=== PATIENT | female | born 1965 | race Caucasian/White ===

== ENCOUNTER → 2016-08-24 | Outpatient (CLI) | payer OTHER ==
[~2016-08-24] MED LIST: /ESCI10TA PO; /HCTZ25TA PO; /QUET10TA PO; ADDE20TA PO; BACL10TA2 PO; CLON0.5T PO; COLA100C PO; CYMB1CAP5 PO; FENO145T PO; GABA100C PO; GEMF600T PO; HYDR-3363 PO; INSUDET SC; INSUH10VL INJ; K-TA10TA2 PO; LIPI80TA PO; LOSA25TA8 PO; LYRI300C PO; LYRI75CA PO; MORP15TA2 PO; NUCY100T11 PO; OXYC15TA76 PO; OXYC1TAB23 PO; OXYC5TAB2 PO; PAXI20TA3 PO; PRAZ1CAP PO; REQU5TAB PO; SERO200T PO; SERT-141 PO; SOMA350T PO; TOPA50TA PO; ULTR50TA PO; VITA500047 PO; XANA0.5T PO; ZANA4TAB PO; ZOLO50TA PO; potassium PO
--- NOTE | 2016-09-01 00:31 | ECWPNPC ---
PATIENT NAME: KOFFI TURCIOS : 1965 GENDER: FEMALE VISIT DATE: 08/24/2016 DISCHARGE DATE: 08/24/16 1445 VISIT LOCKED DATE TIME: PHYSICIAN: VONNIE YEBOAH RESOURCE: VONNIE YEBOAH REASON FOR APPOINTMENT 1. BACK/LEG HISTORY OF PRESENT ILLNESS HISTORY OF PRESENT ILLNESS: PAIN THE PATIENT DESCRIBES THE PAIN... THE PATIENT DESCRIBES THE PAIN... THE PATIENT DESCRIBES THE PAIN... THE PATIENT DESCRIBES THE PAIN... THE PATIENT DESCRIBES THE PAIN... HERE FOR F/U AND MANAGEMENT OF GENERALIZED BACK PAIN AND BILAT. LEG PAIN.RATING PAIN VAS 5/10. CURRENTLY USING OXYCODONE 5/325,LYRICA 200MG BID AND ZANAFLEX 4MG PRN FOR SEVERE PAIN.CONTINUES SEVERE MUSCLE SPASMS IN LEGS DESPITE ZANAFLEX. TRIALED REQUIP AND NO IMPROVEMENT IN PAIN.TODAY REPORTS SEVERE INCREASE IN RIGHT LEG AND THIGH TODAY X ONE WEEK PAIN AGGREVATED BY PROLONGED SITTING OR STANDING. FALLING FREQUENTLY LATELY.FEELS LEGS BECOME WEAK. FALL RISK SCREENING: SCREENING :NO FALLS IN THE PAST YEAR CURRENT MEDICATIONS TAKING CYMBALTA 60 MG 1 TABLET PO ONCE DAILY TAKING FENOFIBRATE 145 MG TABLET 1 TABLET ORALLY ONCE A DAY TAKING HYDROCHLOROTHIAZIDE 25 25 MG TABLET ORAL ONCE DAILY TAKING NOVOLOG MIX 1 INJECTION 1 SUBCUTANEOUSLY ON SLIDING SCALE TAKING LOSARTAN/AMLODIPINE 25 MG 1 TAB ORAL ONCE DAILY TAKING POTASSIUM CHLORIDE 20 TABLET P.O. DAILY TAKING VITAMIN D (ERGOCALCIFEROL) 28522 UNIT CAPSULE 1 CAPSULE ORALLY WEEKLY TAKING METFORMIN 1 TAB 1000 MG ORAL BID TAKING TOUJEO INSULIN INJECTION 300 ML 90 UNITS TWICE DAILY TAKING LYRICA 200 MG CAPSULE 1 CAPSULE ORALLY TWICE A DAY MDD2 TAKING COLACE 100 MG CAPSULE 1 CAPSULE NEEDED ORALLY BID, NOTES: O TAKING PERCOCET 5-325 MG TABLET 1 TABLET NEEDED ORALLY Q4-6H MDD5 TAKING ZANAFLEX 4 MG TABLET 1 TABLET NEEDED ORALLY Q8H PRN MUSCLE SPASM PAIN TAKING JARDIANCE 25 MG TABLET 1 TABLET ORALLY ONCE A DAY TAKING ESCITALOPRAM OXALATE 10 MG TABLET 1 TABLET ORALLY ONCE A DAY TAKING TANZEUM 30 MG PEN-INJECTOR SUBCUTANEOUS NOT-TAKING VITAMIN D 83410 U TABLET ORALLY WEEKLY NOT-TAKING ATARAX TABLET ORAL NOT-TAKING LEVEMIR FLEX TOUCH 99 INJECTION SQ QHS NOT-TAKING LEVEMIR FLEX TOUCH 90 INJECTION UNITS SQ QD NOT-TAKING CUSTOM DO NOT USE OXYCODONE 5.325 MG TABLETS 1 CAP(S) P.O. EVERY 4-6 HOURS NEEDED FOR PAIN, MAXIMUM 5 TABLETS PER DAY NOT-TAKING ZOLOFT 100 MG TABLET 1 TABLET ORALLY ONCE A DAY NOT-TAKING ZOLOFT 100 MG TABLET 1 TABLET ORALLY ONCE A DAY MEDICATION LIST REVIEWED AND RECONCILED WITH THE PATIENT PAST MEDICAL HISTORY DIABETES MALLITUS DEPRESSION ANXIETY PTSD BACK PAIN LEG PAIN SOCIAL ANXIETY ADHD ALLERGIES SULFA (FOR ALLERGY USE ONLY): HIVES: ALLERGY MORPHINE SULFATE: INCREASED ANXIETY: ALLERGY SOCIAL HISTORY GENERAL: TOBACCO USE ARE YOU A:NONSMOKER LEARNING BARRIERS / SPECIAL NEEDS ORIENTED TO PLAN OF CARE: PATIENT, PAIN MANAGEMENT PATIENT, ORIENTED TO PLAN OF CARE: PATIENT, PAIN MANAGEMENT PATIENT. NEW PATIENT PAIN DIARY TODAY'S VISITNOTES FROM 0-10, WHAT LEVEL IS YOUR PAIN TODAY?0 PAIN CLINIC PFS, CLERGY, PUBLIC HEALTH REFERRALS PFS REFERRAL NEEDED?NO CLERGY REFERRAL NEEDED?NO PUBLIC HEALTH REFERRAL NEEDED?NO WAS THE PROVIDER NOTIFIED OF ANY PERTINENT INFO?NO PFS REFERRAL NEEDED?NO CLERGY REFERRAL NEEDED?NO PUBLIC HEALTH REFERRAL NEEDED?NO WAS THE PROVIDER NOTIFIED OF ANY PERTINENT INFO?NO REVIEW OF SYSTEMS CONSTITUTIONAL: ANY CHANGE IN YOUR MEDICAL CONDITION? NO . CHILLS NO . FEVER NO . INFECTION: DO YOU HAVE NEW INFECTIONS? NO . DO YOU HAVE HISTORY OF MRSA? NO . MUSCULOSKELETAL: ANY NEW PATTERNS OF PAIN OR NUMBNESS? YES NUMBNESS GOING DOWN TO MY TOES NOW . GASTROENTEROLOGY: ANY NEW CHANGE IN BOWEL CONTROL? NO . GENITOURINARY: ANY NEW CHANGE IN BLADDER CONTROL? NO . IS THERE A CHANCE YOU COULD BE ? NO . HEMATOLOGY/LYMPH: DO YOU TAKE ANY BLOOD THINNERS? (FOR EXAMPLE- COUMADIN, PLAVIX, AGGRENOX, PLATEL, PRADAXA, OR XARELTO) NO . WHEN WAS YOUR LAST DOSE? DATE: TIME: . NEUROLOGY: HAVE YOU FALLEN IN THE PAST 6 MONTHS? YES . ANY NEW EXTREMITY NUMBNESS OR WEAKNESS? NO . CARDIOLOGY: DO YOU HAVE A PACEMAKER OR DEFIBRILLATOR? NO . RESPIRATORY: HAVE YOU BEEN SICK IN THE PAST WEEK? NO . FEVER NO . FLU LIKE SYMPTOMS? NO . COUGH NO . INTEGUMENTARY: DO YOU HAVE ANY RASHES OR OPEN SORES? NO . ALLERGIC/IMMUNO: ARE YOU ALLERGIC TO SHELLFISH OR IV DYE? NO . ANY NEW ALLERGIES? NO . PSYCHIATRIC: DO YOU HAVE THOUGHTS OF HURTING YOURSELF OR SOMEONE ELSE? NO . ARE YOU ABUSED, NEGLECTED, OR IN AN UNSAFE ENVIRONMENT? NO . ENDOCRINOLOGY: ARE YOU DIABETIC? YES NEW MEDICATIONS ADDED THIS VISIT . OTHER: DO YOU NEED ANY PRESCRIPTIONS? NO . IF YES, PLEASE LIST: ____ . ANY NEW PROBLEMS WITH YOUR MEDICATIONS? NO . WHEN DID YOU LAST EAT? ____ . WHEN DID YOU LAST DRINK? ____ . WHAT DID YOU LAST DRINK? ____ . NAME OF PERSON DRIVING YOU HOME? ____ . DO YOU HAVE ANY OTHER QUESTIONS OR CONCERNS NO . REVIEWED BY: PROVIDER: VONNIE SINGH . VITAL SIGNS WT 225 LBS, HT 63.5", BMI 39.23 INDEX, BP 152/72 MM HG, HR 110 /MIN, RR 18 /MIN, TEMP 97 F,6 F, OXYGEN SAT % 96, REVIEWED BY: KG. EXAMINATION LUMBAR SPINE/LOWER BACK: LOWER BACK:THERE IS TENDERNESS AT LOWER BACK AND THE PARA SPINAL MUSCLE GROUP. INSPECTION:LIMITED RANGE OF MOTION IN ALL DIRECTIONS; STANDING FORWARD. PALPATION:VERTEBRAL SPINE TENDERNESS.SPECIFIC POINT TENDERNESS OVER RSIJ NOTED.. SENSORY EXAM:NORMAL SOFT TOUCH. REFLEXES:2/4 AND SYMMETRIC BLE. GAIT:NORMAL. ASSESSMENTS CHRONIC BILATERAL LOW BACK PAIN WITH RIGHT-SIDED SCIATICA - M54.41 (PRIMARY) DIABETIC PERIPHERAL ANGIOPATHY - E11.51 CHRONIC PRESCRIPTION OPIATE USE - Z79.891 TREATMENT CHRONIC BILATERAL LOW BACK PAIN WITH RIGHT-SIDED SCIATICA REFILL ZANAFLEX CAPSULE, 6 MG, 1 TABLET NEEDED, ORALLY, Q8H PRN MUSCLE SPASM PAIN, 30 DAY(S), 90, REFILLS 2 REFILL PERCOCET TABLET, 5-325 MG, 1 TABLET NEEDED, ORALLY, Q4-6H MDD5, 30 DAY(S), 150, REFILLS 0 CONTINUE COLACE CAPSULE, 100 MG, 1 CAPSULE NEEDED, ORALLY, BID, NOTES: O NOTES: ISTOP REGISTRY REVIEWED AND DEMNOSTRATES COMPLLIANCE. BRINGS IN MEDICATIONS WHICH IS APPROPRIATE FOR WHAT WAS DISPENSED. RECENT URINE TOXICOLOGY REVIEWED. NO UNAUTHORIZED MEDICATIONS. NO ILLICIT SUBSTANCES AND PRESCRIBED MEDICATIONS WERE PRESENT. , RISKS AND BENEFITS OF NARCOTIC/OPIOD MEDICATIONS WERE REVIEWED WITH PATIENT - THIS INCLUDES BUT IS NOT LIMITED TO RISK OF DEPENDANCE/DEVELOPMENT OF ADDICTION, MOOD DISTURBANCE AND DEPRESSION, OSTEOPOROSIS, HORMONAL AND LABIDAL CHANGES, RESPIRATORY DEPRESSION AND . PATIENT IS ADVISED NOT TO DRIVE WHILE ON THESE MEDICATIONS.URINE TOX TODAY. PROCEDURE CODES FA211 ESTABILISHED PATIENT [facility] CHARGE DISPOSITION & COMMUNICATION FOLLOW UP 3 MONTHS ELECTRONICALLY SIGNED BY SAMANTHA LARES ON 08/30/2016 AT 05:03 PM EST DISCLAIMER : THIS IS A VISIT SUMMARY EXTRACTED FROM THE [employer] CHART. IT IS NOT A COPY OF THE [employer] PROGRESS NOTE. ROSSY
== END ==
LOC: M PAIN 14:20
PROVIDERS: ATTEND Nurse Practitioner Family
DX: M54.41 Lumbago with sciatica, right side (principal); E11.51 Type 2 diabetes mellitus with diabetic peripheral angiopathy without gangrene; G89.29 Other chronic pain; Z79.891 Long term (current) use of opiate analgesic; Z79.4 Long term (current) use of insulin; Z79.84 Long term (current) use of oral hypoglycemic drugs; F32.9 Major depressive disorder, single episode, unspecified; F41.9 Anxiety disorder, unspecified; F43.10 Post-traumatic stress disorder, unspecified; F90.9 Attention-deficit hyperactivity disorder, unspecified type; Z88.2 Allergy status to sulfonamides; Z88.5 Allergy status to narcotic agent

== ENCOUNTER → 2016-12-29 | Outpatient (CLI) | payer OTHER ==
[~2016-12-29] MED LIST changes: -COLA100C PO; +COLA100C3 PO
--- NOTE | 2016-12-30 00:23 | ECWPNPC ---
PATIENT NAME: KOFFI TURCIOS : 1965 GENDER: FEMALE VISIT DATE: 12/29/2016 DISCHARGE DATE: 12/29/16 0939 VISIT LOCKED DATE TIME: PHYSICIAN: VONNIE YEBOAH RESOURCE: VONNIE YEBOAH REASON FOR APPOINTMENT 1. BACK HISTORY OF PRESENT ILLNESS HISTORY OF PRESENT ILLNESS: PAIN THE PATIENT DESCRIBES THE PAIN... THE PATIENT DESCRIBES THE PAIN... THE PATIENT DESCRIBES THE PAIN... THE PATIENT DESCRIBES THE PAIN... THE PATIENT DESCRIBES THE PAIN... THE PATIENT DESCRIBES THE PAIN... PAIN THE PATIENT DESCRIBES THE PAIN... THE PATIENT DESCRIBES THE PAIN... THE PATIENT DESCRIBES THE PAIN... THE PATIENT DESCRIBES THE PAIN... THE PATIENT DESCRIBES THE PAIN... THE PATIENT DESCRIBES THE PAIN... HERE FOR F/U AND MANAGEMENT OF GENERALIZED BACK PAIN AND BILAT. LEG PAIN.RATING PAIN VAS 5/10. CURRENTLY USING OXYCODONE 5/325,LYRICA 200MG BID AND ZANAFLEX 4MG PRN FOR SEVERE PAIN.CONTINUES SEVERE MUSCLE SPASMS IN LEGS DESPITE ZANAFLEX. TRIALED REQUIP AND NO IMPROVEMENT IN PAIN.TODAY REPORTS SEVERE INCREASE IN RIGHT LEG AND THIGH TODAY X ONE WEEK PAIN AGGREVATED BY PROLONGED SITTING OR STANDING. FALLING FREQUENTLY LATELY.FEELS LEGS BECOME WEAK. FALL RISK SCREENING: SCREENING :NO FALLS IN THE PAST YEAR CURRENT MEDICATIONS TAKING CYMBALTA 60 MG 1 TABLET PO ONCE DAILY TAKING FENOFIBRATE 145 MG TABLET 1 TABLET ORALLY ONCE A DAY TAKING HYDROCHLOROTHIAZIDE 25 25 MG TABLET ORAL ONCE DAILY TAKING NOVOLOG MIX 1 INJECTION 1 SUBCUTANEOUSLY ON SLIDING SCALE TAKING LOSARTAN/AMLODIPINE 25 MG 1 TAB ORAL ONCE DAILY TAKING POTASSIUM CHLORIDE 20 TABLET 1 TAB P.O. DAILY TAKING VITAMIN D (ERGOCALCIFEROL) 30561 UNIT CAPSULE 1 CAPSULE ORALLY WEEKLY TAKING METFORMIN 2 TAB 1000 MG ORAL BID TAKING TOUJEO INSULIN INJECTION 300 ML 90 UNITS TWICE DAILY TAKING JARDIANCE 25 MG TABLET 1 TABLET ORALLY ONCE A DAY TAKING ESCITALOPRAM OXALATE 10 MG TABLET 1 TABLET ORALLY ONCE A DAY TAKING TANZEUM 50 MG PEN-INJECTOR SUBCUTANEOUS EVERY MONDAY TAKING COLACE 100 MG CAPSULE 1 CAPSULE NEEDED ORALLY BID TAKING LYRICA 200 MG CAPSULE 1 CAPSULE ORALLY TWICE A DAY MDD2 TAKING PERCOCET 5-325 MG TABLET 1 TABLET NEEDED ORALLY Q4-6H MDD5 TAKING TIZANIDINE HCL 4 MG TABLET 2 ORALLY THREE TIMES A DAY NOT-TAKING VITAMIN D 95904 U TABLET ORALLY WEEKLY NOT-TAKING ATARAX TABLET ORAL NOT-TAKING LEVEMIR FLEX TOUCH 99 INJECTION SQ QHS NOT-TAKING LEVEMIR FLEX TOUCH 90 INJECTION UNITS SQ QD NOT-TAKING CUSTOM DO NOT USE OXYCODONE 5.325 MG TABLETS 1 CAP(S) P.O. EVERY 4-6 HOURS NEEDED FOR PAIN, MAXIMUM 5 TABLETS PER DAY NOT-TAKING ZOLOFT 100 MG TABLET 1 TABLET ORALLY ONCE A DAY NOT-TAKING ZOLOFT 100 MG TABLET 1 TABLET ORALLY ONCE A DAY MEDICATION LIST REVIEWED AND RECONCILED WITH THE PATIENT PAST MEDICAL HISTORY DIABETES MALLITUS DEPRESSION ANXIETY PTSD BACK PAIN LEG PAIN SOCIAL ANXIETY ADHD ALLERGIES SULFA (FOR ALLERGY USE ONLY): HIVES: ALLERGY MORPHINE SULFATE: INCREASED ANXIETY: ALLERGY SOCIAL HISTORY GENERAL: TOBACCO USE ARE YOU A:NONSMOKER LEARNING BARRIERS / SPECIAL NEEDS ORIENTED TO PLAN OF CARE: PATIENT, PAIN MANAGEMENT PATIENT, ORIENTED TO PLAN OF CARE: PATIENT, PAIN MANAGEMENT PATIENT. NEW PATIENT PAIN DIARY TODAY'S VISITNOTES FROM 0-10, WHAT LEVEL IS YOUR PAIN TODAY?0 PAIN CLINIC PFS, CLERGY, PUBLIC HEALTH REFERRALS PFS REFERRAL NEEDED?NO CLERGY REFERRAL NEEDED?NO PUBLIC HEALTH REFERRAL NEEDED?NO WAS THE PROVIDER NOTIFIED OF ANY PERTINENT INFO?NO HAS THE PATIENT BEEN EDUCATED REGARDING HIS/HER PLAN OF CARE?YES HAS THE PATIENT BEEN EDUCATED REGARDING PAIN, THE RISK FOR PAIN, THE IMPORTANCE OF EFFECTIVE PAIN MANAGEMENT, AND THE PAIN ASSESSMENT PROCESS?YES REVIEW OF SYSTEMS CONSTITUTIONAL: ANY CHANGE IN YOUR MEDICAL CONDITION? NO . CHILLS NO . FEVER NO . INFECTION: DO YOU HAVE NEW INFECTIONS? NO . DO YOU HAVE HISTORY OF MRSA? NO . MUSCULOSKELETAL: ANY NEW PATTERNS OF PAIN OR NUMBNESS? YES, BURNING IN ANKLES . GASTROENTEROLOGY: ANY NEW CHANGE IN BOWEL CONTROL? NO . GENITOURINARY: ANY NEW CHANGE IN BLADDER CONTROL? NO . IS THERE A CHANCE YOU COULD BE ? NO . HEMATOLOGY/LYMPH: DO YOU TAKE ANY BLOOD THINNERS? (FOR EXAMPLE- COUMADIN, PLAVIX, AGGRENOX, PLATEL, PRADAXA, OR XARELTO) NO . WHEN WAS YOUR LAST DOSE? DATE: TIME: . NEUROLOGY: HAVE YOU FALLEN IN THE PAST 6 MONTHS? YES . ANY NEW EXTREMITY NUMBNESS OR WEAKNESS? NO . CARDIOLOGY: DO YOU HAVE A PACEMAKER OR DEFIBRILLATOR? NO . RESPIRATORY: HAVE YOU BEEN SICK IN THE PAST WEEK? NO . FEVER NO . FLU LIKE SYMPTOMS? NO . COUGH NO . INTEGUMENTARY: DO YOU HAVE ANY RASHES OR OPEN SORES? YES, 2 AREAS ON RIGHT THIGH AND SPOT ON LEFT ANKLE . ALLERGIC/IMMUNO: ARE YOU ALLERGIC TO SHELLFISH OR IV DYE? NO . ANY NEW ALLERGIES? NO . PSYCHIATRIC: DO YOU HAVE THOUGHTS OF HURTING YOURSELF OR SOMEONE ELSE? NO . ARE YOU ABUSED, NEGLECTED, OR IN AN UNSAFE ENVIRONMENT? NO . ENDOCRINOLOGY: ARE YOU DIABETIC? YES . OTHER: DO YOU NEED ANY PRESCRIPTIONS? YES . IF YES, PLEASE LIST: OXYCODONE NEED FILLED ON THE . ANY NEW PROBLEMS WITH YOUR MEDICATIONS? NO . WHEN DID YOU LAST EAT? ____ . WHEN DID YOU LAST DRINK? ____ . WHAT DID YOU LAST DRINK? ____ . NAME OF PERSON DRIVING YOU HOME? ____ . DO YOU HAVE ANY OTHER QUESTIONS OR CONCERNS YES, &QUOT;I HAVE BURNING IN MY ANKLES FEEL LIKE FIRE&QUOT; . REVIEWED BY: PROVIDER: VONNIE SINGH . VITAL SIGNS WT 221.6 LBS, HT 63.5", BMI 38.63 INDEX, BP 160/89 MM HG, HR 105 /MIN, RR 18 /MIN, TEMP 97.5 F, OXYGEN SAT % 95%, REVIEWED BY: HOME (DONE AT 0854). EXAMINATION LUMBAR SPINE/LOWER BACK: LOWER BACK:THERE IS TENDERNESS AT LOWER BACK AND THE PARA SPINAL MUSCLE GROUP. INSPECTION:LIMITED RANGE OF MOTION IN ALL DIRECTIONS; STANDING FORWARD. PALPATION:VERTEBRAL SPINE TENDERNESS.SPECIFIC POINT TENDERNESS OVER RSIJ NOTED.. SENSORY EXAM:NORMAL SOFT TOUCH. REFLEXES:2/4 AND SYMMETRIC BLE. GAIT:NORMAL. SKIN EXAM: EXTREMITIES:RIGHT LEG/THIGH-2-3 , ERYTHEMATOUS PATCH WITH SCALY SURFACE 3CM CIRCULAR. GENERAL EXAMINATION: BACK:MULTIPLE AREAS OF TENDER SPOTS OVER ENTIRE BODY,UPPER AND LOWER TORSO INDICATIVE OF FIBROMYALGIA.. 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 BRINGS IN MEDICATIONS WHICH IS APPROPRIATE FOR WHAT WAS DISPENSED. RECENT URINE TOXICOLOGY REVIEWED. NO UNAUTHORIZED MEDICATIONS. NO ILLICIT SUBSTANCES AND PRESCRIBED MEDICATIONS WERE PRESENT. , RISKS AND BENEFITS OF NARCOTIC/OPIOD MEDICATIONS WERE REVIEWED WITH PATIENT - THIS INCLUDES BUT IS NOT LIMITED TO RISK OF DEPENDANCE/DEVELOPMENT OF ADDICTION, MOOD DISTURBANCE AND DEPRESSION, OSTEOPOROSIS, HORMONAL AND LABIDAL CHANGES, RESPIRATORY DEPRESSION AND . PATIENT IS ADVISED NOT TO DRIVE WHILE ON THESE MEDICATIONS. LABWORK-MONICA,RHEUMATOID FACTOR,LUPUS ANTICOAGULANT,ESR,FREE T4,LYME TITER. PREVENTIVE MEDICINE PAIN CLINIC TEACHING: MEDICATIONS INFORMATION GIVEN ABOUT AMITRIPTYLINE. PROCEDURE CODES FA211 ESTABILISHED PATIENT [facility] CHARGE DISPOSITION & COMMUNICATION FOLLOW UP 2 MONTHS ELECTRONICALLY SIGNED BY SAMANTHA LARES ON 12/29/2016 AT 10:34 AM EDT DISCLAIMER : THIS IS A VISIT SUMMARY EXTRACTED FROM THE [employer] CHART. IT IS NOT A COPY OF THE [employer] PROGRESS NOTE. ROSSY
== END ==
LOC: M PAIN 09:00
PROVIDERS: ATTEND Nurse Practitioner Family
DX: G89.29 Other chronic pain (principal); M54.41 Lumbago with sciatica, right side; E11.42 Type 2 diabetes mellitus with diabetic polyneuropathy; M79.7 Fibromyalgia; M79.604 Pain in right leg; M79.605 Pain in left leg; F32.9 Major depressive disorder, single episode, unspecified; F41.9 Anxiety disorder, unspecified; F43.10 Post-traumatic stress disorder, unspecified; F40.10 Social phobia, unspecified; F90.9 Attention-deficit hyperactivity disorder, unspecified type; Z88.2 Allergy status to sulfonamides; Z88.5 Allergy status to narcotic agent; Z79.4 Long term (current) use of insulin; Z79.84 Long term (current) use of oral hypoglycemic drugs; Z79.891 Long term (current) use of opiate analgesic; Z79.899 Other long term (current) drug therapy

== ENCOUNTER → 2016-12-29 | Outpatient (CLI) | payer OTHER ==
[~2016-12-29] MED LIST changes: -COLA100C3 PO; +COLA100C5 PO
[2016-12-29 11:01] LABS: FREE T4 0.97 NG/DL (0.76-1.46)
[2016-12-31 14:11] LABS: Lyme Disease IgG/IgM Antibodie <0.91 ISR (0.00-0.90); Lyme Disease IgM Ab Quantitati <0.80 index (0.00-0.79)
== END ==
LOC: M LAB 10:05
PROVIDERS: ATTEND Nurse Practitioner Family
DX: M79.7 Fibromyalgia (principal); M54.41 Lumbago with sciatica, right side

== ENCOUNTER → 2017-10-09 | Outpatient (CLI) | payer OTHER | LOC: M PAIN 09:00 | DX: M54.41 Lumbago with sciatica, right side (principal); M79.7 Fibromyalgia; E11.9 Type 2 diabetes mellitus without complications; F32.9 Major depressive disorder, single episode, unspecified; F40.10 Social phobia, unspecified; F43.10 Post-traumatic stress disorder, unspecified; Z79.4 Long term (current) use of insulin; Z79.891 Long term (current) use of opiate analgesic; Z79.899 Other long term (current) drug therapy; Z88.2 Allergy status to sulfonamides; Z88.5 Allergy status to narcotic agent | CPT/HCPCS: G0463 ==

== ENCOUNTER → 2017-11-10 | Outpatient (CLI) | payer OTHER | END | disposition home or self-care (01) | LOC: M PAIN 10:30 | DX: G89.29 Other chronic pain (principal); M54.41 Lumbago with sciatica, right side; M79.7 Fibromyalgia; E11.9 Type 2 diabetes mellitus without complications; F33.9 Major depressive disorder, recurrent, unspecified; F41.9 Anxiety disorder, unspecified; F43.10 Post-traumatic stress disorder, unspecified; F90.9 Attention-deficit hyperactivity disorder, unspecified type; Z79.899 Other long term (current) drug therapy; Z79.4 Long term (current) use of insulin; Z88.2 Allergy status to sulfonamides; Z88.5 Allergy status to narcotic agent | CPT/HCPCS: G0463 ==

== ENCOUNTER → 2018-01-16 | Outpatient (CLI) | payer OTHER | LOC: M PAIN 10:45 | DX: M54.41 Lumbago with sciatica, right side (principal); E11.9 Type 2 diabetes mellitus without complications; F32.9 Major depressive disorder, single episode, unspecified; F40.10 Social phobia, unspecified; F43.10 Post-traumatic stress disorder, unspecified; Z79.01 Long term (current) use of anticoagulants; Z79.4 Long term (current) use of insulin; Z79.899 Other long term (current) drug therapy; Z88.2 Allergy status to sulfonamides; Z88.5 Allergy status to narcotic agent | CPT/HCPCS: G0463 ==

== ENCOUNTER → 2018-03-20 | Outpatient (CLI) | payer OTHER | LOC: M PAIN 08:45 | DX: M54.41 Lumbago with sciatica, right side (principal); M54.2 Cervicalgia; E11.9 Type 2 diabetes mellitus without complications; F32.9 Major depressive disorder, single episode, unspecified; F40.10 Social phobia, unspecified; F43.10 Post-traumatic stress disorder, unspecified; Z79.4 Long term (current) use of insulin; Z79.899 Other long term (current) drug therapy; Z88.2 Allergy status to sulfonamides; Z88.5 Allergy status to narcotic agent | CPT/HCPCS: G0463 ==

== ENCOUNTER → 2018-05-21 | Outpatient (CLI) | payer OTHER | LOC: M PAIN 08:45 | DX: M54.41 Lumbago with sciatica, right side (principal); E11.9 Type 2 diabetes mellitus without complications; F32.9 Major depressive disorder, single episode, unspecified; F40.10 Social phobia, unspecified; F43.10 Post-traumatic stress disorder, unspecified; Z79.4 Long term (current) use of insulin; Z79.82 Long term (current) use of aspirin; Z79.899 Other long term (current) drug therapy; Z88.2 Allergy status to sulfonamides; Z88.5 Allergy status to narcotic agent | CPT/HCPCS: G0463 ==

== ENCOUNTER 2018-06-03 13:58 | Emergency (ER) | payer OTHER ==
[2018-06-03] MEDS: NS 500 ML IV ×2 (15:12)
[2018-06-03] MEDS: NALOXONE INJ 0.4 MG/1 ML VIAL (J2310) IV ×2 (15:17)
[2018-06-03] MEDS: fentaNYL 100 MCG/2 ML INJECTION (J3010) IV ×2 (17:15)
[2018-06-03] MEDS: ONDANSETRON 4MG/2ML VIAL (J2405) IV ×2 (17:15)
== END 2018-06-03 17:34 | disposition short-term general hospital (02) ==
LOC: M ED 13:58
DX: S93.324A Dislocation of tarsometatarsal joint of right foot, initial encounter (principal); W01.0XXA Fall on same level from slipping, tripping and stumbling without subsequent striking against object, initial encounter; Y92.018 Other place in single-family (private) house as the place of occurrence of the external cause; T40.2X1A Poisoning by other opioids, accidental (unintentional), initial encounter; E11.9 Type 2 diabetes mellitus without complications; I10 Essential (primary) hypertension; K21.9 Gastro-esophageal reflux disease without esophagitis; F33.9 Major depressive disorder, recurrent, unspecified; F41.9 Anxiety disorder, unspecified; F90.9 Attention-deficit hyperactivity disorder, unspecified type; Z79.899 Other long term (current) drug therapy; Z79.4 Long term (current) use of insulin; Z88.2 Allergy status to sulfonamides
CPT/HCPCS: J2405

== ENCOUNTER → 2018-09-19 | Outpatient (REF) | payer OTHER ==
[~2018-09-19] MED LIST changes: -CLON0.5T PO; +CLON0.5T8 PO; -GEMF600T PO; +GEMF600T5 PO
[2018-09-19 19:23] LABS: PERCENT SATURATION 20.8 % (13.2-45.0)
== END ==
LOC: M LAB REF 17:26
PROVIDERS: ATTEND Internal Medicine Nephrology
DX: D64.9 Anemia, unspecified (principal)

== ENCOUNTER → 2018-11-01 | Outpatient (CLI) | payer OTHER ==
[~2018-11-01] MED LIST changes: -/ESCI10TA PO; -/HCTZ25TA PO; -/QUET10TA PO; +HYDR-3644 PO; +LEXA1TAB PO; -NUCY100T11 PO; +SERO1TAB PO; +TAPE100T2 PO
--- NOTE | 2018-11-19 00:17 | ECWPNPC ---
PATIENT NAME: KOFFI TURCIOS : 1965 GENDER: FEMALE VISIT DATE: 11/01/2018 DISCHARGE DATE: 11/01/18 1337 VISIT LOCKED DATE TIME: PHYSICIAN: VONNIE YEBOAH RESOURCE: VONNIE YEBOAH REASON FOR APPOINTMENT 1. BACK HISTORY OF PRESENT ILLNESS HISTORY OF PRESENT ILLNESS: PAIN THE PATIENT DESCRIBES THE PAIN... THE PATIENT DESCRIBES THE PAIN... THE PATIENT DESCRIBES THE PAIN... THE PATIENT DESCRIBES THE PAIN... THE PATIENT DESCRIBES THE PAIN... THE PATIENT DESCRIBES THE PAIN... PAIN THE PATIENT DESCRIBES THE PAIN... THE PATIENT DESCRIBES THE PAIN... THE PATIENT DESCRIBES THE PAIN... THE PATIENT DESCRIBES THE PAIN... THE PATIENT DESCRIBES THE PAIN... THE PATIENT DESCRIBES THE PAIN... HERE FOR F/U AND MANAGEMENT OF GENERALIZED BACK PAIN AND BILAT. LEG PAIN.RATING PAIN VAS 6/10. CURRENTLY USING OXYCODONE 5/325,LYRICA 300MG BID AND ZANAFLEX 4MG PRN FOR SEVERE PAIN.FINDS MEDICATION EFFECTIVE AT REDUCING PAIN AND KEEPING HER COMFORTABLE. FALL RISK SCREENING: SCREENING :NO FALLS REPORTED IN THE LAST YEAR CURRENT MEDICATIONS TAKING FENOFIBRATE 145 MG TABLET 1 TABLET ORALLY ONCE A DAY TAKING LEVEMIR FLEX TOUCH 90 INJECTION UNITS SQ QD TAKING NOVOLOG MIX 1 INJECTION 1 SUBCUTANEOUSLY ON SLIDING SCALE TAKING LOSARTAN/AMLODIPINE 25 MG 1 TAB ORAL ONCE DAILY TAKING METFORMIN 2 TAB 1000 MG ORAL BID TAKING TANZEUM 50 MG PEN-INJECTOR SUBCUTANEOUS EVERY MONDAY TAKING LEVEMIR FLEX TOUCH 99 INJECTION SQ QHS TAKING CYMBALTA 60 MG 1 TABLET PO ONCE DAILY TAKING PAXIL 10 MG TABLET 1 TABLET IN THE MORNING ORALLY ONCE A DAY TAKING VITAMIN D (ERGOCALCIFEROL) 73157 UNIT CAPSULE 1 CAPSULE ORALLY WEEKLY TAKING ATARAX TABLET NEEDED ORAL DAILY TAKING ASPIRIN 81 81 MG TABLET CHEWABLE 1 TABLET ORALLY ONCE A DAY TAKING AMITRIPTYLINE HCL 25 MG TABLET 1-2 ORALLY ONCE A DAY AT NIGHT TAKING COLACE 100 MG CAPSULE 1 CAPSULE NEEDED ORALLY BID TAKING TIZANIDINE HCL 4 MG TABLET 2 TAB ORALLY THREE TIMES A DAY TAKING LYRICA 300 MG CAPSULE 1 CAPSULE ORALLY BID MDD2 TAKING PERCOCET 5-325 MG TABLET 1 TABLET NEEDED ORALLY Q4-6H MDD5 TAKING CYMBALTA 30 MG CAPSULE DELAYED RELEASE PARTICLES 1 CAPSULE ORALLY BEFORE BEDTIME NOT-TAKING POTASSIUM CHLORIDE 20 TABLET 1 TAB P.O. DAILY NOT-TAKING MICHAEL INSULIN INJECTION 300 ML 90 UNITS TWICE DAILY NOT-TAKING BUSPAR 10 MG TABLET 1 TABLET ORALLY TWICE A DAY NOT-TAKING VITAMIN D 37417 U TABLET ORALLY WEEKLY NOT-TAKING JARDIANCE 25 MG TABLET 1 TABLET ORALLY ONCE A DAY NOT-TAKING ESCITALOPRAM OXALATE 10 MG TABLET 1 TABLET ORALLY ONCE A DAY NOT-TAKING ZOLOFT 100 MG TABLET 1 TABLET ORALLY ONCE A DAY NOT-TAKING ZOLOFT 100 MG TABLET 1 TABLET ORALLY ONCE A DAY MEDICATION LIST REVIEWED AND RECONCILED WITH THE PATIENT PAST MEDICAL HISTORY DIABETES MALLITUS DEPRESSION ANXIETY PTSD BACK PAIN LEG PAIN SOCIAL ANXIETY ADHD ALLERGIES SULFA (FOR ALLERGY USE ONLY): HIVES - ALLERGY MORPHINE SULFATE: INCREASED ANXIETY - ALLERGY SURGICAL HISTORY CHOLECYSTECTOMY APPENDECTOMY C SECTION 1988 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 SISTER - CANCER SINUS CAVITY. SOCIAL HISTORY GENERAL: TOBACCO USE ARE YOU A: NONSMOKER . LATEX QUESTIONNAIRE LATEX ALLERGY : HAVE YOU EVER DEVELOPED ANY TYPE OF REACTION AFTER HANDLING LATEX PRODUCTS SUCH RUBBER GLOVES, CONDOMS, DIAPHRAGMS, BALLOONS, SOCKS, OR UNDERWEAR?NO LATEX ALLERGY : HAVE YOU EVER DEVELOPED ANY TYPE OF REACTION DURING OR AFTER DENTAL APPOINTMENT, VAGINAL/RECTAL EXAMINATION, SURGICAL PROCEDURE, OR ANY OTHER EXPOSURE?NO LATEX RISK : HAVE YOU EVER HAD ANY DIFFICULTY BREATHING OR HIVES AFTER EATING OR HANDLING ANY FRUITS, OR VEGETABLES; SUCH KIWI, BANANAS, STONE FRUITS, OR CHESTNUTSNO LATEX RISK : DO YOU HAVE A PREVIOUS PERSONAL HISTORY OF MORE THAN NINE SURGERIES, SPINA BIFIDA, OR REPEATED CATHERTIZATIONS? NO LATEX RISK : ARE YOU FREQUENTLY EXPOSED TO LATEX PRODUCTS IN YOUR OCCUPATION?NO DATE ASKED : 11/01/2018 RECREATIONAL DRUG USE DRUG USE?NO CAFFEINE CAFFEINE USE?YES HOW OFTEN AND HOW MUCH? 1 CUP DAY - SODA CONSTANTLY TAOIST [id number] JAIN LANGUAGE LANGUAGES SPOKEN:BRIT[place] V[place] ISLANDER LEARNING BARRIERS / SPECIAL NEEDS ORIENTED TO PLAN OF CARE: PATIENT, PAIN MANAGEMENT PATIENT, ORIENTED TO PLAN OF CARE: PATIENT, PAIN MANAGEMENT PATIENT. DIET: REGULAR. MARITAL STATUS: . NEW PATIENT PAIN DIARY TODAY'S VISIT NOTES, FROM 0-10, WHAT LEVEL IS YOUR PAIN TODAY? 0. PAIN CLINIC PFS, CLERGY, PUBLIC HEALTH REFERRALS PFS REFERRAL NEEDED?NO CLERGY REFERRAL NEEDED?NO PUBLIC HEALTH REFERRAL NEEDED?NO WAS THE PROVIDER NOTIFIED OF ANY PERTINENT INFO?YES HAS THE PATIENT BEEN EDUCATED REGARDING HIS/HER PLAN OF CARE?YES HAS THE PATIENT BEEN EDUCATED REGARDING PAIN, THE RISK FOR PAIN, THE IMPORTANCE OF EFFECTIVE PAIN MANAGEMENT, AND THE PAIN ASSESSMENT PROCESS?YES ADVANCE DIRECTIVE ADVANCE DIRECTIVE DISCUSSED WITH PATIENT:YES PATIENT DECLINED HCP INFORMATION. REVIEWED WITH PATIENT 11/01/18 1307 JS. HOSPITALIZATION/MAJOR DIAGNOSTIC PROCEDURE SURGERIES REVIEW OF SYSTEMS REVIEWED BY: PROVIDER: VONNIE SINGH . CONSTITUTIONAL: ANY CHANGE IN YOUR MEDICAL CONDITION? NO . CHILLS NO . FEVER NO . INFECTION: DO YOU HAVE NEW INFECTIONS? NO . DO YOU HAVE HISTORY OF MRSA? NO . MUSCULOSKELETAL: ANY NEW PATTERNS OF PAIN OR NUMBNESS? NO . GASTROENTEROLOGY: ANY NEW CHANGE IN BOWEL CONTROL? NO . GENITOURINARY: ANY NEW CHANGE IN BLADDER CONTROL? NO . IS THERE A CHANCE YOU COULD BE ? NO . HEMATOLOGY/LYMPH: DO YOU TAKE ANY BLOOD THINNERS? (FOR EXAMPLE- COUMADIN, PLAVIX, AGGRENOX, PLATEL, PRADAXA, OR XARELTO) NO . WHEN WAS YOUR LAST DOSE? DATE: TIME: . NEUROLOGY: HAVE YOU FALLEN IN THE PAST 12 MONTHS? YES, PATIENT STATES FALL IN MAY WALKING INTO HER BEDROOM. BROKE HER RIGHT FOOT, HAS HAD 2 SURGERIES SINCE. HAS A WALKING BOOT NOW AND IS USING A WALKER . ANY NEW EXTREMITY NUMBNESS OR WEAKNESS? NO . CARDIOLOGY: DO YOU HAVE A PACEMAKER OR DEFIBRILLATOR? NO . RESPIRATORY: HAVE YOU BEEN SICK IN THE PAST WEEK? NO . FEVER NO . FLU LIKE SYMPTOMS? NO . COUGH NO . INTEGUMENTARY: DO YOU HAVE ANY RASHES OR OPEN SORES? NO . ALLERGIC/IMMUNO: ARE YOU ALLERGIC TO IV DYE? NO . ANY NEW ALLERGIES? YES, MORPHINE . PSYCHIATRIC: DO YOU HAVE THOUGHTS OF HURTING YOURSELF OR SOMEONE ELSE? NO . ARE YOU ABUSED, NEGLECTED, OR IN AN UNSAFE ENVIRONMENT? NO . ENDOCRINOLOGY: ARE YOU DIABETIC? YES . OTHER: DO YOU NEED ANY PRESCRIPTIONS? NO . IF YES, PLEASE LIST: ____ . ANY NEW PROBLEMS WITH YOUR MEDICATIONS? NO . WHEN DID YOU LAST EAT? ____ . WHEN DID YOU LAST DRINK? ____ . WHAT DID YOU LAST DRINK? ____ . NAME OF PERSON DRIVING YOU HOME? ____ . DO YOU HAVE ANY OTHER QUESTIONS OR CONCERNS NO . VITAL SIGNS WT 243.2 LBS, HT 63.5", BMI 42.40 INDEX, BP 128/63 MM HG, HR 104 /MIN, RR 18 /MIN, TEMP 97.4 F, OXYGEN SAT % 97%, SAFE IN ENV? (Y/N) YES, NA INITIALS AW 1305, REVIEWED BY: BORA. EXAMINATION GENERAL EXAMINATION: GENERAL APPEARANCE:AWAKE,ALERT ,PLEAASANT . PSYCHAFFECT NORMAL . LUNGS:LUNG BELTRÁN ARE CLEAR TO AUSCULTATION BILATERALLY. GOOD MOVEMENT OF AIR . HEART:S1, S2 IN A REGULAR RATE AND RHYTHM. NO SIGNIFICANT MURMURS, RUBS OR GALLOPS NOTED . ASSESSMENTS CHRONIC BILATERAL LOW BACK PAIN WITH RIGHT-SIDED SCIATICA - M54.41 (PRIMARY) TREATMENT CHRONIC BILATERAL LOW BACK PAIN WITH RIGHT-SIDED SCIATICA CONTINUE COLACE CAPSULE, 100 MG, 1 CAPSULE NEEDED, ORALLY, BID CONTINUE TIZANIDINE HCL TABLET, 4 MG, 2 TAB, ORALLY, THREE TIMES A DAY CONTINUE LYRICA CAPSULE, 300 MG, 1 CAPSULE, ORALLY, BID MDD2 CONTINUE PERCOCET TABLET, 5-325 MG, 1 TABLET NEEDED, ORALLY, Q4-6H MDD5 NOTES: ISTOP REGISTRY REVIEWED AND DEMONSTRATES COMPLLIANCE.BRINGS IN MEDICATIONS WHICH IS APPROPRIATE FOR WHAT WAS DISPENSED. RECENT URINE TOXICOLOGY REVIEWED. NO UNAUTHORIZED MEDICATIONS. NO ILLICIT SUBSTANCES AND PRESCRIBED MEDICATIONS WERE PRESENT. , [facility] NARCOTIC AGREEMENT WAS REVIEWED UPDATED/AND SIGNED TODAY BY THE PATIENT. SEE ATTACHED DOCUMENT FOR FULL DETAILS; SPECIFIC ISSUES WERE REVIEWED: 1) KEEP PAIN MEDS IN THEIR ORIGINAL BOTTLES AND ANY WEEKLY PLANNERS ARE TO BE BROUGHT TO THE PAIN CENTER AT EVERY VISIT. 2) THE PATIENT IS NOT TO INCREASE DOSING OR TIMING OF THEIR PAIN MEDICATION WITHOUT SPECIFIC DIRECTION OF THEIR PAIN CENTERPROVIDER (NOT ER OR OTHER PROVIDERS). 3) ALL PAIN MEDS ARE TO BE KEPT SECURED, IN A LOCKED BOX. 4) NO PAIN MEDS ARE TO BE SHARED WITH ANY OTHER PERSON FOR ANY REASON. 5) NO PAIN MEDS MAY BE TAKEN FROM ANY FRIENDS OR RELATIVES FOR ANY REASON 6) NO MEDS OR SUBSTANCES WHICH ARE NOT LEGAL ARE TO BE USED- NO MARIJUANA, NO COCAINE, AMPHETAMINES, HEROIN, OR OTHERS ARE EVER TO BE USED. 7)URINE TESTING IS DONE TO ACCOUNT FOR MEDS AND SUBSTANCES BEING TAKEN AND WILL BE DONE RANDOMLY. PROCEDURE CODES FA211 ESTABILISHED PATIENT [facility] CHAR[facility] DISPOS[facility] & COMMUNICATION FOLLOW UP 2 MONTHS ELECTRONICALLY SIGNED BY SAMANTHA TOLENTINO ON 11/18/2018 AT 03:05 PM EDT DISCLAIMER : THIS IS A VISIT SUMMARY EXTRACTED FROM THE [employer] CHART. IT IS NOT A COPY OF THE [employer] PROGRESS NOTE. ROSSY
== END ==
LOC: M PAIN 13:00
PROVIDERS: ATTEND Nurse Practitioner Family
DX: M54.41 Lumbago with sciatica, right side (principal); E11.9 Type 2 diabetes mellitus without complications; Z86.59 Personal history of other mental and behavioral disorders; Z88.2 Allergy status to sulfonamides; Z88.5 Allergy status to narcotic agent; E66.01 Morbid (severe) obesity due to excess calories; Z68.41 Body mass index [BMI] 40.0-44.9, adult; Z79.4 Long term (current) use of insulin; Z79.82 Long term (current) use of aspirin; Z79.899 Other long term (current) drug therapy

== ENCOUNTER → 2018-11-12 | Outpatient (CLI) | payer OTHER ==
[2018-11-12 13:34] LABS: BASO % 0.5 % (0.0-1.0); EOS # 0.1 10^3/uL (0.0-0.50); EOS % 1.9 % (0.0-3.0); HEMATOCRIT 35.5 % (36.0-47.0); HEMOGLOBIN 11.8 g/dl (12.0-15.5); LYMPH # 1.8 10^3/uL (1.5-4.5); LYMPH % 28.1 % (24.0-44.0); MEAN CORPUSCULAR HEMOGLOBIN 28.2 pg (27.0-33.0); MEAN CORPUSCULAR HGB CONC 33.2 g/dl (32.0-36.5); MEAN CORPUSCULAR VOLUME 84.9 fl (80.0-96.0); MONO # 0.3 10^3/uL (0.0-0.8); MONO % 5.4 % (0.0-5.0); NEUTROPHILS % 63.8 % (36.0-66.0); PLATELET COUNT, AUTOMATED 165 10^3/uL (150-450); RED BLOOD COUNT 4.18 10^6/uL (4.00-5.40); WHITE BLOOD COUNT 6.3 10^3/uL (4.0-10.0)
[2018-11-12 13:45] LABS: INR 1.09; PROTHROMBIN TIME 14.2 SECONDS (12.1-14.4)
[2018-11-12 14:09] LABS: ALBUMIN 4.3 GM/DL (3.2-5.2); ALT/SGPT 22 U/L (12-78); BILIRUBIN,DIRECT 0.2 MG/DL (0.0-0.2); BILIRUBIN,TOTAL 0.4 MG/DL (0.2-1.0); IRON (FE) 77 UG/DL (50-170); PERCENT SATURATION 26.1 % (13.2-45.0); TOTAL IRON BINDING CAPACITY 295 UG/DL (250-450); TOTAL PROTEIN 7.4 GM/DL (6.4-8.2)
[2018-11-12 14:42] LABS: HEPATITIS B SURFACE ANTIGEN NEGATIVE (NEGATIVE)
[2018-11-12 14:56] LABS: HEPATITIS C VIRUS ABY INDEX 0.2 INDEX (<0.8)
[2018-11-12 14:57] LABS: HEPATITIS B CORE ANTIBODY IGM NEGATIVE (NEGATIVE)
[2018-11-12 15:00] LABS: HEPATITIS A ANTIBODY IGM NEGATIVE (NEGATIVE)
[2018-11-14 00:06] LABS: ANTI-MITOCHONDRIAL ANTIBODY <20.0 Units (0.0-20.0); ANTINUCLEAR ANTIBODIES DIRECT Negative (Negative); LIVER-KIDNEY MICROSOMAL ABY <20.1 Units (0.0-20.0)
[2018-11-15 08:07] LABS: CERULOPLASMIN 35.2 mg/dL (19.0-39.0)
== END ==
LOC: M LAB 11:56
PROVIDERS: ATTEND Internal Medicine Gastroenterology
DX: R94.5 Abnormal results of liver function studies (principal)

== ENCOUNTER → 2019-01-07 | Outpatient (CLI) | payer OTHER ==
--- NOTE | 2019-01-22 01:41 | ECWPNPC ---
PATIENT NAME: KOFFI TURCIOS : 1965 GENDER: FEMALE VISIT DATE: 01/07/2019 DISCHARGE DATE: 01/07/19948 VISIT LOCKED DATE TIME: PHYSICIAN: VONNIE YEBOAH RESOURCE: VONNIE YEBOAH REASON FOR APPOINTMENT 1. BACK HISTORY OF PRESENT ILLNESS HISTORY OF PRESENT ILLNESS: PAIN THE PATIENT DESCRIBES THE PAIN... THE PATIENT DESCRIBES THE PAIN... THE PATIENT DESCRIBES THE PAIN... THE PATIENT DESCRIBES THE PAIN... THE PATIENT DESCRIBES THE PAIN... THE PATIENT DESCRIBES THE PAIN... THE PATIENT DESCRIBES THE PAIN... HERE FOR F/U AND MANAGEMENT OF GENERALIZED BACK PAIN AND BILAT. LEG PAIN.RATING PAIN VAS 5.5/10. CURRENTLY USING OXYCODONE 5/325,LYRICA 300MG BID AND ZANAFLEX 4MG PRN FOR SEVERE PAIN.FINDS MEDICATION EFFECTIVE AT REDUCING PAIN AND KEEPING HER COMFORTABLE. FALL RISK SCREENING: SCREENING :NO FALLS REPORTED IN THE LAST YEAR CURRENT MEDICATIONS TAKING FENOFIBRATE 145 MG TABLET 1 TABLET ORALLY ONCE A DAY TAKING LEVEMIR FLEX TOUCH 90 INJECTION UNITS SQ QD TAKING NOVOLOG MIX 1 INJECTION 1 SUBCUTANEOUSLY ON SLIDING SCALE TAKING LOSARTAN/AMLODIPINE 25 MG 1 TAB ORAL ONCE DAILY TAKING METFORMIN 2 TAB 1000 MG ORAL BID TAKING TANZEUM 50 MG PEN-INJECTOR SUBCUTANEOUS EVERY MONDAY TAKING LEVEMIR FLEX TOUCH 99 INJECTION SQ QHS TAKING CYMBALTA 60 MG 1 TABLET PO ONCE DAILY TAKING PAXIL 10 MG TABLET 1 TABLET IN THE MORNING ORALLY ONCE A DAY TAKING VITAMIN D (ERGOCALCIFEROL) 54773 UNIT CAPSULE 1 CAPSULE ORALLY WEEKLY TAKING ATARAX TABLET NEEDED ORAL DAILY TAKING ASPIRIN 81 81 MG TABLET CHEWABLE 1 TABLET ORALLY ONCE A DAY TAKING AMITRIPTYLINE HCL 25 MG TABLET 1-2 ORALLY ONCE A DAY AT NIGHT TAKING CYMBALTA 30 MG CAPSULE DELAYED RELEASE PARTICLES 1 CAPSULE ORALLY BEFORE BEDTIME TAKING COLACE 100 MG CAPSULE 1 CAPSULE NEEDED ORALLY BID TAKING PERCOCET 5-325 MG TABLET 1 TABLET NEEDED ORALLY Q4-6H MDD5 TAKING LYRICA 300 MG CAPSULE 1 CAPSULE ORALLY FOR PAIN BID MDD2 TAKING TIZANIDINE HCL 4 MG TABLET 1 TAB ORALLY NEEDED FOR SPASMS AND PAIN THREE TIMES A DAY MDD3 NOT-TAKING POTASSIUM CHLORIDE 20 TABLET 1 TAB P.O. DAILY NOT-TAKING TOUJEO INSULIN INJECTION 300 ML 90 UNITS TWICE DAILY NOT-TAKING BUSPAR 10 MG TABLET 1 TABLET ORALLY TWICE A DAY NOT-TAKING VITAMIN D 11119 U TABLET ORALLY WEEKLY NOT-TAKING JARDIANCE 25 MG TABLET 1 TABLET ORALLY ONCE A DAY NOT-TAKING ESCITALOPRAM OXALATE 10 MG TABLET 1 TABLET ORALLY ONCE A DAY NOT-TAKING ZOLOFT 100 MG TABLET 1 TABLET ORALLY ONCE A DAY NOT-TAKING ZOLOFT 100 MG TABLET 1 TABLET ORALLY ONCE A DAY MEDICATION LIST REVIEWED AND RECONCILED WITH THE PATIENT PAST MEDICAL HISTORY DIABETES MALLITUS DEPRESSION ANXIETY PTSD BACK PAIN LEG PAIN SOCIAL ANXIETY ADHD ALLERGIES SULFA (FOR ALLERGY USE ONLY): HIVES - ALLERGY MORPHINE SULFATE: INCREASED ANXIETY - ALLERGY SURGICAL HISTORY CHOLECYSTECTOMY APPENDECTOMY C SECTION 1988 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 SISTER - CANCER SINUS CAVITY. SOCIAL HISTORY GENERAL: TOBACCO USE ARE YOU A: NONSMOKER. PAIN CLINIC PFS, CLERGY, PUBLIC HEALTH REFERRALS PFS REFERRAL NEEDED?NO CLERGY REFERRAL NEEDED?NO PUBLIC HEALTH REFERRAL NEEDED?NO WAS THE PROVIDER NOTIFIED OF ANY PERTINENT INFO?YES HAS THE PATIENT BEEN EDUCATED REGARDING HIS/HER PLAN OF CARE?YES HAS THE PATIENT BEEN EDUCATED REGARDING PAIN, THE RISK FOR PAIN, THE IMPORTANCE OF EFFECTIVE PAIN MANAGEMENT, AND THE PAIN ASSESSMENT PROCESS?YES LATEX QUESTIONNAIRE LATEX ALLERGY : HAVE YOU EVER DEVELOPED ANY TYPE OF REACTION AFTER HANDLING LATEX PRODUCTS SUCH RUBBER GLOVES, CONDOMS, DIAPHRAGMS, BALLOONS, SOCKS, OR UNDERWEAR?NO LATEX ALLERGY : HAVE YOU EVER DEVELOPED ANY TYPE OF REACTION DURING OR AFTER DENTAL APPOINTMENT, VAGINAL/RECTAL EXAMINATION, SURGICAL PROCEDURE, OR ANY OTHER EXPOSURE?NO LATEX RISK : HAVE YOU EVER HAD ANY DIFFICULTY BREATHING OR HIVES AFTER EATING OR HANDLING ANY FRUITS, OR VEGETABLES; SUCH KIWI, BANANAS, STONE FRUITS, OR CHESTNUTSNO LATEX RISK : DO YOU HAVE A PREVIOUS PERSONAL HISTORY OF MORE THAN NINE SURGERIES, SPINA BIFIDA, OR REPEATED CATHERTIZATIONS? NO LATEX RISK : ARE YOU FREQUENTLY EXPOSED TO LATEX PRODUCTS IN YOUR OCCUPATION?NO DATE ASKED : 11/01/2018 CAFFEINE CAFFEINE USE?YES HOW OFTEN AND HOW MUCH? 1 CUP DAY - SOD[place] CONSTANTLY ADVANCE DIRECTIVE ADVANCE DIRECTIVE DISCUSSED WITH PATIENT:YES PATIENT DECLINED HCP INFORMATION. DIET: REGULAR. JEW [id number] TAOISM LANGUAGE LANGUAGES SPOKEN:POLISH MARITAL STATUS: . NEW PATIENT PAIN DIARY TODAY'S VISIT NOTES, FROM 0-10, WHAT LEVEL IS YOUR PAIN TODAY? 0. RECREATIONAL DRUG USE DRUG USE?NO LEARNING BARRIERS / SPECIAL NEEDS ORIENTED TO PLAN OF CARE: PATIENT, PAIN MANAGEMENT PATIENT, ORIENTED TO PLAN OF CARE: PATIENT, PAIN MANAGEMENT PATIENT. REVIEWED WITH PATIENT 11/01/18 1307 JSREVIEWED WITH PATIENT 01/07/19 09 JS. HOSPITALIZATION/MAJOR DIAGNOSTIC PROCEDURE SURGERIES REVIEW OF SYSTEMS REVIEWED BY: PROVIDER: VONNIE SINGH . CONSTITUTIONAL: ANY CHANGE IN YOUR MEDICAL CONDITION? NO . CHILLS NO . FEVER NO . INFECTION: DO YOU HAVE NEW INFECTIONS? NO . DO YOU HAVE HISTORY OF MRSA? NO . MUSCULOSKELETAL: ANY NEW PATTERNS OF PAIN OR NUMBNESS? NO . GASTROENTEROLOGY: ANY NEW CHANGE IN BOWEL CONTROL? NO . GENITOURINARY: ANY NEW CHANGE IN BLADDER CONTROL? NO . IS THERE A CHANCE YOU COULD BE ? NO . HEMATOLOGY/LYMPH: DO YOU TAKE ANY BLOOD THINNERS? (FOR EXAMPLE- COUMADIN, PLAVIX, AGGRENOX, PLATEL, PRADAXA, OR XARELTO) NO . WHEN WAS YOUR LAST DOSE? DATE: TIME: . NEUROLOGY: HAVE YOU FALLEN IN THE PAST 12 MONTHS? YES, STATES FALL A FEW DAYS AGO IN HER KITCHEN, LOST HER BALANCE. STATES NO INJURIES BUT A FEW SCRAPES AND BRUISES. NO ED VISIT . ANY NEW EXTREMITY NUMBNESS OR WEAKNESS? NO . CARDIOLOGY: DO YOU HAVE A PACEMAKER OR DEFIBRILLATOR? NO . RESPIRATORY: HAVE YOU BEEN SICK IN THE PAST WEEK? NO . FEVER NO . FLU LIKE SYMPTOMS? NO . COUGH NO . INTEGUMENTARY: DO YOU HAVE ANY RASHES OR OPEN SORES? NO . ALLERGIC/IMMUNO: ARE YOU ALLERGIC TO IV DYE? NO . ANY NEW ALLERGIES? NO . PSYCHIATRIC: DO YOU HAVE THOUGHTS OF HURTING YOURSELF OR SOMEONE ELSE? NO . ARE YOU ABUSED, NEGLECTED, OR IN AN UNSAFE ENVIRONMENT? NO . ENDOCRINOLOGY: ARE YOU DIABETIC? YES . OTHER: DO YOU NEED ANY PRESCRIPTIONS? YES . IF YES, PLEASE LIST: ____COLACE . ANY NEW PROBLEMS WITH YOUR MEDICATIONS? NO . WHEN DID YOU LAST EAT? ____ . WHEN DID YOU LAST DRINK? ____ . WHAT DID YOU LAST DRINK? ____ . NAME OF PERSON DRIVING YOU HOME? ____ . DO YOU HAVE ANY OTHER QUESTIONS OR CONCERNS NO . VITAL SIGNS WT 240.8 LBS, HT 63.5", BMI 41.98 INDEX, BP 147/78 MM HG, HR 95 /MIN, RR 18 /MIN, TEMP 97.6 F, OXYGEN SAT % 97%, SAFE IN ENV? (Y/N) YES, NA INITIALS IA 09:20, REVIEWED BY: BORA. EXAMINATION GENERAL EXAMINATION: DEPRESSED AFFECTAWAKE,ALERT ,PLEAASANT . PSYCHAFFECT NORMAL . LUNGS:LUNG BELTRÁN ARE CLEAR TO AUSCULTATION BILATERALLY. GOOD MOVEMENT OF AIR . HEART:S1, S2 IN A REGULAR RATE AND RHYTHM. NO SIGNIFICANT MURMURS, RUBS OR GALLOPS NOTED . ASSESSMENTS CHRONIC BILATERAL LOW BACK PAIN WITH RIGHT-SIDED SCIATICA - M54.41 TREATMENT CHRONIC BILATERAL LOW BACK PAIN WITH RIGHT-SIDED SCIATICA CONTINUE CYMBALTA, 60 MG, 1 TABLET, PO, ONCE DAILY CONTINUE CYMBALTA CAPSULE DELAYED RELEASE PARTICLES, 30 MG, 1 CAPSULE, ORALLY, BEFORE BEDTIME REFILL COLACE CAPSULE, 100 MG, 1 CAPSULE NEEDED, ORALLY, BID, 30 DAYS, 60 CAPSULE, REFILLS 5 REFILL PERCOCET TABLET, 5-325 MG, 1 TABLET NEEDED, ORALLY, Q4-6H MDD5, 30 DAY(S), 150, REFILLS 0 CONTINUE LYRICA CAPSULE, 300 MG, 1 CAPSULE, ORALLY FOR PAIN, BID MDD2 CONTINUE TIZANIDINE HCL TABLET, 4 MG, 1 TAB, ORALLY NEEDED FOR SPASMS AND PAIN, THREE TIMES A DAY MDD3 NOTES: ISTOP REGISTRY REVIEWED AND DEMONSTRATES COMPLLIANCE. BRINGS IN MEDICATIONS WHICH IS APPROPRIATE FOR WHAT WAS DISPENSED. RECENT URINE TOXICOLOGY REVIEWED. NO UNAUTHORIZED MEDICATIONS. NO ILLICIT SUBSTANCES AND PRESCRIBED MEDICATIONS WERE PRESENT. , RISKS AND BENEFITS OF NARCOTIC/OPIOD MEDICATIONS WERE REVIEWED WITH PATIENT - THIS INCLUDES BUT IS NOT LIMITED TO RISK OF DEPENDANCE/DEVELOPMENT OF ADDICTION, MOOD DISTURBANCE AND DEPRESSION, OSTEOPOROSIS, HORMONAL AND LABIDAL CHANGES, RESPIRATORY DEPRESSION AND . PATIENT IS ADVISED NOT TO DRIVE OR DRINK ALCOHOL WHILE ON THESE MEDICATIONS. PROCEDURE CODES FA211 ESTABILISHED PATIENT [facility] CHARGE DISPOSITION & COMMUNICATION FOLLOW UP 2 MONTHS ELECTRONICALLY SIGNED BY SAMANTHA TOLENTINO ON 01/21/2019 AT 04:03 PM EDT DISCLAIMER : THIS IS A VISIT SUMMARY EXTRACTED FROM THE [employer] CHART. IT IS NOT A COPY OF THE [facility]ESS NOTE. MTDD
== END ==
LOC: M PAIN 09:45
PROVIDERS: ATTEND Nurse Practitioner Family
DX: M54.41 Lumbago with sciatica, right side (principal); E11.9 Type 2 diabetes mellitus without complications; F32.9 Major depressive disorder, single episode, unspecified; F41.9 Anxiety disorder, unspecified; F43.10 Post-traumatic stress disorder, unspecified; F40.10 Social phobia, unspecified; F90.9 Attention-deficit hyperactivity disorder, unspecified type; Z79.4 Long term (current) use of insulin; Z79.82 Long term (current) use of aspirin; Z79.891 Long term (current) use of opiate analgesic; Z79.899 Other long term (current) drug therapy; Z90.49 Acquired absence of other specified parts of digestive tract; Z90.710 Acquired absence of both cervix and uterus; Z88.2 Allergy status to sulfonamides; Z88.5 Allergy status to narcotic agent

== ENCOUNTER → 2019-04-16 | Outpatient (CLI) | payer OTHER | LOC: M PAIN 10:15 | PROVIDERS: ATTEND Nurse Practitioner Family | DX: M54.41 Lumbago with sciatica, right side (principal); M79.605 Pain in left leg; M79.604 Pain in right leg; E11.9 Type 2 diabetes mellitus without complications; Z79.82 Long term (current) use of aspirin; Z79.4 Long term (current) use of insulin; Z79.891 Long term (current) use of opiate analgesic; Z79.899 Other long term (current) drug therapy; Z88.2 Allergy status to sulfonamides; Z88.5 Allergy status to narcotic agent ==

== ENCOUNTER → 2019-09-03 | Outpatient (CLI) | payer OTHER ==
[~2019-09-03] MED LIST changes: +CLON0.5T2 PO; -CLON0.5T8 PO
--- NOTE | 2019-09-17 03:47 | ECWPNPC ---
PATIENT NAME: KOFFI TURCIOS : 1965 GENDER: FEMALE VISIT DATE: 09/03/2019 DISCHARGE DATE: 09/03/19 1143 VISIT LOCKED DATE TIME: PHYSICIAN: VONNIE YEBOAH RESOURCE: VONNIE YEBOAH REASON FOR APPOINTMENT 1. MED MNG MVP HISTORY OF PRESENT ILLNESS HISTORY OF PRESENT ILLNESS: HERE FOR FOLLOW-UP OF CHRONIC LOW BACK PAIN AND BILATERAL LEG PAIN. RATING PAIN LEVEL A 7/10 VAS. DESCRIBES PAIN CONSTANT ACHING, SHARP AND BURNING. PAIN AWAKENS HER FROM SLEEP. SUFFERS FROM CHRONIC NEUROPATHY. REPORTS THAT BLOOD SUGARS HAVE BEEN STABLE LATELY. FOLLOWING WITH [facility]LL SERGEANT IN [employer], [place]. FINDINGS CURRENT MEDICATION FOR CHRONIC PAIN EFFECTIVE AT REDUCING HER PAIN AND KEEPING HER FUNCTIONAL. DENIES SIDE EFFECTS. PAIN THE PATIENT DESCRIBES THE PAIN... FALL RISK SCREENING: SCREENING :NO FALLS REPORTED IN THE LAST YEAR CURRENT MEDICATIONS TAKING FENOFIBRATE 145 MG TABLET 1 TABLET ORALLY ONCE A DAY TAKING LEVEMIR FLEX TOUCH 90 INJECTION UNITS SQ 60 UNITS BID TAKING NOVOLOG MIX 1 INJECTION 1 SUBCUTANEOUSLY ON SLIDING SCALE TAKING LOSARTAN/AMLODIPINE 25 MG 1 TAB ORAL ONCE DAILY TAKING METFORMIN 2 TAB 1000 MG ORAL BID TAKING TANZEUM 50 MG PEN-INJECTOR SUBCUTANEOUS EVERY MONDAY TAKING PAXIL 10 MG TABLET 1 TABLET IN THE MORNING ORALLY ONCE A DAY TAKING ASPIRIN 81 81 MG TABLET CHEWABLE 1 TABLET ORALLY ONCE A DAY TAKING AMITRIPTYLINE HCL 25 MG TABLET 1-2 ORALLY ONCE A DAY AT NIGHT TAKING CYMBALTA 60 MG 1 TABLET PO ONCE DAILY TAKING CYMBALTA 30 MG CAPSULE DELAYED RELEASE PARTICLES 1 CAPSULE ORALLY BEFORE BEDTIME TAKING COLACE 100 MG CAPSULE 1 CAPSULE NEEDED ORALLY BID TAKING PERCOCET 5-325 MG TABLET 1 TABLET NEEDED ORALLY Q4-6H MDD5 TAKING LYRICA 300 MG CAPSULE 1 CAPSULE ORALLY FOR PAIN BID MDD2 TAKING TIZANIDINE HCL 4 MG TABLET 1 TAB ORALLY NEEDED FOR SPASMS AND PAIN THREE TIMES A DAY MDD3 NOT-TAKING ATARAX TABLET NEEDED ORAL DAILY NOT-TAKING VITAMIN D (ERGOCALCIFEROL) 74446 UNIT CAPSULE 1 CAPSULE ORALLY WEEKLY NOT-TAKING POTASSIUM CHLORIDE 20 TABLET 1 TAB P.O. DAILY NOT-TAKING TOUJEO INSULIN INJECTION 300 ML 90 UNITS TWICE DAILY NOT-TAKING BUSPAR 10 MG TABLET 1 TABLET ORALLY TWICE A DAY NOT-TAKING VITAMIN D 26172 U TABLET ORALLY WEEKLY NOT-TAKING JARDIANCE 25 MG TABLET 1 TABLET ORALLY ONCE A DAY NOT-TAKING ESCITALOPRAM OXALATE 10 MG TABLET 1 TABLET ORALLY ONCE A DAY NOT-TAKING ZOLOFT 100 MG TABLET 1 TABLET ORALLY ONCE A DAY UNKNOWN ZOLOFT 100 MG TABLET 1 TABLET ORALLY ONCE A DAY MEDICATION LIST REVIEWED AND RECONCILED WITH THE PATIENT PAST MEDICAL HISTORY DIABETES MALLITUS DEPRESSION ANXIETY PTSD BACK PAIN LEG PAIN SOCIAL ANXIETY ADHD ALLERGIES SULFA (FOR ALLERGY USE ONLY): HIVES - ALLERGY MORPHINE SULFATE: INCREASED ANXIETY - ALLERGY SURGICAL HISTORY CHOLECYSTECTOMY APPENDECTOMY C SECTION 1988 HYSTERECTOMY TUMOR REMOVED FROM LEFT THIGH BILATERAL FALLOPIAN TUBES REMOVED 2013 RIGHT FOOT REPAIR 05/2018 RIGHT GREAT TOE FRACTURE 3 SCREWS AND A PALTE 08/2018 FAMILY HISTORY FATHER: , DIAGNOSED WITH OTHER MALIGNANT NEOPLASM OF UNSPECIFIED SITE MOTHER: , OTHER MALIGNANT NEOPLASM OF UNSPECIFIED SITE 3 BROTHER(S) , 1 SISTER(S) . SISTER - CANCER SINUS CAVITY. SOCIAL HISTORY GENERAL: TOBACCO USE ARE YOU A: NONSMOKER. PAIN CLINIC PFS, CLERGY, PUBLIC HEALTH REFERRALS PFS REFERRAL NEEDED?NO CLERGY REFERRAL NEEDED?NO PUBLIC HEALTH REFERRAL NEEDED?NO WAS THE PROVIDER NOTIFIED OF ANY PERTINENT INFO?YES HAS THE PATIENT BEEN EDUCATED REGARDING HIS/HER PLAN OF CARE?YES HAS THE PATIENT BEEN EDUCATED REGARDING PAIN, THE RISK FOR PAIN, THE IMPORTANCE OF EFFECTIVE PAIN MANAGEMENT, AND THE PAIN ASSESSMENT PROCESS?YES LATEX QUESTIONNAIRE LATEX ALLERGY : HAVE YOU EVER DEVELOPED ANY TYPE OF REACTION AFTER HANDLING LATEX PRODUCTS SUCH RUBBER GLOVES, CONDOMS, DIAPHRAGMS, BALLOONS, SOCKS, OR UNDERWEAR?NO LATEX ALLERGY : HAVE YOU EVER DEVELOPED ANY TYPE OF REACTION DURING OR AFTER DENTAL APPOINTMENT, VAGINAL/RECTAL EXAMINATION, SURGICAL PROCEDURE, OR ANY OTHER EXPOSURE?NO DATE ASKED : 11/01/2018 LATEX RISK : HAVE YOU EVER HAD ANY DIFFICULTY BREATHING OR HIVES AFTER EATING OR HANDLING ANY FRUITS, OR VEGETABLES; SUCH KIWI, BANANAS, STONE FRUITS, OR CHESTNUTSNO LATEX RISK : DO YOU HAVE A PREVIOUS PERSONAL HISTORY OF MORE THAN NINE SURGERIES, SPINA BIFIDA, OR REPEATED CATHERIZATIONS? NO LATEX RISK : ARE YOU FREQUENTLY EXPOSED TO LATEX PRODUCTS IN YOUR OCCUPATION?NO CAFFEINE CAFFEINE USE?YES HOW OFTEN AND HOW MUCH? 1 CUP DAY - SOD[place] CONSTANTLY ADVANCE DIRECTIVE ADVANCE DIRECTIVE DISCUSSED WITH PATIENT:YES PATIENT DECLINED HCP INFORMATION. DIET: REGULAR. YAZDANISM [id number] BAHAI LANGUAGE LANGUAGES SPOKEN:IRANIAN MARITAL STATUS: . NEW PATIENT PAIN DIARY TODAY'S VISIT NOTES, FROM 0-10, WHAT LEVEL IS YOUR PAIN TODAY? 0. RECREATIONAL DRUG USE DRUG USE?NO LEARNING BARRIERS / SPECIAL NEEDS ORIENTED TO PLAN OF CARE: PATIENT, PAIN MANAGEMENT PATIENT, ORIENTED TO PLAN OF CARE: PATIENT, PAIN MANAGEMENT PATIENT. REVIEWED WITH PATIENT 11/01/18 1307 JSREVIEWED WITH PATIENT 01/07/19 0926 JSREVIEWED WITH PT 04/16/19 1008 NLJ. HOSPITALIZATION/MAJOR DIAGNOSTIC PROCEDURE SURGERIES REVIEW OF SYSTEMS REVIEWED BY: PROVIDER: VONNIE SINGH . CONSTITUTIONAL: ANY CHANGE IN YOUR MEDICAL CONDITION? NO . CHILLS NO . FEVER NO . INFECTION: DO YOU HAVE NEW INFECTIONS? NO . DO YOU HAVE HISTORY OF MRSA? NO . MUSCULOSKELETAL: ANY NEW PATTERNS OF PAIN OR NUMBNESS? NO . GASTROENTEROLOGY: ANY NEW CHANGE IN BOWEL CONTROL? NO . GENITOURINARY: ANY NEW CHANGE IN BLADDER CONTROL? NO . IS THERE A CHANCE YOU COULD BE ? NO . HEMATOLOGY/LYMPH: DO YOU TAKE ANY BLOOD THINNERS? (FOR EXAMPLE- COUMADIN, PLAVIX, AGGRENOX, PLATEL, PRADAXA, OR XARELTO) NO . WHEN WAS YOUR LAST DOSE? DATE: TIME: . NEUROLOGY: HAVE YOU FALLEN IN THE PAST 12 MONTHS? NO . ANY NEW EXTREMITY NUMBNESS OR WEAKNESS? NO . CARDIOLOGY: DO YOU HAVE A PACEMAKER OR DEFIBRILLATOR? NO . RESPIRATORY: HAVE YOU BEEN SICK IN THE PAST WEEK? NO . FEVER NO . FLU LIKE SYMPTOMS? NO . COUGH NO . INTEGUMENTARY: DO YOU HAVE ANY RASHES OR OPEN SORES? NO . ALLERGIC/IMMUNO: ARE YOU ALLERGIC TO IV DYE? NO . ANY NEW ALLERGIES? NO . PSYCHIATRIC: DO YOU HAVE THOUGHTS OF HURTING YOURSELF OR SOMEONE ELSE? NO . ARE YOU ABUSED, NEGLECTED, OR IN AN UNSAFE ENVIRONMENT? NO . ENDOCRINOLOGY: ARE YOU DIABETIC? NO, YES . OTHER: DO YOU NEED ANY PRESCRIPTIONS? NO . IF YES, PLEASE LIST: ____ . ANY NEW PROBLEMS WITH YOUR MEDICATIONS? NO . WHEN DID YOU LAST EAT? ____ . WHEN DID YOU LAST DRINK? ____ . WHAT DID YOU LAST DRINK? ____ . NAME OF PERSON DRIVING YOU HOME? ____ . DO YOU HAVE ANY OTHER QUESTIONS OR CONCERNS NO . VITAL SIGNS WT 223 LBS, HT 63.5", BMI 38.88 INDEX, BP 152/65 MM HG, HR 131 /MIN, RR 20 /MIN, TEMP 96.2 F, OXYGEN SAT % 97%, SAFE IN ENV? (Y/N) YES, NA INITIALS MS 1100, REVIEWED BY: KG. EXAMINATION GENERAL EXAMINATION: GENERALAWAKE,ALERT ,PLEAASANT . PSYCHAFFECT NORMAL . LUNGS:LUNG BELTRÁN ARE CLEAR TO AUSCULTATION BILATERALLY. GOOD MOVEMENT OF AIR . HEART:S1, S2 IN A REGULAR RATE AND RHYTHM. NO SIGNIFICANT MURMURS, RUBS OR GALLOPS NOTED . ASSESSMENTS CHRONIC BILATERAL LOW BACK PAIN WITH RIGHT-SIDED SCIATICA - M54.41 (PRIMARY) DIABETIC PERIPHERAL NEUROPATHY - E11.42 FIBROMYALGIA - M79.7 TREATMENT CHRONIC BILATERAL LOW BACK PAIN WITH RIGHT-SIDED SCIATICA CONTINUE AMITRIPTYLINE HCL TABLET, 25 MG, 1-2, ORALLY, ONCE A DAY AT NIGHT CONTINUE CYMBALTA, 60 MG, 1 TABLET, PO, ONCE DAILY CONTINUE CYMBALTA CAPSULE DELAYED RELEASE PARTICLES, 30 MG, 1 CAPSULE, ORALLY, BEFORE BEDTIME CONTINUE COLACE CAPSULE, 100 MG, 1 CAPSULE NEEDED, ORALLY, BID CONTINUE PERCOCET TABLET, 5-325 MG, 1 TABLET NEEDED, ORALLY, Q4-6H MDD5 CONTINUE LYRICA CAPSULE, 300 MG, 1 CAPSULE, ORALLY FOR PAIN, BID MDD2 CONTINUE TIZANIDINE HCL TABLET, 4 MG, 1 TAB, ORALLY NEEDED FOR SPASMS AND PAIN, THREE TIMES A DAY MDD3 NOTES: URINE TOXICOLOGY DONE ON 04/16/2019 IS REVIEWED WITH PATIENT. THIS IS SHOWING POSITIVE FOR TRAMADOL WHICH PATIENT DOES NOT TAKE. PREPARES PILLBOXES FOR . HE HAS TRAMADOL FOR CHRONIC PAIN. THERE IS A CHANCE THAT HE COULD HAVE SUBSTITUTED TRAMADOL INSTEAD OF THE OXYCODONE BY MISTAKE. HE WILL BE MORE CAREFUL IN THE FUTURE WHEN FILLING HER MEDICATION., ISTOP REGISTRY REVIEWED AND DEMONSTRATES COMPLLIANCE. (REF # ) BRINGS IN MEDICATIONS WHICH IS APPROPRIATE FOR WHAT WAS DISPENSED. RECENT URINE TOXICOLOGY REVIEWED. NO UNAUTHORIZED MEDICATIONS. NO ILLICIT SUBSTANCES AND PRESCRIBED MEDICATIONS WERE PRESENT. PROCEDURE CODES FA211 ESTABILISHED PATIENT [facility] CHARGE DISPOSITION & COMMUNICATION FOLLOW UP 3 MONTHS (REASON: MED MGMNT) ELECTRONICALLY SIGNED BY SAMANTHA TOLENTINO ON 09/16/2019 AT 09:46 AM EST DISCLAIMER : THIS IS A VISIT SUMMARY EXTRACTED FROM THE [employer] CHART. IT IS NOT A COPY OF THE [employer] PROGRESS NOTE. ROSSY
== END ==
LOC: M PAIN 10:45
PROVIDERS: ATTEND Nurse Practitioner Family
DX: M54.41 Lumbago with sciatica, right side (principal); E11.42 Type 2 diabetes mellitus with diabetic polyneuropathy; M79.7 Fibromyalgia; F32.9 Major depressive disorder, single episode, unspecified; F41.9 Anxiety disorder, unspecified; F43.10 Post-traumatic stress disorder, unspecified; F90.9 Attention-deficit hyperactivity disorder, unspecified type; Z79.4 Long term (current) use of insulin; Z79.891 Long term (current) use of opiate analgesic; Z79.899 Other long term (current) drug therapy; Z88.2 Allergy status to sulfonamides; Z88.5 Allergy status to narcotic agent

== ENCOUNTER → 2019-11-15 | Outpatient (CLI) | payer OTHER ==
[~2019-11-15] MED LIST changes: +FENO145T7 PO; +HYDR25TAB PO; +LEVE1INJ5 SC; +LOSA25TA14 PO; +NOVOINJ SC; +OXYC-1 PO; -OXYC15TA76 PO; +TOPA50TA8 PO; +VICT18IN SC; +VITA50005 PO; +ZOLO100T PO
== END ==
LOC: M LABSMTC 11:23
PROVIDERS: ATTEND Anesthesiology
DX: Z01.818 Encounter for other preprocedural examination (principal); Z11.59 Encounter for screening for other viral diseases

== ENCOUNTER 2019-11-18 08:27 | Day surgery (SDC) | payer OTHER ==
[~2019-11-18] VITALS: Ht 162.6 cm; Wt 98.5 kg
[~2019-11-18 08:27] MED LIST changes: +ACETAMINOPHEN 325 MG TAB PO PRN; +BALANCED SALT IRRIGATION SOLUTION 500ML BAG (FOR OR EYE MACHINE) As Ordered ONE; +CEFUROXIME 1MG/0.1ML INTRACAMERAL INJ As Ordered ONE; +CYCLOPENTOLATE 2% OPHTH SOLN 2ML BTL OS ONE; +HEALON DUET PRO(HEALON 10MG/ML 0.55ML & HEALON ENDOCOAT 30MG/ML 0.85ML) As Ordered ONE; +LIDOCAINE 1% SDV 5ML VIAL As Ordered ONE; +LIDOCAINE 3.5 % 1ML OPHTH TOPICAL GEL OU ONE; +OFLOXACIN 0.3 % (OCUFLOX) OPTH SOL 5ML OS ONE; +PHENYLEPHRINE 2.5% OPHTH SOL 2ML OS ONE; +PHENYLEPHRINE HCL 10 % OPHTH. SOL 5ML OS PRN; +POVIDONE-IODINE 5% OPHTH PREP SOL 30ML As Ordered ONE; +PROPARACAINE 0.5% OPHTH SOL 15ML OS PRN; +TROPICAMIDE 1% OPHTH SOLN 2ML OS ONE
[2019-11-18] MEDS ORDERED: MIDAZOLAM INJ 2MG/2ML VIAL (J2250 PER 1MG) As Ordered ONE (08:33)
[2019-11-18] MEDS ORDERED: fentaNYL 100 MCG/2 ML INJECTION (J3010) As Ordered ONE (08:33)
[2019-11-18] MEDS ORDERED: ACETYLCHOLINE OPHTH SOLN 1% 2ML (MIOCHOL-E) As Ordered ONE (10:12)
[2019-11-18] MEDS ORDERED: KETOROLAC 0.5% OPHTH SOLN OS ONE (10:45)
[2019-11-18] MEDS ORDERED: TRIMETHOBENZAMIDE 300 MG CAP PO PRN (10:45)
[2019-11-18 11:05] VITALS: BP 133/63
--- NOTE | 2019-11-20 09:46 | RO ---
DATE OF PROCEDURE: 11/18/2019 PREPROCEDURE DIAGNOSIS: Age-related posterior subcapsular cataract left eye. POSTPROCEDURE DIAGNOSIS: Age-related posterior subcapsular cataract left eye. PROCEDURE: Phacoemulsification and posterior chamber intraocular lens implantation. The lens used was [id number] 19.0. SURGEON: Loretta Sousa MD CHIEF EMBALMER: ANESTHESIA: Topical with sedation. DESCRIPTION OF PROCEDURE: The patient was prepped and draped in the usual fashion. A lid speculum was placed between the lids. The eye was fixated. A stab incision was made to the anterior chamber, and 1% nonpreserved lidocaine was instilled. Then, viscoelastic was instilled. The eye was re-fixated. A 2.4 mm keratome was used to make a clear corneal temporal limbal incision. Capsulorrhexis was created in a circular fashion with capsulorrhexis forceps. The lens was hydrodissected. The nucleus was grooved in two meridians and was freely mobile. The nucleus was cracked into four quadrants. Each piece of the nucleus was removed with the phacoemulsification unit. It was noticed there was a small rent in the capsule and cortical cleanup was done but a small amount was left in. There was enough support to put a lens in the capsular bag. The posterior chamber intraocular lens was placed in the capsular bag an AU00T0 19.0 diopter. The wound was hydrated after irrigation and aspiration (I and A) removed the viscoelastic. There was no vitreous at the wound and Miochol was instilled. The patient tolerated the procedure well and went to the recovery room in stable condition.
== END 2019-11-18 11:15 | disposition home or self-care (01) ==
LOC: M SDC 08:27
PROVIDERS: ATTEND Ophthalmology
DX: H25.042 Posterior subcapsular polar age-related cataract, left eye (principal); E11.9 Type 2 diabetes mellitus without complications; Z79.4 Long term (current) use of insulin; I10 Essential (primary) hypertension; M79.7 Fibromyalgia; F41.9 Anxiety disorder, unspecified; F32.9 Major depressive disorder, single episode, unspecified; G43.909 Migraine, unspecified, not intractable, without status migrainosus; Z79.899 Other long term (current) drug therapy; Z88.2 Allergy status to sulfonamides; Z88.5 Allergy status to narcotic agent
CPT/HCPCS: 66984; 92015; J2250; J3010

== ENCOUNTER → 2019-12-02 | Outpatient (CLI) | payer OTHER ==
[~2019-12-02] MED LIST changes: -ACETAMINOPHEN 325 MG TAB PO PRN; -BALANCED SALT IRRIGATION SOLUTION 500ML BAG (FOR OR EYE MACHINE) As Ordered ONE; -CEFUROXIME 1MG/0.1ML INTRACAMERAL INJ As Ordered ONE; -CYCLOPENTOLATE 2% OPHTH SOLN 2ML BTL OS ONE; -HEALON DUET PRO(HEALON 10MG/ML 0.55ML & HEALON ENDOCOAT 30MG/ML 0.85ML) As Ordered ONE; -LIDOCAINE 1% SDV 5ML VIAL As Ordered ONE; -LIDOCAINE 3.5 % 1ML OPHTH TOPICAL GEL OU ONE; -OFLOXACIN 0.3 % (OCUFLOX) OPTH SOL 5ML OS ONE; -PHENYLEPHRINE 2.5% OPHTH SOL 2ML OS ONE; -PHENYLEPHRINE HCL 10 % OPHTH. SOL 5ML OS PRN; -POVIDONE-IODINE 5% OPHTH PREP SOL 30ML As Ordered ONE; -PROPARACAINE 0.5% OPHTH SOL 15ML OS PRN; -TROPICAMIDE 1% OPHTH SOLN 2ML OS ONE
--- NOTE | 2019-12-05 02:21 | ECWPNPC ---
PATIENT NAME: KOFFI TURCIOS : 1965 GENDER: FEMALE VISIT DATE: 12/02/2019 DISCHARGE DATE: 12/02/19 1202 VISIT LOCKED DATE TIME: PHYSICIAN: VONNIE YEBOAH RESOURCE: VONNIE YEBOAH REASON FOR APPOINTMENT 1. 3 MONTH HISTORY OF PRESENT ILLNESS HISTORY OF PRESENT ILLNESS: PATIENT IS AGREEABLE TO TELEMED VISIT VIA ZOOM. THIS IS A ROUTINE MEDICINE MANAGEMENT VISIT. CHIEF AREA OF PAIN IS BILATERAL LOWER EXTREMITIES NEUROPATHY AND CHRONIC GENERALIZED BACK PAIN. RATING PAIN LEVEL A 7/10 VAS. PAIN IS AGGRAVATED BY STANDING. PAIN IS RELIEVED AT REST. FINDS MEDICATIONS HELPFUL AT REDUCING PAIN AND KEEPING HER FUNCTIONAL. DENIES ADVERSE SIDE EFFECTS WITH HER MEDICATIONS. PAIN THE PATIENT DESCRIBES THE PAIN... FALL RISK SCREENING: SCREENING :NO FALLS REPORTED IN THE LAST YEAR CURRENT MEDICATIONS TAKING FENOFIBRATE 145 MG TABLET 1 TABLET ORALLY ONCE A DAY TAKING LEVEMIR FLEX TOUCH 90 INJECTION UNITS SQ 60 UNITS BID TAKING NOVOLOG MIX 1 INJECTION 1 SUBCUTANEOUSLY ON SLIDING SCALE TAKING LOSARTAN/AMLODIPINE 25 MG 1 TAB ORAL ONCE DAILY TAKING METFORMIN 2 TAB 1000 MG ORAL BID TAKING TANZEUM 50 MG PEN-INJECTOR SUBCUTANEOUS EVERY MONDAY TAKING PAXIL 10 MG TABLET 1 TABLET IN THE MORNING ORALLY ONCE A DAY TAKING ASPIRIN 81 81 MG TABLET CHEWABLE 1 TABLET ORALLY ONCE A DAY TAKING AMITRIPTYLINE HCL 25 MG TABLET 1-2 ORALLY ONCE A DAY AT NIGHT TAKING CYMBALTA 60 MG 1 TABLET PO ONCE DAILY TAKING CYMBALTA 30 MG CAPSULE DELAYED RELEASE PARTICLES 1 CAPSULE ORALLY BEFORE BEDTIME TAKING COLACE 100 MG CAPSULE 1 CAPSULE NEEDED ORALLY BID TAKING LYRICA 300 MG CAPSULE 1 CAPSULE ORALLY FOR PAIN BID MDD2 TAKING PERCOCET 5-325 MG TABLET 1 TABLET NEEDED ORALLY Q4-6H MDD5 TAKING TIZANIDINE HCL 4 MG TABLET 1 TAB ORALLY NEEDED FOR SPASMS AND PAIN THREE TIMES A DAY MDD3 NOT-TAKING ATARAX TABLET NEEDED ORAL DAILY NOT-TAKING VITAMIN D (ERGOCALCIFEROL) 00376 UNIT CAPSULE 1 CAPSULE ORALLY WEEKLY NOT-TAKING POTASSIUM CHLORIDE 20 TABLET 1 TAB P.O. DAILY NOT-TAKING TOUJEO INSULIN INJECTION 300 ML 90 UNITS TWICE DAILY NOT-TAKING BUSPAR 10 MG TABLET 1 TABLET ORALLY TWICE A DAY NOT-TAKING VITAMIN D 62269 U TABLET ORALLY WEEKLY NOT-TAKING JARDIANCE 25 MG TABLET 1 TABLET ORALLY ONCE A DAY NOT-TAKING ESCITALOPRAM OXALATE 10 MG TABLET 1 TABLET ORALLY ONCE A DAY NOT-TAKING ZOLOFT 100 MG TABLET 1 TABLET ORALLY ONCE A DAY NOT-TAKING ZOLOFT 100 MG TABLET 1 TABLET ORALLY ONCE A DAY MEDICATION LIST REVIEWED AND RECONCILED WITH THE PATIENT PAST MEDICAL HISTORY DIABETES MALLITUS DEPRESSION ANXIETY PTSD BACK PAIN LEG PAIN SOCIAL ANXIETY ADHD ALLERGIES SULFA (FOR ALLERGY USE ONLY): HIVES - ALLERGY MORPHINE SULFATE: INCREASED ANXIETY - ALLERGY SURGICAL HISTORY CHOLECYSTECTOMY APPENDECTOMY C SECTION 1988 HYSTERECTOMY TUMOR REMOVED FROM LEFT THIGH BILATERAL FALLOPIAN TUBES REMOVED 2013 RIGHT FOOT REPAIR 05/2018 RIGHT GREAT TOE FRACTURE 3 SCREWS AND A PALTE 08/2018 LEFT CATARACT SURGERY 11/2019 FAMILY HISTORY FATHER: , DIAGNOSED WITH OTHER MALIGNANT NEOPLASM OF UNSPECIFIED SITE MOTHER: , OTHER MALIGNANT NEOPLASM OF UNSPECIFIED SITE 3 BROTHER(S) , 1 SISTER(S) . SISTER - CANCER SINUS CAVITY. SOCIAL HISTORY GENERAL: TOBACCO USE ARE YOU A: NONSMOKER. LATEX QUESTIONNAIRE LATEX ALLERGY : HAVE YOU EVER DEVELOPED ANY TYPE OF REACTION AFTER HANDLING LATEX PRODUCTS SUCH RUBBER GLOVES, CONDOMS, DIAPHRAGMS, BALLOONS, SOCKS, OR UNDERWEAR?NO LATEX ALLERGY : HAVE YOU EVER DEVELOPED ANY TYPE OF REACTION DURING OR AFTER DENTAL APPOINTMENT, VAGINAL/RECTAL EXAMINATION, SURGICAL PROCEDURE, OR ANY OTHER EXPOSURE?NO DATE ASKED : 11/01/2018 LATEX RISK : HAVE YOU EVER HAD ANY DIFFICULTY BREATHING OR HIVES AFTER EATING OR HANDLING ANY FRUITS, OR VEGETABLES; SUCH KIWI, BANANAS, STONE FRUITS, OR CHESTNUTSNO LATEX RISK : DO YOU HAVE A PREVIOUS PERSONAL HISTORY OF MORE THAN NINE SURGERIES, SPINA BIFIDA, OR REPEATED CATHERIZATIONS? NO LATEX RISK : ARE YOU FREQUENTLY EXPOSED TO LATEX PRODUCTS IN YOUR OCCUPATION?NO RECREATIONAL DRUG USE DRUG USE?NO CAFFEINE CAFFEINE USE?YES HOW OFTEN AND HOW MUCH? 1 CUP DAY - [place] CONSTANTLY RESTORATIONISM [id number] CONGREGATION LANGUAGE LANGUAGES SPOKEN:GRENADIAN LEARNING BARRIERS / SPECIAL NEEDS ORIENTED TO PLAN OF CARE: PATIENT, PAIN MANAGEMENT PATIENT, ORIENTED TO PLAN OF CARE: PATIENT, PAIN MANAGEMENT PATIENT. DIET: REGULAR. MARITAL STATUS: . NEW PATIENT PAIN DIARY TODAY'S VISIT 11/29/19 PATIENT DESCRIBES PAIN :HAVE IT ALL THE TIME, SHARP, STABBING FROM 0-10, WHAT LEVEL IS YOUR PAIN TODAY?7 PRECIPITATING FACTORS STANDING ALLEVIATING FACTORS LAYING DOWN IMPACT ON FUNCTION YES PAIN CLINIC PFS, CLERGY, PUBLIC HEALTH REFERRALS PFS REFERRAL NEEDED?NO CLERGY REFERRAL NEEDED?NO PUBLIC HEALTH REFERRAL NEEDED?NO WAS THE PROVIDER NOTIFIED OF ANY PERTINENT INFO?YES HAS THE PATIENT BEEN EDUCATED REGARDING HIS/HER PLAN OF CARE?YES HAS THE PATIENT BEEN EDUCATED REGARDING PAIN, THE RISK FOR PAIN, THE IMPORTANCE OF EFFECTIVE PAIN MANAGEMENT, AND THE PAIN ASSESSMENT PROCESS?YES ADVANCE DIRECTIVE ADVANCE DIRECTIVE DISCUSSED WITH PATIENT:YES PATIENT DECLINED HCP INFORMATION. REVIEWED WITH PATIENT 11/01/18 1307 JSREVIEWED WITH PATIENT 01/07/19 0926 JSREVIEWED WITH PT 04/16/19 1008 NLJ. HOSPITALIZATION/MAJOR DIAGNOSTIC PROCEDURE SURGERIES REVIEW OF SYSTEMS REVIEWED BY: PROVIDER: VONNIE SINGH . CONSTITUTIONAL: ANY CHANGE IN YOUR MEDICAL CONDITION? NO . CHILLS NO . FEVER NO . INFECTION: DO YOU HAVE NEW INFECTIONS? NO . DO YOU HAVE HISTORY OF MRSA? NO . MUSCULOSKELETAL: ANY NEW PATTERNS OF PAIN OR NUMBNESS? NO . GASTROENTEROLOGY: ANY NEW CHANGE IN BOWEL CONTROL? NO . GENITOURINARY: ANY NEW CHANGE IN BLADDER CONTROL? NO . IS THERE A CHANCE YOU COULD BE ? NO . HEMATOLOGY/LYMPH: DO YOU TAKE ANY BLOOD THINNERS? (FOR EXAMPLE- COUMADIN, PLAVIX, AGGRENOX, PLATEL, PRADAXA, OR XARELTO) NO . WHEN WAS YOUR LAST DOSE? DATE: TIME: . NEUROLOGY: HAVE YOU FALLEN IN THE PAST 12 MONTHS? NO . ANY NEW EXTREMITY NUMBNESS OR WEAKNESS? NO . CARDIOLOGY: DO YOU HAVE A PACEMAKER OR DEFIBRILLATOR? NO . RESPIRATORY: HAVE YOU BEEN SICK IN THE PAST WEEK? NO . FEVER NO . FLU LIKE SYMPTOMS? NO . COUGH NO . INTEGUMENTARY: DO YOU HAVE ANY RASHES OR OPEN SORES? NO . ALLERGIC/IMMUNO: ARE YOU ALLERGIC TO IV DYE? NO . ANY NEW ALLERGIES? NO . PSYCHIATRIC: DO YOU HAVE THOUGHTS OF HURTING YOURSELF OR SOMEONE ELSE? NO . ARE YOU ABUSED, NEGLECTED, OR IN AN UNSAFE ENVIRONMENT? NO . ENDOCRINOLOGY: ARE YOU DIABETIC? YES . OTHER: DO YOU NEED ANY PRESCRIPTIONS? NO . IF YES, PLEASE LIST: ____ . ANY NEW PROBLEMS WITH YOUR MEDICATIONS? NO . WHEN DID YOU LAST EAT? ____ . WHEN DID YOU LAST DRINK? ____ . WHAT DID YOU LAST DRINK? ____ . NAME OF PERSON DRIVING YOU HOME? ____ . DO YOU HAVE ANY OTHER QUESTIONS OR CONCERNS NO . EXAMINATION GENERAL EXAMINATION: GENERALNO ACUTE DISTRESS, WELL NOURISHED AND HYDRATED. PSYCHAPPROPRIATE MOOD AND AFFECT . FACE:UNREMARKABLE. ASSESSMENTS CHRONIC BILATERAL LOW BACK PAIN WITH RIGHT-SIDED SCIATICA - M54.41 (PRIMARY) CHRONIC PRESCRIPTION OPIATE USE - Z79.891 TREATMENT CHRONIC BILATERAL LOW BACK PAIN WITH RIGHT-SIDED SCIATICA CONTINUE CYMBALTA, 60 MG, 1 TABLET, PO, ONCE DAILY CONTINUE CYMBALTA CAPSULE DELAYED RELEASE PARTICLES, 30 MG, 1 CAPSULE, ORALLY, BEFORE BEDTIME CONTINUE COLACE CAPSULE, 100 MG, 1 CAPSULE NEEDED, ORALLY, BID CONTINUE LYRICA CAPSULE, 300 MG, 1 CAPSULE, ORALLY FOR PAIN, BID MDD2 CONTINUE PERCOCET TABLET, 5-325 MG, 1 TABLET NEEDED, ORALLY, Q4-6H MDD5 CONTINUE AMITRIPTYLINE HCL TABLET, 25 MG, 1-2, ORALLY, ONCE A DAY AT NIGHT CONTINUE TIZANIDINE HCL TABLET, 4 MG, 1 TAB, ORALLY NEEDED FOR SPASMS AND PAIN, THREE TIMES A DAY MDD3 NOTES: ISTOP REGISTRY REVIEWED AND DEMONSTRATES COMPLLIANCE. RECENT URINE TOXICOLOGY REVIEWED. NO UNAUTHORIZED MEDICATIONS. NO ILLICIT SUBSTANCES AND PRESCRIBED MEDICATIONS WERE PRESENT. URINE TOX AT FOLLOW TOTAL TIME SPENT DURING TELEMED VISIT WAS APPROXIMATELY 12 MINUTES. OTHERS CLINICAL NOTES: PRE SCREENING CALL DONE 12/02/19 EM. DISPOSITION & COMMUNICATION FOLLOW UP 2 MONTHS (REASON: CHRONIC LOW BACK PAIN, U TOX/MED MANAGEMENT) ELECTRONICALLY SIGNED BY SAMANTHA TOLENTINO ON 12/04/2019 AT 11:40 AM EDT DISCLAIMER : THIS IS A VISIT SUMMARY EXTRACTED FROM THE [employer] CHART. IT IS NOT A COPY OF THE [employer] PROGRESS NOTE. MTDD
== END ==
LOC: M TMPAIN 10:45 → M PAIN 10:45
PROVIDERS: ATTEND Nurse Practitioner Family
DX: M54.41 Lumbago with sciatica, right side (principal); E11.9 Type 2 diabetes mellitus without complications; Z79.891 Long term (current) use of opiate analgesic; Z79.82 Long term (current) use of aspirin; Z79.84 Long term (current) use of oral hypoglycemic drugs; Z79.899 Other long term (current) drug therapy; Z88.2 Allergy status to sulfonamides; Z88.5 Allergy status to narcotic agent

== ENCOUNTER → 2020-03-26 | Outpatient (CLI) | payer OTHER | LOC: M PAIN 09:05 | PROVIDERS: ATTEND Nurse Practitioner Family | DX: M47.816 Spondylosis without myelopathy or radiculopathy, lumbar region (principal); Z79.891 Long term (current) use of opiate analgesic ==

== ENCOUNTER 2020-06-03 15:58 | Inpatient (IN) | payer OTHER ==
[~2020-06-03] VITALS: Ht 162.6 cm; Wt 102.2 kg
[2020-06-03] VITALS (31 sets, daily range): BP systolic 80–114; BP diastolic 38–66
[2020-06-03] MEDS: NOREPINEPHRINE BITARTRATE 8 MG in D5W 492 ML IV SCH (18:19)
[2020-06-03 18:25] LABS: ABG O2 SATURATION 97.4 % (95.0-99.0); ABG PARTIAL PRESSURE O2 106.6 mmHg (75.0-100.0); ABG TOTAL CO2 8.7 MEQ/L (22.0-29.0)
[2020-06-03 18:26] LABS: ABG pH (ARTERIAL) 7.159 UNITS (7.350-7.450)
[2020-06-03 18:30] LABS: HEMATOCRIT 26.8 % (36.0-47.0); MEAN CORPUSCULAR HEMOGLOBIN 27.1 pg (27.0-33.0); MEAN CORPUSCULAR HGB CONC 29.9 g/dl (32.0-36.5); MEAN CORPUSCULAR VOLUME 90.8 fl (80.0-96.0); PLATELET COUNT, AUTOMATED 383 10^3/uL (150-450); RED BLOOD COUNT 2.95 10^6/uL (4.00-5.40); WHITE BLOOD COUNT 18.9 10^3/uL (4.0-10.0)
[2020-06-03] MEDS ORDERED: LIDOCAINE 1% MDV 20ML VIAL As Ordered ONE (18:38)
[2020-06-03 18:59] LABS: ALBUMIN 1.6 GM/DL (3.2-5.2); BILIRUBIN,TOTAL 0.4 MG/DL (0.2-1.0); CALCIUM LEVEL 8.1 MG/DL (8.5-10.1); CREATININE FOR GFR 10.5 MG/DL (0.55-1.30); GLOMERULAR FILTRATION RATE 4.1 (>51); TOTAL PROTEIN 6.4 GM/DL (6.4-8.2)
[2020-06-03 19:00] LABS: POTASSIUM SERUM 6.1 MEQ/L (3.5-5.1)
[2020-06-03] MEDS ORDERED: SODIUM BICARBONATE 150 MEQ in STERILE WATER LITER BAG 1,000 ML IV SCH (19:00)
[2020-06-03 19:01] LABS: ATYPICAL LYMPH 1 % (0-5); LYMPHOCYTES 10 % (16-44); METAMYELOCYTES 1 % (0-0); MONOCYTES 9 % (0-5); NEUTROPHILS 68 % (28-66)
[2020-06-03 19:02] LABS: PLATELET ESTIMATE NORMAL (NORMAL); TOXIC VACUOLATION 2+
[2020-06-03 19:05] LABS: CRENATED RBC 1+; HYPOCHROMASIA 2+
[2020-06-03 19:06] LABS: POIKILOCYTOSIS 2+
--- NOTE | 2020-06-03 19:12 | REP ---
INDICATION: post central line insertion. COMPARISON: 06/03/2018 FINDINGS: The technique utilized in obtaining the radiograph has magnified the cardiac silhouette and accentuated the interstitial markings. The superior mediastinal structures are midline. The cardiac silhouette is unremarkable in size, shape, and position. The diaphragmatic surfaces of the lungs are regular, and the costophrenic angles are clear. The pulmonary lazcano are clear. The imaged osseous structures are intact. Since the last examination a left-sided internal jugular central venous catheter has been placed the tip of which is in the superior vena cava. IMPRESSION: No acute cardiopulmonary disease. Central venous catheter as described above. <Electronically signed by Omar Baker > 06/03/20 [id number]
[2020-06-03] MEDS ORDERED: GLUCAGON INJ 1MG VIAL SC PRN (19:15)
[2020-06-03] MEDS ORDERED: DEXTROSE 50% 50 ML SYRINGE IV PRN (19:15)
[2020-06-03] MEDS ORDERED: GLUCOSE 4GM CHEW TABLET PO PRN (19:15)
[2020-06-03 19:22] LABS: AMORPHOUS SEDIMENT SMALL (NEGATIVE); APPEARANCE, URINE CLOUDY (CLEAR); BACTERIA, URINE AUTO 1+ (NEGATIVE); BILIRUBIN, URINE AUTO NEGATIVE (NEGATIVE); BLOOD, URINE BLOOD 2+ (NEGATIVE); COLOR, URINE YELLOW (YELLOW); GLUCOSE, URINE (UA) AUTO NEGATIVE (NEGATIVE); KETONE, URINE AUTO NEGATIVE (NEGATIVE); LEUKOCYTE ESTERASE, URINE AUTO 1+ (NEGATIVE); NITRITE, URINE AUTO NEGATIVE (NEGATIVE); PROTEIN, URINE AUTO 1+ mg/dL (NEGATIVE); RBC, URINE AUTO 12 /HPF (0-3); SPECIFIC GRAVITY URINE AUTO 1.017 (1.002-1.035); SQUAMOUS EPITHELIAL CELL UR AU 1 /HPF (0-6); UROBILINOGEN, URINE AUTO 0.2 mg/dL (0.0-2.0); WBC, URINE AUTO 39 /HPF (0-3)
[2020-06-03] MEDS ORDERED: HEPARIN SOD (PORCINE) 5000UNITS/ML 1ML VIAL/SYRINGE IV ONE (19:45)
[2020-06-03] MEDS ORDERED: HEPARIN SOD (PORCINE) 5000UNITS/ML 1ML VIAL/SYRINGE IV STA (19:51)
[2020-06-03] MEDS ORDERED: VICT18IN SC (20:24)
[2020-06-03] MEDS ORDERED: METF-838 PO (20:24)
[2020-06-03] MEDS ORDERED: NORT50CA PO (20:24)
[2020-06-03] MEDS ORDERED: DULO1CAP6 PO (20:24)
[2020-06-03] MEDS ORDERED: NOVOINJ SC (20:24)
[2020-06-03] MEDS ORDERED: PERC5TAB12 PO (20:24)
[2020-06-03] MEDS ORDERED: BASA100I SC (20:24)
[2020-06-03] MEDS ORDERED: ARIP1TAB10 PO (20:24)
[2020-06-03] MEDS ORDERED: D31000TA2 PO (20:24)
[2020-06-03] MEDS ORDERED: LYRI300C PO (20:24)
[2020-06-03] MEDS ORDERED: LISI20TA35 PO (20:24)
[2020-06-03] MEDS ORDERED: ATOR1TAB21 PO (20:24)
[2020-06-03] MEDS ORDERED: ASPI81TA26 PO (20:24)
[2020-06-03] MEDS ORDERED: TIZA4TAB4 PO (20:24)
[2020-06-03] MEDS ORDERED: BUTACAP78 PO (20:24)
[2020-06-03] MEDS ORDERED: DULO1CAP4 PO (20:24)
[2020-06-03] MEDS ORDERED: DOCU100C16 PO (20:24)
[2020-06-03] MEDS: HumaLOG INSULIN (NovoLOG) PER UNIT SC SCH (20:50)
[2020-06-03] MEDS ORDERED: LEVEMIR (INSULIN DETEMIR) 1 UNITS/0.01ML SC SCH (21:00)
[2020-06-03] MEDS ORDERED: CIPROFLOXACIN 500MG TABLET PO SCH (21:00)
[2020-06-03 21:12] LABS: ACETAMINOPHEN LEVEL 6.5 UG/ML (10.0-30.0); FREE T4 0.72 NG/DL (0.76-1.46); SALICYLATE LEVEL 3.2 MG/DL (5.0-30.0); THYROID STIMULATING HORMONE 1.09 uIU/ML (0.358-3.740)
--- NOTE | 2020-06-03 21:14 | REPVR ---
PROCEDURE INFORMATION: Exam: XR Chest, 1 View Exam date and time: 06/03/2020 8:07 PM Age: 54 years old Clinical indication: Chest pain; Additional info: Dialysis cath placement TECHNIQUE: Imaging protocol: XR of the chest Views: 1 view. COMPARISON: CR PORTABLE CHEST X-RAY 06/03/2020 6:50 PM FINDINGS: Tubes, catheters and devices: The tip of the left IJ central venous catheter terminates in the lower SVC. Right IJ central venous line projects in the lower SVC. Lungs: Unremarkable. No consolidation. Pleural space: Unremarkable. No pleural effusion. No pneumothorax. Heart/Mediastinum: Unremarkable. No cardiomegaly. Bones/joints: Unremarkable. IMPRESSION: 1. The tip of the right IJ central venous catheter terminates in the lower SVC. 2. The tip of the left IJ central venous catheter terminates in the lower SVC. 3. No acute findings. Electronically signed by: Ambrose Coy On 06/03/2020 21:14:01 PM
[2020-06-03] MEDS ORDERED: KCL 20MEQ IN 100ML SWI (KRUN) 100 ML IV PRN (22:45)
[2020-06-03] MEDS ORDERED: SODIUM CHLORIDE 0.9% INJ 10 ML SYR IV PRN (22:45)
[2020-06-03] MEDS ORDERED: POTASSIUM PHOSPHATE INJ 30 MMOL in D5W 250 ML IV PRN (23:00)
[2020-06-03] MEDS ORDERED: POTASSIUM PHOSPHATE INJ 15 MMOL in D5W 250 ML IV PRN (23:00)
[2020-06-04] VITALS (43 sets, daily range): BP systolic 79–129; BP diastolic 36–88
[2020-06-04] MEDS: HumaLOG INSULIN (NovoLOG) PER UNIT SC SCH ×6 (01:00→21:00)
[2020-06-04] MEDS: NS 1,000 ML IV SCH ×2 (01:20→11:30)
[2020-06-04 03:30] LABS: MEAN CORPUSCULAR HEMOGLOBIN 27.3 pg (27.0-33.0); MEAN CORPUSCULAR HGB CONC 31.8 g/dl (32.0-36.5); MEAN CORPUSCULAR VOLUME 85.9 fl (80.0-96.0); RED BLOOD COUNT 2.56 10^6/uL (4.00-5.40); WHITE BLOOD COUNT 6.8 10^3/uL (4.0-10.0)
[2020-06-04 03:38] LABS: PLATELET COUNT, AUTOMATED 219 10^3/uL (150-450)
[2020-06-04 03:50] LABS: ATYPICAL LYMPH 2 % (0-5); EOSINOPHILS 1 % (0-3); LYMPHOCYTES 12 % (16-44); METAMYELOCYTES 1 % (0-0); MONOCYTES 9 % (0-5); NEUTROPHILS 75 % (28-66)
[2020-06-04 03:51] LABS: HYPOCHROMASIA 1+; PLATELET ESTIMATE NORMAL (NORMAL)
[2020-06-04 03:52] LABS: DOHLE BODIES 1+; TOXIC VACUOLATION 2+
[2020-06-04] MEDS: CALCIUM GLUCONATE 1,000 MG, VIAL MATE ADAPTER 1 EACH in NS 100 ML IV PRN ×2 (03:54→05:01)
[2020-06-04 03:57] LABS: MICROCYTOSIS 1+
[2020-06-04 04:13] LABS: CREATININE FOR GFR 6.14 MG/DL (0.55-1.30); GLOMERULAR FILTRATION RATE 7.5 (>51); MAGNESIUM LEVEL 1.6 MG/DL (1.8-2.4); PHOSPHORUS LEVEL 6.1 MG/DL (2.5-4.9); POTASSIUM SERUM 3.8 MEQ/L (3.5-5.1)
[2020-06-04] MEDS ORDERED: PERCOCET 5MG/325MG TAB PO ONE (05:30)
[2020-06-04 05:47] LABS: ABG BASE EXCESS -6.8 (-2.0-2.0); ABG HCO3 17.4 MEQ/L (22.0-26.0); ABG O2 SATURATION 99.1 % (95.0-99.0); ABG PARTIAL PRESSURE CO2 29.6 mmHg (35.0-45.0); ABG PARTIAL PRESSURE O2 139.5 mmHg (75.0-100.0); ABG STANDARD HCO3 18.9 MEQ/L (22.0-26.0); ABG TOTAL CO2 18.3 MEQ/L (22.0-29.0); ABG pH (ARTERIAL) 7.388 UNITS (7.350-7.450)
[2020-06-04] MEDS: MAG SULF 1GM/100ML (MAG RUN) 100 ML IV PRN ×2 (05:47→06:59)
--- NOTE | 2020-06-04 08:49 | REP ---
INDICATION: abdominal distention COMPARISON: None. TECHNIQUE: Supine portable view of the abdomen and pelvis. FINDINGS: Examination is essentially nondiagnostic due to motion artifact. IMPRESSION: Nondiagnostic examination. Consider repeat if the patient remains symptomatic. <Electronically signed by Chava Conner > 06/04/20 0899
[2020-06-04] MEDS ORDERED: PANTOPRAZOLE 20 MG TAB PO SCH (09:00)
--- NOTE | 2020-06-04 10:07 | REPVR ---
PROCEDURE INFORMATION: Exam: CT Head Without Contrast Exam date and time: 06/04/2020 9:47 AM Age: 54 years old Clinical indication: Other: Encephalopathy TECHNIQUE: Imaging protocol: Computed tomography of the head without contrast. Radiation optimization: All CT scans at this facility use at least one of these dose optimization techniques: automated exposure control; mA and/or kV adjustment per patient size (includes targeted exams where dose is matched to clinical indication); or iterative reconstruction. COMPARISON: No relevant prior studies available. FINDINGS: Brain: Images are slightly motion degraded. No hemorrhage. No mass effect. No evolving territorial infarct. White matter hypodensities are nonspecific, potentially represent chronic small vessel ischemic change. Cerebral ventricles: No ventriculomegaly. Bones/joints: Unremarkable. No acute fracture. Paranasal sinuses: Visualized sinuses are unremarkable. No fluid levels. Mastoid air cells: Chronically underpneumatized. Auditory system: There is material in the left external auditory canal which presumably represents cerumen. Soft tissues: Unremarkable. IMPRESSION: No acute intracranial abnormality seen. Electronically signed by: Zulay Vazquez On 06/04/2020 10:06:59 AM
--- NOTE | 2020-06-04 10:08 | REP ---
INDICATION: s/p ng tube insertion COMPARISON: None. TECHNIQUE: Supine view of the abdomen and pelvis. FINDINGS: Examination is limited by portable technique and positioning. A nasogastric tube is identified in satisfactory position within the left upper quadrant. Distended air-filled large bowel is appreciated and nonspecific differential diagnosis would include ileus and distal mechanical obstruction. No obvious small bowel obstruction or distention is appreciated. IMPRESSION: Limited examination demonstrating distended large bowel. Differential diagnosis includes ileus and possible mechanical large bowel obstruction. Small bowel is grossly unremarkable. <Electronically signed by Chava Conner > 06/04/20 [id number]
[2020-06-04] MEDS: PANTOPRAZOLE 40MG VIAL (C9113 PER 1) IV SCH (10:16)
--- NOTE | 2020-06-04 11:58 | RO ---
DATE OF OPERATION: 06/03/2020 PRE-PROCEDURE DIAGNOSIS: Hypotension, shock. POST-PROCEDURE DIAGNOSIS: Hypotension, shock. PROCEDURE: Central line. SURGEON: Anyi Concepcion MD CONSENT: The procedure was performed emergently and the permission was implied due to the emergent nature of the procedure. INDICATIONS FOR PROCEDURE: Vasopressor administration. PROCEDURE SUMMARY: A central line insertion practice form was completed by an independent observer. Full sterile technique was maintained throughout the procedure including surgical cap, mask, protective eyewear, full gown and sterile gloves. A timeout was performed. The patient was placed in the Trendelenburg position. The left neck region was prepped using chlorhexidine scrub and draped in a sterile fashion using a full drape and a sterile probe cover employed. The right internal jugular vein was identified using the ultrasound. Anesthesia was achieved through the vein using 1% Lidocaine. Using real time out of plane guidance, the introducer needle was inserted into the internal jugular vein under direct ultrasound visualization. Venous blood was withdrawn. The syringe was removed and the guidewire was advanced into the introducer needle. The introducer needle was removed over the guidewire and a small incision was made at the skin surface with the scalpel and a dilator was exchanged over the guidewire. After appropriate dilation was obtained, the dilator was exchanged with the wire for a triple-lumen central venous catheter. The wire was removed and the catheter was sutured in place at 20 cm. A sterile chlorhexidine-impregnated dressing was placed over the catheter at the insertion site. The patient tolerated the procedure without any hemodynamic compromise. At the time of procedure completion, all ports were aspirated and flushed properly. Post-procedure chest x-ray showed the line in satisfactory position with the tip in the superior vena cava (SVC) with no pneumothorax. Estimated blood loss is less than 2 mL. MTDD
--- NOTE | 2020-06-04 11:59 | RO ---
DATE OF OPERATION: 06/03/2020 PRE-PROCEDURE DIAGNOSIS: Acute renal failure. POST-PROCEDURE DIAGNOSIS: Acute renal failure. PROCEDURE: Hemodialysis catheter reinsertion. SURGEON: Anyi Concepcion MD CONSENT: Consent was obtained from the patient prior the procedure. Indications, risks and benefits were explained at length. INDICATIONS FOR PROCEDURE: Hemodialysis access. PROCEDURE SUMMARY: A central line insertion practice form was completed by an independent observer. A timeout was performed. Full sterile technique was maintained throughout the procedure including surgical cap, mask, protective eyewear, full gown and sterile gloves. The patient was placed in the Trendelenburg position. The right neck region was prepped using chlorhexidine scrub and draped in a sterile fashion using a fenestrated drape and a sterile probe cover employed. The right internal jugular vein was identified using ultrasound. Anesthesia was achieved through the vein using 1% Lidocaine. Using real-time may-du-wthaf guidance, the introducer needle was inserted into the internal jugular vein under direct ultrasound visualization. Venous blood was withdrawn. The syringe was removed and a guidewire was advanced into the introducer needle. The introducer needle was removed over the guidewire. A small incision was made at the skin surface with the scalpel and the dilator was exchanged over the guidewire. After appropriate double dilation was obtained, the dilator was exchanged with the wire for a dual-lumen hemodialysis catheter. The wire was removed and the catheter was sutured in place at 15 cm. A sterile chlorhexidine-impregnated dressing was placed over the catheter at the insertion site. The patient tolerated the procedure without any hemodynamic compromise. At the time of procedure completion, all ports were aspirated and flushed properly. Post-procedure chest x-ray showed the hemodialysis catheter with the tip at the superior vena cava (SVC). No pneumothorax noted. Estimated blood loss is less than 2 mL. MTDD
[2020-06-04 14:44] LABS: CALCIUM LEVEL 8.5 MG/DL (8.5-10.1); CREATININE FOR GFR 4.73 MG/DL (0.55-1.30); GLOMERULAR FILTRATION RATE 10.2 (>51); POTASSIUM SERUM 4.2 MEQ/L (3.5-5.1)
[2020-06-04] MEDS: HEPARIN SOD (PORCINE) 5000UNITS/ML 1ML VIAL/SYRINGE SQ SCH ×2 (15:10→21:25)
[2020-06-04 15:46] LABS: ALBUMIN 1.98 GM/DL (3.29-5.55); ALBUMIN % 39.5 % (55.8-66.1); ALPHA-1-GLOBULIN % 15.4 % (2.9-4.9); ALPHA-1-GLOBULINS 0.77 GM/DL (0.17-0.41); ALPHA-2-GLOBULINS 0.94 GM/DL (0.42-0.99); ALPHA-2-GLOBULINS % 18.7 % (7.1-11.8); BETA-1-GLOBULINS 0.25 GM/DL (0.28-0.60); BETA-2-GLOBULINS 0.37 GM/DL (0.19-0.55); BETA-2-GLOBULINS % 7.3 % (3.2-6.5); GAMMA GLOBULIN % 14.1 % (11.1-18.8); GAMMA GLOBULINS 0.71 GM/DL (0.65-1.58)
--- NOTE | 2020-06-04 16:41 | REP ---
INDICATION: oliguric renal failure. COMPARISON: None. TECHNIQUE: Real-time sonographic evaluation of the kidneys is performed. FINDINGS: Renal cortical echogenicity pattern is normal bilaterally and contours are smooth. There is no evidence of hydronephrosis, cyst, mass, or calculus in either kidney. The right kidney measures 10.0 x 4.0 x 4.8 cm. Left renal dimensions are 10.8 x 4.1 x 5.3 cm. The urinary bladder is empty and contains a Smart catheter. IMPRESSION: Normal urinary tract sonography. <Electronically signed by Baljit Crespo > 06/04/20 [id number]
--- NOTE | 2020-06-04 17:24 | IPNPDOC ---
Text Note Date of Service The patient was seen on 06/04/20. NOTE Subjective: Patient was seen and examined this morning at bedside. Patient now off of levofed with good BP. She was able to appropriately answer my questions. she is A&Ox3. She denies being in any pain. Tells me that she hasn't had diarrhea since the morning. Objective: Constitutional: Awake and alert, in no apparent distress. obese ENT: Sclera are clear. Atraumatic. Mucosa membranes dry. Traches is midline. Supple neck. Respiratory: Lungs CTA bilaterally but breath sounds are diminished equally. No respiratory distress. No use of accessory muscles. Saturating >90% on room air. Cardiovascular: RRR S1 and S2 are normal, systolic murmur. no JVD. Gastrointestinal: Abdomen is soft, obese, non distended, non tender to light or deep palpation and no rebound tenderness, BS present. Musculoskeletal: No edema. No joint deformities. RUE 5/5, LUE 5/5, BLE 5/5 Neurologic: No focal neurological deficit. Mental Status: A&O x3, normal affect Skin: Warm, dry, bruise on right knee and below left knee which she tells me was from a fall at home Assessment/plan: 54F PMHx HTN, DM w neuropathy, MDD, HLD, who was transferred to [facility] from [place] on 06/03/2020 with complaints of diarrhea, abdominal pain and weakness. At outside hospital she was hypotensive requiring IO line for levofed which was started. Central line placed here by Dr Concepcion on day of arrival R IJ. Patient only required levofed for 1 day. She was found to have acute renal faliure with severe electrolyte abnoramlities such as hyperkalemia. Nephrology was consulted and she was placed on continuous dialysis which was discontinued after one day after which she will receive HD as needed. She is making good urine output. She had severe metabolic acidosis initially for which she received bicarbonate infusion. Her UA was suggestive of UTI for which she is ceftriaxone. Patient appears to be improved. # Acute renal faliure: initially on continuous HD. Now on HD as needed per nephrology. Appreciate recs from nephro. Improved urine output. # Anemia: s/p 1pRBC. Tranfuse hgb<7. fu SPEP for MM given protein gap. # Diarrhea: appears to have now resolved. GI panel/cdiff is recurrent. Monitor. NPO for suspected obstruction currently with NG tube. IV PPI. # UTI: Continue ciprofloxacin. FU UCx. # Heart murmur: Fu echo. Evaluate for pericardial effusion/uremic pericarditis given significant uremia initially. # Abdo xray suggestive of ileus or mechanical large bowel obstruction: NPO and NG to suction. Repeat xray in am. # Hypothyroidism: Possible history but no synthroid on med rec. Free T4 low. Start synthroid when tolerating PO and Fu PCP to titrate. # HTN: patient was hypotensive on arrival . Hold anti-hypertensives. Monitor and titrate. # Diabetes: Levemir. ISS. Accuchecks. Hypoglycemic protocol. # HLD: continue statin when tolerating PO # Obesity: BMI 35.4 Complicated care. # Axiety/depression: hold none essential meds # DVT prophylaxis: heparin A [facility] VS,Fishbone, I+O VS, Fishbone, I+O Laboratory Tests 06/03/20 18:11 06/04/20 03:19 06/04/20 14:08 Vital Signs Date Time Temp Pulse Resp B/P (MAP) Pulse Ox O2 Delivery O2 Flow Rate FiO2 06/04/20 15:30 98.8 103 19 92/51 Room Air 06/04/20 15:00 97 I&O- Last 24 Hours up to 6 AM 06/04/20 06:00 Intake Total 1521.8 ml Output Total 571 ml Balance 950.8 ml DOMINIC VELASCO MD Jun 04, 2020 17:24
[2020-06-04] MEDS: NOREPINEPHRINE BITARTRATE 8 MG in D5W 492 ML IV SCH (17:28)
[2020-06-04] MEDS: D5W/0.9% SODIUM CHLORIDE 1,000 ML IV SCH (18:34)
[2020-06-04] MEDS: CIPROFLOXACIN 400 MG in IV 1 EA IV SCH (21:19)
[2020-06-04] MEDS: NYSTATIN 100,000 UNITS/GM TOPICAL PWD 15 GM TOP SCH (21:20)
[2020-06-04] MEDS: LEVEMIR (INSULIN DETEMIR) 1 UNITS/0.01ML SC SCH (22:13)
[2020-06-04 22:35] LABS: HEMATOCRIT 21.9 % (36.0-47.0); HEMOGLOBIN 7.1 g/dl (12.0-15.5); MEAN CORPUSCULAR HEMOGLOBIN 27.4 pg (27.0-33.0); MEAN CORPUSCULAR HGB CONC 32.4 g/dl (32.0-36.5); MEAN CORPUSCULAR VOLUME 84.6 fl (80.0-96.0); PLATELET COUNT, AUTOMATED 138 10^3/uL (150-450); RED BLOOD COUNT 2.59 10^6/uL (4.00-5.40); WHITE BLOOD COUNT 4.3 10^3/uL (4.0-10.0)
[2020-06-04 23:08] LABS: CALCIUM LEVEL 7.4 MG/DL (8.5-10.1); CREATININE FOR GFR 4.07 MG/DL (0.55-1.30); GLOMERULAR FILTRATION RATE 12.1 (>51); POTASSIUM SERUM 4.1 MEQ/L (3.5-5.1)
[2020-06-05] VITALS (14 sets, daily range): BP systolic 93–161; BP diastolic 40–69
[2020-06-05 00:40] LABS: INR 1.39; PROTHROMBIN TIME 17.4 SECONDS (12.5-14.3)
[2020-06-05] MEDS: HumaLOG INSULIN (NovoLOG) PER UNIT SC SCH ×4 (01:00→17:51)
[2020-06-05] MEDS: D5W/0.9% SODIUM CHLORIDE 1,000 ML IV SCH ×2 (02:01→09:50)
[2020-06-05] MEDS: HEPARIN SOD (PORCINE) 5000UNITS/ML 1ML VIAL/SYRINGE SQ SCH ×2 (06:37→16:24)
--- NOTE | 2020-06-05 06:43 | HPE ---
DATE OF ADMISSION: 06/03/2020 CHIEF COMPLAINT: Acute renal failure. HISTORY OF PRESENT ILLNESS: Ms. Bell is a 54-year-old female with a past medical history of diabetes, chronic venous insufficiency, hypothyroidism, hypertension, lumbar disc disease, depression who presented to [facility] Emergency Room with complaints of weakness for the past 3-4 days as well as severe diarrhea for the past 4 days. The patient states she started having diarrhea multiple times a day with very soft, loose stool as well as some complaints of abdominal pain. She initially did not have any nausea or vomiting; however, today she started having some episodes of vomiting as well as more severe pain in her right lower quadrant. Patient was also weaker and she did have decreased oral intake and so she was brought to the ED by EMS for further evaluation. Patient states she did not take any [id number] Advil, Aleve or Motrin, but she did take [id number] Pepto Bismol multiple doses for her diarrhea. She did also continue to take her usual home medications including her metformin as well as her other anti-hypertensive medications. In the Emergency Room at [facility] patient was hypotensive with initial blood pressure of 82/46 and a heart rate of 99 and a temperature of 96.6. She was noted to have difficulty getting I.V. access, but she was able to get 1 small placed in her hand and given 1 liter normal saline bolus as well as pantoprazole and Zofran for medications. She was also given Imodium in the ED as well. Patient was then noted to have continued episodes of hypotension with systolic blood pressures into the 50s and 60s. She had blood work which showed evidence of acute renal failure with a creatinine of 11.5 as well as potassium of 8.3 and a VBG pH of 7.15. She was given an additional liter normal saline bolus for her hypotension and was also given insulin-D50, sodium bicarb 50 mEq and calcium gluconate. Patient had attempts by the ED physician for placement of a central line in the right IJ as well as in the right femoral region with multiple attempts which were unsuccessful. She therefore had an intraosseous line placed in her left tibia. Patient was then started on Levophed through her intraosseous access as well as a bicarbonate drip with 150 mEq at 100 mL an hour. She was also given a gram of ceftriaxone for antibiotic and started on another bolus of fluid. Patient was then transferred to [facility] ICU for further treatment. PAST MEDICAL/SURGICAL HISTORY: * Anxiety/depression. * Obesity. * Cervical radiculopathy. * Chronic back pain. * Chronic headache. * Diabetes. * History of chronic venous insufficiency. * Neuropathy. * Hypothyroidism. * Hypertension. * Previous history of some renal insufficiency. * Appendectomy. * Cholecystectomy. * section. * Cyst removal. * Hysterectomy. * Oophorectomy. HOME MEDICATIONS: * Zanaflex. * Vitamin D. * Victoza. * Seroquel. * Risperidone. * Ranitidine. * Oxycodone/acetaminophen. * NovoLog. * Nortriptyline. * Metformin. * Lyrica. * Lisinopril. * Levemir. * Cymbalta. * Colace. * Butalbital/APAP/caffeine. * Aspirin 81 mg daily. * Amlodipine. ALLERGIES: * SULFA. * MORPHINE. FAMILY HISTORY: Father has a history of prostate cancer. Mother has a history of lung cancer. Sister with history of emphysema. SOCIAL HISTORY: Patient denies a history of smoking. No alcohol use. She denies any history of drug use. PHYSICAL EXAMINATION: Vitals: Temperature 98.7, pulse 96, respirations 18, blood pressure 107/50, O2 sat 100% on room air. General: Patient is an obese female lying on the stretcher, appears comfortable, in no acute distress, does not appear to be using any accessory muscles for respiration. HEENT: Normocephalic, atraumatic. Dry mucous membranes noted. Neck: Supple, trachea is midline, no palpable cervical adenopathy. No JVD. Cardiac: Tachycardic, regular rate and rhythm, normal S1 and S2. There is a systolic murmur auscultated. Pulmonary: Diminished breath sounds bilaterally with no wheezing or rhonchi. No crackles. Abdomen: Obese, soft, nondistended. There is tenderness to palpation mostly in the right lower quadrant with mild tenderness to palpation as well in the right upper quadrant. Unable to palpate any hepatomegaly. Extremities: There is no lower extremity edema bilaterally. There are lesions on her arms which appear to be ringworm although patient states she has had that for quite some time. LABORATORY DATA: WBC from [facility] with 18.9, hemoglobin was 8.5, platelets are 351. Repeat CBC here: WBC 18.9, hemoglobin 8, platelets 383. At [place] patients potassium was 8.3, bicarb was 9 and BUN was greater than 112 with a creatinine of 11.5 and a lactic acid of 1.1. Here patient's repeat chemistry showed a sodium of 131, potassium 6.1, chloride 104, bicarb 11, BUN 172, creatinine 10.5, anion gap 16, glucose 161. Lactic acid 1.4. AST/ALT 12, alkaline phosphatase 105, total protein 6.4, albumin 1.6. COVID-19 negative. ABG: pH 7.159, PCO2 23, PO2 106.6. Troponin at [place] was negative at 0.06. Lipase at [place] was 253. UA at [place] was positive for ketones, blood, leukocyte esterase, WBCs and trace bacteria. IMAGING DATA: Patient had outside imaging with a CT of the abdomen and pelvis with verbal results reporting gaseous dilation of the colon with a non-contrast CT. actual imaging is unable to be reviewed currently. A chest x-ray after central line placement shows her right IJ triple lumen in good position with the tip in the SVC. There was no pneumothorax. There is somewhat low lung volumes noted, but no focal opacities and no pleural effusion. ASSESSMENT AND PLAN: Ms. Bell is a 54-year-old female with a past medical history of diabetes, hypertension, hyperlipidemia, neuropathy, lumbar radiculopathy, anxiety and depression who presented with complaints of diarrhea as well as weakness and abdominal pain. Patient was initially seen at an outside hospital in their Emergency Department. She was hypotensive upon arrival there as well as mildly tachycardic. She was alert and oriented and mentating well. She was given I.V. fluid boluses with continued hypotension and with multiple attempts at central line access unsuccessful she had an intraosseus line placed in her left anterior tibia and she was started on Levophed through her anterior intraosseus line. Patient was also noted to have acute renal failure with significant electrolyte abnormalities including hyperkalemia, severe uremia as well as severe metabolic acidosis with an elevated white count as well. Her UA was also positive and she was given ceftriaxone in the ED. Patient was also given medications for her hyperkalemia and started on a bicarbonate infusion for her acidosis and acute renal failure and transferred to our ICU for further evaluation. Patient had a right IJ triple lumen placed in the ICU and was continued on Levophed through her right IJ line for vasopressor administration. Neuro: Patient has a history of anxiety and depression. She is on various psychiatric medications which will be held currently given her acute renal failure and electrolyte abnormalities. Would likely be able to restart them in the morning once her electrolytes and acidosis have improved with close monitor of QTC. Patient otherwise is alert, oriented times 3 and appropriate. Cardiac: Patient has a history of hypertension with no reported history of any coronary artery disease. She does have a murmur appreciated on exam and denies any previous history of known murmurs. Given her severe uremia there is concern for possible uremic pericarditis or pericardial effusion although she denies any chest discomfort or shortness of breath or dyspnea. We will get an echocardiogram given her murmur and for evaluation of possible pericardial effusion. Patient's initial cardiac enzymes were negative. She does not have any evidence of chest pain currently. Patient is hypotensive and was given a 2-3 liter bolus with minimal improvement in her blood pressure. She was started on Levophed for vasopressor support which she will be continued on. She will be given an additional normal saline bolus and continued with maintenance fluids as well. We will continue Levophed to maintain a MAP above 65. We will check a morning cortisol level for evaluation of her hypotension. Despite her hypotension she is mentating well and does not have any lactic acidosis. Her hypotension is therefore less likely to be related to sepsis, but she does have increased leukocytosis so that is possible as well. We will also check her thyroid function as well for evaluation of her hypotension. There is a possible history of hypothyroidism although she is not on any medications for hypothyroidism currently. Pulmonary: Patient is a nonsmoker and denies any history of pulmonary disease. Her chest x-ray does not show any focal opacities or infiltrates and she is sating well on room air. We will continue to monitor for signs of fluid overload with her I.V. hydration although clinically patient does appear volume depletion. Renal/endo: Patient denies a history of previous renal insufficiency although there is documentation in her chart of some degree of renal insufficiency. She appears to have acute renal failure likely multifactorial, initially prerenal in the setting of her diarrhea and volume depletion; however, with her hypotension as well as with her medication, particularly her metformin and possibly her aspirin and Pepto Bismol usage there is a possibility of ATN as well. She does have severe uremia noted as well as severe metabolic acidosis on her repeat ABG despite being on bicarbonate infusion. Her hyperkalemia has improved; however, suspect it is in the setting of her severe metabolic acidosis secondary to her renal failure. I appreciate nephrology consult and recommendations. Given her uremia and severe acidosis patient will be started on CVVHD. We will place a hemodialysis catheter. We will continue monitoring her electrolytes and VBG while on HORSE BREAKER as per nephrology. We will continue with her bicarbonate infusion for now and discontinue based on nephrology recommendations. We will continue with maintenance fluids afterwards when she is off the bicarbonate infusion. We will continue monitoring electrolytes and replete as needed. Patient is on Levemir as an outpatient. We will continue with detemir with a lower dose as she will be on a clear liquid diet only for now. Patient did have elevated lipase and some abdominal pain although more in the right lower quadrant, there was some mild tenderness in the right upper quadrant. She did not have any reported pancreatitis on her CT; however, my review is still pending once her images are loaded into our imaging system. We will repeat her lipase and amylase. We will also check salicylate and acetaminophen levels. GI: Patient reported history of diarrhea for the past few days. She has not had any further diarrhea episodes since being admitted to the [facility]. She did also have a UA which appeared suspicious for a UTI. We will start patient on ciprofloxacin for antibiotics. She does have leukocytosis as well. If patient has episodes of diarrhea we will send for C. diff and stool cultures. We will continue patient on GI prophylaxis. Clear liquid diet, advance a tolerated. Heme: Patient has evidence of anemia which is reportedly new. We will get an active type and screen and transfuse as needed if hemoglobin is less than 7. Patient was also noted to have evidence of a significant protein gap with serum protein of 6.4 and albumin of 1.6. We will get SPEP for evaluation of the protein gap; however, with her acute renal failure and the protein gap there is a suspicion of possible multiple myeloma. Other potential etiologies will need to be investigated based on her SPEP including a potential HIV test. DVT prophylaxis: Heparin. CODE STATUS: Full Code. Total care time spent not including any procedures approximately 1 hour and 50 minutes. MTDD
--- NOTE | 2020-06-05 06:51 | CR ---
DATE OF CONSULTATION: 06/03/2020 REQUESTING PHYSICIAN: Anyi Concepcion MD. CONSULTING PHYSICIAN: Ana Degroot DO. REASON FOR CONSULTATION: Oliguric renal failure with hyperkalemia and severe metabolic acidosis. HISTORY OF PRESENT ILLNESS: Bettina Bell is previously unknown to me. She is a 54-year-old female with a past medical history of insulin dependent type-2 diabetes mellitus, hypertension, hypothyroidism, depression, chronic venous insufficiency, obesity, neuropathy and other comorbid conditions mentioned below. She presented to [facility] with complaint of severe progressive weakness that started earlier this week about 4 days ago and was associated with recurrent bouts of watery diarrhea over the past 4 days with patient self reporting 20 diarrheal bowel movements a day associated with abdominal pain. She also had nausea and had decreased oral intake, but did continue to take most of her home medications including her metformin and her anti-hypertensive. Her insisted that she go to the Emergency Room because she looked like she was going to pass out. She denied any NSAID use during that time period. In the Emergency Room at [facility] patient was hypotensive and she received normal saline, but her blood pressure did not respond. Blood work showed creatinine of 11.5 with potassium of 8.3 and blood urea nitrogen was so high that the lab could not quantify it. She was given the usual cocktail for hyperkalemia including bicarbonate, calcium gluconate and insulin and D5. Attempts were made for central line placement at [facility], but were unsuccessful. she had an intraosseous line placed in the left tibia and was started on Levophed infusion and a sodium bicarbonate 150 mEq drip and she was transferred to [facility]. She had a Smart catheter placed without any significant urine output. Her Levophed was up-titrated up to 8 mcg to achieve a mean arterial pressure of 65. She received further fluid bolus and repeat labs showed a potassium of 6.1 and ongoing significant metabolic acidemia and blood urea nitrogen was 172 with creatinine greater than 10. A nephrology evaluation was requested for help in the management of this patients renal failure. Patient was and examined by myself in the Intensive Care Unit at the bedside where she was found to be awake, alert and oriented times 3. I discussed with her regarding need for initiation of CRRT and she was agreeable for the same and I also spoke with her regarding her renal failure and plan for dialysis. PAST MEDICAL HISTORY: 1. Obesity. 2. Type-2 diabetes mellitus. 3. Hypertension. 4. Anxiety. 5. Depression. 6. Cervical radiculopathy. 7. Chronic venous insufficiency. 8. Diabetic neuropathy. 9. Probable diabetic nephropathy. 10. Hypothyroidism. PAST SURGICAL HISTORY: 1. Status post appendectomy. 2. Cholecystectomy. 3. section. 4. Hysterectomy. 5. Oophorectomy. ALLERGIES: * SULFA. * MORPHINE. HOME MEDICATIONS: * Aspirin 81 mg by mouth daily. * Atorvastatin 20 mg by mouth daily. * Vitamin D3 1000 units, take 2 tabs daily. * Docusate 100 mg by mouth twice a day. * Duloxetine 40 mg by mouth at bedtime. * Duloxetine 60 mg by mouth every morning. * NovoLog sliding scale. * Basaglar. * Victoza 1.8 mg subcutaneously daily. * Lisinopril/hydrochlorothiazide 1 tablet daily. * Metformin 1000 mg by mouth twice a day. * Nortriptyline 50 mg by mouth daily. * Percocet 1 tablet by mouth every 4 hours p.r.n. * Lyrica 300 mg by mouth twice a day. * Tizanadine 4 mg by mouth three times a day p.r.n. spasm. SOCIAL HISTORY: She is . She lives with her . There is no history of smoking, alcohol or drug use. FAMILY HISTORY: No known family history of renal failure. There is a family history of lung cancer for her mother. REVIEW OF SYSTEMS: Constitutional: She reports extreme fatigue, lightheadedness, dizziness, presyncopal episodes, but she denies fevers. Eyes: Denies visual changes or tearing. ENT: She denies odynophagia or rhinorrhea. Cardiac: She denies chest pain or palpitations. Respiratory: Denies shortness of breath or cough. Gastrointestinal: She reports the current bouts of watery diarrhea, nausea and poor oral intake. Genitourinary: She reports decreased urine output. Skin: She denies any new rashes or ulcers. Musculoskeletal: She has chronic back pain. Denies any acute myalgias or arthralgias. Endocrine: Reports hypothyroidism and diabetes. Hematologic: Denies a known history of severe anemia. Neurologic: Denies seizure or syncope. The remainder of review of systems is negative or as per HPI. PHYSICAL EXAMINATION: Vital signs: Temperature 97.1, pulse 86, respiratory rate 18, blood pressure 110/53 on Levophed at 8 mcg, saturating 100% on room air. Intake so far is 800 at [facility] plus further fluid at [facility]. Urine output is 20 mL. General: Patient is seen in the ICU lying in bed prepped for central line placement. She is obese and she is in no apparent distress although she does look anxious. HEENT: Extraocular muscles are intact. Sclerae are anicteric. Tongue is dry. Neck: Supple. There is a central line in the left IJ. The jugular veins are flat. Heart: Sounds are tachycardic, S1 and S2. I was unable to appreciate murmur. There is absolutely no leg edema or dependent edema. Respiratory: There is symmetric air entry bilaterally with no wheeze or crackle. There is no accessory muscle use. Abdomen: Soft and obese. There is mild epigastric tenderness. Extremities: There is no leg edema, clubbing or cyanosis. There is an intraosseous line in the left tibia. Her extremities are warm and perfused. Genitourinary: Shows Smart catheter with a few drops of urine in the tubing. Neurologic: She is oriented times 3, interactive, conversational and mentating appropriately. LABORATORY DATA: White count 18.9, hemoglobin 8, platelets 383. Sodium 131, potassium 6.1, bicarbonate 11, BUN 172, creatinine 10.5. Lactic acid 1.4. ALT/AST normal. Blood gas: pH 7.15, PCO2 23, PO2 106. Urinalysis: 1+ protein and 12 RBCs per high power field. Albumin 1.6, anion gap 16, glucose 161. INPATIENT IMAGING: Chest x-ray June 03: Costophrenic angles are clear. Lung lazcano are clear. Central venous catheter on the left. INPATIENT MEDICATIONS: * She is on a sodium bicarbonate drip 150 mEq and D5W running at 100 an hour. * Levophed at 8 mcg. PROBLEMS: 1. Oliguric renal failure: Her baseline renal function is unknown to me, but given that she is taking metformin along with lisinopril at home I would assume that her baseline renal function is decent. She presented with a creatinine of greater than 10 and BUN of greater than 170 with severe hypotension requiring Levophed pressor support and complaint of copious recurrent watery diarrhea. She is hypovolemic. She is presently on a sodium bicarbonate drip running at 100 mL an hour and I would continue generous I.V. fluids at this time. In view of her severe metabolic derangements including severe metabolic acidosis and hyperkalemia would start CRRT tonight to stabilize the patient. Will monitor closely for signs of renal recovery. I expect her acidemia and her hyperkalemia should promptly improve with initiation of CRRT. We will get q8 labs. Is off nephrotoxics including metformin and MARYLU inhibitor. 2. Severe hypotension and concern for sepsis: She has an elevated white count and is requiring Levophed at 8 mcg at present. There is no report of fevers. There is no lactic acidosis. She already received empiric antibiotic in [place] and cultures are pending. Would also suggest to get echocardiogram to rule out any sort of pericardial effusion that is contributing to her hypotension. Defer need for ongoing antibiotics to the primary service. I think she should be broadly covered until cultures return. 3. Normocytic anemia: Hemoglobin is 8 on arrival and this is a hemoconcentrated specimen because she is hypovolemic and dehydrated. I am concerned for possible GI bleed given her markedly elevated blood urea nitrogen as well. Suggest FOBT testing. She is on PPI therapy and she will likely need blood transfusion. 4. Anion gap metabolic acidosis secondary to renal failure: She is on a bicarbonate drip at present. We are starting her on CRRT for correction of her acidemia and hyperkalemia. I would discontinue the bicarbonate drip after CRRT has been successfully running for 4 hours at which point we can transition to normal saline at 100 mL an hour. There is no concomitant lactic acidosis. Her urinalysis is negative for ketones. 5. Severe hyperkalemia: It is secondary to renal failure and anion gap metabolic acidosis and is expected to improve with correction of her acid base status and CRRT orders are written. Thank you for involving in the care of Ms. Bell. I will be happy to follow her along with you. Critical care time spent 36 minutes. Edited: [id number] 06/05/2020 [id number] [email or web address]
--- NOTE | 2020-06-05 06:56 | CCN ---
DATE: 06/04/2020 ATTENDING PHYSICIAN/COSIGNER: Anyi Concepcion M.D. of pulmonary critical care medicine SUBJECTIVE: Ms. Bell was seen and examined this morning. She is a transfer from [facility] where she was found to be having multiple episodes of diarrhea and had developed hypotension and subsequently renal failure. The patient was transferred to [facility] for emergent dialysis. She had a dialysis catheter placed yesterday as well as a central venous catheter. The patient has remained fairly hypotensive overnight and was maintained on Levophed. The patient herself has no complaints, although she does appear altered. On examination this morning, the patient is alert and oriented to herself and place but not time and she is intermittently confused. Additionally, the patient does indicate some abdominal pain and discomfort, although she has no other complaints. OBJECTIVE: VITAL SIGNS: Temperature 97.7, pulse 81, respiratory rate 18, blood pressure 116/54 on Levophed, and pulse oximetry 97% on room air. GENERAL: Patient is awake and alert. She is oriented to person and place, but not time. She did not appear in acute distress. She is lying in bed comfortably. HEENT: Normocephalic, atraumatic. Her eyes are nonicteric. Her trachea is midline. She has no teeth and no dentures in place. Mucous membranes appear pink and moist. CARDIAC: Patient has a normal S1 and S2. There is a 1 to 2/6 systolic murmur present. There are no clicks or rubs. RESPIRATORY: Patient has clear vesicular breath sounds bilaterally, somewhat diminished in the bases, the respiratory effort. No wheezes, rhonchi or rales. ABDOMEN: Patient is morbidly obese. Abdomen appears to be distended and there is somewhat absent bowel sounds. There is mild tenderness to palpation. No rebound tenderness or guarding. There is no rigidity. EXTREMITIES: There is no edema in the lower extremities. There are full equal pulses bilateral upper and lower extremities. NEUROLOGIC: No focal neurological deficits. PSYCHIATRIC: Mood and affect appear appropriate. LABORATORY DATA: Hematology: White blood cell 6.8, hemoglobin 7.0, hematocrit 22, platelet count 219,000. Chemistries: Sodium 139, potassium 4.2, chloride 109, carbon dioxide 21, BUN 117, creatinine 6.14, fasting glucose 101, calcium 8.0, phosphorus 6.1, magnesium 1.6. Ammonia 39. ASSESSMENT AND PLAN: Ms. Bell is a 54-year-old female who presented originally to [facility] with hypotension and diarrhea; felt to be secondary to gastroenteritis. She was found to be hypotensive and in acute renal failure. She was given I.V. fluid and transferred to [facility] for dialysis. She has started to produce urine and is continued on CRRT as she has been on Levophed for blood pressure support. She remains somewhat altered. 1. Septic shock secondary to gastroenteritis: Patient is currently status post full resuscitation, she is receiving Levophed for blood pressure support, currently on 5 mcg. Additionally, she receives Ciprofloxacin for presumed urinary tract infection. In her documentation from [place], they mentioned Norovirus, gastroenteritis, however, there is no stool culture or GI panel that was performed in the chart that was sent over. 2. Acute renal failure secondary to septic shock: As stated patient is in acute renal failure, she presented with a creatinine of 10.5, potassium 6.1. She was started on CRRT due to her hyperkalemia. The patient's acute renal failure could be secondary to her hypervolemia, and septic shock, however, she is also fairly anemic. She also has a protein gap with an albumin of 1.6 and total protein of 6.4, which could suggest possible multiple myeloma as a diagnosis. She has multiple myeloma labs ordered and are currently pending. Will need a follow-up on this, however in the meantime, will continue CRRT. If patient's renal function improves, we will likely discontinue this. 3. Abdominal pain/distention: The patient had abdominal pain and distention, she was noted to have diarrhea at [place], however, she has not had any bowel movements since being in [facility]. Abdominal flat plate was obtained this morning, which demonstrated significant air in the large bowel, consistent with a large bowel ileus. An NG tube was placed and confirmed with a second abdominal flat plate. The patient is currently n.p.o., and will continue this at this period in time. 4. Altered mental status: The patient has alerted mental status, which maybe secondary to uremia, although the patient's BUN was low, possibly associated with dialysis. Additionally, the patient does have what looks to be a large bowel obstruction. Her altered mental status could be secondary to this. Lastly, she also has polypharmacy and receives multiple medications including Oxycodone. She also receives Amitriptyline and Seroquel and Risperidone. These compacted with acute renal failure may have caused her altered mental status. Will continue to monitor. She has had a CT of the head obtained today, which was negative for any acute intracranial findings. 5. Systolic ejection murmur: The patient has a systolic ejection murmur, echocardiogram has been ordered. I am not sure if this is a new or is old. No documentation in previous chart. Maybe secondary to uremic pericarditis. Will continue to follow. 6. Anemia: Patient presented with a hemoglobin of 8; currently is 7.0. Once again, the patient had hemoccult blood test done at [facility], which was negative for any blood in the stool. Her anemia could be secondary to multiple myeloma as this would be consistent with her acute renal failure. Her SPEP and multiple myeloma labs are currently pending. 7. Urinary tract infection: Patient is continued on Ciprofloxacin. She currently denies any symptoms, however, this was continued from home. I will likely discontinue this medication. 8. Diabetes mellitus type 2: Patient has chronic diabetes mellitus, the patient will continue on Levemir and every 6 hour fingersticks while n.p.o. 9. DVT prophylaxis: Patient continued on Heparin. DISPOSITION: Patients renal function is improving with CRRT, will likely be transitioned off this today. Her blood pressure has been stable. Will likely continue to wean down off of Levophed, her cause is possibly multiple myeloma. Once patient is off Levophed, she can likely be transitioned to hospitalist service for further management. ROSSY
[2020-06-05 07:07] LABS: HEMATOCRIT 27.5 % (36.0-47.0); HEMOGLOBIN 8.8 g/dl (12.0-15.5); MEAN CORPUSCULAR HEMOGLOBIN 27.4 pg (27.0-33.0); MEAN CORPUSCULAR VOLUME 85.7 fl (80.0-96.0); PLATELET COUNT, AUTOMATED 135 10^3/uL (150-450); RED BLOOD COUNT 3.21 10^6/uL (4.00-5.40); WHITE BLOOD COUNT 4.5 10^3/uL (4.0-10.0)
[2020-06-05 07:41] LABS: CALCIUM LEVEL 7.9 MG/DL (8.5-10.1); CREATININE FOR GFR 3.55 MG/DL (0.55-1.30); GLOMERULAR FILTRATION RATE 14.2 (>51); POTASSIUM SERUM 3.8 MEQ/L (3.5-5.1)
[2020-06-05 07:48] LABS: LYMPHOCYTES 19 % (16-44); MONOCYTES 8 % (0-5); NEUTROPHILS 67 % (28-66); PLATELET ESTIMATE NORMAL (NORMAL)
[2020-06-05 08:18] LABS: CLOSTRIDIUM DIFFICILE PCR NEGATIVE (NEGATIVE)
--- NOTE | 2020-06-05 08:35 | REP ---
INDICATION: comapre to prior study. evaluate for possible signs of obstu. COMPARISON: 06/04/2020 at 8:53 a.m. FINDINGS: This examination is dated 06/04/2028 8:56 p.m. The imaged distal portion of the nasogastric tube is again seen within the stomach. Note is again made of gaseous distention of the ascending and transverse colon. Gas-filled mildly distended small bowel loops are now evident. Limited portable supine exam shows no evidence of free air or air-fluid levels. The organ silhouettes are obscured by the intestinal content. There is no change in the osseous structures. IMPRESSION: Evidence of developing obstruction or worsening ileus. This needs to be correlated clinically with appropriate follow-up. <Electronically signed by Omar Baker > 06/05/20 [id number]
[2020-06-05] MEDS: PANTOPRAZOLE 40MG VIAL (C9113 PER 1) IV SCH (09:56)
[2020-06-05] MEDS: NYSTATIN 100,000 UNITS/GM TOPICAL PWD 15 GM TOP SCH ×2 (09:57→21:14)
[2020-06-05] MEDS: D5W/0.45% SODIUM CHLORIDE 1,000 ML IV SCH ×2 (10:21→17:05)
[2020-06-05 12:24] LABS: MAGNESIUM LEVEL 1.8 MG/DL (1.8-2.4); PERCENT SATURATION 23.6 % (13.2-45.0)
--- NOTE | 2020-06-05 14:12 | IPN ---
DATE: 06/04/2020 SUBJECTIVE: Bettina is seen and examined this morning at the bedside in the Intensive Care Unit. She was altered and confused at the time of my visit. She was able to tell me her name, her date of and her husbands name, but was unable to answer other simple questions appropriately. Her CRRT filter clotted this morning and CRRT was not resumed as the patient was noted to have some improved urine output, about 30-40 mL per hour. Her blood pressures have improved overnight and she continues on normal saline and her Levophed drip is currently held. Laboratory studies reveal improvement in acidosis and hyperkalemia, but worsening anemia and she is pending a packed red blood cell transfusion. Nursing staff report the patient has not had any diarrheal bowel movements overnight. She continues to saturate well on room air. PHYSICAL EXAMINATION: Temperature 98.8, pulse 103, respiratory rate 19, blood pressure systolic ranging from 90s-low 100s/diastolic 40s-50s, saturating 96-98% on room air. Urine output overnight so far is 400 mL. Weight on the bed scale today is 93.5 kg. General: Patient is seen lying in the bed in the Intensive Care Unit, awake, alert, but only oriented to person, answers simple questions after repeated prompting. HEENT: Makes eye contact. Tongue is dry. Neck: Supple. There is a dialysis catheter in the right IJ and a central line in the left IJ. His CVP is 9. Heart: Sounds are tachycardic, S1 and S2. I do not appreciate a murmur. There is no leg edema or dependent edema. Respiratory: There is symmetric clear air entry, no crackles or rales or rhonchus. Abdomen: Distended and she does not grimace to palpation. Genitourinary: Shows Smart catheter with some yellow urine in the bag. Musculoskeletal: She is noted to be moving all 4 extremities. Skin: Warm and dry. Extremities: Perfused and warm. Neurologic: She is confused and altered. LABORATORY DATA: Sodium 137, potassium 3.8, bicarbonate 18, BUN 117, creatinine 6.1. Phosphorus 6.1, magnesium 1.6, ammonia 39. Repeat labs at 2:00 p.m. this afternoon while off of CRRT show further improvement in blood urea nitrogen down to 95 and creatinine down to 4.7. Bicarb improved to 21 and potassium is stable at 4.2. CBC reveals a decrease in hemoglobin down to 7 and platelet count of 219. Urine culture is pending. IMAGING: Renal ultrasound shows normal size kidneys without hydronephrosis or calculi. Head CT this morning shows no acute abnormalities. Abdominal x-ray: Distended large bowel, possible ileus or large bowel obstruction. INPATIENT MEDICATIONS: * She is on D5NS at 100 mL an hour. * She received 2 rounds of calcium gluconate. * She is on ciprofloxacin 400 mg I.V. daily. * Levophed is off. * She received 2 rounds of magnesium sulfate. * She received 1 round of potassium chloride. * Heparin 5000 units subcutaneously q8h. * Insulin. * Percocet p.r.n. * Protonix 40 mg I.V. daily. PROBLEMS/PLAN: 1. Acute renal failure: Has now converted to non-oliguric. Her CRRT filter clotted this morning and we decided to discontinue CRRT in view of improved hemodynamics without the ongoing pressor requirement and also improved urine output. She is averaging about 30-50 mL an hour of urine and I am hopeful that laboratory studies will cotninue to show renal recovery now that she is more hemodynamically stable and has received I.V. fluids. If she should continue to have dialysis needs she would likely be able to tolerate intermittent hemodialysis as her blood pressures have nicely improved and she will be re- assessed daily for dialysis needs. I will repeat labs later this evening to ensure that her acidosis does not reoccur. Her renal imaging was unremarkable. 2. Hypotension: Now improved. Off Levophed, continue D5 normal saline at 100 mL an hour. She has not had any more diarrhea. If she does have any extra renal losses I would increase fluids. She has an NG-tube placed for concern of an ileus and this has drained about 200 mL so far. We will see how she does during the course of the day and may increase her I.V. fluid rate overnight depending on her fluid status. Echocardiogram is still pending. 3. Metabolic acidosis, anion gap: It was most likely related to severe renal failure. She is status post CRRT overnight and it was discontinued around 8:00 a.m. this morning. Her bicarbonate is up to 21 on the latest labs and she is presently on normal saline. Her severe diarrhea may have also contributed to her initial acidosis. 4. Hyperkalemia: It has resolved. Potassium has normalized with correction of her acidosis and with improvement in renal function. 5. Severe anemia: Hemoglobin is down to 7. She is being transfused 1 unit of PRBCs. I suggest to recheck her CBC later this evening and also to get a fecal occult blood test to ensure that there is no GI bleed. Would also recommend obtaining the CT abdomen and pelvis report from [facility] as it is concerning that she has severe anemia and a concomitant possible mechanical large bowel obstruction. I suggest that malignancy should be ruled out. MTDD
--- NOTE | 2020-06-05 14:32 | IPNPDOC ---
Text Note Date of Service The patient was seen on 06/05/20. NOTE Subjective: Patient was seen and examined this morning at bedside. She was able to appropriately answer my questions. she is A&Ox3. Tells me that she has some generalized abdominal pain. I watched her work with physical therapy this morning and was able to sit on the edge of the bed and place her feet on the floor. Nurse tells me she is making good urine output and has had a good blood pressure not requiring pressors overnight. No other overnight events. Objective: Constitutional: Awake and alert, in no apparent distress. obese ENT: Sclera are clear. Atraumatic. Mucosa membranes dry. Traches is midline. Supple neck. Respiratory: Lungs CTA bilaterally but breath sounds are diminished equally. No respiratory distress. No use of accessory muscles. Saturating >90% on room air. Cardiovascular: RRR S1 and S2 are normal, systolic murmur. no JVD. Gastrointestinal: Abdomen is soft, obese, non distended, non tender to light or deep palpation and no rebound tenderness, BS present. Musculoskeletal: No edema. No joint deformities. RUE 5/5, LUE 5/5, BLE 5/5 Neurologic: No focal neurological deficit. Mental Status: A&O x3, normal affect Skin: Warm, dry, bruise on right knee which she tells me was from a fall at home. Bandage below the left knee at site of IO insertion. Assessment/plan: 54F PMHx HTN, DM w neuropathy, MDD, HLD, who was transferred to [facility] from [place] on 06/03/2020 with complaints of diarrhea, abdominal pain and weakness. At outside hospital she was hypotensive requiring IO line for levofed which was started. Central line placed here by Dr Concepcion on day of arrival R IJ. Patient only required levofed for 1 day. She was found to have acute renal faliure with severe electrolyte abnoramlities such as hyperkalemia. Nephrology was consulted and she was placed on continuous dialysis which was discontinued after one day after which she will receive HD as needed. She is making good urine output. She had severe metabolic acidosis initially for which she received bicarbonate infusion. Her UA was suggestive of UTI for which she is ceftriaxone. Patient appears to be improved. # Septic shock 2/2 gastroenteritis: off of pressors. Per [facility] patient was positive for Norovirus, I cannot find this in the transfer records. GI panel pending. GI consulted. # Acute renal faliure: initially on continuous HD. Now on HD as needed per nephrology. Appreciate recs from nephro. Improved urine output. # Anemia: s/p 2pRBC. Tranfuse hgb<7. fu SPEP for MM given protein gap. FOBT positive, GI consulted for scopes. # Diarrhea: appears to have now resolved. GI panel/cdiff is recurrent. Monitor. NPO for suspected obstruction currently with NG tube. IV PPI. # UTI: Continue ciprofloxacin. FU UCx. # Heart murmur: Fu echo. Evaluate for pericardial effusion/uremic pericarditis given significant uremia initially. # Abdo xray suggestive of ileus or mechanical large bowel obstruction: NPO and NG to suction. # Hypothyroidism: Possible history but no synthroid on med rec. Free T4 low. Start synthroid when tolerating PO and Fu PCP to titrate. # HTN: patient was hypotensive on arrival . Hold anti-hypertensives. Monitor and titrate. # Diabetes: Levemir. ISS. Accuchecks. Hypoglycemic protocol. # HLD: continue statin when tolerating PO # Obesity: BMI 35.4 Complicated care. # Axiety/depression: hold none essential meds # DVT prophylaxis: heparin. If platelets drop significantly further switch to SCDs. A [facility] VSManuel, I+O VSManuel I+O Laboratory Tests 06/04/20 22:28 06/05/20 06:45 Vital Signs Date Time Temp Pulse Resp B/P (MAP) Pulse Ox O2 Delivery O2 Flow Rate FiO2 06/05/20 12:00 98.4 109 20 161/69 (99) 97 Room Air I&O- Last 24 Hours up to 6 AM 06/05/20 06:00 Intake Total 1786.7 ml Output Total 2038 ml Balance -251.3 ml DOMINIC VELASCO MD Jun 05, 2020 14:32
[2020-06-05] MEDS: LEVEMIR (INSULIN DETEMIR) 1 UNITS/0.01ML SC SCH (21:14)
[2020-06-05] MEDS: CIPROFLOXACIN 400 MG in IV 1 EA IV SCH (21:14)
[2020-06-05 22:28] LABS: HEMATOCRIT 27.4 % (36.0-47.0); HEMOGLOBIN 8.8 g/dl (12.0-15.5); MEAN CORPUSCULAR HEMOGLOBIN 27.8 pg (27.0-33.0); MEAN CORPUSCULAR HGB CONC 32.1 g/dl (32.0-36.5); MEAN CORPUSCULAR VOLUME 86.4 fl (80.0-96.0); PLATELET COUNT, AUTOMATED 118 10^3/uL (150-450); RED BLOOD COUNT 3.17 10^6/uL (4.00-5.40); WHITE BLOOD COUNT 3.6 10^3/uL (4.0-10.0)
[2020-06-06] VITALS (10 sets, daily range): BP systolic 129–161; BP diastolic 56–72
[2020-06-06] MEDS: HumaLOG INSULIN (NovoLOG) PER UNIT SC SCH ×5 (00:27→23:44)
[2020-06-06] MEDS: D5W/0.45% SODIUM CHLORIDE 1,000 ML IV SCH ×4 (00:28→20:43)
[2020-06-06] MEDS: HEPARIN SOD (PORCINE) 5000UNITS/ML 1ML VIAL/SYRINGE SQ SCH ×4 (00:29→20:19)
[2020-06-06 04:44] LABS: BASO % 0.2 % (0.0-1.0); EOS % 0.5 % (0.0-3.0); HEMATOCRIT 29.1 % (36.0-47.0); HEMOGLOBIN 9.1 g/dl (12.0-15.5); LYMPH # 0.8 10^3/uL (1.5-5.0); LYMPH % 18.8 % (24.0-44.0); MEAN CORPUSCULAR HEMOGLOBIN 27.2 pg (27.0-33.0); MEAN CORPUSCULAR HGB CONC 31.3 g/dl (32.0-36.5); MEAN CORPUSCULAR VOLUME 86.9 fl (80.0-96.0); MONO # 0.5 10^3/uL (0.0-0.8); MONO % 11.2 % (0.0-5.0); NEUTROPHILS # 2.9 10^3/uL (1.5-8.5); NEUTROPHILS % 65.9 % (36.0-66.0); PLATELET COUNT, AUTOMATED 146 10^3/uL (150-450); RED BLOOD COUNT 3.35 10^6/uL (4.00-5.40); WHITE BLOOD COUNT 4.4 10^3/uL (4.0-10.0)
[2020-06-06 05:03] LABS: CALCIUM LEVEL 8.1 MG/DL (8.5-10.1); CREATININE FOR GFR 2.48 MG/DL (0.55-1.30); GLOMERULAR FILTRATION RATE 21.5 (>51); POTASSIUM SERUM 3.8 MEQ/L (3.5-5.1)
--- NOTE | 2020-06-06 08:38 | IPNPDOC ---
Text Note Date of Service The patient was seen on 06/06/20. NOTE Subjective: Patient was seen and examined this morning sitting up in chair today. she is A&Ox3 and seems much sharper than she did before. Tells me that abdominal pain is very minimal and almost resolved now. I'm told by nurse there was no overnight events. NG tube in place with minimal output Objective: Constitutional: Awake and alert, in no apparent distress. obese ENT: Sclera are clear. Atraumatic. Mucosa membranes dry. Traches is midline. Supple neck. Respiratory: Lungs CTA bilaterally less diminished. No respiratory distress. No use of accessory muscles. Saturating >90% on room air. Cardiovascular: RRR S1 and S2 are normal, systolic murmur. no JVD. Gastrointestinal: Abdomen is soft, obese, non distended, non tender to light or deep palpation and no rebound tenderness, BS present. NG tube in place Musculoskeletal: No edema. No joint deformities. RUE 5/5, LUE 5/5, BLE 5/5 Neurologic: No focal neurological deficit. Mental Status: A&O x3, normal affect Skin: Warm, dry, bruise on right knee which she tells me was from a fall at home. Bandage below the left knee at site of IO insertion. Assessment/plan: 54F PMHx HTN, DM w neuropathy, MDD, HLD, who was transferred to [facility] from [place] on 06/03/2020 with complaints of diarrhea, abdominal pain and weakness. At outside hospital she was hypotensive requiring IO line for levofed which was started. Central line placed here by Dr Concepcion on day of arrival R IJ. Patient only required levofed for 1 day. She was found to have acute renal faliure with severe electrolyte abnoramlities such as hyperkalemia. Nephrology was consulted and she was placed on continuous dialysis which was discontinued after one day after which she will receive HD as needed. She is making good urine output. She had severe metabolic acidosis initially for which she received bicarbonate infusion. Her UA was suggestive of UTI for which she is ceftriaxone. Patient appears to be improving. # hypovolemic shock 2/2 diarrhea 2/2 gastroenteritis: off of pressors. Per [facility] patient was positive for Norovirus, I cannot find this in the transfer records. GI panel pending. GI consulted. # Acute renal failure: initially on continuous HD. Nephrology consulted. Good urine output. Kidney function improving. # Anemia: s/p 2pRBC. Tranfuse hgb<7. fu SPEP for MM given protein gap. FOBT positive, GI consulted for scopes. # Abdo xray suggestive of ileus or mechanical large bowel obstruction: NPO, NG to suction. Repeat xray. GI consulted. # Diarrhea: Resolved. On ciprofloxacin. GI panel/cdiff is pending. # UTI: Continue ciprofloxacin. Fu UCx. # Heart murmur: Fu echo. Evaluate for pericardial effusion/uremic pericarditis given significant uremia initially. # Hypothyroidism: Possible history but no synthroid on med rec. Free T4 low. Start synthroid when tolerating PO and Fu PCP to titrate. # HTN: patient was hypotensive on arrival . Hold anti-hypertensives. Monitor and titrate. # Diabetes: Levemir. ISS. Accuchecks. Hypoglycemic protocol. # HLD: continue statin when tolerating PO # Obesity: BMI 35.4 Complicated care. # Axiety/depression: hold none essential meds # DVT prophylaxis: heparin. If platelets drop significantly further switch to SCDs. A [facility] Manuel SOLIMAN, I+O VSManuel I+O Laboratory Tests 06/05/20 22:12 06/06/20 04:19 Vital Signs Date Time Temp Pulse Resp B/P (MAP) Pulse Ox O2 Delivery O2 Flow Rate FiO2 06/06/20 06:00 94 18 137/60 (85) 96 Room Air 06/06/20 04:00 97.9 I&O- Last 24 Hours up to 6 AM 06/06/20 06:00 Intake Total 4421 ml Output Total 2295 ml Balance 2126 ml DOMINIC VELASCO MD Jun 06, 2020 08:38
[2020-06-06] MEDS: PANTOPRAZOLE 40MG VIAL (C9113 PER 1) IV SCH (08:50)
[2020-06-06] MEDS: NYSTATIN 100,000 UNITS/GM TOPICAL PWD 15 GM TOP SCH ×2 (08:50→20:19)
--- NOTE | 2020-06-06 09:27 | REP ---
INDICATION: compare to prior. COMPARISON: 06/04/2020 TECHNIQUE: Portable upright view of the chest and supine views of the abdomen and pelvis. FINDINGS: Portable upright view of the chest demonstrates no free air below diaphragm to suspect pneumoperitoneum. Supine view of the abdomen and pelvis again demonstrates markedly distended air-filled loops of large bowel and incomplete evaluation of the small bowel with suggestions for decreased small bowel distention. IMPRESSION: Findings relatively similar to prior examination although the small bowel may be slightly improved. Differential diagnosis again includes ileus and less likely distal mechanical bowel obstruction. <Electronically signed by Chava Conner > 06/06/20 [id number]
[2020-06-06] MEDS: ONDANSETRON 4MG/2ML VIAL IV PRN (13:52)
--- NOTE | 2020-06-06 14:30 | ECGEPIP ---
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
--- NOTE | 2020-06-06 18:24 | CR.PDOC ---
General Date of Consultation: Jun 06, 2020 Referring Provider: DOMINIC ROWE MD Attending Physician: LACIE GARCIA MD Consultation Primary physician/ hospitalist: -Dr. Rowe Reason for consult: - Anemia and fecal occult blood positive HPI: 54-year-old female patient with HTN, DM type II, diabetic neuropathy, HLD, Obesity BMI 37, PERALTA ( following with Dr. Garcia), was admitted after being transferred from [facility] with diarrhea, abdominal pain and weakness. Patient was noted to have acute renal failure, severe electrolyte abnormalities, and hypotension, altered mental status requiring central line placement with transient use of levophed and required hemodialysis. Patient also noted to have anemia with fecal occult blood test positive and GI was consulted for further evaluation. Patient upon examination today reported her symptoms started with severe nausea, vomiting and diarrhea at home for 3 days, then she had syncopal episode and does not recall any further details after that. Currently, patient reports still having diarrhea with multiple bowel movements daily, feeling nauseous, and having a NG tube. Patient currently being treated with antibiotics for suspected UTI. Off note: Patient's nurse reported that she had blood in stools today. Pertinent negative GI symptoms: Patient denies fever, sick contacts, recent travel, abdominal pain, loss of ap petite, early satiety or unintentional weight loss. No history of hematemesis. Review of Systems: GI: as stated above CVS: No chest pain, No palpitations, No leg swelling. RS: No Shortness of breath, No Wheezing, no cough SENIOR UI DEVELOPER: No dizziness, No motor weakness, No sensory problems Hematology: No bruising, No gum bleeding, Musculoskeletal: No joint pain, ambulating well. Skin: No rash : No hematuria, No burning sensation of the urine ENT: No ear discharge/ pain, No dysphagia. Eyes: No photophobia. Jaundice Home medications: reviewed. Antithrombotic agents: None Medical h/o: As above. Surgical h/o: open cholecystectomy, appendectomy, tublar ligation. Social h/o: Alcohol: Denies , smoking: Denies, IVDA/ drugs:. Denies. Family h/o of GI cancers - None Prior Endoscopies: Prior EGD and colonoscopy done by Dr. Mcdowell in 2018 for GERD and blood in stools (respectively) -- noted mild gastritis and normal colonoscopy with hemorrhoids (respectively). Prior GI evaluations: -Patient previously was evaluated by Dr. Garcia in [facility] clinic for abnormal liver tests and a diagnosed with PERALTA. Exam: Vitals: reviewed General: Alert and oriented x 3, HEENT: NO pallor, no icterus. Normal oropharynx, NO cervical lymph nodes. Chest: symmetric with bilateral clear air entry, CVS: S1, S2 heard, normal, no murmurs . Abdomen: non-distended, no surgical scars, soft, non-tender, no palpable masses, normal bowel sounds heard. Rectal exam: Noted minimal stool with dark color, no melena or no bright red blood in rectal vault.. Extremities: no pedal edema, pulses palpable. SENIOR UI DEVELOPER: no focal motor or sensory deficits. Moves all extremities Skin: no rash. Labs: reviewed. Stool test negative for C. difficile. Imaging: reviewed. Impression: -- Acute onset , nausea, vomiting, diarrhea with suspected hypovolemic shock and acute renal failure, currently off dialysis and off pressors, persistent diarrhea, with blood in stools and anemia -- DDx-- infectious gastroenteritis/ Dysentery vs ischemic colitis vs less likely AVM / colon polyps. In view of anemia and acute renal failure, need to rule out HUS. -- Partial bowel obstruction features with ileus on imaging -- likely from Electrolyte abnormalities vs Enterocolitis vs ischemic colitis. Recommendations: - Patient educated about the test results, possible differential diagnoses and All questions answered. - Resume on clear liquid diet and advance as tolerated. - Stop NG tube suction ( can leave it in place until patient tolerates liquid diet for 24 hours.). - If patient is not tolerating oral diet and developing abdominal distention, consider obtain CT abdomen with oral contrast only and surgery evaluation. - Monitor and correct electrolytes as per primary team and Nephrology. Avoid Hypotension. - Obtain peripheral smear, haptoglobin levels( if possible add on to the CBC done prior to blood transfusion). - Follow stool panel results. - Give Metronidazole and ciprofloxacin for possible ischemic colitis. ( placed Metronidazole order) for total course of 7 days. - In view of recent normal Colonoscopy and EGD, discussed the indications, risks, benefits and alternatives of endoscopic work up with patient and she did not want to repeat them at this time. - Monitor Hemoglobin and hematocrit and transfuse if needed to keep hemoglobin levels around 8 - Recall GI if any change in status. - Upon discharge to follow up with PCP and refer back to GI if needed. Plan of care discussed with patient and primary team. Patient verbalized understanding and agreed with the plan. Vital Signs/I&O Vital Signs Date Time Temp Pulse Resp B/P (MAP) Pulse Ox O2 Delivery O2 Flow Rate FiO2 06/06/20 08:00 97.6 105 20 161/72 (101) 96 Room Air I&O- Last 24 Hours up to 6 AM 06/06/20 05:59 Intake Total 3541 ml Output Total 2295 ml Balance 1246 ml Laboratory Data Labs 24H Laboratory Tests 2 06/05/20 22:12: Nucleated Red Blood Cells % (auto) 0.0 06/06/20 00:21: Bedside Glucose (Misc Panel) 150H 06/06/20 04:19: Nucleated Red Blood Cells % (auto) 0.0, Immature Granulocyte % (Auto) 3.4H, Neutrophils (%) (Auto) 65.9, Lymphocytes (%) (Auto) 18.8L, Monocytes (%) (Auto) 11.2H, Eosinophils (%) (Auto) 0.5, Basophils (%) (Auto) 0.2, Neutrophils # (A uto) 2.9, Lymphocytes # (Auto) 0.8L, Monocytes # (Auto) 0.5, Eosinophils # (Auto) 0.0, Basophils # (Auto) 0.0, Anion Gap 6L, Glomerular Filtration Rate 21.5L, Calcium Level 8.1L 06/06/20 06:10: Bedside Glucose (Misc Panel) 134H 06/06/20 12:16: Bedside Glucose (Misc Panel) 150H 06/06/20 17:55: Bedside Glucose (Misc Panel) 160H CBC/BMP Laboratory Tests 06/05/20 22:12 06/06/20 04:19 Microbiology Microbiology 06/05/20 Stool Occult Blood (JENI) - Final, Complete 06/05/20 Campylobacter (PCR), Received Pending 06/05/20 Clostridium difficile Toxin A&B PCR, Received Pending 06/05/20 Plesiomonas shigelloides (PCR), Received Pending 06/05/20 Salmonella (PCR)(JENI), Received Pending 06/05/20 Vibrio Species (PCR), Received Pending 06/05/20 Vibrio Cholerae (PCR), Received Pending 06/05/20 Yersinia enterocolitica (PCR), Received Pending 06/05/20 Enteroaggregative E. coli (PCR), Received Pending 06/05/20 Enteropathogenic E. coli (PCR), Received Pending 06/05/20 Enterotoxigenic E. coli (PCR), Received Pending 06/05/20 E. coli Shiga-like Toxin (PCR), Received Pending 06/05/20 Escherichia coli 0157 (PCR), Received Pending 06/05/20 Enteroinvasive E. coli/Shigella PCR, Received Pending 06/05/20 Cryptosporidium (PCR), Received Pending 06/05/20 Cyclospora cayetanensis (PCR), Received Pending 06/05/20 Entamoeba histolytica (PCR), Received Pending 06/05/20 Giardia lamblia (PCR), Received Pending 06/05/20 Adenovirus Type F 40/41 (PCR), Received Pending 06/05/20 Astrovirus (PCR), Received Pending 06/05/20 Norovirus GI/GII (PCR), Received Pending 06/05/20 Rotavirus A (PCR), Received Pending 06/05/20 Sapovirus I/II/IV/V (PCR), Received Pending 06/04/20 Urine Culture, Received Pending Allergies Coded Allergies: Sulfa (Sulfonamide Antibiotics) (Verified Allergy, Intermediate, HIVES, 11/18/19) morphine (Verified Adverse Reaction, Mild, htn or hypotension-pt unsure of which one, 11/18/19) Home Medications Scheduled Aripiprazole (Aripiprazole) 15 Mg Tablet, 15 MG PO DAILY, (Reported) Aspirin (Aspirin EC) 81 Mg Tablet.dr, 81 MG PO DAILY, (Reported) Atorvastatin Calcium (Atorvastatin Calcium) 20 Mg Tablet, 20 MG PO DAILY, (Reported) Cholecalciferol (Vitamin D3) (Vitamin D3) 1,000 Unit Tablet, 2,000 UNITS PO DAILY, (Reported) Docusate Sodium (Docusate Sodium) 100 Mg Capsule, 100 MG PO BID, (Reported) Duloxetine Hcl (Duloxetine HCl) 20 Mg Capsule.dr, 40 MG PO QHS, (Reported) Duloxetine Hcl (Duloxetine HCl) 60 Mg Capsule.dr, 60 MG PO QAM, (Reported) Insulin Aspart (Novolog) 100 Unit/1 Ml Cartridge, 1 DOSE SC AC, (Reported) PER SLIDING SCALE Insulin Glargine,Hum.rec.anlog (Basaglar Kwikpen U-100) 100 Unit/1 Ml Insuln.pen, 60 UNIT SC BID, (Reported) Liraglutide (Victoza 2-Simone) 0.6 Mg/0.1 Ml Pen.injctr, 1.8 MG SC DAILY, (Reported ) Lisinopril/Hydrochlorothiazide (Lisinopril-Hctz 20-12.5 mg Tab) 1 Each Tablet, 1 TAB PO DAILY, (Reported) Metformin HCl (Metformin HCl ER) 500 Mg Tab.er.24h, 1,000 MG PO BID, (Reported) Nortriptyline HCl (Nortriptyline HCl) 50 Mg Capsule, 50 MG PO DAILY, (Reported) Pregabalin (Lyrica) 300 Mg Capsule, 300 MG PO BID, (Reported) Scheduled PRN Butalb/Acetaminophen/Caffeine (Mzqwbj-Twcouwei-Akck 50-325-40) 1 Each Capsule, 1 CAP PO Q4H PRN for MIGRAINE, (Reported) Oxycodone HCl/Acetaminophen (Percocet 5-325 mg Tablet) 1 Each Tablet, 1 TAB PO Q4H PRN for PAIN, (Reported) Tizanidine HCl (Tizanidine HCl) 4 Mg Tablet, 4 MG PO TID PRN for MUSCLE SPASMS, (Reported) LACIE GARCIA MD Jun 06, 2020 18:24
[2020-06-06] MEDS: LEVEMIR (INSULIN DETEMIR) 1 UNITS/0.01ML SC SCH (20:18)
[2020-06-06] MEDS: CIPROFLOXACIN 400 MG in IV 1 EA IV SCH (20:19)
[2020-06-07] VITALS (8 sets, daily range): BP systolic 121–153; BP diastolic 54–67
[2020-06-07] MEDS ORDERED: diphenhydrAMINE 25MG CAP PO ONE (00:15)
[2020-06-07] MEDS: D5W/0.45% SODIUM CHLORIDE 1,000 ML IV SCH ×3 (03:54→17:26)
[2020-06-07 04:29] LABS: HEMATOCRIT 27.2 % (36.0-47.0); HEMOGLOBIN 8.6 g/dl (12.0-15.5); MEAN CORPUSCULAR HEMOGLOBIN 28.1 pg (27.0-33.0); MEAN CORPUSCULAR HGB CONC 31.6 g/dl (32.0-36.5); MEAN CORPUSCULAR VOLUME 88.9 fl (80.0-96.0); PLATELET COUNT, AUTOMATED 128 10^3/uL (150-450); RED BLOOD COUNT 3.06 10^6/uL (4.00-5.40); WHITE BLOOD COUNT 4.7 10^3/uL (4.0-10.0)
[2020-06-07 04:37] LABS: CALCIUM LEVEL 6.8 MG/DL (8.5-10.1); GLOMERULAR FILTRATION RATE 27.5 (>51); POTASSIUM SERUM 3.4 MEQ/L (3.5-5.1)
[2020-06-07 05:15] LABS: EOSINOPHILS 1 % (0-3); LYMPHOCYTES 17 % (16-44); MONOCYTES 9 % (0-5); NEUTROPHILS 73 % (28-66); PLATELET ESTIMATE DECREASED (NORMAL)
[2020-06-07] MEDS: HumaLOG INSULIN (NovoLOG) PER UNIT SC SCH ×3 (06:03→17:58)
[2020-06-07] MEDS: HEPARIN SOD (PORCINE) 5000UNITS/ML 1ML VIAL/SYRINGE SQ SCH ×3 (06:04→21:54)
[2020-06-07] MEDS: metroNIDAZOLE 500 MG in IV 1 EA IV SCH ×3 (06:04→21:53)
[2020-06-07] MEDS: NYSTATIN 100,000 UNITS/GM TOPICAL PWD 15 GM TOP SCH ×2 (08:38→20:40)
[2020-06-07] MEDS: PANTOPRAZOLE 40MG VIAL (C9113 PER 1) IV SCH (08:38)
--- NOTE | 2020-06-07 12:20 | IPNPDOC ---
Text Note Date of Service The patient was seen on 06/07/20. NOTE Subjective: Patient was seen and examined this morning in bed. Nurse tells me she's been able to go to her chair with assistance today and back. She is A&Ox3. Tells me that she had some minimal abdominal pain in the morning but at the time seeing her she tells me she longer has any abdominal discomfort or pain. I'm told by nurse there was no overnight events that she does continue to have diarrhea with small amount of blood. Has tolerated clear liquid diet well. Objective: Constitutional: Awake and alert, in no apparent distress. obese ENT: Sclera are clear. Atraumatic. Mucosa membranes dry. Traches is midline. Supple neck. Respiratory: Lungs CTA bilaterally less diminished. No respiratory distress. No use of accessory muscles. Saturating >90% on room air. Cardiovascular: RRR S1 and S2 are normal, systolic murmur. no JVD. Gastrointestinal: Abdomen is soft, obese, non distended, non tender to light or deep palpation and no rebound tenderness, BS present. NG tube in place Musculoskeletal: No edema. No joint deformities. RUE 5/5, LUE 5/5, BLE 5/5 Neurologic: No focal neurological deficit. Mental Status: A&O x3, normal affect Skin: Warm, dry, bruise on right knee which she tells me was from a fall at home. Bandage below the left knee at site of IO insertion. Assessment/plan: 54F PMHx HTN, DM w neuropathy, MDD, HLD, who was transferred to [facility] from [place] on 06/03/2020 with complaints of diarrhea, abdominal pain and weakness. At outside hospital she was hypotensive requiring IO line for levofed which was started. Central line placed here by Dr Concepcion on day of arrival R IJ. Patient only required levofed for 1 day. She was found to have acute renal faliure with severe electrolyte abnoramlities such as hyperkalemia. Nephrology was consulted and she was placed on continuous dialysis which was discontinued after one day after which she will receive HD as needed. She is making good urine output. She had severe metabolic acidosis initially for which she received bicarbonate infusion. Her UA was suggestive of UTI for which she is ceftriaxone. Patient appears to be improving. # hypovolemic shock 2/2 diarrhea 2/2 gastroenteritis: off of pressors. Per [facility] patient was positive for Norovirus, I cannot find this in the transfer records. GI panel pending. GI consulted. # Acute renal failure: initially on continuous HD. Nephrology consulted. Good urine output. Kidney function improving. # Anemia: s/p 2pRBC. Tranfuse hgb<7. fu SPEP for MM given protein gap. FOBT positive, GI consulted for scopes. # Abdo xray suggestive of ileus or mechanical large bowel obstruction: NPO, NG to suction. Repeat xray. GI consulted. # Diarrhea: initially resolved, now back again. C diff by PCR negative. GI panel pending. On ciprofloxacin. # UTI: Continue ciprofloxacin. UCx shows yeast like organism, low count, just observe for now. # Heart murmur: Fu echo, done but not transcribed yet. Evaluate for pericardial effusion/uremic pericarditis given significant uremia initially. # Hypothyroidism: Possible history but no synthroid on med rec. Free T4 low. Start synthroid. and Fu PCP to titrate. # HTN: patient was hypotensive on arrival . Hold anti-hypertensives. Monitor and titrate. # Diabetes: Levemir. ISS. Accuchecks. Hypoglycemic protocol. # HLD: continue statin # Obesity: BMI 35.4 Complicated care. # Axiety/depression: resumed some of her home meds. # DVT prophylaxis: heparin. If platelets drop significantly further switch to SCDs. [facility] Manuel SOLIMAN I+O VSManuel I+O Laboratory Tests 06/07/20 04:04 Vital Signs Date Time Temp Pulse Resp B/P (MAP) Pulse Ox O2 Delivery O2 Flow Rate FiO2 06/07/20 08:00 98.2 83 20 147/65 (92) 98 Room Air I&O- Last 24 Hours up to 6 AM 06/07/20 06:00 Intake Total 4340 ml Output Total 1660 ml Balance 2680 ml DOMINIC VELASCO MD Jun 07, 2020 12:20
[2020-06-07] MEDS: KCL 10MEQ/100ML SWI (KRUN) 10 MEQ in IV 1 EA IV SCH ×4 (13:40→17:26)
[2020-06-07] MEDS: ATORVASTATIN 20 MG TAB PO SCH (13:43)
[2020-06-07] MEDS: ARIPiprazole 15 MG TAB (AbiLIFY) PO SCH (13:43)
[2020-06-07] MEDS: DULoxetine 20 MG CAP (CYMBALTA) PO SCH (20:38)
[2020-06-07] MEDS: CIPROFLOXACIN 400 MG in IV 1 EA IV SCH (20:39)
[2020-06-07] MEDS: LEVEMIR (INSULIN DETEMIR) 1 UNITS/0.01ML SC SCH (20:39)
[2020-06-07] MEDS ORDERED: DULoxetine 20 MG CAP (CYMBALTA) PO SCH (21:00)
[2020-06-07] MEDS: ONDANSETRON 4MG/2ML VIAL IV PRN (22:27)
[2020-06-08] VITALS (11 sets, daily range): BP systolic 139–159; BP diastolic 63–70
[2020-06-08] MEDS: D5W/0.45% SODIUM CHLORIDE 1,000 ML IV SCH ×3 (00:22→18:55)
[2020-06-08 00:31] LABS: HEMATOCRIT 25.4 % (36.0-47.0)
[2020-06-08 04:43] LABS: HEMATOCRIT 23.3 % (36.0-47.0); HEMOGLOBIN 7.3 g/dl (12.0-15.5); MEAN CORPUSCULAR HEMOGLOBIN 27.7 pg (27.0-33.0); MEAN CORPUSCULAR HGB CONC 31.3 g/dl (32.0-36.5); MEAN CORPUSCULAR VOLUME 88.3 fl (80.0-96.0); PLATELET COUNT, AUTOMATED 101 10^3/uL (150-450); RED BLOOD COUNT 2.64 10^6/uL (4.00-5.40); WHITE BLOOD COUNT 3.7 10^3/uL (4.0-10.0)
[2020-06-08 05:08] LABS: LYMPHOCYTES 15 % (16-44); MONOCYTES 8 % (0-5); NEUTROPHILS 76 % (28-66)
[2020-06-08 05:09] LABS: PLATELET ESTIMATE DECREASED (NORMAL)
[2020-06-08 05:10] LABS: DOHLE BODIES 1+; HYPOCHROMASIA 1+
[2020-06-08 05:30] LABS: CALCIUM LEVEL 6.4 MG/DL (8.5-10.1); CREATININE FOR GFR 1.72 MG/DL (0.55-1.30); GLOMERULAR FILTRATION RATE 32.8 (>51); POTASSIUM SERUM 3.5 MEQ/L (3.5-5.1)
[2020-06-08] MEDS: HEPARIN SOD (PORCINE) 5000UNITS/ML 1ML VIAL/SYRINGE SQ SCH (05:37)
[2020-06-08] MEDS: LEVOTHYROXINE 25MCG TABLET (0.025MG) PO SCH (05:37)
[2020-06-08] MEDS: metroNIDAZOLE 500 MG in IV 1 EA IV SCH ×3 (05:37→22:36)
[2020-06-08] MEDS: HumaLOG INSULIN (NovoLOG) PER UNIT SC SCH ×5 (05:37→19:51)
--- NOTE | 2020-06-08 07:56 | IPN ---
DATE: 06/05/2020 SUBJECTIVE: Bettina was seen and examined this morning at the bedside. She answered most questions appropriately. Today, she was able to tell me her name, the month, the holiday coming up and she was able to tell me that she has had a colonoscopy in the past few years performed by Dr. Mcdowell. However, she could not tell me the correct year and thought it was 2012. Her renal function continues to improve. She is making just over 50 mL an hour of urine. She is NPO with NG-tube in place and continues on IV fluids. Her fecal occult blood test returned positive. She received 1 unit of packed red blood cells yesterday. She remains off of Levophed and is saturating well on room air and is afebrile. PHYSICAL EXAMINATION: VITAL SIGNS: Temperature is 98.4, pulse is 109, respiratory rate is 20, blood pressure 125/57, saturating 97% on room air. Intake yesterday was 1640, Urine output was 1500, gastric drainage was 200. Weight on the bed scale today is 97.9 kg. GENERAL APPEARANCE: Patient is seeing lying in bed in the Intensive Care Unit. She is a middle-aged female, obese, in no apparent distress. Makes eye contact. Answers most questions appropriately. Is cooperative with physical exam. Has an NG-tube in place draining dark yellow fluid. There is a central line in the left IJ and a dialysis catheter in the right IJ. Neck veins are difficult to assess because of the lines. HEART: Heart sounds are tachycardic S1 and S2. I had trouble appreciating the presence or absence of a murmur. LUNGS: Symmetric air entry bilaterally. No crackles. ABDOMEN: Significantly distended. There are bowel sounds. GENITOURINARY: Smart catheter draining yellow urine. EXTREMITIES: Legs show no edema, clubbing or cyanosis. SKIN: Superficial wound on the right alva and there is pale pallor. Skin is otherwise warm and dry. NEUROLOGIC: She was able to provide some more history today. She tells me about her last colonoscopy and the proceduralist, however thought the year was 2012. LABORATORY DATA: Sodium 144, potassium 3.8, bicarbonate 20, BUN 83, creatinine 3.5. Lactate dehydrogenase 160. Ferritin 80. T-sat 23%. Magnesium 1.8. Hemoglobin 8.8, platelets 135,000. Stool occult blood test was positive. GI PCR is pending. Abdomen x-ray today shows gaseous distention of ascending and transverse colon, gas-filled mildly distended small bowel loops. INPATIENT MEDICATIONS: I changed her IV fluids to D5-1/2 NS at 150 mL/hr. She is receiving Ciprofloxacin 400 mg IV daily per the primary service. Her remainder of medications are unchanged from prior. PROBLEMS: 1. Acute renal failure. She has converted from oliguric to nonoliguric. She received CRRT overnight on the when she was admitted. She since has favorable signs of renal recovery with adequate urine output and there is no indication for dialysis at present. I will watch her renal function and urine output for one more day prior to discontinuing the dialysis catheter. The cause of her renal failure may simply be severe hypotension (required Levophed pressor support initially when she came in) along with recurrent and persistent large volume diarrhea. However, other etiologies are also possible. Specifically, I wanted to make sure that there is no microangiopathic hemolytic anemia or hemolytic uremic syndrome given her anemia and new thrombocytopenia along with her confusion and GI and renal issues. Coags, fibrinogen, lactate dehydrogenase and haptoglobin were ordered. So far, the results that have come in are not alarming for a hemolytic anemia. Other possibility that needs to be evaluated is GI bleed. 2. Normocytic anemia. The patient has FBOT that is positive. She also has either an ileus or a mechanical obstruction of the bowel. I believe malignancy needs to be ruled out. She tells me that she had a colonoscopy within the past few years with Dr. Mcdowell but she does not have a known history of severe anemia. 3. Anion gap metabolic acidosis. It was related to renal failure and diarrhea. It has improved nicely with improvement in her renal function. Her serum bicarbonate is up to 20. She is not receiving any bicarbonate fluids at this point in time. 4. Ileus/obstruction. She remains NPO with NG-tube. We are giving her hypotonic fluids, D5W with 1/2 NS running at 150 mL/hr. Remainder is as per primary service. There is a suspicion for possible malignancy given her ileus/obstruction and her FBOT positivity and her severe anemia. 5. Diarrhea appears to be significantly improved. Her GI PCR is pending. Her C. Diff was negative. 6. Status post hypotension. Blood pressures have improved nicely. She is receiving IV fluids as she is NPO. She is off of pressors. Her echocardiogram is pending. JANNETHD
--- NOTE | 2020-06-08 07:59 | ECHO ---
DATE OF PROCEDURE: 06/04/2020 Age: 54 Gender: Female Height: 64 inches Weight: 213 pounds Body surface area: 2.01 m2 PATIENT LOCATION: Inpatient progressive care unit (PCU), Room 3210. REFERRING PHYSICIAN: Anyi Concepcion MD INDICATION: Pericardial effusion. MEASUREMENTS: 2D Measurements: RV 2.9 cm LV 4.8 cm Septum 1.0 cm Posterior wall 1.0 cm Aortic Root 2.8 cm LA 3.6 cm LVEF 75% Doppler Measurements: AV 1.76 msec LVOT 1.4 msec MV-E 92, A 110, E/A ratio 0.8 Early mitral deceleration time 254 msec E prime medial 5.8, A prime medial 8.4, E prime lateral 11.2 Average E/E prime ratio 10.8/PCWP - 15 mmHg PV 0.85 msec Pulmonary artery acceleration time 106 msec PASP 34 mmHg IVC Could not be visualized COMMENTS: Normal sinus rhythm without intraventricular conduction disturbance. Technically challenging study in light of the patients body habitus, but diagnostically useful information was still obtained. M-mode and two-dimensional echocardiography was performed with pulse, continuous wave, color flow, and tissue Doppler studies. Normal left ventricular size, wall thickness, and hyperkinetic wall motion. Left atrium upper limits of normal in size with grade 1 left ventricular (LV) diastolic dysfunction, but currently normal estimated mean left atrial pressure. Normal right heart chamber sizes and motion with Doppler evidence of borderline to mild pulmonary hypertension. Inferior vena cava (IVC) size could not be determined because of her body habitus. Normal aortic dimensions. Normal appearing and functioning valvular structures with very mild mitral and tricuspid insufficiency (physiologic). No intracardiac mass. Miniscule pericardial effusion with some anterior and apical stranding. No sign of cardiac chamber compression. MTDD
--- NOTE | 2020-06-08 08:02 | IPNPDOC ---
Text Note Date of Service The patient was seen on 06/08/20. NOTE Subjective: Patient was seen and examined this morning in bed. She is A&Ox3. Overnight morning labs revealed a hemoglobin of 7.3 and patient was started on a blood transfusion for 2 units of PRBC. She denies any abdominal pain but says she still has some loose stools with some blood. Objective: Constitutional: Awake and alert, in no apparent distress. obese ENT: Sclera are clear. Atraumatic. Mucosa membranes dry. Traches is midline. Supple neck. Respiratory: Lungs CTA bilaterally less diminished. No respiratory distress. No use of accessory muscles. Saturating >90% on room air. Cardiovascular: RRR S1 and S2 are normal, systolic murmur. no JVD. Gastrointestinal: Abdomen is soft, obese, non distended, non tender to light or deep palpation and no rebound tenderness, BS present. Musculoskeletal: No edema. No joint deformities. RUE 5/5, LUE 5/5, BLE 5/5 Neurologic: No focal neurological deficit. Mental Status: A&O x3, normal affect Skin: Warm, dry, bruise on right knee which she tells me was from a fall at home. Bandage below the left knee at site of IO insertion. Assessment/plan: 54F PMHx HTN, DM w neuropathy, MDD, HLD, who was transferred to [facility] from [place] on 06/03/2020 with complaints of diarrhea, abdominal pain and weakness. At outside hospital she was hypotensive requiring IO line for levofed which was started. Central line placed here by Dr Concepcion on day of arrival R IJ. Patient only required levofed for 1 day. She was found to have acute renal faliure with severe electrolyte abnoramlities such as hyperkalemia. Nephrology was consulted and she was placed on continuous dialysis which was discontinued after one day after which she will receive HD as needed. She is making good urine output. She had severe metabolic acidosis initially for which she received bicarbonate infusion. Her kidney function quickly recovered and she has had good urine output. Patient appears to be improving. # hypovolemic shock 2/2 diarrhea 2/2 gastroenteritis: off of pressors. Per [facility] patient was positive for Norovirus, I cannot find this in the transfer records. GI panel pending. GI consulted; recommend to wait for GI panel, treat with cipro and flagyl 7 days for possible ischemic colitis. # Diarrhea: initially resolved, now back again with some blood. C diff by PCR negative. GI panel pending. On ciprofloxacin and Flagyl 7 day course. # LGIB: some blood in stool, hgb dropped 06/08 requiring 2uPRBC. Initially plan was for no scopes due to recent normal scopes. Reconsulted GI # Anemia: s/p 2pRBC. Transfuse hgb<7. fu SPEP for MM given protein gap. FOBT positive, GI consulted again to re-evaluate need for scope. # Acute renal failure: initially on continuous HD for 1 day. Nephrology consulted. Good urine output. Improving. Dialysis catheter removed. # Abdo xray suggestive of ileus vs less likely distal mechanical large bowel obstruction: NPO initially with NG to suction. Now eating, NG can be removed. GI consulted. # UTI: UCx shows yeast like organism, low count, asymptomatic, no tx needed. # Heart murmur: Fu echo, done but not transcribed yet. Evaluate for pericardial effusion/uremic pericarditis given significant uremia initially. # Hypothyroidism: Possible history but no synthroid on med rec. Free T4 low. Started synthroid. and Fu PCP to titrate. # HTN: patient was hypotensive on arrival . Hold anti-hypertensives. Monitor and titrate. # Diabetes: Levemir. ISS. Accuchecks. Hypoglycemic protocol. # Thrombocytopenia: hold heparin, SCDs. Trend. # HLD: continue statin # Obesity: BMI 35.4 Complicated care. # Axiety/depression: resumed some of her home meds. # DVT prophylaxis: held heparin 06/07 given thrombocytopenia. SCDs [facility] Manuel SOLIMAN, I+O VSManuel I+O Laboratory Tests 06/08/20 00:21 06/08/20 04:33 Vital Signs Date Time Temp Pulse Resp B/P (MAP) Pulse Ox O2 Delivery O2 Flow Rate FiO2 06/08/20 04:00 97.7 76 18 139/63 (88) 96 Room Air I&O- Last 24 Hours up to 6 AM 06/08/20 06:00 Intake Total 3330 ml Output Total 1905 ml Balance 1425 ml DOMINIC VELASCO MD Jun 08, 2020 08:02
--- NOTE | 2020-06-08 08:05 | IPN ---
DATE: 06/06/2020 SUBJECTIVE: Mrs. Bell is seen this morning on her bedside in the Intensive Care Unit. She is sitting in the chair at the time of my visit. She continues to have loose stools, however, frequency is improving. She denies any dyspnea, chest pain, nausea or vomiting. She is receiving I.V. fluid and also has good urine output. She has a Smart catheter in place. PHYSICAL EXAMINATION: VITAL SIGNS: Temperature 97.6 degrees Fahrenheit, heart rate 105 per minute, respiratory 20 per minute, blood pressure 160/72 mmHg and oxygen saturation 96% on room air. HEENT: Head is atraumatic. She has a hemodialysis catheter in the right internal jugular vein. She has a central line in the left side of her neck. HEART: Sounds are tachycardic. LUNGS: Clear to auscultation. ABDOMEN: Soft and nontender. Bowel sounds are present. EXTREMITIES: Without any cyanosis or clubbing. NEUROLOGIC: She is awake, alert and oriented x3. LABORATORY DATA: Todays lab show WBC 4.4, hemoglobin 9.1, hematocrit 29.1, platelets 146,000. Sodium 146, potassium 3.8, CO2 22, BUN 62, creatinine 2.48, glucose 131, calcium 8.1. PROBLEMS: 1. Acute renal failure: Kidney function is improving and we will continue with I.V. fluid. She also has some oral intake. 2. Hypernatremia: She has developed mild hypernatremia and we will see how her electrolytes are tomorrow. I am going to change her I.V. fluid to half normal saline for now and recheck her electrolytes tomorrow. 3. Metabolic acidosis: Her acidosis has completely corrected and she will continue with current I.V. fluid. 4. Anemia: Her anemia seems to be chronic and has improved following transfusion. No urgent intervention is needed at present. 5. Diarrhea: Her diarrhea is gradually improving and she continues with I.V. fluids. From a renal standpoint, patient is doing well and does not need dialysis anymore. We will remove her dialysis catheter today. ROSSY
--- NOTE | 2020-06-08 08:08 | IPN ---
DATE: 06/07/2020 SUBJECTIVE: Mrs. Bell is seen this morning at her bedside in the Intensive Care Unit. She continues to have loose stools which are quite frequent. She denies any dyspnea or chest pain. She had acute renal failure which has improved and she has decent urine output. PHYSICAL EXAMINATION: VITAL SIGNS: Temperature 98.2 degrees Fahrenheit, heart rate 82 per minute and respiratory rate 20 per minute, blood pressure 147/65 mm of mercury and oxygen saturation 98% on room air. HEENT: Head is atraumatic. NECK: Supple and without JVD or thyroid enlargement. Her dialysis catheter in right internal jugular vein has been removed and dressing is intact. She has a central line in the left side of her neck. HEART: Regular. LUNGS: Clear to auscultation. ABDOMEN: Soft with mild tenderness and bowel sounds are present. EXTREMITIES: Without any cyanosis or clubbing. NEUROLOGICALLY: She is awake, alert and oriented x3. LABORATORY STUDIES: Todays labs show a WBC count of 4.7, hemoglobin 8.6 and hematocrit 27.2. Sodium 146, potassium 3.4, CO2 20, BUN 43 and creatinine 2.0. Glucose 109 and calcium 6.8. PROBLEMS: 1. Acute renal failure - kidney function continues to improve and she has good urine output. We will continue with IV fluids at present as she continues to have diarrhea and remains at risk for dehydration. 2. Hypokalemia this is related to ongoing diarrhea and poor oral intake. Potassium will be replaced and repleted. 3. Hypernatremia no changes since yesterday and she remains with mild hypernatremia related to diarrhea and IV fluids. She has been on half normal saline and will continue with the same. 4. Anemia her anemia did improve with transfusion. At present no urgent need for a transfusion. 5. Diarrhea - The patient remains on IV fluids and Metronidazole. She is also receiving Cipro every 24 hours. MTDD
[2020-06-08] MEDS: ATORVASTATIN 20 MG TAB PO SCH (08:52)
[2020-06-08] MEDS: DULoxetine 20 MG CAP (CYMBALTA) PO SCH ×2 (08:52→20:44)
[2020-06-08] MEDS: ARIPiprazole 15 MG TAB (AbiLIFY) PO SCH (08:52)
[2020-06-08] MEDS: PANTOPRAZOLE 40MG VIAL (C9113 PER 1) IV SCH (08:52)
[2020-06-08] MEDS: NYSTATIN 100,000 UNITS/GM TOPICAL PWD 15 GM TOP SCH ×2 (08:53→20:50)
[2020-06-08] MEDS ORDERED: DULoxetine 30 MG CAP (CYMBALTA) PO SCH (09:00)
[2020-06-08] MEDS ORDERED: POTASSIUM CHLORIDE 10 MEQ SR TABLET PO ONE (12:30)
[2020-06-08] MEDS: ONDANSETRON 4MG/2ML VIAL IV PRN ×2 (16:20→20:44)
[2020-06-08 18:44] LABS: HEMATOCRIT 31.4 % (36.0-47.0)
[2020-06-08] MEDS: LEVEMIR (INSULIN DETEMIR) 1 UNITS/0.01ML SC SCH (20:44)
[2020-06-08] MEDS: CIPROFLOXACIN 400 MG in IV 1 EA IV SCH (20:50)
[2020-06-09] VITALS: BP 148/65
[2020-06-09] MEDS: LOPERAMIDE 2 MG CAPLET PO PRN ×2 (02:54→20:37)
[2020-06-09 04:00] VITALS: BP 158/86
[2020-06-09] MEDS: LEVOTHYROXINE 25MCG TABLET (0.025MG) PO SCH (05:06)
[2020-06-09] MEDS: metroNIDAZOLE 500 MG in IV 1 EA IV SCH (05:06)
[2020-06-09 05:43] LABS: CALCIUM LEVEL 6.3 MG/DL (8.5-10.1); CREATININE FOR GFR 1.48 MG/DL (0.55-1.30); POTASSIUM SERUM 3.6 MEQ/L (3.5-5.1)
--- NOTE | 2020-06-09 07:23 | IPN ---
NEPHROLOGY [id number] NOTE DATE: 06/08/2020 SUBJECTIVE: Ms. Bell is seen this morning on her bedside. She is lying in the bed without any acute distress. She reports that her diarrhea is improving. She denies any nausea or vomiting. She has no dyspnea or chest pain. PHYSICAL EXAMINATION: Temperature 98.6 degrees Fahrenheit, heart rate 85 per minute and respiratory rate 18 per minute. Blood pressure 146/67 mmHg and oxygen saturation 96% on room air. Intake and output records from yesterday show a positive fluid balance of almost 3 liters. Her weight is up to 101.9 kg while she weighed 93 kg on June 03 the day of admission. Head: Atraumatic. Neck: Neck veins are difficult to be assessed. Her right sided hemodialysis catheter has been removed and site is clean. I removed the dressing. Heart: Sounds are regular. Lungs: Clear to auscultation. Abdomen: Soft and nontender. Extremities: No cyanosis or clubbing. She has 1+ edema on lower extremities now which is new. Neurologically: She is awake, alert and at her baseline mentation. LABORATORY DATA: Todays labs show WBC count 3.7, hemoglobin 7.3, hematocrit 23.3, platelets 101. Sodium 143, potassium 3.5, CO2 19, BUN 27, creatinine 1.72, calcium level is 6.4. PROBLEMS/PLAN: 1. Acute renal failure: Kidney function is improving nicely with I.V. fluids. She has good urine output. Her dialysis catheter has already been removed. 2. Hypokalemia: Potassium level slightly better. We will continue with potassium supplement and recheck her electrolytes tomorrow. She is now also taking some oral intake and we can give her potassium by mouth. 3. Hypernatremia: Sodium level has improved with intravenous fluid half normal saline. I am going to cut down the I.V. fluid to 75 mL per hour. 4. Hypocalcemia: This is related to acute kidney injury and I.V. fluids. She should be given 1 dose of intravenous calcium gluconate. We will recheck her renal profile tomorrow. 5. Anemia: Her anemia has worsened and she is likely to require transfusion again. I am going to cut down the I.V. fluid in anticipation of blood transfusion and also development of peripheral edema. We can only use diuretic as needed. 6. Diarrhea: Her diarrhea is gradually improving and she remains on antibiotics. MTDD
[2020-06-09 07:54] VITALS: BP 139/65
[2020-06-09] MEDS ORDERED: CALCIUM GLUCONATE 1,000 MG in D5W MINI-BAG PLUS 100 ML IV ONE (09:00)
[2020-06-09] MEDS: HumaLOG INSULIN (NovoLOG) PER UNIT SC SCH ×4 (09:15→20:14)
[2020-06-09] MEDS: PANTOPRAZOLE 40MG VIAL (C9113 PER 1) IV SCH (09:16)
[2020-06-09] MEDS: ARIPiprazole 15 MG TAB (AbiLIFY) PO SCH (09:17)
[2020-06-09] MEDS: ATORVASTATIN 20 MG TAB PO SCH (09:17)
[2020-06-09] MEDS: DULoxetine 20 MG CAP (CYMBALTA) PO SCH ×2 (09:17→20:38)
[2020-06-09] MEDS: NYSTATIN 100,000 UNITS/GM TOPICAL PWD 15 GM TOP SCH ×2 (09:18→20:38)
[2020-06-09] MEDS: D5W/0.45% SODIUM CHLORIDE 1,000 ML IV SCH ×2 (11:19→13:23)
[2020-06-09] MEDS: CIPROFLOXACIN 500MG TABLET PO SCH ×2 (11:19→18:31)
[2020-06-09 11:54] VITALS: BP 168/77
[2020-06-09] MEDS: metroNIDAZOLE (FLAGYL) 500MG TABLET PO SCH ×2 (13:27→20:37)
[2020-06-09 15:36] VITALS: BP 153/67
--- NOTE | 2020-06-09 19:13 | IPNPDOC ---
Date Seen The patient was seen on 06/09/20. Progress Note SUBJECTIVE: Patient was seen and examined at bedside. She reports an improvement in her diarrhea. She is hungry, asking for advancement of diet. She denies fevers, chills, nausea, vomiting. OBJECTIVE PHYSICAL EXAMINATION: VITAL SIGNS: please see below General: NAD, comfortable HEENT: PERRLA, EOMI, sclerae clear Neck: supple, normal ROM, no JVD Respiratory: lungs CTAB, no wheeze, no rales, no crackles CVS: RRR, normal S1, S2, no murmurs Abdo: soft, no masses, no hepatosplenomegaly, BS+, no rebound tenderness Extremities: no edema, pulses 2+ MSK: no joint deformities, normal ROM Neuro: no focal neuro deficits, moving all 4 extremities, CN2-12 intact. Strength 5/5 in all 4 extremities. No nystagmus. Psych: calm, cooperative, AAO x 3 LABORATORY DATA, IMAGING STUDIES, MICROBIOLOGY: Please see below. DVT prophylaxis ordered?: SCDs and teds 54F PMHx HTN, DM w neuropathy, MDD, HLD, who was transferred to [facility] from [place] on 06/03/2020 with complaints of diarrhea, abdominal pain and weakness. At outside hospital she was hypotensive requiring IO line for levofed which was started. Central line placed here by Dr Concepcion on day of arrival R IJ. Patient only required levofed for 1 day. She was found to have acute renal faliure with hyperkalemia. Nephrology was consulted and she was placed on continuous dialysis which was discontinued after one day. Has good urine output. She had severe metabolic acidosis initially for which she received bicarbonate infusion. Renal function appears to be improving # hypovolemic shock 2/2 diarrhea 2/2 gastroenteritis: off of pressors. [facility] patient was positive for Norovirus, records not available. GI panel pending. GI consulted; recommend to wait for GI panel, treat with cipro and flagyl 7 days for possible ischemic colitis. # Diarrhea: initially resolved, now back again with some blood. C diff by PCR negative. GI panel pending. On ciprofloxacin and Flagyl 7 day course. Switched to by mouth # LGIB: some blood in stool, hgb dropped 06/08 requiring 2uPRBC. Initially plan was for no scopes due to recent normal scopes. Reconsulted GI, will consider scope if GI panel negative. # Anemia: s/p 2pRBC. Transfuse hgb<7. fu SPEP for MM given protein gap - no M spikes noted. FOBT positive, GI consulted again to re-evaluate need for scope. Per Dr. Leiva will consider scope if GI panel negative. # Acute renal failure: initially on continuous HD for 1 day. Nephrology consulted. Good urine output. Improving. Dialysis catheter removed. # Abdo xray suggestive of ileus vs less likely distal mechanical large bowel obstruction: NPO initially with NG to suction. NG removed. Abdo pain much improved. Advanced diet to GI soft. # UTI: UCx shows yeast like organism, low count, asymptomatic, no tx needed. # Heart murmur: Fu echo, tiny pericardial effusion, no central cardiac chamber compression, grade 1 diastolic dysfunction. Mild pulmonary hypertension. LVEF 75%. # Hypothyroidism: Possible history but no Synthroid on med rec. Free T4 low. Started synthroid. and Fu PCP to titrate. #Hypocalcemia: s/p 1g calcium gluconate on 06/08. Check ionized calcium in am. # HTN: patient was hypotensive on arrival . Hold anti-hypertensives. Monitor and titrate. # Diabetes: Levemir. ISS. Accuchecks. Hypoglycemic protocol. # Thrombocytopenia: hold heparin, SCDs. Trend. # HLD: continue statin # Obesity: BMI 35.4 Complicated care. # Axiety/depression: resumed some of her home meds. # DVT prophylaxis: held heparin 06/07 given thrombocytopenia. SCDs VS, I&O, 24H, Fishbone Vital Signs/I&O Vital Signs Date Time Temp Pulse Resp B/P (MAP) Pulse Ox O2 Delivery O2 Flow Rate FiO2 06/09/20 15:36 97.6 83 18 153/67 (95) 96 Room Air I&O- Last 24 Hours up to 6 AM 06/09/20 05:59 Intake Total 1120 ml Output Total 1115 ml Balance 5 ml Laboratory Data 24H LABS Laboratory Tests 2 06/08/20 19:46: Bedside Glucose (Misc Panel) 124H 06/09/20 05:12: Anion Gap 8, Glomerular Filtration Rate 39.0L, Calcium Level 6.3L 06/09/20 11:42: Bedside Glucose (Misc Panel) 120H 06/09/20 17:12: Bedside Glucose (Misc Panel) 153H CBC/BMP Laboratory Tests 06/09/20 05:12 Microbiology Microbiology 06/05/20 Stool Occult Blood (JENI) - Final, Complete 06/05/20 Campylobacter (PCR), Received Pending 06/05/20 Clostridium difficile Toxin A&B PCR, Received Pending 06/05/20 Plesiomonas shigelloides (PCR), Received Pending 06/05/20 Salmonella (PCR)(JENI), Received Pending 06/05/20 Vibrio Species (PCR), Received Pending 06/05/20 Vibrio Cholerae (PCR), Received Pending 06/05/20 Yersinia enterocolitica (PCR), Received Pending 06/05/20 Enteroaggregative E. coli (PCR), Received Pending 06/05/20 Enteropathogenic E. coli (PCR), Received Pending 06/05/20 Enterotoxigenic E. coli (PCR), Received Pending 06/05/20 E. coli Shiga-like Toxin (PCR), Received Pending 06/05/20 Escherichia coli 0157 (PCR), Received Pending 06/05/20 Enteroinvasive E. coli/Shigella PCR, Received Pending 06/05/20 Cryptosporidium (PCR), Received Pending 06/05/20 Cyclospora cayetanensis (PCR), Received Pending 06/05/20 Entamoeba histolytica (PCR), Received Pending 06/05/20 Giardia lamblia (PCR), Received Pending 06/05/20 Adenovirus Type F 40/41 (PCR), Received Pending 06/05/20 Astrovirus (PCR), Received Pending 06/05/20 Norovirus GI/GII (PCR), Received Pending 06/05/20 Rotavirus A (PCR), Received Pending 06/05/20 Sapovirus I/II/IV/V (PCR), Received Pending 06/04/20 Urine Culture - Final, Complete Yeast Like Organism JOHANNY CARPIO MD Jun 09, 2020 19:12
[2020-06-09 20:00] VITALS: BP 162/72
[2020-06-09] MEDS: LEVEMIR (INSULIN DETEMIR) 1 UNITS/0.01ML SC SCH (20:37)
[2020-06-10] VITALS: BP 139/64
[2020-06-10] MEDS: D5W/0.45% SODIUM CHLORIDE 1,000 ML IV SCH ×2 (02:43→14:11)
[2020-06-10 04:00] VITALS: BP 144/65
[2020-06-10] MEDS: LEVOTHYROXINE 25MCG TABLET (0.025MG) PO SCH (05:07)
[2020-06-10] MEDS: metroNIDAZOLE (FLAGYL) 500MG TABLET PO SCH ×3 (05:07→20:34)
[2020-06-10] MEDS: CIPROFLOXACIN 500MG TABLET PO SCH ×2 (05:07→18:27)
[2020-06-10 05:38] LABS: HEMATOCRIT 30.7 % (36.0-47.0); HEMOGLOBIN 9.8 g/dl (12.0-15.5); MEAN CORPUSCULAR HEMOGLOBIN 28.4 pg (27.0-33.0); MEAN CORPUSCULAR HGB CONC 31.9 g/dl (32.0-36.5); PLATELET COUNT, AUTOMATED 143 10^3/uL (150-450); RED BLOOD COUNT 3.45 10^6/uL (4.00-5.40); WHITE BLOOD COUNT 3.8 10^3/uL (4.0-10.0)
[2020-06-10 05:57] LABS: ALBUMIN 1.6 GM/DL (3.2-5.2); BILIRUBIN,TOTAL 0.3 MG/DL (0.2-1.0); CALCIUM LEVEL 6.4 MG/DL (8.5-10.1); CREATININE FOR GFR 1.33 MG/DL (0.55-1.30); GLOMERULAR FILTRATION RATE 44.1 (>51); POTASSIUM SERUM 3.5 MEQ/L (3.5-5.1); TOTAL PROTEIN 4.1 GM/DL (6.4-8.2)
[2020-06-10 06:24] LABS: EOSINOPHILS 1 % (0-3); LYMPHOCYTES 22 % (16-44); MONOCYTES 15 % (0-5); NEUTROPHILS 62 % (28-66); PLATELET ESTIMATE NORMAL (NORMAL)
[2020-06-10] MEDS: HumaLOG INSULIN (NovoLOG) PER UNIT SC SCH ×4 (07:30→20:35)
[2020-06-10] MEDS ORDERED: CALCIUM GLUCONATE 1,000 MG in D5W MINI-BAG PLUS 100 ML IV ONE (07:30)
[2020-06-10 07:37] VITALS: BP 145/70
[2020-06-10] MEDS: PANTOPRAZOLE 40MG VIAL (C9113 PER 1) IV SCH (09:08)
[2020-06-10] MEDS: DULoxetine 20 MG CAP (CYMBALTA) PO SCH ×2 (09:09→20:34)
[2020-06-10] MEDS: ARIPiprazole 15 MG TAB (AbiLIFY) PO SCH (09:09)
[2020-06-10] MEDS: ATORVASTATIN 20 MG TAB PO SCH (09:09)
[2020-06-10] MEDS: NYSTATIN 100,000 UNITS/GM TOPICAL PWD 15 GM TOP SCH ×2 (09:09→20:35)
--- NOTE | 2020-06-10 09:31 | IPNPDOC ---
Date Seen The patient was seen on 06/10/20. Progress Note SUBJECTIVE: Patient was seen and examined at bedside this morning. She states that her abdominal pain is resolved. Her diarrhea frequency has diminished significantly. She has a good appetite and tolerated it just some diet well yesterday. She has no more episodes of lower GI bleeding, no melena, no bright red blood. GI panel came back negative for infectious etiology. Vital signs reviewed. No acute events overnight. Hemoglobin remained stable at 9.8. OBJECTIVE PHYSICAL EXAMINATION: VITAL SIGNS: please see below General: NAD, comfortable HEENT: PERRLA, EOMI, sclerae clear Neck: supple, normal ROM, no JVD Respiratory: lungs CTAB, no wheeze, no rales, no crackles CVS: RRR, normal S1, S2, no murmurs Abdo: soft, no masses, no hepatosplenomegaly, BS+, no rebound tenderness Extremities: no edema, pulses 2+ MSK: no joint deformities, normal ROM Neuro: no focal neuro deficits, moving all 4 extremities, CN2-12 intact. Strength 5/5 in all 4 extremities. No nystagmus. Psych: calm, cooperative, AAO x 3 LABORATORY DATA, IMAGING STUDIES, MICROBIOLOGY: Please see below. DVT prophylaxis ordered?: SCDs and teds 54F PMHx HTN, DM w neuropathy, MDD, HLD, who was transferred to [facility] from [facility] on 06/03/2020 with complaints of diarrhea, abdominal pain and weakness. At outside hospital she was hypotensive requiring IO line for levofed which was started. Central line placed here by Dr Concepcion on day of arrival R IJ. Patient only required levofed for 1 day. She was found to have acute renal failure with hyperkalemia. Nephrology was consulted and she was placed on continuous dialysis which was discontinued after one day. Has good urine output. She had severe metabolic acidosis initially for which she received bicarbonate infusion. Renal function appears to be improving # hypovolemic shock 2/2 diarrhea 2/2 gastroenteritis: off of pressors. Per [facility] patient was positive for Norovirus, records not available. Cipro and flagyl 7 day course. GI panel negative. # Diarrhea: initially resolved, now back again with some blood. C diff by PCR negative. GI panel pending. On ciprofloxacin and Flagyl 7 day course. Switched to by mouth # LGIB: some blood in stool, hgb dropped 11/23 requiring 2uPRBC. Initially plan was for no scopes due to recent normal scopes. However, considering negative GI panel, concern for ischemic colitis. D/w Dr. Leiva, plan for flex sigmoidoscopy on 06/10/20. # Anemia: s/p 2pRBC. Transfuse hgb<7. fu SPEP for MM given protein gap - no M spikes noted. FOBT positive, GI consulted again to re-evaluate need for scope. Per Dr. Leiva suspicion for ischemic colitis. Will perform flexible sigmoidoscopy on 06/10/20. # Acute renal failure: Nephrology consulted. Good urine output. Improving. Dialysis catheter removed. # Abdo xray suggestive of ileus vs less likely distal mechanical large bowel obstruction: NPO initially with NG to suction. NG removed. Abdo pain much improved. Advanced diet to GI soft. Noted well # UTI: UCx shows yeast like organism, low count, asymptomatic, no tx needed. # Heart murmur: Fu echo, tiny pericardial effusion, no central cardiac chamber compression, grade 1 diastolic dysfunction. Mild pulmonary hypertension. LVEF 75%. # Hypothyroidism: Possible history but no Synthroid on med rec. Free T4 low. Started synthroid. and Fu PCP to titrate. #Hypocalcemia: s/p 1g calcium gluconate on 06/08. Ionized calcium 4.0. Ordered an additional 1 g calcium gluconate. D/w Dr. Degroot. Patient is volume overloaded. DC IVF. Lasix 40 mg IV once. #Hypernatremia: Na 147. DC IVF. Lasix 40 mg IV once. # HTN: patient was hypotensive on arrival . Hold anti-hypertensives. Monitor and titrate. # Diabetes: Levemir. ISS. Accuchecks. Hypoglycemic protocol. # Thrombocytopenia: hold heparin, SCDs. Trend. # HLD: continue statin # Obesity: BMI 35.4 Complicated care. # Axiety/depression: resumed some of her home meds. # DVT prophylaxis: held heparin 06/07 given thrombocytopenia. SCDs VS, I&O, 24H, Fishbone Vital Signs/I&O Vital Signs Date Time Temp Pulse Resp B/P (MAP) Pulse Ox O2 Delivery O2 Flow Rate FiO2 06/10/20 07:37 97.2 78 18 145/70 (95) 98 Room Air I&O- Last 24 Hours up to 6 AM 06/10/20 06:00 Intake Total 2675 ml Output Total 1100 ml Balance 1575 ml Laboratory Data 24H LABS Laboratory Tests 2 06/09/20 11:42: Bedside Glucose (Misc Panel) 120H 06/09/20 17:12: Bedside Glucose (Misc Panel) 153H 06/09/20 19:30: Bedside Glucose (Misc Panel) 152H 06/10/20 05:05: Neutrophils (%) (Auto) , Nucleated Red Blood Cells % (auto) 0.0, Neutrophils 62, Lymphocytes (Manual) 22, Monocytes (Manual) 15H, Eosinophils (Manual) 1, Platelet Estimate NORMAL, Anion Gap 9, Glomerular Filtration Rate 44.1L, Calcium Level 6.4L, Total Bilirubin 0.3, Aspartate Amino Transf (AST/SGOT) 18, Alanine Aminotransferase (ALT/SGPT) 17, Alkaline Phosphatase 80, Total Protein 4.1L, Albumin 1.6L, Albumin/Globulin Ratio 0.6L 06/10/20 05:32: Whole Blood Ionized Calcium 4.0L CBC/BMP Laboratory Tests 06/10/20 05:05 Microbiology Microbiology 06/05/20 Stool Occult Blood (JENI) - Final, Complete 06/05/20 Campylobacter (PCR) - Final, Complete 06/05/20 Clostridium difficile Toxin A&B PCR - Final, Complete 06/05/20 Plesiomonas shigelloides (PCR) - Final, Complete 06/05/20 Salmonella (PCR)(JENI) - Final, Complete 06/05/20 Vibrio Species (PCR) - Final, Complete 06/05/20 Vibrio Cholerae (PCR) - Final, Complete 06/05/20 Yersinia enterocolitica (PCR) - Final, Complete 06/05/20 Enteroaggregative E. coli (PCR) - Final, Complete 06/05/20 Enteropathogenic E. coli (PCR) - Final, Complete 06/05/20 Enterotoxigenic E. coli (PCR) - Final, Complete 06/05/20 E. coli Shiga-like Toxin (PCR) - Final, Complete 06/05/20 Escherichia coli 0157 (PCR) - Final, Complete 06/05/20 Enteroinvasive E. coli/Shigella PCR - Final, Complete 06/05/20 Cryptosporidium (PCR) - Final, Complete 06/05/20 Cyclospora cayetanensis (PCR) - Final, Complete 06/05/20 Entamoeba histolytica (PCR) - Final, Complete 06/05/20 Giardia lamblia (PCR) - Final, Complete 06/05/20 Adenovirus Type F 40/41 (PCR) - Final, Complete 06/05/20 Astrovirus (PCR) - Final, Complete 06/05/20 Norovirus GI/GII (PCR) - Final, Complete 06/05/20 Rotavirus A (PCR) - Final, Complete 06/05/20 Sapovirus I/II/IV/V (PCR) - Final, Complete 06/04/20 Urine Culture - Final, Complete Yeast Like Organism JOHANNY CARPIO MD Jun 10, 2020 09:31
[2020-06-10 12:00] VITALS: BP 139/63
[2020-06-10] MEDS ORDERED: FLEET ENEMA PR ONE (13:00)
[2020-06-10] MEDS ORDERED: FUROSEMIDE 20MG/2ML VIAL (J1940) IV ONE (15:00)
[2020-06-10 15:53] VITALS: BP 139/66
[2020-06-10] MEDS ORDERED: SODIUM CHLORIDE 0.9% INJ 10 ML SYR IV PRN (16:00)
[2020-06-10 20:00] VITALS: BP 147/70
[2020-06-10] MEDS: LEVEMIR (INSULIN DETEMIR) 1 UNITS/0.01ML SC SCH (20:34)
[2020-06-10] MEDS: SODIUM CHLORIDE 0.9% INJ 10 ML SYR IV SCH (20:36)
[2020-06-11] VITALS: BP 150/67
[2020-06-11] MEDS ORDERED: metroNIDAZOLE (FLAGYL) 500MG TABLET PO SCH
[2020-06-11] MEDS ORDERED: CIPROFLOXACIN 500MG TABLET PO SCH
[2020-06-11] MEDS ORDERED: PANTOPRAZOLE 40MG TAB (PROTONIX) PO SCH
[2020-06-11] MEDS ORDERED: LEVOTHYROXINE 25MCG TABLET (0.025MG) PO SCH
[2020-06-11] MEDS ORDERED: CALCIUM CARBONATE 500 MG CHEW U/D PO SCH
[2020-06-11] MEDS ORDERED: DULoxetine 20 MG CAP (CYMBALTA) PO SCH
[2020-06-11] MEDS ORDERED: FUROSEMIDE 40 MG TAB PO SCH
[2020-06-11 04:00] VITALS: BP 151/71
[2020-06-11] MEDS: CIPROFLOXACIN 500MG TABLET PO SCH (05:28)
[2020-06-11] MEDS: LEVOTHYROXINE 25MCG TABLET (0.025MG) PO SCH (05:28)
[2020-06-11] MEDS: metroNIDAZOLE (FLAGYL) 500MG TABLET PO SCH ×2 (05:28→13:20)
[2020-06-11] MEDS: SODIUM CHLORIDE 0.9% INJ 10 ML SYR IV SCH ×2 (05:29→13:17)
[2020-06-11 07:04] LABS: HEMATOCRIT 32.7 % (36.0-47.0); HEMOGLOBIN 10.4 g/dl (12.0-15.5); MEAN CORPUSCULAR HEMOGLOBIN 28.3 pg (27.0-33.0); MEAN CORPUSCULAR HGB CONC 31.8 g/dl (32.0-36.5); MEAN CORPUSCULAR VOLUME 89.1 fl (80.0-96.0); PLATELET COUNT, AUTOMATED 220 10^3/uL (150-450); RED BLOOD COUNT 3.67 10^6/uL (4.00-5.40); WHITE BLOOD COUNT 4.8 10^3/uL (4.0-10.0)
[2020-06-11 07:17] LABS: CALCIUM LEVEL 6.8 MG/DL (8.5-10.1); CREATININE FOR GFR 1.35 MG/DL (0.55-1.30); GLOMERULAR FILTRATION RATE 43.3 (>51); POTASSIUM SERUM 3.4 MEQ/L (3.5-5.1)
[2020-06-11] MEDS: HumaLOG INSULIN (NovoLOG) PER UNIT SC SCH ×2 (07:30→12:00)
[2020-06-11 07:44] LABS: LYMPHOCYTES 39 % (16-44); NEUTROPHILS 55 % (28-66)
[2020-06-11 07:45] LABS: PLATELET ESTIMATE NORMAL (NORMAL)
[2020-06-11 07:54] VITALS: BP 143/63
[2020-06-11] MEDS ORDERED: POTASSIUM CHLORIDE 10 MEQ SR TABLET PO ONE ×2 (08:00→10:15)
[2020-06-11] MEDS: ARIPiprazole 15 MG TAB (AbiLIFY) PO SCH (08:30)
[2020-06-11] MEDS: ATORVASTATIN 20 MG TAB PO SCH (08:31)
[2020-06-11] MEDS: DULoxetine 20 MG CAP (CYMBALTA) PO SCH (08:31)
[2020-06-11] MEDS: PANTOPRAZOLE 40MG VIAL (C9113 PER 1) IV SCH (08:31)
[2020-06-11] MEDS: NYSTATIN 100,000 UNITS/GM TOPICAL PWD 15 GM TOP SCH (08:32)
[2020-06-11] MEDS ORDERED: FUROSEMIDE 40MG/4ML VIAL (J1940) IV ONE (11:30)
[2020-06-11] MEDS ORDERED: CYMB1CAP4 PO (11:45)
[2020-06-11] MEDS ORDERED: LEVO25TA5 PO (11:45)
[2020-06-11] MEDS ORDERED: CIPR-249 PO (11:45)
[2020-06-11] MEDS ORDERED: FURO40TA2 PO (11:45)
[2020-06-11] MEDS ORDERED: CALCIUM GLUCONATE 1,000 MG in D5W MINI-BAG PLUS 100 ML IV ONE (11:45)
[2020-06-11] MEDS ORDERED: NYST10006 TOP (11:45)
[2020-06-11] MEDS ORDERED: CALC500T68 PO (11:45)
[2020-06-11] MEDS ORDERED: FLAG500T PO (11:45)
--- NOTE | 2020-06-11 11:45 | DS.PDOC ---
Discharge Summary General Date of Admission Jun 03, 2020 at 17:15 Date of Discharge 06/11/20 Discharge Summary PROCEDURES PERFORMED DURING STAY: L IJ central line placement by Dr. Concepcion on 06/03/20 R IJ HD catheter by 06/03/20 ADMITTING DIAGNOSES: 1. Septic shock 2/2 gastroenteritis 2. Acute renal failure 2/2 septick shock 3. Abdominal pain 4. Metabolic encephalopathy 5. Acute blood loss anemia 6. UTI 7. DM2 DISCHARGE DIAGNOSES: 1. Septic shock 2/2 gastroenteritis 2. Hypolemic shock 2/2 diarrhea 3.Acute renal failure 2/2 septick shock 4. Abdominal pain 5. Metabolic encephalopathy 6. Acute blood loss anemia 7. LGIB 2/2 ischemic colitis 8. cardiac murmur 9. Hypocalcemia 10. Hypernatremia 11. Thrombocytopenia 12. HLD 13. Obesity, BMI 35.4 14.HTN 15. UTI 16. DM2 COMPLICATIONS/CHIEF COMPLAINT: Acute Renal Failure. HISTORY OF PRESENT ILLNESS: Ms. Bell is a 54-year-old female with a past me dical history of diabetes, chronic venous insufficiency, hypothyroidism, hypertension, lumbar disc disease, depression who presented to [facility] Emergency Room with complaints of weakness for the past 3-4 days as well as severe diarrhea for the past 4 days. The patient states she started having diarrhea multiple times a day with very soft, loose stool as well as somecomplaints of abdominal pain. She initially did not have any nausea or vomiting;however, today she started having some episodes of vomiting as well as more severe pain in her right lower quadrant. Patient was also weaker and she did have decreased oral intake and so she was brought to the ED by EMS for further evaluation. Patient states she did not take any xetu-bvl-cjugdlm Advil, Aleve orMotrin, but she did take uvke-ord-kdpxijx Pepto Bismol multiple doses for her diarrhea. She did also continue to take her usual home medications including hermetformin as well as her other anti-hypertensive medications. In the Emergency Room at [facility] patient was hypotensive with initial blood pressure of 82/46 and a heart rate of 99 and a temperature of 96.6. She was noted to have difficulty getting I.V. access, but she was able to get 1 small placed in her hand and given 1 liter normal saline bolus as well as pantoprazole and Zofran for medications. She was also given Imodium in the ED aswell. Patient was then noted to have continued episodes of hypotension with systolic blood pressures into the 50s and 60s. She had blood work which showed evidence of acute renal failure with a creatinine of 11.5 as well as potassium of 8.3 and a VBG pH of 7.15. She was given an additional liter normal saline bolus for her hypotension and was also given insulin-D50, sodium bicarb 50 mEq and calcium gluconate. Patient had attempts by the ED physician for placement ofa central line in the right IJ as well as in the right femoral region with multiple attempts which were unsuccessful. She therefore had an intraosseous line placed in her left tibia. Patient was then started on Levophed through her intraosseous access as well as a bicarbonate drip with 150 mEq at 100 mL an hour. She was also given a gram of ceftriaxone for antibiotic and started on another bolus of fluid. Patient was then transferred to [facility] ICU for further treatment. HOSPITAL COURSE: Patient was admitted to ICU due to hypovolemic shock secondary to diarrhea, likely related to gastroenteritis. Levophed was given through an IO. Dr. Concepcion placed a central line as well as a hemodialysis catheter for ATN likely 2/2 hypoperfusion. Nephrology was consulted. She received continuous renal replacement therapy for one day. Renal function improved and she had good urinary output. Per report [facility] had positive norovirus testing however GI panel returned negative for infectious process at [facility]. Patient did develop acute blood loss anemia secondary to lower GI bleeding. GI was consulted. Suspected bleeding to be related to ischemic colitis secondary to hypotension. Patient received 2 packed red blood cell transfusions. Patient, however, declined a flexible sigmoidoscopy while inpatient. Dr. Garcia recommended patient follow-up with him in approximately 2-3 weeks. As infectious colitis was considereda patient will be completing a course of ciprofloxacin and metronidazole for 10 days. Overall, patient's renal function improved. There was suspicion for multiple myeloma given protein gap, however, no M spikes were noted on serum protein electrophoresis. Patient was instructed the importance of follow-up with the cardiac cath lab radiology technologist and the gastrologist clinics. Patient was alert and oriented 3. She was tolerating a regular diet, and had no diarrhea or further lower GI bleeding on discharge. # Abdo xray suggestive of ileus vs less likely distal mechanical large bowel obstruction: NPO initially with NG to suction. NG removed. Abdo pain much improved. Advanced diet to GI soft. Noted well # UTI: UCx shows yeast like organism, low count, asymptomatic, no tx needed. # Heart murmur: Fu echo, tiny pericardial effusion, no central cardiac chamber compression, grade 1 diastolic dysfunction. Mild pulmonary hypertension. LVEF 75%. # Hypothyroidism: Possible history but no Synthroid on med rec. Free T4 low. Started synthroid 25 mcg daily at 6 am. and Fu PCP to titrate. #Hypocalcemia: s/p 1g calcium gluconate on 06/08. Ionized calcium 4.0. Ordered an additional 1 g calcium gluconate. D/w Dr. Degroot. Patient was volume overloaded, was given lasix 40 mg IV and continued PO lasix on DC. Calcium carbonate was prescribed. #Hypernatremia: Na 147. DC IVF. Lasix 40 mg IV once. # HTN: patient was hypotensive on arrival. BP meds were held. # Diabetes: Levemir. ISS. Accuchecks. Hypoglycemic protocol. # Thrombocytopenia: stable, likely 2/2 acute illness. # HLD: continue statin # Obesity: BMI 35.4 Complicated care. Additional problems were addressed as follows: DISCHARGE MEDICATIONS: Please see below. ALLERGIES: Please see below. PHYSICAL EXAMINATION ON DISCHARGE: VITAL SIGNS: please see below General: NAD, comfortable HEENT: PERRLA, EOMI, sclerae clear Neck: supple, normal ROM, no JVD. L IJ. Respiratory: lungs CTAB, no wheeze, no rales, no crackles CVS: RRR, normal S1, S2, no murmurs Abdo: soft, no masses, no hepatosplenomegaly, BS+, no rebound tenderness Extremities: no edema, pulses 2+ MSK: no joint deformities, normal ROM Neuro: no focal neuro deficits, moving all 4 extremities, CN2-12 intact. Strength 5/5 in all 4 extremities. No nystagmus. Psych: calm, cooperative, AAO x 3 LABORATORY DATA: Please see below. IMAGING: Abdo xray (06/06/20): IMPRESSION: Findings relatively similar to prior examination although the small bowel may be slightly improved. Differential diagnosis again includes ileus and less likely distal mechanical bowel obstruction. (06/05/20): IMPRESSION: Evidence of developing obstruction or worsening ileus. This needs to be correl ated clinically with appropriate follow-up. (06/04/20): FINDINGS: Renal cortical echogenicity pattern is normal bilaterally and contours are smooth. There is no evidence of hydronephrosis, cyst, mass, or calculus in either kidney. The right kidney measures 10.0 x 4.0 x 4.8 cm. Left renal dimensions are 10.8 x 4.1 x 5.3 cm. The urinary bladder is empty and contains a Smart catheter. IMPRESSION: Normal urinary tract sonography. CT head (06/04/20): FINDINGS: Brain: Images are slightly motion degraded. No hemorrhage. No mass effect. No evolving territorial infarct. White matter hypodensities are nonspecific, potentially represent chronic small vessel ischemic change. Cerebral ventricles: No ventriculomegaly. Bones/joints: Unremarkable. No acute fracture. Paranasal sinuses: Visualized sinuses are unremarkable. No fluid levels. Mastoid air cells: Chronically underpneumatized. Auditory system: There is material in the left external auditory canal which presumably represents cerumen. Soft tissues: Unremarkable. IMPRESSION: No acute intracranial abnormality seen. Abdo XRAY (06/04/20): FINDINGS: Examination is limited by portable technique and positioning. A nasogastric tube is identified in satisfactory position within the left upper quadrant. Distended air-filled large bowel is appreciated and nonspecific differential diagnosis would include ileus and distal mechanical obstruction. No obvious small bowel obstruction or distention is appreciated. IMPRESSION: Limited examination demonstrating distended large bowel. Differential diagnosis includes ileus and possible mechanical large bowel obstruction. Small bowel is grossly unremarkable. (06/03/20): FINDINGS: The technique utilized in obtaining the radiograph has magnified the cardiac silhouette and accentuated the interstitial markings. The superior mediastinal structures are midline. The cardiac silhouette is unremarkable in size, shape, and position. The diaphragmatic surfaces of the lungs are regular, and the costophrenic angles are clear. The pulmonary lazcano are clear. The imaged osseous structures are intact. Since the last examination a left-sided internal jugular central venous catheter has been placed the tip of which is in the superior vena cava. IMPRESSION: No acute cardiopulmonary disease. Central venous catheter as described above. PROGNOSIS: good ACTIVITY: As tolerated DIET: 2g Na DISCHARGE PLAN: DC home with home services PT. Follow up with PCP 3-5 days. Foll ow up with nephrology 1 week, and follow up with Dr. Garcia from GI in 2-3 weeks for possible flexible sigmoidoscopy. Continue to take lasix 40 mg po daily. continue calcium carbonate 500 mg three times per day. complete 4 additional days of metronidazole 500 mg 3x/day and ciprofloxacin 500 mg 2x/day. DISPOSITION: home with services DISCHARGE INSTRUCTIONS: PLEASE FOLLOW UP WITH YOUR PRIMARY CARE DOCTOR WITHIN 2-3 DAYS PLEASE FOLLOW UP WITH DR. DEGROOT WITHIN 1 WEEKS. PLEASE FOLLOW UP WITH DR. GARCIA WITHIN 2-3 WEEKS IN THE GASTROENTEROLOGY CLINIC. PLEASE TAKE YOUR MEDICATIONS PRESCRIBED. YOU HAVE BEEN PRESCRIBED CALCIUM TABLETS, WELL A WATER PILL. PLEASE TAKE CALCIUM THREE TIMES PER DAY AND THE WATER PILL (FUROSEMIDE) ONCE PER DAY. IF YOU DEVELOP CHEST PAIN, SHORTNESS OF BREATH, FEVERS, CHILLS, BLEEDING OR OTHERWISE WORSENING OF YOUR SYMPTOMS, PLEASE CALL 911 OR RETURN TO THE EMERGENCY DEPARTMENT. ITEMS TO FOLLOWUP ON ON OUTPATIENT: 1. repeat BMP 2. repeat calcium 3. ensure GI and nephro follow up DISCHARGE CONDITION: Stable TIME SPENT ON DISCHARGE: 35 minutes Vital Signs/I&Os Vital Signs Date Time Temp Pulse Resp B/P (MAP) Pulse Ox O2 Delivery O2 Flow Rate FiO2 06/11/20 07:54 96.9 82 18 143/63 (89) 96 Room Air I&O- Last 24 Hours up to 6 AM 06/11/20 06:00 Intake Total 1110 ml Output Total 750 ml Balance 360 ml Laboratory Data Labs 24H Laboratory Tests 2 06/10/20 12:10: Bedside Glucose (Misc Panel) 137H 06/10/20 17:09: Bedside Glucose (Misc Panel) 135H 06/10/20 20:25: Bedside Glucose (Misc Panel) 137H 06/11/20 06:31: Neutrophils (%) (Auto) , Nucleated Red Blood Cells % (auto) 0.0, Neutrophils 55, Band Neutrophils 6, Lymphocytes (Manual) 39, Platelet Estimate NORMAL, Differential Slide Review Report, Peripheral Blood Smear Path Consult PERIPHERAL SMEAR, Anion Gap 8, Glomerular Filtration Rate 43.3L, Calcium Level 6.8L CBC/BMP Laboratory Tests 06/11/20 06:31 FSBS Laboratory Tests Test 06/10/20 12:10 06/10/20 17:09 06/10/20 20:25 Range/Units Bedside Glucose (Misc Panel) 137 135 137 70-105 MG/DL Microbiology Microbiology 06/05/20 Stool Occult Blood (JENI) - Final, Complete 06/05/20 Campylobacter (PCR) - Final, Complete 06/05/20 Clostridium difficile Toxin A&B PCR - Final, Complete 06/05/20 Plesiomonas shigelloides (PCR) - Final, Complete 06/05/20 Salmonella (PCR)(JENI) - Final, Complete 06/05/20 Vibrio Species (PCR) - Final, Complete 06/05/20 Vibrio Cholerae (PCR) - Final, Complete 06/05/20 Yersinia enterocolitica (PCR) - Final, Complete 06/05/20 Enteroaggregative E. coli (PCR) - Final, Complete 06/05/20 Enteropathogenic E. coli (PCR) - Final, Complete 06/05/20 Enterotoxigenic E. coli (PCR) - Final, Complete 06/05/20 E. coli Shiga-like Toxin (PCR) - Final, Complete 06/05/20 Escherichia coli 0157 (PCR) - Final, Complete 06/05/20 Enteroinvasive E. coli/Shigella PCR - Final, Complete 06/05/20 Cryptosporidium (PCR) - Final, Complete 06/05/20 Cyclospora cayetanensis (PCR) - Final, Complete 06/05/20 Entamoeba histolytica (PCR) - Final, Complete 06/05/20 Giardia lamblia (PCR) - Final, Complete 06/05/20 Adenovirus Type F 40/41 (PCR) - Final, Complete 06/05/20 Astrovirus (PCR) - Final, Complete 06/05/20 Norovirus GI/GII (PCR) - Final, Complete 06/05/20 Rotavirus A (PCR) - Final, Complete 06/05/20 Sapovirus I/II/IV/V (PCR) - Final, Complete 06/04/20 Urine Culture - Final, Complete Yeast Like Organism Discharge Medications Scheduled Aripiprazole (Aripiprazole) 15 Mg Tablet, 15 MG PO DAILY, (Reported) Aspirin (Aspirin EC) 81 Mg Tablet.dr, 81 MG PO DAILY, (Reported) Atorvastatin Calcium (Atorvastatin Calcium) 20 Mg Tablet, 20 MG PO DAILY, (Reported) Calcium Carbonate (Calcium) 500 Mg Tab.chew, 1 TAB PO TID Cholecalciferol (Vitamin D3) (Vitamin D3) 1,000 Unit Tablet, 2,000 UNITS PO DAILY, (Reported) Ciprofloxacin HCl (Cipro) 500 Mg Tablet, 500 MG PO BID@06,18 Docusate Sodium (Docusate Sodium) 100 Mg Capsule, 100 MG PO BID, (Reported) Duloxetine HCl (Cymbalta) 20 Mg Capsule.dr, 20 MG PO BID Furosemide (Furosemide) 40 Mg Tablet, 1 TAB PO DAILY Insulin Aspart (Novolog) 100 Unit/1 Ml Cartridge, 1 DOSE SC AC, (Reported) PER SLIDING SCALE Insulin Glargine,Hum.rec.anlog (Basaglar Kwikpen U-100) 100 Unit/1 Ml Insuln.pen, 60 UNIT SC BID, (Reported) Levothyroxine Sodium (Levothyroxine Sodium) 25 Mcg Tablet, 25 MCG PO DAILY@06 Liraglutide (Victoza 2-Simone) 0.6 Mg/0.1 Ml Pen.injctr, 1.8 MG SC DAILY, (Reported) Lisinopril/Hydrochlorothiazide (Lisinopril-Hctz 20-12.5 mg Tab) 1 Each Tablet, 1 TAB PO DAILY, (Reported) Metronidazole (Flagyl) 500 Mg Tablet, 500 MG PO Q8H Nortriptyline HCl (Nortriptyline HCl) 50 Mg Capsule, 50 MG PO DAILY, (Reported) Nystatin (Nystop) 60 Gm Powder, 0 DOSE TOP BID Pantoprazole Sodium (Pantoprazole Sodium) 40 Mg Tablet.dr, 1 TAB PO DAILY Pregabalin (Lyrica) 300 Mg Capsule, 300 MG PO BID, (Reported) Scheduled PRN Butalb/Acetaminophen/Caffeine (Nzqeje-Tcdiacwj-Kmsy 50-325-40) 1 Each Capsule, 1 CAP PO Q4H PRN for MIGRAINE, (Reported) Oxycodone HCl/Acetaminophen (Percocet 5-325 mg Tablet) 1 Each Tablet, 1 TAB PO Q4H PRN for PAIN, (Reported) Tizanidine HCl (Tizanidine HCl) 4 Mg Tablet, 4 MG PO TID PRN for MUSCLE SPASMS, (Reported) Allergies Coded Allergies: Sulfa (Sulfonamide Antibiotics) (Verified Allergy, Intermediate, HIVES, 11/18/19) morphine (Verified Adverse Reaction, Mild, htn or hypotension-pt unsure of which one, 11/18/19) JOHANNY CARPIO MD Jun 11, 2020 11:45
[2020-06-11 12:00] VITALS: BP 148/71
[2020-06-11] MEDS ORDERED: PANT40TA29 PO (12:02)
--- NOTE | 2020-06-17 14:15 | IPN ---
PROGRESS NOTE DATE: 06/11/2020 04:20:00 pm SUBJECTIVE: Mrs. Bell is seen this morning on her bedside. She is feeling well and denies any complaints. Her diarrhea has improved and she denies any nausea or vomiting. She did not have a sigmoidoscopy yesterday, which was originally scheduled. The patient wants to go home today. PHYSICAL EXAMINATION: VITALS: Temperature 97.5 degrees Fahrenheit, heart rate 86 per minute, respiratory rate 18 per minute, blood pressure 148/70 mmHg and oxygen saturation 98% on room air. HEAD: Atraumatic. NECK: Supple and without JVD or thyroid enlargement. She has no oral thrush or ulcers. HEART: Heart sounds are regular. LUNGS: With slightly diminished breath sounds at bases. ABDOMEN: soft, nontender. Bowel sounds are present. As suspect, she has mild ascites. EXTREMITIES: No cyanosis or clubbing. She has 2+ edema on lower extremities. NEUROLOGIC: She is awake, alert and oriented x3. LABORATORY DATA: Today's labs show WBC 4.8, hemoglobin 10.4, hematocrit 32.7, platelets 220,000. Sodium 147, potassium 3.4, CO2 22, BUN 9, creatinine 1.35. Glucose 106 and calcium 6.8. PROBLEMS: 1. Acute kidney injury superimposed on chronic kidney disease: I believe the patient has underlying chronic kidney disease as her serum creatinine never improved below 1.33. Had acute renal failure, was prerenal caused by prolonged episode of severe diarrhea and has now improved. She is tolerating oral intake and I.V. fluids have been stopped. 2. Hypernatremia: She has mild hypernatremia, which is likely to resolve by itself. I will suggest to avoid excessive diuresis. 3. Hypokalemia: This is related to diuretic use and we will give her one dose of potassium chloride 40 mEq today. 4. Hypocalcemia: Her calcium level has in fact improved slightly since yesterday. Her corrected calcium is normal as her serum albumin is only 1.6. I do not feel that she needs high dose calcium supplement. I will recommend only 500 mg of calcium once or twice a day. 5. Volume overload and peripheral edema: She has developed 2+ lower extremity edema, which is related to I.V. fluids given during her hospitalization. She can be slowly diuresed with once a day Lasix 40 mg by mouth. DISPOSITION: From a renal standpoint, the patient can be discharged to home today and follow-up in the clinic as an outpatient. I would like to see her in my office in one week. The patient understands to call our office on Monday for an appointment.
--- NOTE | 2020-06-17 14:15 | IPN ---
PROGRESS NOTE DATE: 06/10/2020 05:15:00 pm SUBJECTIVE: Mrs. Bell is seen this morning at her bedside. She is feeling much better and reports that her diarrhea has improved. She reports that she has been made n.p.o. as she is going to have a sigmoidoscopy later today. She continues with IV fluid. OBJECTIVE: VITAL SIGNS: Temperature 97.8 degrees Fahrenheit, heart rate 83 per minute, respiratory rate 18 per minute. Blood pressure 139/63 mmHg and oxygen saturation 96% on room air. HEENT: Head is atraumatic. NECK: Supple. JVD is difficult to assess. HEART: Sounds are regular. LUNGS: Clear to auscultation. ABDOMEN: Obese, soft, and nontender. Bowel sounds are normal. EXTREMITIES: Without any cyanosis or clubbing. She has developed edema on her lower extremities. NEUROLOGIC: She is awake, alert, and oriented x3. LABORATORY DATA: Today's labs show sodium 148, potassium 3.5, CO2 of 20, BUN 12, creatinine 1.33, glucose 149, calcium 6.4, ionized calcium 4.0, total protein 4.1, and albumin 1.6. WBC count 3.8, hemoglobin 9.8, hematocrit 30.7, platelets 143,000. PROBLEMS: 1. Acute kidney injury. Kidney function has improved significantly with intravenous (IV) fluid hydration. Her diarrhea has improved and she seems somewhat over-hydrated. I will recommend stopping her IV fluid after she gets done with her endoscopy. 2. Hypernatremia. Sodium level is slightly higher than yesterday. This is related to diarrhea and IV fluids. I would recommend stopping the IV fluid and let her have oral intake of fluid. Electrolytes will be checked again tomorrow. 3. Hypocalcemia. She has mild hypocalcemia related to acute renal failure and hypervolemia. Her serum albumin is only 1.6 and her corrected calcium is almost normal. I will not recommend further IV calcium. We should correct her volume status and let her have oral intake. Her diet can be advanced as tolerated. Renal profile should be checked again tomorrow. 4. Anemia. She has been transfused twice since admission and her anemia has improved. She is scheduled for possible sigmoidoscopy later today. All and all from a renal standpoint, the patient is doing very well with significant improvement in her symptoms, kidney function, and volume status. She has now in fact developed some mild hypervolemia and she is also malnourished with serum albumin of only 1.6. I hope this will improve once she starts with her oral intake. This is related to severe diarrhea and acute illness.
== END 2020-06-11 16:20 | disposition home health service (06) | DRG 720 ==
LOC: M ICU 17:15 → M PCU 06-08 11:32
PROVIDERS: ADMIT Internal Medicine Pulmonary Disease; ATTEND Family Medicine
PROC: 30233N1 Transfusion of Nonautologous Red Blood Cells into Peripheral Vein, Percutaneous Approach (ICD-10-PCS; principal; 2020-06-04)
DX: A41.9 Sepsis, unspecified organism (principal); K55.039 Acute (reversible) ischemia of large intestine, extent unspecified; R57.1 Hypovolemic shock; G93.41 Metabolic encephalopathy; N17.9 Acute kidney failure, unspecified; E87.2 Acidosis; D62 Acute posthemorrhagic anemia; R65.21 Severe sepsis with septic shock; E11.40 Type 2 diabetes mellitus with diabetic neuropathy, unspecified; D69.6 Thrombocytopenia, unspecified; E87.0 Hyperosmolality and hypernatremia; E83.51 Hypocalcemia; E87.5 Hyperkalemia; N39.0 Urinary tract infection, site not specified; I10 Essential (primary) hypertension; E66.9 Obesity, unspecified; Z68.35 Body mass index [BMI] 35.0-35.9, adult; E03.9 Hypothyroidism, unspecified; F32.9 Major depressive disorder, single episode, unspecified; Z79.899 Other long term (current) drug therapy; Z79.82 Long term (current) use of aspirin; Z88.2 Allergy status to sulfonamides; Z88.5 Allergy status to narcotic agent; Z79.4 Long term (current) use of insulin; F41.9 Anxiety disorder, unspecified; K21.9 Gastro-esophageal reflux disease without esophagitis

== ENCOUNTER 2020-06-25 15:18 | Inpatient (IN) | payer OTHER ==
[~2020-06-25] VITALS: Ht 162.6 cm; Wt 94.6 kg
[~2020-06-25 15:18] MED LIST changes: +ARIP1TAB10 PO; +ASPI81TA26 PO; +ATOR1TAB21 PO; +BASA100I SC; +BUTACAP78 PO; +CALC500T68 PO; +CIPR-249 PO; +CYMB1CAP4 PO; +D31000TA2 PO; +DOCU100C16 PO; +DULO1CAP4 PO; +DULO1CAP6 PO; +FLAG500T PO; +FURO40TA2 PO; +LEVO25TA5 PO; +LISI20TA35 PO; +METF-838 PO; +NORT50CA PO; +NYST10006 TOP; +PANT40TA29 PO; +PERC5TAB12 PO; +TIZA4TAB4 PO
[2020-06-25] MEDS ORDERED: METOCLOPRAMIDE INJ 10MG/2ML VIAL (J2765 PER 1) IV ONE (15:45)
[2020-06-25] MEDS ORDERED: NS 1,000 ML IV ONE ×2 (15:45→19:00)
[2020-06-25 16:15] LABS: HEMATOCRIT 35.4 % (36.0-47.0); HEMOGLOBIN 11.2 g/dl (12.0-15.5); MEAN CORPUSCULAR HEMOGLOBIN 27.7 pg (27.0-33.0); MEAN CORPUSCULAR HGB CONC 31.6 g/dl (32.0-36.5); MEAN CORPUSCULAR VOLUME 87.6 fl (80.0-96.0); PLATELET COUNT, AUTOMATED 481 10^3/uL (150-450); RED BLOOD COUNT 4.04 10^6/uL (4.00-5.40); WHITE BLOOD COUNT 16.8 10^3/uL (4.0-10.0)
[2020-06-25 16:46] LABS: ALBUMIN 2.1 GM/DL (3.2-5.2); ALT/SGPT 10 U/L (12-78); BILIRUBIN,DIRECT 0.3 MG/DL (0.0-0.2); BILIRUBIN,TOTAL 0.8 MG/DL (0.2-1.0); BLOOD UREA NITROGEN 28 MG/DL (7-18); CALCIUM LEVEL 7.8 MG/DL (8.5-10.1); CARBON DIOXIDE LEVEL 22 MEQ/L (21-32); CHLORIDE LEVEL 95 MEQ/L (98-107); CK-MB VALUE MASS 1.4 NG/ML (<3.6); CPK CREATINE PHOSPHOKINASE 68 U/L (26-192); CREATININE FOR GFR 4.39 MG/DL (0.55-1.30); GLOMERULAR FILTRATION RATE 11.1 (>51); GLUCOSE, FASTING 216 MG/DL (70-100); LIPASE 111 U/L (73-393); MB/CK RELATIVE INDEX 2.06 (< OR =4); POTASSIUM SERUM 3.7 MEQ/L (3.5-5.1); SODIUM LEVEL 132 MEQ/L (136-145); TOTAL PROTEIN 5.5 GM/DL (6.4-8.2); TROPONIN I < 0.02 NG/ML (< 0.10)
[2020-06-25 16:47] LABS: ATYPICAL LYMPH 1 % (0-5); BASOPHILS 1 % (0-1); LYMPHOCYTES 11 % (16-44); MONOCYTES 6 % (0-5); NEUTROPHILS 59 % (28-66)
[2020-06-25 16:50] LABS: PLATELET CLUMPS SMALL AMT; PLATELET ESTIMATE INCREASED (NORMAL)
[2020-06-25 16:52] LABS: TOXIC GRANULATION 1+
[2020-06-25 17:15] LABS: INR 1.16; PROTHROMBIN TIME 15.1 SECONDS (12.5-14.3)
[2020-06-25 17:41] LABS: RSV AMPLIFICATION NEGATIVE (NEGATIVE)
[2020-06-25] MEDS ORDERED: DULO1CAP4 PO (17:45)
[2020-06-25] MEDS ORDERED: LEVO25TA5 PO (17:45)
[2020-06-25] MEDS ORDERED: NYST1POW9 TOP (17:45)
[2020-06-25] MEDS ORDERED: LISI-538 PO (17:45)
[2020-06-25] MEDS ORDERED: CALC500T61 PO (17:45)
[2020-06-25] MEDS ORDERED: PANT40TA29 PO (17:45)
--- NOTE | 2020-06-25 18:10 | REP ---
INDICATION: hypotension. COMPARISON: June 03, 2020.. TECHNIQUE: Upright AP portable chest radiograph. FINDINGS: Monitoring electrodes are seen. The lungs are well inflated and clear. The pleural angles are sharp. Heart size is normal. Pulmonary vasculature is not increased. No significant bony abnormality is seen. IMPRESSION: No acute disease. <Electronically signed by Khang Ham > 06/25/20 [id number]
[2020-06-25] MEDS ORDERED: DOCUSATE SODIUM 100MG CAPSULE PO PRN (18:30)
[2020-06-25] MEDS ORDERED: PIPERACILLIN/TAZOBACTAM SOD 4.5 GM in D5W MINI-BAG PLUS 50 ML IV SCH (18:30)
[2020-06-25] MEDS ORDERED: ENTER DRUG NAME HERE (PATIENT'S OWN MED) PO PRN (18:30)
[2020-06-25] MEDS ORDERED: tiZANidine 4 MG TAB PO PRN (18:30)
[2020-06-25] MEDS ORDERED: PERCOCET 5MG/325MG TAB PO PRN (18:30)
[2020-06-25] MEDS ORDERED: ACETAMINOPHEN TAB 650MG DOSE (2X325MG) PO PRN (18:30)
[2020-06-25] MEDS ORDERED: PIPERACILLIN/TAZOBACTAM SOD 2.25 GM in D5W MINI-BAG PLUS 50 ML IV SCH (19:00)
[2020-06-25] MEDS ORDERED: FIORICET TAB PO PRN (19:30)
[2020-06-25] MEDS: NS 1,000 ML IV SCH (19:31)
--- NOTE | 2020-06-25 19:49 | HPEPDOC ---
[facility] Medical History & Physical Date of Admission Jun 25, 2020 Date of Service: Jun 25, 2020 History and Physical CHIEF COMPLAINT: Sent from renal clinic with hypotension and worsening renal function HISTORY OF PRESENT ILLNESS: 54-year-old W with a history of diabetes, chronic venous insufficiency, hypothyroidism, hypertension, lumbar disc disease, depression, CKD3 who was recently admitted to [facility] in late 05/2020 with septic shock 2/2 gastroenteritis c/b acute on chronic renal failure require CRRT and discharged home on 06/12 after diarrhea remitted and Cr had recovered to 1.35, and was discharged to complete a 10d course for GI coverage with cipro/flagyl despite negative GI panel at the time, however with evidence of colitis that was transiently hemorrhagic and resolved by the time of dischage, as well as lisinopril and HCTZ among her other medications who presented to renal clinic this afternoon for follow up and was found to be in acute on chronic renal failure with Cr now 4.39, very dry on exam, while reporting 8 episodes of diarrhea daily for the past 5 days. She was sent to the ED. She was also profoundly hypotensive to SBP 50s, while asymptomatic and was given 1L of NS and sent to the ED. In the ED, she continued to be hypotensive and got 1L NS bolus, has a second litre running with mild improvement in her SBP to 80-90s. Investigations showed leukocytosis to 16.8, with a 22% bandemia, hgb 11.2 comparable with the recent baseline, platelets 481, Na 132, K 3.7, Cr 4.39, normal bicarb with normal LFTs, troponin, TSH, lipase and unremarkable CXR. Her diarrhea is painless. On my evaluation, upon seeing the leukocytosis with bandemia and hypotension, I will manage her empirically as severe sepsis in addition to severely dehydrated 2/2 diarrhea that I will investigate and will of course consult nephrology. Will admit to the PCU, continue aggressive fluids, hold all antihypertensives and diuretics, panculture and empirically start vanc and piptazo and send a GI panel as well. Of note, ROS was on pertinent for profuse diarrhea without fever, chills, nausea, emesis, travel, recent sick contacts, no grace hematochezia, hematemesis or dysuria. Also of note, during her recent admission, she did develop acute blood loss anemia secondary with hematochezia and GI was consulted suspecting the bleeding to be related to ischemic colitis secondary to hypotension and she received 2 packed red blood cell transfusions, but she ultimately declined a flexible sigmoidoscopy while inpatient and was to follow up with Dr. Leiva in 2-3 weeks and discharged to complete ciprofloxacin and metronidazole for 10 days. There was also a suspicion for multiple myeloma given an elevated protein gap, but she did not have an M spike noted on SPEP. Patient was instructed the importance of follow-up with the allergy and immunology chief and the gastrologist clinics. Patient was alert and oriented 3. She was tolerating a regular diet, and had no diarrhea or further lower GI bleeding on discharge. PAST MEDICAL HISTORY: 1. Obesity. 2. Type-2 diabetes mellitus. 3. Hypertension. 4. Anxiety. 5. Depression. 6. Cervical radiculopathy. 7. Chronic venous insufficiency. 8. Diabetic neuropathy. 9. Probable diabetic nephropathy. 10. Hypothyroidism. PAST SURGICAL HISTORY: 1. Status post appendectomy. 2. Cholecystectomy. 3. section. 4. Hysterectomy. 5. Oophorectomy. SOCIAL HISTORY: -She is . She lives with her . There is no history of smoking, alcohol or drug use. FAMILY HISTORY: -Mother had lung cancer. REVIEW OF SYSTEMS: 12 point ROS was otherwise negative, unless otherwise stated above. VITAL SIGNS: please see below General: NAD, comfortable, pleasant, morbidly obese HEENT: PERRLA, EOMI, anicteric, no injection Neck: supple, normal ROM, no JVD Respiratory: lungs CTAB, no wheeze, no rales, no crackles CVS: RRR, normal S1, S2, no murmurs Abdo: soft, no masses, no hepatosplenomegaly, BS+, no rebound tenderness Extremities: No LE edema, 2+ DP pulses, WWP MSK: no joint deformities, normal ROM Neuro: CN2-12 intact. Strength 5/5 in all 4 extremities. No noted focal neuro deficits, moving all 4 extremities, clear speech without dysarthria Psych: calm, cooperative, AAO x 3 LABORATORY DATA, IMAGING STUDIES, MICROBIOLOGY: Summarized above. ASSESSMENT: 54-year-old W with a history of diabetes, chronic venous insufficiency, hypothyroidism, hypertension, lumbar disc disease, depression, CKD3 who was recently admitted to [facility] in late 05/2020 with septic shock 2/2 gastroenteritis c/b acute on chronic renal failure require CRRT and discharged home on 06/12 after diarrhea remitted and Cr had recovered to 1.35 who now returns with [place]ON on CKD, with severe sepsis bordering septic shock vs/+ hypovolemic shock i/s/o profuse diarrhea with indices suggestive of infectious process with leukocytosis, bandemia, hypotension and tachycardia. # Borderline shock - currently fluid responsive, no pressors at this time. 2/2 to a combination of severe dehydration i/s/o profuse diarrhea while on diuretics with poor PO, also with the combination of likely infection and therefore sepsis with leukocytosis with bandemia, hypotension, tachycardia with potential GI source given the degree of diarrhea -Aggressive fluids, 200cc/hr. May require more boluses -MAP goal >65 -Empiric vanc and piptazo -MRSA PCR for de-escalation -Highly worried about C.diff given recent antibiotics --> send GI panel -resp panel was negative for covid-19 and common viral pathogens -will hold off loperamide until stool studies return without C.diff -stop antihypertensives and diuretics #Diarrhea: Per chart history, was recently positive for Norovirus per [place], records not available. -send GI panel negative. -placed on piptazo to cover GI bacterial pathogens -aggressive fluid resuscitation -CT A/P # Anemia: stable, at recent baseline, without evidence of ongoing bleeding -Transfuse hgb<7 # Acute renal failure: -Nephrology consulted. -200cc/hr NS -strict I/Os -daily weights -avoid nephrotoxins Severe sepsis bordering septic shock, currently aggressively fluid resuscitating -CXR was without acute pathology -send UA with reflex to UCx -BCx x 2 sets -GI panel Hypothyroidism: -continue synthroid History of HTN: -Holding all antihypertensives, patient was hypotensive on arrival . Diabetes: -Levemir at 40U (2/3 of home dosing and will uptitrate from there) -ISS AC/HS -Hypoglycemic protocol -FSBG AC/HS HLD: -continue statin Obesity: BMI 41.3 -Complicated care. Anxiety/depression: -resumed home meds. DVT prophylaxis: heparin BID and TEDs Vital Signs Vital Signs Date Time Temp Pulse Resp B/P (MAP) Pulse Ox O2 Delivery O2 Flow Rate FiO2 06/25/20 17:30 119 18 75/36 (49) 99 Room Air 06/25/20 15:19 96.3 Laboratory Data Labs 24H Laboratory Tests 2 06/25/20 15:34: Neutrophils (%) (Auto) , Nucleated Red Blood Cells % (auto) 0.0, Neutrophils 59, Band Neutrophils 22H, Lymphocytes (Manual) 11L, Monocytes (Manual) 6H, Basophils (Manual) 1, Atypical Lymphocytes 1, Toxic Granulation 1+, Platelet Estimate INCREASED, Clumped Platelets SMALL AMT, Anion Gap 15, Glomerular Filtration Rate 11.1L, Calcium Level 7.8L, Total Bilirubin 0.8, Direct Bilirubin 0.3H, Aspartate Amino Transf (AST/SGOT) 9, Alanine Aminotransferase (ALT/SGPT) 10L, Alkaline Phosphatase 90, Total Creatine Kinase 68, Creatine Kinase MB 1.4, Creatine Ki nase MB Relative Index 2.06, Troponin I < 0.02, Total Protein 5.5L, Albumin 2.1L, Albumin/Globulin Ratio 0.6L, Lipase 111 06/25/20 16:01: Coronavirus (COVID-19)(PCR) NEGATIVE, Influenza Type A (RT-PCR) NEGATIVE, Influenza Type B (RT-PCR) NEGATIVE, Respiratory Syncytial Virus (PCR) NEGATIVE 06/25/20 16:37: Prothrombin Time 15.1H, Prothromb Time International Ratio 1.16 CBC/BMP Laboratory Tests 06/25/20 15:34 Home Medications Scheduled Aripiprazole (Aripiprazole) 15 Mg Tablet, 15 MG PO DAILY Aspirin (Aspirin EC) 81 Mg Tablet.dr, 81 MG PO DAILY Atorvastatin Calcium (Atorvastatin Calcium) 20 Mg Tablet, 20 MG PO DAILY Calcium Carbonate (Calcium Carbonate) 500 Mg Tablet, 500 MG PO TID Cholecalciferol (Vitamin D3) (Vitamin D3) 1,000 Unit Tablet, 2,000 UNITS PO DAILY Duloxetine Hcl (Duloxetine HCl) 20 Mg Capsule.dr, 20 MG PO BID Insulin Aspart (Novolog) 100 Unit/1 Ml Cartridge, 1 DOSE SC AC PER SLIDING SCALE Insulin Glargine,Hum.rec.anlog (Basaglar Kwikpen U-100) 100 Unit/1 Ml Insuln.pen, 60 UNIT SC BID Levothyroxine Sodium (Levothyroxine Sodium) 25 Mcg Tablet, 25 MCG PO QAM Liraglutide (Victoza 2-Simone) 0.6 Mg/0.1 Ml Pen.injctr, 1.8 MG SC DAILY Lisinopril (Lisinopril) 20 Mg Tablet, 20 MG PO DAILY Nortriptyline HCl (Nortriptyline HCl) 50 Mg Capsule, 50 MG PO DAILY Nystatin (Nystatin Powder) 15 Gm Powder, 1 APLCT TOP DAILY UNDER BREASTS AND GROIN AREA AFTER BATHING Pantoprazole Sodium (Pantoprazole Sodium) 40 Mg Tablet.dr, 40 MG PO DAILY Pregabalin (Lyrica) 300 Mg Capsule, 300 MG PO BID Scheduled PRN Butalb/Acetaminophen/Caffeine (Pccqvk-Wrmcdtot-Kveo 50-325-40) 1 Each Capsule, 1 CAP PO Q4H PRN for MIGRAINE Docusate Sodium (Docusate Sodium) 100 Mg Capsule, 100 MG PO BID PRN for CONSTIPATION Oxycodone HCl/Acetaminophen (Percocet 5-325 mg Tablet) 1 Each Tablet, 1 TAB PO Q4H PRN for PAIN Tizanidine HCl (Tizanidine HCl) 4 Mg Tablet, 4 MG PO TID PRN for MUSCLE SPASMS Allergies Coded Allergies: Sulfa (Sulfonamide Antibiotics) (Verified Allergy, Intermediate, HIVES, 11/18/19) morphine (Verified Adverse Reaction, Mild, htn or hypotension-pt unsure of which one, 11/18/19) A-FIB/CHADSVASC A-FIB History Current/History of A-Fib/PAF?: No Current PO Anticoag Therapy: No Age/Risk Factor Scoring CHADSVASC: CHADSVASC Response (Comments) Value Age Risk Factor Age < 65 years old 0 Gender Risk Factor Female 1 Hx of CHF Yes 1 Hx of HTN Yes 1 Hx of Stroke/TIA/or VTE No 0 Hx of Diabetes Yes 1 Hx of Vascular Disease No 0 Total 4 Treatment Treatment ordered: NONE Reason Anticoagulant not given: Not indicated/[id number] CALLIE NOE MD Jun 25, 2020 19:21
--- NOTE | 2020-06-25 20:44 | REPVR ---
PROCEDURE INFORMATION: Exam: CT Abdomen And Pelvis Without Contrast Exam date and time: 06/25/2020 7:39 PM Age: 54 years old Clinical indication: Other: Profuse diarrhea TECHNIQUE: Imaging protocol: Computed tomography of the abdomen and pelvis without contrast. Radiation optimization: All CT scans at this facility use at least one of these dose optimization techniques: automated exposure control; mA and/or kV adjustment per patient size (includes targeted exams where dose is matched to clinical indication); or iterative reconstruction. COMPARISON: CT ABD/PELVIS W/O CONTRAST - OUTSIDE PRIOR 06/03/2020 2:48 PM FINDINGS: Liver: There is enlargement of the left and caudate lobes of the liver as well as a lobular surface contour of the liver. Findings may indicate the presence of cirrhosis in this patient with no reported history of chronic liver disease. No focal abnormality demonstrated. Gallbladder and bile ducts: There has been a cholecystectomy. Pancreas: There is diffuse pancreatic atrophy. Spleen: There is mild splenomegaly with a maximum span of 14 centimeters. No focal abnormalities demonstrated. Adrenal glands: Normal. No mass. Kidneys and ureters: Normal. No hydronephrosis. Stomach and bowel: Strictured segment at the splenic flexure of the colon. Neoplasm to be excluded via colonoscopy. Inflammatory changes demonstrated in the collapsed ahaustral left and sigmoid colon, findings may suggest presence of acute or subacute colitis. Dilatation of the transverse and right colon proximal to the strictured segment. Mild diverticulosis is present in the distal colon. No diverticulitis. Dilated small bowel loops in the mid abdomen may represent a localized ileus and less likely early small bowel obstruction. Appendix: No evidence of appendicitis. Intraperitoneal space: Unremarkable. No free air. No significant fluid collection. Vasculature: The aortoiliac vessels demonstrate mild atherosclerotic calcification. Lymph nodes: Calcified left hilar lymph nodes. Urinary bladder: Unremarkable as visualized. Reproductive: There has been a hysterectomy. Bones/joints: Shallow dextroscoliosis. Moderate central spinal stenosis L3-L4 and moderate to severe central spinal stenosis L4-L5. Soft tissues: Unremarkable. IMPRESSION: 1. There is enlargement of the left and caudate lobes of the liver as well as a lobular surface contour of the liver. Findings may indicate the presence of cirrhosis in this patient with no reported history of chronic liver disease. No focal abnormality demonstrated. 2. There is mild splenomegaly with a maximum span of 14 centimeters. No focal abnormalities demonstrated. 3. There is diffuse pancreatic atrophy. 4. There has been a cholecystectomy. 5. There has been a hysterectomy. 6. Strictured segment at the splenic flexure of the colon. Neoplasm to be excluded via colonoscopy. Inflammatory changes demonstrated in the collapsed ahaustral left and sigmoid colon, findings may suggest presence of acute or subacute colitis. Dilatation of the transverse and right colon proximal to the strictured segment. 7. Mild diverticulosis is present in the distal colon. No diverticulitis. 8. Dilated small bowel loops in the mid abdomen may represent a localized ileus and less likely early small bowel obstruction. Electronically signed by: Rafael Jay On 06/25/2020 20:43:45 PM
[2020-06-25] MEDS ORDERED: VANCOMYCIN HCL 1,000 MG, VIAL MATE ADAPTER 1 EACH in D5W 250 ML IV ONE ×2 (21:00→23:00)
[2020-06-25] MEDS: DULoxetine 20 MG CAP (CYMBALTA) PO SCH (21:00)
[2020-06-25] MEDS: PIPERACILLIN/TAZOBACTAM SOD 2.25 GM in D5W MINI-BAG PLUS 50 ML IV SCH (21:44)
[2020-06-25 22:05] VITALS: BP 121/58
[2020-06-25] MEDS: HEPARIN SOD (PORCINE) 5000UNITS/ML 1ML VIAL/SYRINGE SQ SCH (22:45)
[2020-06-25] MEDS: OYSTER SHELL CALCIUM 500 MG TAB PO SCH (22:45)
[2020-06-26] VITALS (7 sets, daily range): BP systolic 90–129; BP diastolic 53–60
[2020-06-26] MEDS: NS 1,000 ML IV SCH ×5 (00:10→19:04)
[2020-06-26] MEDS: PIPERACILLIN/TAZOBACTAM SOD 2.25 GM in D5W MINI-BAG PLUS 50 ML IV SCH ×3 (03:23→21:19)
[2020-06-26] MEDS: LEVOTHYROXINE 25MCG TABLET (0.025MG) PO SCH (05:04)
[2020-06-26 06:08] LABS: MEAN CORPUSCULAR HEMOGLOBIN 27.7 pg (27.0-33.0); MEAN CORPUSCULAR HGB CONC 31.9 g/dl (32.0-36.5); MEAN CORPUSCULAR VOLUME 86.7 fl (80.0-96.0); WHITE BLOOD COUNT 6.2 10^3/uL (4.0-10.0)
[2020-06-26 06:09] LABS: HEMOGLOBIN 8.3 g/dl (12.0-15.5); PLATELET COUNT, AUTOMATED 242 10^3/uL (150-450)
[2020-06-26 06:13] LABS: CALCIUM LEVEL 6.5 MG/DL (8.5-10.1); CREATININE FOR GFR 3.13 MG/DL (0.55-1.30); GLOMERULAR FILTRATION RATE 16.4 (>51); MAGNESIUM LEVEL 1.2 MG/DL (1.8-2.4); POTASSIUM SERUM 3.5 MEQ/L (3.5-5.1)
[2020-06-26] MEDS ORDERED: VANCOMYCIN HCL 1,000 MG, VIAL MATE ADAPTER 1 EACH in D5W 250 ML IV SCH (07:00)
[2020-06-26] MEDS: MAG SULF 1GM/100ML (MAG RUN) 1 GM in IV 1 EA IV SCH ×2 (08:32→09:53)
[2020-06-26] MEDS: HEPARIN SOD (PORCINE) 5000UNITS/ML 1ML VIAL/SYRINGE SQ SCH ×2 (08:36→21:20)
[2020-06-26] MEDS: NYSTATIN 100,000 UNITS/GM TOPICAL PWD 15 GM TOP SCH (08:36)
[2020-06-26] MEDS: ATORVASTATIN 20 MG TAB PO SCH (08:37)
[2020-06-26] MEDS: VITAMIN D 1,000 INTERNATIONAL UNITS TABLET PO SCH (08:37)
[2020-06-26] MEDS: ASPIRIN 81 MG ENTERIC TAB PO SCH (08:37)
[2020-06-26] MEDS: ARIPiprazole 15 MG TAB (AbiLIFY) PO SCH (08:37)
[2020-06-26] MEDS: PANTOPRAZOLE 40MG TAB (PROTONIX) PO SCH (08:37)
[2020-06-26] MEDS: DULoxetine 20 MG CAP (CYMBALTA) PO SCH ×2 (08:37→21:20)
[2020-06-26] MEDS: NORTRIPTYLINE 25 MG CAP PO SCH (08:37)
[2020-06-26] MEDS ORDERED: PREGABALIN 100 MG CAP (LYRICA) PO SCH (09:00)
[2020-06-26] MEDS ORDERED: ENOXAPARIN 40MG/0.4ML SYRINGE (J1650 PER 10MG) SC SCH (09:00)
[2020-06-26] MEDS ORDERED: CALCIUM GLUCONATE 1,000 MG in D5W MINI-BAG PLUS 100 ML IV ONE (10:00)
[2020-06-26] MEDS: OYSTER SHELL CALCIUM 500 MG TAB PO SCH ×3 (10:56→21:20)
[2020-06-26] MEDS: MAGNESIUM OXIDE 400 MG TAB (MAG-OX) PO SCH ×2 (11:35→21:20)
[2020-06-26 11:36] LABS: PERCENT SATURATION 26.5 % (13.2-45.0)
[2020-06-26 12:06] LABS: TOTAL 25(OH) VITAMIN D 50.6 NG/ML (30.0-100.0)
[2020-06-26] MEDS: PREGABALIN 75 MG CAP(LYRICA) PO SCH ×2 (13:46→21:20)
--- NOTE | 2020-06-26 14:00 | IPNPDOC ---
Text Note Date of Service The patient was seen on 06/26/20. NOTE SUBJECTIVE: -Had 1 episode of painless, slightly crampy non-bloody diarrhea overnight -Afebrile, HDS, no acute complaints at this time OBJECTIVE: VITAL SIGNS: please see below General: NAD, comfortable, pleasant, morbidly obese HEENT: PERRLA, EOMI, anicteric, no injection Neck: supple, normal ROM, no JVD Respiratory: lungs CTAB, no wheeze, no rales, no crackles CVS: RRR, normal S1, S2, no murmurs Abdo: Normoactive sounds, soft, no palpable masses, no rebound tenderness Extremities: No LE edema, 2+ DP pulses, WWP MSK: no joint deformities, normal ROM Neuro: CN2-12 intact. Strength 5/5 in all 4 extremities. No noted focal neuro deficits, moving all 4 extremities, clear speech without dysarthria Psych: calm, cooperative, AAO x 3 LABORATORY DATA: Na 139 K 3.5 Cr 3.13 Ca 6.5 (repleted) Mag 1.2 (repleted) WBC 6.2 Hgb 8.3 platelets 242 MICROBIOLOGY: BCx pending x 2 - NGTD GI panel - pending MRSA negative covid-19 negative UA++ --> pending urine culture IMAGING STUDIES: 06/25/2020: CT ABD/PELVIS W/O CONTRAST FINDINGS: Liver: There is enlargement of the left and caudate lobes of the liver as well as a lobular surface contour of the liver. Findings may indicate the presence of cirrhosis in this patient with no reported history of chronic liver disease. No focal abnormality demonstrated. Gallbladder and bile ducts: There has been a cholecystectomy. Pancreas: There is diffuse pancreatic atrophy. Spleen: There is mild splenomegaly with a maximum span of 14 centimeters. No focal abnormalities demonstrated. Adrenal glands: Normal. No mass. Kidneys and ureters: Normal. No hydronephrosis. Stomach and bowel: Strictured segment at the splenic flexure of the colon. Neoplasm to be excluded via colonoscopy. Inflammatory changes demonstrated in the collapsed ahaustral left and sigmoid colon, findings may suggest presence of acute or subacute colitis. Dilatation of the transverse and right colon proximal to the strictured segment. Mild diverticulosis is present in the distal colon. No diverticulitis. Dilated small bowel loops in the mid abdomen may represent a localized ileus and less likely early small bowel obstruction. Appendix: No evidence of appendicitis. Intraperitoneal space: Unremarkable. No free air. No significant fluid collection. Vasculature: The aortoiliac vessels demonstrate mild atherosclerotic calcification. Lymph nodes: Calcified left hilar lymph nodes. Urinary bladder: Unremarkable as visualized. Reproductive: There has been a hysterectomy. Bones/joints: Shallow dextroscoliosis. Moderate central spinal stenosis L3-L4 and moderate to severe central spinal stenosis L4-L5. Soft tissues: Unremarkable. IMPRESSION: 1. There is enlargement of the left and caudate lobes of the liver as well as a lobular surface contour of the liver. Findings may indicate the presence of cirrhosis in this patient with no reported history of chronic liver disease. No focal abnormality demonstrated. 2. There is mild splenomegaly with a maximum span of 14 centimeters. No focal abnormalities demonstrated. 3. There is diffuse pancreatic atrophy. 4. There has been a cholecystectomy. 5. There has been a hysterectomy. 6. Strictured segment at the splenic flexure of the colon. Neoplasm to be excluded via colonoscopy. Inflammatory changes demonstrated in the collapsed ahaustral left and sigmoid colon, findings may suggest presence of acute or subacute colitis. Dilatation of the transverse and right colon proximal to the strictured segment. 7. Mild diverticulosis is present in the distal colon. No diverticulitis. 8. Dilated small bowel loops in the mid abdomen may represent a localized ileus and less likely early small bowel obstruction. 06/25/2020 CXR: No acute disease ASSESSMENT: 54-year-old W with a history of diabetes, chronic venous insufficiency, hypothyroidism, hypertension, lumbar disc disease, depression, CKD3 who was recently admitted to [facility] in late 05/2020 with septic shock 2/2 gastroenteritis c/b acute on chronic renal failure require CRRT and discharged home on 06/12 after diarrhea remitted and Cr had recovered to 1.35 who now returned with [place] on CKD, with severe dehydration bordering hypovolemic shock i/s/o profuse diarrhea with indices suggestive of combination of sepsis with leukocytosis, bandemia, hypotension and tachycardia and dehydration. #Severe hypotension - 2/2 combination of severe dehydration i/s/o profuse diarrhea, antihypertensives and diuretic therapy + probable sepsis given presenting leukocytosis, +UA, diarrhea, hypotension and tachycardia. -Responded to aggressive fluid resuscitation -Aggressive fluids, 200cc/hr. -Continue empiric piptazo -Discontinue empiric vanc given -MRSA PCR -Highly worried about C.diff given recent antibiotics --> f/u GI panel -resp panel was negative for covid-19 and common viral pathogens -will hold off loperamide until stool studies return without C.diff -Held antihypertensives and diuretics at presentation #Diarrhea: Per chart history, was recently positive for Norovirus per [place], records not available. -f/u GI panel negative. -placed on empiric piptazo to cover GI bacterial pathogens -continue aggressive fluid resuscitation -CT A/P showing strictured segment at the splenic flexure of the colon with radiology recommending neoplasm to be excluded via colonoscopy. Inflammatory changes were demonstrated in the collapsed ahaustral left and sigmoid colon, which may be suggestive of the presence of acute or subacute colitis. I discussed re-consulting GI with Ms. Bell who recently refused a flex sig inpatient during her 05/2020. If no infectious pathogen is identified, I am concerned that her episodic profuse diarrhea is possibly 2/2 carcinoid given the presence of this stricture and profuse diarrhea with shock vs. ischemic for which etiology is unclear and would be investigated with GI's involvement , for other non-infectious GI pathologies. She expressed understanding and is now a greeable to inpatient scoping. -consulted GI --> clear liquid diet --> Dr. Leiva tentatively planning to scope tomorrow. #Sepsis - presenting leukocytosis with bandemia, hypotension and tachycardia, with a history of diarrhea and +UA on studies -continue empiric piptazo -f/u BCx, UCx, GI panel -CXR was without acute pathology -CT A/P revealed acute vs. subacute focal sigmoid colitis -continue aggressive fluids # Anemia: stable, at recent baseline, without evidence of ongoing bleeding -Transfuse hgb<7 # Acute renal failure: Prerenal 2/2 severe dehydration and hypotension, with c/f ATN given degree of presenting hypotension and dehydration. Improving -Nephrology consulted. -200cc/hr NS -strict I/Os -daily weights -avoid nephrotoxins. -Holding diuretics and antihypertensives Hypothyroidism: -continue synthroid History of HTN: -Holding all antihypertensives, patient was hypotensive on arrival . Diabetes: -Levemir at 40U (2/3 of home dosing for now) -ISS AC/HS -Hypoglycemic protocol -FSBG AC/HS HLD: -continue statin Obesity: BMI 41.3 -Complicated care. Anxiety/depression: -resumed home meds. DVT prophylaxis: heparin BID and TEDs VS,Fishbone, I+O VS, Fishbone, I+O Laboratory Tests 06/25/20 15:34 06/26/20 05:33 Vital Signs Date Time Temp Pulse Resp B/P (MAP) Pulse Ox O2 Delivery O2 Flow Rate FiO2 06/26/20 04:00 97.5 109 17 97/53 (68) 97 Room Air I&O- Last 24 Hours up to 6 AM 06/26/20 06:00 Intake Total 4350 ml Output Total 300 ml Balance 4050 ml CALLIE NOE MD Jun 26, 2020 07:58
[2020-06-26] MEDS ORDERED: **VANCO AFTER HD** MISC XX SCH (16:00)
--- NOTE | 2020-06-26 16:01 | CR.PDOC ---
General Date of Consultation: Jun 26, 2020 Referring Provider: CALLIE BONDS MD Attending Physician: LACIE GARCIA MD Consultation Primary physician/ hospitalist: -Dr. Bonds Reason for consult: Recurrent severe diarrhea and abnormal CT scan showing colon stricture. HPI: 54-year-old female patient with HTN, DM type II, diabetic neuropathy, HLD, Obesity BMI 37, PERALTA ( following with Dr. Garcia), recently admitted for severe hypotension following a severe bout of diarrhea ( suspected viral Gastroenteritis, stoo panel negative), had hypotensive shock with pre-renal NAPOLEON ( requiring transient use of pressors and dialysis), severe electrolyte abnormalities, rectal bleeding from possible ischemic colitis, anemia improved with conservative management, now presented again with another bout of severe diarrhea, hypotension and NAPOLEON on CKD. Patient had CT abdomen which showed possible colonic stricture. GI was consulted for the same. Patient reports -- Pertinent negative GI symptoms: Patient denies fever, sick contacts, recent travel, abdominal pain, loss of hema etite, early satiety or unintentional weight loss. No history of hematemesis. Review of Systems: GI: as stated above CVS: No chest pain, No palpitations, No leg swelling. RS: No Shortness of breath, No Wheezing, no cough LINE PREP COOK: No dizziness, No motor weakness, No sensory problems Hematology: No bruising, No gum bleeding, Musculoskeletal: No joint pain, ambulating well. Skin: No rash : No hematuria, No burning sensation of the urine ENT: No ear discharge/ pain, No dysphagia. Eyes: No photophobia. Jaundice Home medications: reviewed. Antithrombotic agents: None Medical h/o: As above. Surgical h/o: open cholecystectomy, appendectomy, tubar ligation. Social h/o: Alcohol: Denies , smoking: Denies, IVDA/ drugs:. Denies. Family h/o of GI cancers - None Prior Endoscopies: Prior EGD and colonoscopy done by Dr. Mcdowell ( from [facility]) in 2018 for GERD and blood in stools (respectively) -- noted mild gastritis and normal colonoscopy with hemorrhoids (respectively). Prior GI evaluations: -Patient previously was evaluated by Dr. Garcia in [facility] clinic for abnormal liver tests and a diagnosed with PERALTA. Exam: Vitals: reviewed General: Alert and oriented x 3, HEENT: NO pallor, no icterus. Normal oropharynx, NO cervical lymph nodes. Chest: symmetric with bilateral clear air entry, CVS: S1, S2 heard, normal, no murmurs . Abdomen: non-distended, no surgical scars, soft, non-tender, no palpable masses, normal bowel sounds heard. Rectal exam: Noted minimal stool with dark color, no melena or no bright red blood in rectal vault.. Extremities: no pedal edema, pulses palpable. LINE PREP COOK: no focal motor or sensory deficits. Moves all extremities Skin: no rash. Labs: reviewed. Stool test negative for C. difficile. Imaging: reviewed. Impression: -- Recurrent bouts of severe diarrhea with dehydration and pre-renal NAPOLEON, -- Needs further evaluation -- Viral gastroenteritis vs toxin mediated gastroenteritis. -- Abnormal CT scan abdomen showing stricture in colon at splenic flexure area -- Needs further evaluation -- DDx-- Likely stricture from prior Ischemic colitis vs Colonic mass vs new onset IBD vs neuroendocrine tumour. . Recommendations: - Patient educated about the test results, possible differential diagnoses and All questions answered. - Clear liquid diet for now. - Monitor and correct electrolytes as per primary team. - Follow stool panel results. - In view of the stricture noted in CT scan , will proceed with EGD and Colonoscopy for further evaluation. Patient is educated on the indications, risks, benefits and alternatives of endoscopic work up. Patient verbalized understanding and agreed. - Follow operative note for post procedure recommendations. Plan of care discussed with patient and primary team. Patient verbalized understanding and agreed with the plan. Vital Signs/I&O Vital Signs Date Time Temp Pulse Resp B/P (MAP) Pulse Ox O2 Delivery O2 Flow Rate FiO2 06/26/20 12:00 98.2 113 18 129/60 (83) 97 Room Air I&O- Last 24 Hours up to 6 AM 06/26/20 06:00 Intake Total 4350 ml Output Total 300 ml Balance 4050 ml Laboratory Data Labs 24H Laboratory Tests 2 06/25/20 15:34: Neutrophils (%) (Auto) , Nucleated Red Blood Cells % (auto) 0.0, Neutrophils 59, Band Neutrophils 22H, Lymphocytes (Manual) 11L, Monocytes (Manual) 6H, Basophils (Manual) 1, Atypical Lymphocytes 1, Toxic Granulation 1+, Platelet Estimate INCREASED, Clumped Platelets SMALL AMT, Anion Gap 15, Glomerular Filtration Rate 11.1L, Calcium Level 7.8L, Total Bilirubin 0.8, Direct Bilirubin 0.3H, Aspartate Amino Transf (AST/SGOT) 9, Alanine Aminotransferase (ALT/SGPT) 10L, Alkaline Phosphatase 90, Total Creatine Kinase 68, Creatine Kinase MB 1.4, Creatine Kinase MB Relative Index 2.06, Troponin I < 0.02, Total Protein 5.5L, Albumin 2.1L, Albumin/Globulin Ratio 0.6L, Lipase 111 06/25/20 16:01: Procalcitonin 25.06, Coronavirus (COVID-19)(PCR) NEGATIVE, Influenza Type A (RT- PCR) NEGATIVE, Influenza Type B (RT-PCR) NEGATIVE, Respiratory Syncytial Virus (PCR) NEGATIVE 06/25/20 16:37: Prothrombin Time 15.1H, Prothromb Time International Ratio 1.16 06/25/20 19:15: Lactic Acid Level 2.6*H 06/25/20 23:32: Methicillin-Resist S.aureus DNA PCR NOT DETECTED 06/25/20 23:38: Lactic Acid Followup at 4 Hours 1.0 06/26/20 02:58: Urine Color YELLOW, Urine Appearance CLOUDYH, Urine pH 5.0, Urine Specific [place] 1.010, Urine Protein NEGATIVE, Urine Glucose (UA) NEGATIVE, Urine Ketones NEGATIVE, Urine Blood 1+H, Urine Nitrite NEGATIVE, Urine Bilirubin NEGATIVE, Urine Urobilinogen 0.2, Urine Leukocyte Esterase 2+H, Urine WBC (Auto) 20H, Urine RBC (Auto) 6H, Urine Hyaline Casts (Auto) 0, Urine Bacteria (Auto) 1+H, Urine Squamous Epithelial Cells 7, Urine Mucus (Auto) SMALL, Urine Sperm (Auto) 06/26/20 05:33: Nucleated Red Blood Cells % (auto) 0.0, Bedside Glucose (Misc Panel) 111H, Anion Gap 9, Glomerular Filtration Rate 16.4L, Calcium Level 6.5#L, Magnesium Level 1 .2L, Iron Level 22L, Total Iron Binding Capacity 83L, Transferrin % Saturation 26.5, Ferritin 634H, 25-Hydroxy Vitamin D Total 50.6, Parathyroid Hormone (Intact) 77.0 CBC/BMP Laboratory Tests 06/25/20 15:34 06/26/20 05:33 Microbiology Microbiology 06/26/20 Urine Culture, Received Pending 06/25/20 Blood Culture, Received Pending 06/25/20 Campylobacter (PCR), Received Pending 06/25/20 Clostridium difficile Toxin A&B PCR, Received Pending 06/25/20 Plesiomonas shigelloides (PCR), Received Pending 06/25/20 Salmonella (PCR)(JENI), Received Pending 06/25/20 Vibrio Species (PCR), Received Pending 06/25/20 Vibrio Cholerae (PCR), Received Pending 06/25/20 Yersinia enterocolitica (PCR), Received Pending 06/25/20 Enteroaggregative E. coli (PCR), Received Pending 06/25/20 Enteropathogenic E. coli (PCR), Received Pending 06/25/20 Enterotoxigenic E. coli (PCR), Received Pending 06/25/20 E. coli Shiga-like Toxin (PCR), Received Pending 06/25/20 Escherichia coli 0157 (PCR), Received Pending 06/25/20 Enteroinvasive E. coli/Shigella PCR, Received Pending 06/25/20 Cryptosporidium (PCR), Received Pending 06/25/20 Cyclospora cayetanensis (PCR), Received Pending 06/25/20 Entamoeba histolytica (PCR), Received Pending 06/25/20 Giardia lamblia (PCR), Received Pending 06/25/20 Adenovirus Type F 40/41 (PCR), Received Pending 06/25/20 Astrovirus (PCR), Received Pending 06/25/20 Norovirus GI/GII (PCR), Received Pending 06/25/20 Rotavirus A (PCR), Received Pending 06/25/20 Sapovirus I/II/IV/V (PCR), Received Pending 06/25/20 Blood Culture, Received Pending Allergies Coded Allergies: Sulfa (Sulfonamide Antibiotics) (Verified Allergy, Intermediate, HIVES, 11/18/19) morphine (Verified Adverse Reaction, Mild, htn or hypotension-pt unsure of which one, 11/18/19) Home Medications Scheduled Aripiprazole (Aripiprazole) 15 Mg Tablet, 15 MG PO DAILY, (Reported) Aspirin (Aspirin EC) 81 Mg Tablet.dr, 81 MG PO DAILY, (Reported) Atorvastatin Calcium (Atorvastatin Calcium) 20 Mg Tablet, 20 MG PO DAILY, (Reported) Calcium Carbonate (Calcium Carbonate) 500 Mg Tablet, 500 MG PO TID, (Reported) Cholecalciferol (Vitamin D3) (Vitamin D3) 1,000 Unit Tablet, 2,000 UNITS PO DAILY, (Reported) Duloxetine Hcl (Duloxetine HCl) 20 Mg Capsule.dr, 20 MG PO BID, (Reported) Insulin Aspart (Novolog) 100 Unit/1 Ml Cartridge, 1 DOSE SC AC, (Reported) PER SLIDING SCALE Insulin Glargine,Hum.rec.anlog (Basaglar Kwikpen U-100) 100 Unit/1 Ml Insuln.pen, 60 UNIT SC BID, (Reported) Levothyroxine Sodium (Levothyroxine Sodium) 25 Mcg Tablet, 25 MCG PO QAM, (Reported) Liraglutide (Victoza 2-Simone) 0.6 Mg/0.1 Ml Pen.injctr, 1.8 MG SC DAILY, (Reported) Lisinopril (Lisinopril) 20 Mg Tablet, 20 MG PO DAILY, (Reported) Nortriptyline HCl (Nortriptyline HCl) 50 Mg Capsule, 50 MG PO DAILY, (Reported) Nystatin (Nystatin Powder) 15 Gm Powder, 1 APLCT TOP DAILY, (Reported) UNDER BREASTS AND GROIN AREA AFTER BATHING Pantoprazole Sodium (Pantoprazole Sodium) 40 Mg Tablet.dr, 40 MG PO DAILY, (Re ported) Pregabalin (Lyrica) 300 Mg Capsule, 300 MG PO BID, (Reported) Scheduled PRN Butalb/Acetaminophen/Caffeine (Pkfyux-Zgrhzdjp-Rcwn 50-325-40) 1 Each Capsule, 1 CAP PO Q4H PRN for MIGRAINE, (Reported) Docusate Sodium (Docusate Sodium) 100 Mg Capsule, 100 MG PO BID PRN for CONSTIPATION, (Reported) Oxycodone HCl/Acetaminophen (Percocet 5-325 mg Tablet) 1 Each Tablet, 1 TAB PO Q4H PRN for PAIN, (Reported) Tizanidine HCl (Tizanidine HCl) 4 Mg Tablet, 4 MG PO TID PRN for MUSCLE SPASMS, (Reported) LACIE GARCIA MD Jun 26, 2020 16:00
[2020-06-27] VITALS: BP 112/59
[2020-06-27] MEDS: NS 1,000 ML IV SCH ×3 (00:33→22:00)
[2020-06-27] MEDS: PIPERACILLIN/TAZOBACTAM SOD 2.25 GM in D5W MINI-BAG PLUS 50 ML IV SCH ×3 (03:23→20:24)
[2020-06-27 04:00] VITALS: BP 117/58
[2020-06-27 05:46] LABS: HEMATOCRIT 24.3 % (36.0-47.0); HEMOGLOBIN 7.9 g/dl (12.0-15.5); MEAN CORPUSCULAR HEMOGLOBIN 28.2 pg (27.0-33.0); MEAN CORPUSCULAR HGB CONC 32.5 g/dl (32.0-36.5); MEAN CORPUSCULAR VOLUME 86.8 fl (80.0-96.0); PLATELET COUNT, AUTOMATED 202 10^3/uL (150-450); WHITE BLOOD COUNT 3.8 10^3/uL (4.0-10.0)
[2020-06-27] MEDS: LEVOTHYROXINE 25MCG TABLET (0.025MG) PO SCH (06:05)
[2020-06-27 06:10] LABS: CREATININE FOR GFR 1.83 MG/DL (0.55-1.30); GLOMERULAR FILTRATION RATE 30.5 (>51); POTASSIUM SERUM 3.3 MEQ/L (3.5-5.1)
[2020-06-27 07:48] VITALS: BP 116/54
[2020-06-27] MEDS ORDERED: CALCIUM GLUCONATE 1,000 MG in D5W MINI-BAG PLUS 100 ML IV ONE (09:00)
--- NOTE | 2020-06-27 09:16 | ECGEPIP ---
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
[2020-06-27] MEDS: OYSTER SHELL CALCIUM 500 MG TAB PO SCH ×3 (09:38→20:32)
[2020-06-27] MEDS: PREGABALIN 75 MG CAP(LYRICA) PO SCH ×2 (09:38→20:32)
[2020-06-27] MEDS: HEPARIN SOD (PORCINE) 5000UNITS/ML 1ML VIAL/SYRINGE SQ SCH ×2 (09:38→20:31)
[2020-06-27] MEDS: NORTRIPTYLINE 25 MG CAP PO SCH (09:39)
[2020-06-27] MEDS: ARIPiprazole 15 MG TAB (AbiLIFY) PO SCH (09:39)
[2020-06-27] MEDS: ASPIRIN 81 MG ENTERIC TAB PO SCH (09:39)
[2020-06-27] MEDS: DULoxetine 20 MG CAP (CYMBALTA) PO SCH ×2 (09:40→20:32)
[2020-06-27] MEDS: VITAMIN D 1,000 INTERNATIONAL UNITS TABLET PO SCH (09:40)
[2020-06-27] MEDS: ATORVASTATIN 20 MG TAB PO SCH (09:40)
[2020-06-27] MEDS: MAGNESIUM OXIDE 400 MG TAB (MAG-OX) PO SCH ×2 (09:41→20:32)
[2020-06-27] MEDS: PANTOPRAZOLE 40MG TAB (PROTONIX) PO SCH (09:41)
[2020-06-27] MEDS: NYSTATIN 100,000 UNITS/GM TOPICAL PWD 15 GM TOP SCH (09:41)
[2020-06-27 12:00] VITALS: BP 105/53
[2020-06-27 15:50] VITALS: BP 118/56
[2020-06-27] MEDS ORDERED: GOLYTELY SOLN 4000 ML BTL PO ONE (16:00)
--- NOTE | 2020-06-27 16:13 | IPNPDOC ---
Text Note Date of Service The patient was seen on 06/27/20. NOTE SUBJECTIVE: -Had 4 charted episode of non-bloody diarrhea in the last 24h with patient reporting that they were more than that. -Was seen by GI, plan is for scope tomorrow -Afebrile, HDS, no acute complaints at this time OBJECTIVE: VITAL SIGNS: please see below General: NAD, comfortable, pleasant, morbidly obese HEENT: PERRLA, EOMI, anicteric, no injection Neck: supple, normal ROM, no JVD Respiratory: lungs CTAB, no wheeze, no rales, no crackles CVS: RRR, normal S1, S2, no murmurs Abdo: Normoactive sounds, soft, no palpable masses, no rebound tenderness Extremities: No LE edema, 2+ DP pulses, WWP MSK: no joint deformities, normal ROM Neuro: CN2-12 intact. Strength 5/5 in all 4 extremities. No noted focal neuro deficits, moving all 4 extremities, clear speech without dysarthria Psych: calm, cooperative, AAO x 3 LABORATORY DATA: Na 144 K 3.3 Cr 1.83 Ca 7.1 (repleted) Mag 2 WBC 3.8 Hgb 7.9 platelets 202 MICROBIOLOGY: BCx pending x 2 - NGTD GI panel - pending MRSA negative covid-19 negative UA++ --> negative UCx IMAGING STUDIES: 06/25/2020: CT ABD/PELVIS W/O CONTRAST FINDINGS: Liver: There is enlargement of the left and caudate lobes of the liver as well as a lobular surface contour of the liver. Findings may indicate the presence of cirrhosis in this patient with no reported history of chronic liver disease. No focal abnormality demonstrated. Gallbladder and bile ducts: There has been a cholecystectomy. Pancreas: There is diffuse pancreatic atrophy. Spleen: There is mild splenomegaly with a maximum span of 14 centimeters. No focal abnormalities demonstrated. Adrenal glands: Normal. No mass. Kidneys and ureters: Normal. No hydronephrosis. Stomach and bowel: Strictured segment at the splenic flexure of the colon. Neoplasm to be excluded via colonoscopy. Inflammatory changes demonstrated in the collapsed ahaustral left and sigmoid colon, findings may suggest presence of acute or subacute colitis. Dilatation of the transverse and right colon proximal to the strictured segment. Mild diverticulosis is present in the distal colon. No diverticulitis. Dilated small bowel loops in the mid abdomen may represent a localized ileus and less likely early small bowel obstruction. Appendix: No evidence of appendicitis. Intraperitoneal space: Unremarkable. No free air. No significant fluid collection. Vasculature: The aortoiliac vessels demonstrate mild atherosclerotic calcification. Lymph nodes: Calcified left hilar lymph nodes. Urinary bladder: Unremarkable as visualized. Reproductive: There has been a hysterectomy. Bones/joints: Shallow dextroscoliosis. Moderate central spinal stenosis L3-L4 and moderate to severe central spinal stenosis L4-L5. Soft tissues: Unremarkable. IMPRESSION: 1. There is enlargement of the left and caudate lobes of the liver as well as a lobular surface contour of the liver. Findings may indicate the presence of cirrhosis in this patient with no reported history of chronic liver disease. No focal abnormality demonstrated. 2. There is mild splenomegaly with a maximum span of 14 centimeters. No focal abnormalities demonstrated. 3. There is diffuse pancreatic atrophy. 4. There has been a cholecystectomy. 5. There has been a hysterectomy. 6. Strictured segment at the splenic flexure of the colon. Neoplasm to be excluded via colonoscopy. Inflammatory changes demonstrated in the collapsed ahaustral left and sigmoid colon, findings may suggest presence of acute or subacute colitis. Dilatation of the transverse and right colon proximal to the strictured segment. 7. Mild diverticulosis is present in the distal colon. No diverticulitis. 8. Dilated small bowel loops in the mid abdomen may represent a localized ileus and less likely early small bowel obstruction. 06/25/2020 CXR: No acute disease ASSESSMENT: 54-year-old W with a history of diabetes, chronic venous insufficiency, hypothyroidism, hypertension, lumbar disc disease, depression, CKD3 who was recently admitted to [facility] in late 05/2020 with septic shock 2/2 gastroenteritis c/b acute on chronic renal failure require CRRT and discharged home on 06/12 after diarrhea remitted and Cr had recovered to 1.35 who now returned with NAPOLEON on CKD, with severe dehydration bordering hypovolemic shock i/s/o profuse diarrhea with indices suggestive of combination of sepsis with leukocytosis, bandemia, hypotension and tachycardia and dehydration. #Severe hypotension - 2/2 combination of severe dehydration i/s/o profuse diarrhea, antihypertensives and diuretic therapy + probable sepsis given present ing leukocytosis, +UA, diarrhea, hypotension and tachycardia. -Responded to aggressive fluid resuscitation -Continue fluids, 100cc/hr. -Continue empiric piptazo -concern for C.diff given recent antibiotics --> f/u GI panel -resp panel was negative for covid-19 and common viral pathogens -will hold off loperamide until stool studies return without C.diff -Held antihypertensives and diuretics at presentation #Diarrhea: Per chart history, was recently positive for Norovirus per [facility], records not available. -f/u GI panel negative. -placed on empiric piptazo to cover GI bacterial pathogens -continue aggressive fluid resuscitation -CT A/P showing strictured segment at the splenic flexure of the colon with radiology recommending neoplasm to be excluded via colonoscopy. Inflammatory changes were demonstrated in the collapsed ahaustral left and sigmoid colon, which may be suggestive of the presence of acute or subacute colitis. I discussed re-consulting GI with Ms. Bell who recently refused a flex sig inpatient during her 05/2020. If no infectious pathogen is identified, I am con cerned that her episodic profuse diarrhea is possibly 2/2 carcinoid given the presence of this stricture and profuse diarrhea with shock vs. ischemic for which etiology is unclear and would be investigated with GI's involvement , for other non-infectious GI pathologies. She expressed understanding and is now agreeable to inpatient scoping. -consulted GI --> clear liquid diet --> Dr. Leiva tentatively planning to scope tomorrow. Will give prep today. #Sepsis - presenting leukocytosis with bandemia, hypotension and tachycardia, with a history of diarrhea and +UA on studies -continue empiric piptazo -f/u BCx, UCx, GI panel -CXR was without acute pathology -CT A/P revealed acute vs. subacute focal sigmoid colitis -continue aggressive fluids # Anemia: stable, at recent baseline, without evidence of ongoing bleeding -Transfuse hgb<7 # Acute renal failure: Prerenal 2/2 severe dehydration and hypotension, with c/f ATN given degree of presenting hypotension and dehydration. Improving -Nephrology consulted. -100cc/hr NS -strict I/Os -daily weights -avoid nephrotoxins. -Holding diuretics and antihypertensives Hypothyroidism: -continue synthroid History of HTN: -Holding all antihypertensives, patient was hypotensive on arrival . Diabetes: -Levemir at 40U (2/3 of home dosing for now) -ISS AC/HS -Hypoglycemic protocol -FSBG AC/HS HLD: -continue statin Obesity: BMI 41.3 -Complicated care. Anxiety/depression: -resumed home meds. DVT prophylaxis: heparin BID and TEDs VS,Fishbone, I+O VS, Fishbone, I+O Laboratory Tests 06/27/20 05:30 Vital Signs Date Time Temp Pulse Resp B/P (MAP) Pulse Ox O2 Delivery O2 Flow Rate FiO2 06/27/20 07:48 97.5 95 20 116/54 (74) 96 Room Air I&O- Last 24 Hours up to 6 AM 06/27/20 06:00 Intake Total 2850 ml Output Total 1000 ml Balance 1850 ml CALLIE NOE MD Jun 27, 2020 08:52
[2020-06-27 20:00] VITALS: BP 124/53
[2020-06-28] VITALS (8 sets, daily range): BP systolic 116–153; BP diastolic 56–74
[2020-06-28] MEDS: LEVOTHYROXINE 25MCG TABLET (0.025MG) PO SCH (03:44)
[2020-06-28] MEDS: PIPERACILLIN/TAZOBACTAM SOD 2.25 GM in D5W MINI-BAG PLUS 50 ML IV SCH ×3 (03:44→20:37)
[2020-06-28 05:58] LABS: HEMOGLOBIN 8.4 g/dl (12.0-15.5); MEAN CORPUSCULAR HEMOGLOBIN 28.5 pg (27.0-33.0); MEAN CORPUSCULAR HGB CONC 32.3 g/dl (32.0-36.5); MEAN CORPUSCULAR VOLUME 88.1 fl (80.0-96.0); PLATELET COUNT, AUTOMATED 201 10^3/uL (150-450); RED BLOOD COUNT 2.95 10^6/uL (4.00-5.40); WHITE BLOOD COUNT 3.4 10^3/uL (4.0-10.0)
[2020-06-28 06:23] LABS: CREATININE FOR GFR 1.58 MG/DL (0.55-1.30); GLOMERULAR FILTRATION RATE 36.1 (>51); POTASSIUM SERUM 3.5 MEQ/L (3.5-5.1)
[2020-06-28] MEDS: MAGNESIUM OXIDE 400 MG TAB (MAG-OX) PO SCH ×2 (09:18→20:37)
[2020-06-28] MEDS: ATORVASTATIN 20 MG TAB PO SCH (09:18)
[2020-06-28] MEDS: PREGABALIN 75 MG CAP(LYRICA) PO SCH ×2 (09:19→20:37)
[2020-06-28] MEDS: VITAMIN D 1,000 INTERNATIONAL UNITS TABLET PO SCH (09:19)
[2020-06-28] MEDS: PANTOPRAZOLE 40MG TAB (PROTONIX) PO SCH (09:19)
[2020-06-28] MEDS: OYSTER SHELL CALCIUM 500 MG TAB PO SCH ×3 (09:19→20:41)
[2020-06-28] MEDS: DULoxetine 20 MG CAP (CYMBALTA) PO SCH ×2 (09:19→20:37)
[2020-06-28] MEDS: ARIPiprazole 15 MG TAB (AbiLIFY) PO SCH (09:19)
[2020-06-28] MEDS: NORTRIPTYLINE 25 MG CAP PO SCH (09:19)
[2020-06-28] MEDS: NYSTATIN 100,000 UNITS/GM TOPICAL PWD 15 GM TOP SCH (10:11)
[2020-06-28] MEDS: NS 1,000 ML IV SCH (10:11)
[2020-06-28] MEDS ORDERED: propofoL 200 MG/20 ML VIAL As Ordered ONE ×2 (11:55→12:49)
[2020-06-28] MEDS ORDERED: LIDOCAINE 2% 100MG/5ML SDV (FOR ANES.) As Ordered ONE (11:55)
[2020-06-28] MEDS ORDERED: ePHEDrine SULFATE 25 MG/5 ML(5MG/ML) SYRINGE As Ordered ONE (12:31)
[2020-06-28] MEDS ORDERED: PHENYLephrine HCL 500 MCG/5 ML (100MCG/ML) SYRINGE (J2370) As Ordered ONE ×3 (12:31→12:42)
[2020-06-28] MEDS ORDERED: CALCIUM CHLORIDE 10% 1 GM/10 ML SYR As Ordered ONE (12:42)
[2020-06-28] MEDS ORDERED: ONDANSETRON 4MG/2ML VIAL IV PRN (13:00)
--- NOTE | 2020-06-28 13:12 | ROOR ---
Patient Name: Bettina Bell Procedure Date: 06/28/2020 11:58 AM Date of : 1965 Age: 54 Room: Main OR Gender: Female Note Status: Finalized Procedure: Upper GI endoscopy Indications: Abnormal CT of the GI tract, Diarrhea Providers: Carrillo Leiva MD Referring MD: 2. Inpatient 2. Inpatient Requesting Provider: Medicines: Monitored Anesthesia Care Complications: No immediate complications. Procedure: Pre-Anesthesia Assessment: - Prior to the procedure, a History and Physical was performed, and patient medications and allergies were reviewed. The patient is competent. The risks and benefits of the procedure and the sedation options and risks were discussed with the patient. All questions were answered and informed consent was obtained. Patient identification and proposed procedure were verified by the physician, the nurse and the anesthesiologist in the procedure room. Mental Status Examination: alert and oriented. Airway Examination: normal oropharyngeal airway and neck mobility. Respiratory Examination: clear to auscultation. CV Examination: normal. Prophylactic Antibiotics: The patient does not require prophylactic antibiotics. Prior Anticoagulants: The patient has taken no previous anticoagulant or antiplatelet agents. ASA Grade Assessment: II - A patient with mild systemic disease. After reviewing the risks and benefits, the patient was deemed in satisfactory condition to undergo the procedure. The anesthesia plan was to use monitored anesthesia care (MAC). Immediately prior to administration of medications, the patient was re-assessed for adequacy to receive sedatives. The heart rate, respiratory rate, oxygen saturations, blood pressure, adequacy of pulmonary ventilation, and response to care were monitored throughout the procedure. The physical status of the patient was re-assessed after the procedure. The Endoscope was introduced through the mouth, and advanced to the second part of duodenum. The upper GI endoscopy was accomplished without difficulty. The patient tolerated the procedure well. Findings: Scattered moderate mucosal variance characterized by discoloration, longitudinal markings and white specks was found in the middle third of the esophagus and in the lower third of the esophagus. No gross lesions were noted in the entire examined stomach. Patchy granular mucosa was found in the first portion of the duodenum. Biopsies for histology were taken with a cold forceps for evaluation of celiac disease. Impression: - Esophageal mucosal variant. - No gross lesions in the stomach. - Granular mucosa in the first portion of the duodenum. Biopsied. Recommendation: - Patient has a contact number available for emergencies. The signs and symptoms of potential delayed complications were discussed with the patient. Return to normal activities tomorrow. Written discharge instructions were provided to the patient. - High fiber diet. - Continue present medications. - Await pathology results. - Repeat upper endoscopy in 3 months for surveillance based on pathology results and depending on the symptoms and clinical response. - Follow the recommendations as per the other procedure note. - Telephone GI clinic for pathology results in 2 weeks. - Return to GI clinic in [facility] (address [address], [address], [place] [address]) in 4 -- 6 weeks. Please call GI clinic @ [phone] for apppointment date and time. - Return to primary care physician. Procedure Code(s): --- Professional --- 82964, Esophagogastroduodenoscopy, flexible, transoral; with biopsy, single or multiple Diagnosis Code(s): --- Professional --- K22.8, Other specified diseases of esophagus K31.89, Other diseases of stomach and duodenum R19.7, Diarrhea, unspecified R93.3, Abnormal findings on diagnostic imaging of other parts of digestive tract CPT copyright 2019 [employer]. All rights reserved. The codes documented in this report are preliminary and upon entry level business analyst review may be revised to meet current compliance requirements. Carrillo Leiva MD Carrillo Leiva MD 06/28/2020 1:11:25 PM Electronically signed by Carrillo Leiva MD Number of Addenda: 0 Note Initiated On: 06/28/2020 11:58 AM Estimated Blood Loss: Estimated blood loss was minimal.
[2020-06-28] MEDS: HEPARIN SOD (PORCINE) 5000UNITS/ML 1ML VIAL/SYRINGE SQ SCH ×2 (13:59→20:37)
[2020-06-28] MEDS: ASPIRIN 81 MG ENTERIC TAB PO SCH (14:00)
--- NOTE | 2020-06-28 14:39 | ROOR ---
Patient Name: Bettina Bell Procedure Date: 06/28/2020 11:56 AM Date of : 1965 Age: 54 Room: Main OR Gender: Female Note Status: Finalized Procedure: Colonoscopy Indications: Abnormal CT of the GI tract Providers: Carrillo Leiva MD Referring MD: 2. Inpatient 2. Inpatient Requesting Provider: Medicines: Monitored Anesthesia Care Complications: No immediate complications. Procedure: Pre-Anesthesia Assessment: - Prior to the procedure, a History and Physical was performed, and patient medications and allergies were reviewed. The patient is competent. The risks and benefits of the procedure and the sedation options and risks were discussed with the patient. All questions were answered and informed consent was obtained. Patient identification and proposed procedure were verified by the physician, the nurse and the anesthesiologist in the procedure room. Mental Status Examination: alert and oriented. Airway Examination: normal oropharyngeal airway and neck mobility. Respiratory Examination: clear to auscultation. CV Examination: normal. Prophylactic Antibiotics: The patient does not require prophylactic antibiotics. Prior Anticoagulants: The patient has taken no previous anticoagulant or antiplatelet agents. ASA Grade Assessment: III - A patient with severe systemic disease. After reviewing the risks and benefits, the patient was deemed in satisfactory condition to undergo the procedure. The anesthesia plan was to use monitored anesthesia care (MAC). Immediately prior to administration of medications, the patient was re-assessed for adequacy to receive sedatives. The heart rate, respiratory rate, oxygen saturations, blood pressure, adequacy of pulmonary ventilation, and response to care were monitored throughout the procedure. The physical status of the patient was re-assessed after the procedure. The Colonoscope was introduced through the anus and advanced to the cecum, identified by the ileocecal valve. The colonoscopy was performed without difficulty. The patient tolerated the procedure well. The quality of the bowel preparation was adequate to identify polyps 6 mm and larger in size. The ileocecal valve and the rectum were photographed. Scope insertion time was 3 minutes. Scope withdrawal time was 9 minutes. The total duration of the procedure was 12 minutes. Findings: The perianal and digital rectal examinations were normal. Pertinent negatives include normal sphincter tone. A continuous area of ulcerated mucosa with stigmata of recent bleeding was present in the proximal descending colon, at the splenic flexure, in the transverse colon, in the ascending colon and in the cecum. Two biopsies were obtained with cold forceps for histology in the right colon, as well as four biopsies in the left colon. Verification of patient identification for the specimen was done by the physician and nurse using the patient's name, date and medical record number. Estimated blood loss was minimal. For hemostasis, one hemostatic clip was successfully placed. There was no bleeding at the end of the procedure. A benign-appearing, intrinsic moderate stenosis measuring 2 cm (in length) x 1.2 cm (inner diameter) was found in the distal transverse colon and was traversed. Biopsies were taken with a cold forceps for histology. Fluid aspiration for microbiology and Clostridium difficile was performed. Non-bleeding external and internal hemorrhoids were found during retroflexion. The hemorrhoids were medium-sized. Impression: - Mucosal ulceration. Clip was placed. 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 Biopsied. Fluid aspiration performed. - Non-bleeding external and internal hemorrhoids. - Biopsies performed in the right colon and in the left colon. Recommendation: - Patient has a contact number available for emergencies. The signs and symptoms of potential delayed complications were discussed with the patient. Return to normal activities tomorrow. Written discharge instructions were provided to the patient. - High fiber diet. - Continue present medications. - Await pathology results. - Repeat colonoscopy in 3 months to check healing and for surveillance based on pathology results. - Telephone GI clinic for pathology results in 2 weeks. - Return to GI clinic in [facility] (address [address], [address], [place], [address]) in 4 -- 6 weeks. Please call GI clinic @ [phone] for apppointment date and time. - Return to primary care physician. Procedure Code(s): --- Professional --- 22782, 59, Colonoscopy, flexible; with control of bleeding, any method 77979, Colonoscopy, flexible; with biopsy, single or multiple Diagnosis Code(s): --- Professional --- K63.3, Ulcer of intestine K56.699, Other intestinal obstruction unspecified as to partial versus complete obstruction K64.8, Other hemorrhoids R93.3, Abnormal findings on diagnostic imaging of other parts of digestive tract CPT copyright 2019 [employer]. All rights reserved. The codes documented in this report are preliminary and upon technical marketing engineer review may be revised to meet current compliance requirements. Carrillo Leiva MD Carrillo Lieva MD 06/28/2020 2:38:44 PM Electronically signed by Carrillo Leiva MD Number of Addenda: 0 Note Initiated On: 06/28/2020 11:56 AM Estimated Blood Loss: Estimated blood loss was minimal.
--- NOTE | 2020-06-28 15:51 | IPN ---
PROGRESS NOTE DATE: 06/27/2020 SUBJECTIVE: Ms. Bell is seen this morning on her bedside. She reports continued diarrhea and is currently on IV fluid. She tells me that she has been told that she would need colonoscopy. She denies any dyspnea, chest pain, nausea or vomiting. PHYSICAL EXAMINATION: Temperature 97.3 degrees Fahrenheit, heart rate 100 per minute, respiratory rate 20 per minute, blood pressure 105/53 mmHg and oxygen saturation 98% on room air. Head is atraumatic. Neck supple and without jugular venous distention (JVD) or thyroid enlargement. Heart sounds are tachycardiac and lungs sounds clear to auscultation. Abdomen is soft and bowel sounds are present. Extremities without any cyanosis or clubbing. She does not have any peripheral edema. Neurologically, she is awake, alert and oriented times 3. LABORATORY DATA: Today's labs show WBC 3.8, hemoglobin 7.9 and hematocrit 24.3. Sodium 144, potassium 3.3, Co2 20, BUN 17 and creatinine 1.83. PROBLEMS: 1. Acute kidney injury superimposed on chronic kidney disease. Kidney function is much better compared to yesterday, most likely her acute kidney injury is due to dehydration. 2. Hypokalemia related to ongoing diarrhea and poor oral intake of potassium rich foods. She is getting potassium supplement and electrolytes should be checked again tomorrow morning. 3. Diarrhea. This is a chronic issues and will need further investigations. I agree with plan for a colonoscopy 4. Anemia. Her anemia is getting worse as she is being hydrated. Require transfusion again. Her complete blood count (CBC) will be checked again tomorrow morning.
--- NOTE | 2020-06-28 17:09 | IPNPDOC ---
Text Note Date of Service The patient was seen on 06/28/20. NOTE SUBJECTIVE: -Had EGD/colo this AM with Dr. Leiva who noted mucosal ulceration and the stricture and took biopsies as well as site of recent bleeding that was clipped and recommended a high fiber diet. OBJECTIVE: VITAL SIGNS: please see below General: NAD, comfortable, pleasant, morbidly obese HEENT: PERRLA, EOMI, anicteric, no injection Neck: supple, normal ROM, no JVD Respiratory: lungs CTAB, no wheeze, no rales, no crackles CVS: RRR, normal S1, S2, no murmurs Abdo: Normoactive sounds, soft, no palpable masses, no rebound tenderness Extremities: No LE edema, 2+ DP pulses, WWP MSK: no joint deformities, normal ROM Neuro: CN2-12 intact. Strength 5/5 in all 4 extremities. No noted focal neuro deficits, moving all 4 extremities, clear speech without dysarthria Psych: calm, cooperative, AAO x 3 LABORATORY DATA: Na 146 K 3.5 Cr 1.58 WBC 3.4 Hgb 8.4 platelets 201 MICROBIOLOGY: BCx pending x 2 - NGTD GI panel - pending MRSA negative covid-19 negative UA++ --> negative UCx IMAGING STUDIES: 06/25/2020: CT ABD/PELVIS W/O CONTRAST FINDINGS: Liver: There is enlargement of the left and caudate lobes of the liver as well as a lobular surface contour of the liver. Findings may indicate the presence of cirrhosis in this patient with no reported history of chronic liver disease. No focal abnormality demonstrated. Gallbladder and bile ducts: There has been a cholecystectomy. Pancreas: There is diffuse pancreatic atrophy. Spleen: There is mild splenomegaly with a maximum span of 14 centimeters. No focal abnormalities demonstrated. Adrenal glands: Normal. No mass. Kidneys and ureters: Normal. No hydronephrosis. Stomach and bowel: Strictured segment at the splenic flexure of the colon. Neoplasm to be excluded via colonoscopy. Inflammatory changes demonstrated in the collapsed ahaustral left and sigmoid colon, findings may suggest presence of acute or subacute colitis. Dilatation of the transverse and right colon proximal to the strictured segment. Mild diverticulosis is present in the distal colon. No diverticulitis. Dilated small bowel loops in the mid abdomen may represent a localized ileus and less likely early small bowel obstruction. Appendix: No evidence of appendicitis. Intraperitoneal space: Unremarkable. No free air. No significant fluid collection. Vasculature: The aortoiliac vessels demonstrate mild atherosclerotic calcification. Lymph nodes: Calcified left hilar lymph nodes. Urinary bladder: Unremarkable as visualized. Reproductive: There has been a hysterectomy. Bones/joints: Shallow dextroscoliosis. Moderate central spinal stenosis L3-L4 and moderate to severe central spinal stenosis L4-L5. Soft tissues: Unremarkable. IMPRESSION: 1. There is enlargement of the left and caudate lobes of the liver as well as a lobular surface contour of the liver. Findings may indicate the presence of cirrhosis in this patient with no reported history of chronic liver disease. No focal abnormality demonstrated. 2. There is mild splenomegaly with a maximum span of 14 centimeters. No focal abnormalities demonstrated. 3. There is diffuse pancreatic atrophy. 4. There has been a cholecystectomy. 5. There has been a hysterectomy. 6. Strictured segment at the splenic flexure of the colon. Neoplasm to be excluded via colonoscopy. Inflammatory changes demonstrated in the collapsed ahaustral left and sigmoid colon, findings may suggest presence of acute or subacute colitis. Dilatation of the transverse and right colon proximal to the strictured segment. 7. Mild diverticulosis is present in the distal colon. No diverticulitis. 8. Dilated small bowel loops in the mid abdomen may represent a localized ileus and less likely early small bowel obstruction. 06/25/2020 CXR: No acute disease 06/28/2020: Colonoscopy report: Findings: The perianal and digital rectal examinations were normal. Pertinent negatives include normal sphincter tone. A continuous area of ulcerated mucosa with stigmata of recent bleeding was present in the proximal descending colon, at the splenic flexure, in the transverse colon, in the ascending colon and in the cecum. Two biopsies were obtained with cold forceps for histology in the right colon, as well as four biopsies in the left colon. Verification of patient identification for the specimen was done by the physician and nurse using the patient's name, date and medical record number. Estimated blood loss was minimal. For hemostasis, one hemostatic clip was successfully placed. There was no bleeding at the end of the procedure. A benign-appearing, intrinsic moderate stenosis measuring 2 cm (in length) x 1.2 cm (inner diameter) was found in the distal transverse colon and was traversed. Biopsies were taken with a cold forceps for histology. Fluid aspiration for microbiology and Clostridium difficile was performed. Non-bleeding external and internal hemorrhoids were found during retroflexion. The hemorrhoids were medium-sized. Impression: - Mucosal ulceration. Clip was placed. 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 Biopsied. Fluid aspiration performed. - Non-bleeding external and internal hemorrhoids. - Biopsies performed in the right colon and in the left colon. GI Recommendation: - Patient has a contact number available for emergencies. The signs and symptoms of potential delayed complications were discussed with the patient. Return to normal activities tomorrow. Written discharge instructions were provided to the patient. - High fiber diet. - Continue present medications. - Await pathology results. - Repeat colonoscopy in 3 months to check healing and for surveillance based on pathology results. - Telephone GI clinic for pathology results in 2 weeks. - Return to GI clinic in [facility] (address [address] [place] [address], [place] [address]) in 4 -- 6 weeks. Please call GI clinic @ [phone] for apppointment date and time. - Return to primary care physician. 06/28/2020: EGD Findings: Scattered moderate mucosal variance characterized by discoloration, longitudinal markings and white specks was found in the middle third of the esophagus and in the lower third of the esophagus. No gross lesions were noted in the entire examined stomach. Patchy granular mucosa was found in the first portion of the duodenum. Biopsies for histology were taken with a cold forceps for evaluation of celiac disease. Impression: - Esophageal mucosal variant. - No gross lesions in the stomach. - Granular mucosa in the first portion of the duodenum. Biopsied. Recommendation: - Patient has a contact number available for emergencies. The signs and symptoms of potential delayed complications were discussed with the patient. Return to normal activities tomorrow. Written discharge instructions were provided to the patient. - High fiber diet. - Continue present medications. - Await pathology results. - Repeat upper endoscopy in 3 months for surveillance based on pathology results and depending on the symptoms and clinical response. - Follow the recommendations as per the other procedure note. - Telephone GI clinic for pathology results in 2 weeks. - Return to GI clinic in [facility] (address [address] [place] [address], [address] [place] [address]) in 4 -- 6 weeks. Please call GI clinic @ [phone] for appointment date and time. - Return to primary care physician. ASSESSMENT: 54-year-old W with a history of diabetes, chronic venous insufficiency, hypothyroidism, hypertension, lumbar disc disease, depression, CKD3 who was recently admitted to [facility] in late 05/2020 with septic shock 2/2 gastroenteritis c/b acute on chronic renal failure require CRRT and discharged home on 06/12 after diarrhea remitted and Cr had recovered to 1.35 who now returned with [place] on CKD, with severe dehydration bordering hypovolemic shock i/s/o profuse diarrhea with indices suggestive of combination of sepsis with leukocytosis, bandemia, hypotension and tachycardia and dehydration. #Severe hypotension - 2/2 combination of severe dehydration i/s/o profuse diarrhea, antihypertensives and diuretic therapy + probable sepsis given presenting leukocytosis, +UA, diarrhea, hypotension and tachycardia. -Responded to aggressive fluid resuscitation -Reduce fluids to 60cc/hr -Continue empiric piptazo -f/u GI panel -resp panel was negative for covid-19 and common viral pathogens -will hold off loperamide until stool studies return without C.diff -Held antihypertensives and diuretics at presentation #Diarrhea: Per chart history, was recently positive for Norovirus per Simon, records not available. -f/u GI panel negative. -placed on empiric piptazo to cover GI bacterial pathogens -s/p aggressive fluid resuscitation. now 60cc/hr -CT A/P showing strictured segment at the splenic flexure of the colon with radiology recommending neoplasm to be excluded via colonoscopy. Inflammatory changes were demonstrated in the collapsed ahaustral left and sigmoid colon, which may be suggestive of the presence of acute or subacute colitis. I d iscussed re-consulting GI with Ms. Bell who recently refused a flex sig inpatient during her 05/2020. If no infectious pathogen is identified, I am concerned that her episodic profuse diarrhea is possibly 2/2 carcinoid given the presence of this stricture and profuse diarrhea with shock vs. ischemic for which etiology is unclear and would be investigated with GI's involvement , for other non-infectious GI pathologies. She expressed understanding and is now agreeable to inpatient scoping. -consulted GI --> clear liquid diet --> had EGD/colo today--> with mucosal ulceration and stricture s/p biopsies #Sepsis - presenting leukocytosis with bandemia, hypotension and tachycardia, with a history of diarrhea and +UA on studies -continue empiric piptazo -f/u BCx, UCx, GI panel -CXR was without acute pathology -CT A/P revealed acute vs. subacute focal sigmoid colitis -s/p aggressive fluids, now 60cc/hr # Anemia: stable, at recent baseline, without evidence of ongoing bleeding -Transfuse hgb<7 # Acute renal failure: Prerenal 2/2 severe dehydration and hypotension, with c/f ATN given degree of presenting hypotension and dehydration. Improving -Nephrology consulted. -s/p aggressive fluids, now on 60cc/hr -strict I/Os -daily weights -avoid nephrotoxins. -Holding diuretics and antihypertensives Hypothyroidism: -continue synthroid History of HTN: -Holding all antihypertensives, patient was hypotensive on arrival . Diabetes: -Levemir at 40U (2/3 of home dosing for now) -ISS AC/HS -Hypoglycemic protocol -FSBG AC/HS HLD: -continue statin Obesity: BMI 41.3 -Complicated care. Anxiety/depression: -resumed home meds. DVT prophylaxis: heparin BID and TEDs VS,Fishbone, I+O VS, Fishbone, I+O Laboratory Tests 06/28/20 05:50 Vital Signs Date Time Temp Pulse Resp B/P (MAP) Pulse Ox O2 Delivery O2 Flow Rate FiO2 06/28/20 13:35 97.5 107 20 149/74 (99) 98 Room Air I&O- Last 24 Hours up to 6 AM0 06/28/20 06:00 Intake Total 2600 ml Output Total 500 ml Balance 2100 ml CALLIE NOE MD Jun 28, 2020 17:09
--- NOTE | 2020-06-28 20:45 | IPN ---
PROGRESS NOTE DATE: 06/28/2020 SUBJECTIVE: Mrs. Bell is seen this morning on her bedside. She is feeling much better today and is waiting for her procedure. She is scheduled for a colonoscopy. She denies any dyspnea or chest pain. OBJECTIVE: VITALS: Temperature 97.5 degrees Fahrenheit, heart rate 100 per minute, respiratory rate 18 per minute, blood pressure 130/62 mmHg and oxygen saturation 100%. HEENT: Head is atraumatic. Neck supple and without JVD or thyroid enlargement. HEART: Heart sounds are regular and tachycardic. LUNGS: Clear to auscultation. ABDOMEN: Soft and nontender. Bowel sounds are normal. EXTREMITIES: Without any cyanosis or clubbing. LABORATORY DATA: Today's labs show WBC 3.4, hemoglobin 8.4, hematocrit 26.0. Sodium 146, potassium 3.5, CO2 25, BUN 11, creatinine 1.58. PROBLEMS: 1. Acute renal failure: Kidney function is improving with I.V. fluid. No changes are being made today. She is n.p.o. for her colonoscopy and will continue with current I.V. fluid. 2. Hypernatremia: She has borderline hypernatremia related to bowel prep used for colonoscopy and I.V. fluids. I will recommend half normal saline with potassium chloride and 20 mEq in each liter to run at 100 mL per hour. 3. Hyperkalemia: Her potassium is still borderline and would recommend further potassium supplementation in the I.V. fluid. 4. Anemia: Her anemia is stable and no change management consultant the last couple of days. It is possible that she will require further transfusion. 5. Chronic diarrhea: Her diarrhea remains an issue and she is going to have a colonoscopy for further investigations.
[2020-06-29] VITALS: BP 144/68
[2020-06-29 04:00] VITALS: BP 149/72
[2020-06-29] MEDS: NS 1,000 ML IV SCH (04:09)
[2020-06-29] MEDS: LEVOTHYROXINE 25MCG TABLET (0.025MG) PO SCH (04:09)
[2020-06-29] MEDS: PIPERACILLIN/TAZOBACTAM SOD 2.25 GM in D5W MINI-BAG PLUS 50 ML IV SCH ×3 (04:09→21:02)
[2020-06-29 06:07] LABS: HEMATOCRIT 27.2 % (36.0-47.0); HEMOGLOBIN 8.6 g/dl (12.0-15.5); MEAN CORPUSCULAR HEMOGLOBIN 28.2 pg (27.0-33.0); MEAN CORPUSCULAR HGB CONC 31.6 g/dl (32.0-36.5); MEAN CORPUSCULAR VOLUME 89.2 fl (80.0-96.0); PLATELET COUNT, AUTOMATED 222 10^3/uL (150-450); RED BLOOD COUNT 3.05 10^6/uL (4.00-5.40); WHITE BLOOD COUNT 3.7 10^3/uL (4.0-10.0)
[2020-06-29 06:36] LABS: CALCIUM LEVEL 8.4 MG/DL (8.5-10.1); CREATININE FOR GFR 1.53 MG/DL (0.55-1.30); GLOMERULAR FILTRATION RATE 37.5 (>51); POTASSIUM SERUM 3.3 MEQ/L (3.5-5.1)
[2020-06-29 07:58] VITALS: BP 120/60
[2020-06-29] MEDS: HEPARIN SOD (PORCINE) 5000UNITS/ML 1ML VIAL/SYRINGE SQ SCH ×2 (08:59→21:08)
[2020-06-29] MEDS: VITAMIN D 1,000 INTERNATIONAL UNITS TABLET PO SCH (09:00)
[2020-06-29] MEDS: ASPIRIN 81 MG ENTERIC TAB PO SCH (09:00)
[2020-06-29] MEDS ORDERED: POTASSIUM CHLORIDE 10 MEQ SR TABLET PO ONE (09:00)
[2020-06-29] MEDS: MAGNESIUM OXIDE 400 MG TAB (MAG-OX) PO SCH ×2 (09:00→21:07)
[2020-06-29] MEDS: ATORVASTATIN 20 MG TAB PO SCH (09:00)
[2020-06-29] MEDS: PREGABALIN 75 MG CAP(LYRICA) PO SCH ×2 (09:00→21:08)
[2020-06-29] MEDS: PANTOPRAZOLE 40MG TAB (PROTONIX) PO SCH (09:00)
[2020-06-29] MEDS: ARIPiprazole 15 MG TAB (AbiLIFY) PO SCH (09:01)
[2020-06-29] MEDS: DULoxetine 20 MG CAP (CYMBALTA) PO SCH ×2 (09:01→21:08)
[2020-06-29] MEDS: NORTRIPTYLINE 25 MG CAP PO SCH (09:01)
[2020-06-29] MEDS: OYSTER SHELL CALCIUM 500 MG TAB PO SCH ×3 (09:01→21:07)
[2020-06-29] MEDS: NYSTATIN 100,000 UNITS/GM TOPICAL PWD 15 GM TOP SCH (09:10)
[2020-06-29] MEDS ORDERED: KCL 20MEQ IN 0.45NS 1000ML 1,000 ML IV SCH (11:00)
[2020-06-29 12:00] VITALS: BP 137/67
--- NOTE | 2020-06-29 13:42 | REP ---
INDICATION: doppler US sma for investigation of vasculature for ische. COMPARISON: None. TECHNIQUE: Real-time sonographic evaluation and duplex Doppler evaluation of superior mesenteric artery is attempted. FINDINGS: Due to patient body habitus and excessive overlying bowel gas the superior mesenteric artery cannot be visualized and cannot be evaluated. IMPRESSION: The superior mesenteric artery cannot be evaluated due to patient body habitus and excessive overlying bowel gas. Evaluation could be made with CT or MR angiography. <Electronically signed by Baljit Crespo > 06/29/20 [id number]
--- NOTE | 2020-06-29 14:19 | CR ---
INPATIENT CONSULTATION DATE: 06/26/2020 REQUESTING PHYSICIAN: Madonna Little MD, PhD. CONSULTING PHYSICIAN: Ana Degroot DO. REASON FOR CONSULTATION: Recurrent acute renal failure. CHIEF COMPLAINTS: 1. Weakness. 2. Diarrhea. HISTORY OF PRESENT ILLNESS: Bettina Bell is known to me from her last admission to [facility] in May of this year. She is a 54-year-old female with a past medical history of type-2 diabetes mellitus, hypertension, obesity, diabetic nephropathy and other comorbid conditions mentioned below. She was admitted to [facility] in mid-May of 2020 with septic shock and severe anemia and acute renal failure for which she required CRRT for less than 1 day duration. Ultimately she recovered renal function up to GFR of 43 mL per minute on day of discharge which was Thanksgiving of this year. Patient went home to complete a 10 day course of ciprofloxacin and Flagyl and she was also discharged on lisinopril, hydrochlorothiazide and she reports that she had edema at that time that she left the hospital. At home her edema resolved and she developed recurrent watery diarrheal bowel movements 4-5 days ago and was having them 5-6 times a day and she was feeling increasingly weak and tired. She was seen in the nephrology office yesterday by myself and was noted to be significantly hypotensive with blood pressure 70s/40s and laboratory studies in the office revealed significant leukocytosis and acute renal failure again with GFR of about 10 mL per minute and the patient was directed to come to the Emergency Room for I.V. fluids and further evaluation and treatment. In the Emergency Room she was hypotensive. She got a 2 liter normal saline bolus and laboratory studies showed leukocytosis with bandemia and confirmed renal failure and patient was admitted and continued with I.V. fluids overnight with improvement in her hemodynamics and mild improvement in renal function. A nephrology evaluation was subsequently requested. PAST MEDICAL HISTORY: 1. Recent acute kidney injury requiring CRRT with recovery of renal function to creatinine 1.3. 2. Obesity. 3. Type-2 diabetes. 4. Hypertension. 5. Anxiety/depression. 6. Cervical radiculopathy. 7. Chronic venous insufficiency. 8. Diabetic neuropathy. 9. Hypothyroidism. 10. Probable diabetic nephropathy. 11. Anemia. PAST SURGICAL HISTORY: Status post: 1. Appendectomy. 2. Cholecystectomy. 3. Central line placement. 4. section. 5. Hysterectomy. 6. Oophorectomy. SOCIAL HISTORY: She is lives with her . No history of smoking, alcohol or drugs. FAMILY HISTORY: Mother had lung cancer. REVIEW OF SYSTEMS: Constitutional: She denied fever or chills. She reports weakness. HEENT: Denies visual changes or tearing. She denies rhinorrhea, odynophagia. . Cardiac: Denies chest pain or palpitations. Reports her edema completely resolved at home. Respiratory: Denies shortness of breath or cough. Gastrointestinal: Reports persistent diarrhea for 4-5 days. Genitourinary: Reports decreased urine output. She denies dysuria. Endocrine: Reports obesity and hypothyroidism and diabetes. Musculoskeletal: Denies acute myalgias or arthralgias. Hematologic: Reports anemia. Denies easy bruising. Neurologic: Denies seizure or syncope. Psychiatric: Reports anxiety and depression. PHYSICAL EXAMINATION: Vital signs: Temperature 97.6, pulse 105, respiratory rate 18, blood pressure 107/53, saturating 99% on room air. Intake yesterday was 2.6 liters. Urine output thus far today is 700 mL. Weight on the bed scale today is 87.2 kg. General: Patient is seen lying in bed, middle age female, awake, alert, oriented, comfortable, in no apparent distress. HEENT: Extraocular muscles are intact. Tongue is moist. There is conjunctival pallor. Ears, nose and throat are unremarkable. Neck: Jugular veins are not elevated. Heart: Sounds are tachycardiac, S1 and S2. Radial pulses palpable. There is no leg edema. Lungs: Clear to auscultation bilaterally. No crackles, rales or rhonchi. Abdomen: Soft, obese and nontender to exam. Extremities: No cyanosis, clubbing or edema. Neurologic: Oriented times 3, interactive, conversational, no focal deficit appears to be at baseline mentation. Psychiatric: Calm and cooperative. LABORATORY DATA: White count 6.2, hemoglobin 8.3, platelets 242. Sodium 139, potassium 3.5, bicarbonate 22, BUN 26, creatinine 3.1. Magnesium 1.2. Transferrin saturation 26%. PTH 77. Microbiology: Urine culture and blood culture, GIPCR all pending. RADIOLOGY STUDIES: CT abdomen and pelvis June 25: Kidneys and ureter normal, no hydronephrosis, strictured segment at splenic flexure of colon, dilated small bowel loops, urinary bladder unremarkable. INPATIENT MEDICATIONS: 1. She received 2 liters normal saline bolus and she is on normal saline at 200 mL an hour. 2. She received calcium gluconate 1 gram I.V. times 1. 3. Magnesium sulfate 1 gram I.V. times 2 doses. 4. Zosyn 2.25 grams I.V. q8h. 5. Abilify p.r.n. 6. Aspirin 81 mg by mouth daily. 7. Atorvastatin 20 mg by mouth daily. 8. Cymbalta 20 mg by mouth twice a day. 9. Heparin 5000 units subcutaneously twice a day. 10. Synthroid 25 mcg by mouth every morning. 11. Magnesium 400 mg by mouth twice a day. 12. Nortriptyline 50 mg by mouth daily. 13. Os-Bernardino 500 mg by mouth three times a day. 14. Protonix 40 mg by mouth daily. 15. Lyrica 75 mg by mouth twice a day. 16. Vitamin D 2000 units by mouth daily. PROBLEMS: 1. NAPOLEON superimposed on CKD stage 3: She recently had a severe acute kidney injury requiring CRRT in May of this year. She had recovery of renal function with creatinine 1.3 on when she was discharged. She was taking an MARYLU inhibitor and a thiazide diuretic at home. She developed frequent recurrent watery diarrhea. She has again an acute kidney injury related to dehydration and hypotension complicated by MARYLU inhibitor and thiazide diuretic use. She is receiving aggressive I.V. fluids. Her kidney function is improving. Nephrotoxics has been held. There is no obstruction on imaging. I am going to cut the normal saline now to 100 mL an hour. 2. Sepsis secondary to diarrheal infection: GI panel is pending. She is on broad spectrum empiric antibiotics. She had significant leukocytosis and bandemia. She received aggressive I.V. fluids. Her blood pressures have improved. Her white count has normalized. She is afebrile. Cultures are pending. 3. Recurrent anemia: Patient presented on the last admission with hemoglobin in the otherwise 7s and again she is anemic on this admission. Her fecal occult blood was positive on the last admission in May and it should be retested and I feel that she should have endoscopy given her anemia, history of recent FOBT positivity and colonic stricture on CT scan and recurrent picture of colitis/gastroenteritis causing renal failure. 4. Colonic stricture seen on CT scan in this patient with FOBT positivity on her last recent admission with severe anemia and renal failure: I suggest patient should be evaluated again by GI and she should proceed with endoscopy (lower).
--- NOTE | 2020-06-29 15:15 | IPNPDOC ---
Text Note Date of Service The patient was seen on 06/29/20. NOTE SUBJECTIVE: -Had EGD/colo yesterday with Dr. Leiva who noted mucosal ulceration and the sigmoid stricture and took biopsies as well as site of recent bleeding that was clipped and recommended a high fiber diet and also doppler abd US for investigation of potential ischemia 2/2 hypotension. -Otherwise doing well, without complaints this morning OBJECTIVE: VITAL SIGNS: please see below General: NAD, comfortable, pleasant, morbidly obese HEENT: PERRLA, EOMI, anicteric, no injection Neck: supple, normal ROM, no JVD Respiratory: lungs CTAB, no wheeze, no rales, no crackles CVS: RRR, normal S1, S2, no murmurs Abdo: Normoactive sounds, soft, no palpable masses, no rebound tenderness Extremities: No LE edema, 2+ DP pulses, WWP MSK: no joint deformities, normal ROM Neuro: CN2-12 intact. Strength 5/5 in all 4 extremities. No noted focal neuro deficits, moving all 4 extremities, clear speech without dysarthria Psych: calm, cooperative, AAO x 3 LABORATORY DATA: Na 144 K 3.3 (repleted) Cr 1.53 WBC 3.7 Hgb 8.6 platelets 222 MICROBIOLOGY: BCx pending x 2 - NGTD GI panel - pending MRSA negative covid-19 negative UA++ --> negative UCx IMAGING STUDIES: 06/25/2020: CT ABD/PELVIS W/O CONTRAST FINDINGS: Liver: There is enlargement of the left and caudate lobes of the liver as well as a lobular surface contour of the liver. Findings may indicate the presence of cirrhosis in this patient with no reported history of chronic liver disease. No focal abnormality demonstrated. Gallbladder and bile ducts: There has been a cholecystectomy. Pancreas: There is diffuse pancreatic atrophy. Spleen: There is mild splenomegaly with a maximum span of 14 centimeters. No focal abnormalities demonstrated. Adrenal glands: Normal. No mass. Kidneys and ureters: Normal. No hydronephrosis. Stomach and bowel: Strictured segment at the splenic flexure of the colon. Neoplasm to be excluded via colonoscopy. Inflammatory changes demonstrated in the collapsed ahaustral left and sigmoid colon, findings may suggest presence of acute or subacute colitis. Dilatation of the transverse and right colon proximal to the strictured segment. Mild diverticulosis is present in the distal colon. No diverticulitis. Dilated small bowel loops in the mid abdomen may represent a localized ileus and less likely early small bowel obstruction. Appendix: No evidence of appendicitis. Intraperitoneal space: Unremarkable. No free air. No significant fluid collection. Vasculature: The aortoiliac vessels demonstrate mild atherosclerotic calcification. Lymph nodes: Calcified left hilar lymph nodes. Urinary bladder: Unremarkable as visualized. Reproductive: There has been a hysterectomy. Bones/joints: Shallow dextroscoliosis. Moderate central spinal stenosis L3-L4 and moderate to severe central spinal stenosis L4-L5. Soft tissues: Unremarkable. IMPRESSION: 1. There is enlargement of the left and caudate lobes of the liver as well as a lobular surface contour of the liver. Findings may indicate the presence of cirrhosis in this patient with no reported history of chronic liver disease. No focal abnormality demonstrated. 2. There is mild splenomegaly with a maximum span of 14 centimeters. No focal abnormalities demonstrated. 3. There is diffuse pancreatic atrophy. 4. There has been a cholecystectomy. 5. There has been a hysterectomy. 6. Strictured segment at the splenic flexure of the colon. Neoplasm to be excluded via colonoscopy. Inflammatory changes demonstrated in the collapsed ahaustral left and sigmoid colon, findings may suggest presence of acute or subacute colitis. Dilatation of the transverse and right colon proximal to the strictured segment. 7. Mild diverticulosis is present in the distal colon. No diverticulitis. 8. Dilated small bowel loops in the mid abdomen may represent a localized ileus and less likely early small bowel obstruction. 06/25/2020 CXR: No acute disease 06/28/2020: Colonoscopy report: Findings: The perianal and digital rectal examinations were normal. Pertinent negatives include normal sphincter tone. A continuous area of ulcerated mucosa with stigmata of recent bleeding was present in the proximal descending colon, at the splenic flexure, in the transverse colon, in the ascending colon and in the cecum. Two biopsies were obtained with cold forceps for histology in the right colon, as well as four biopsies in the left colon. Verification of patient identification for the specimen was done by the physician and nurse using the patient's name, date and medical record number. Estimated blood loss was minimal. For hemostasis, one hemostatic clip was successfully placed. There was no bleeding at the end of the procedure. A benign-appearing, intrinsic moderate stenosis measuring 2 cm (in length) x 1.2 cm (inner diameter) was found in the distal transverse colon and was traversed. Biopsies were taken with a cold forceps for histology. Fluid aspiration for microbiology and Clostridium difficile was performed. Non-bleeding external and internal hemorrhoids were found during retroflexion. The hemorrhoids were medium-sized. Impression: - Mucosal ulceration. Clip was placed. 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 Biopsied. Fluid aspiration performed. - Non-bleeding external and internal hemorrhoids. - Biopsies performed in the right colon and in the left colon. GI Recommendation: - Patient has a contact number available for emergencies. The signs and symptoms of potential delayed complications were discussed with the patient. Return to normal activities tomorrow. Written discharge instructions were provided to the patient. - High fiber diet. - Continue present medications. - Await pathology results. - Repeat colonoscopy in 3 months to check healing and for surveillance based on pathology results. - Telephone GI clinic for pathology results in 2 weeks. - Return to GI clinic in [facility] (address [address] [place] [address], [place] [id number]) in 4 -- 6 weeks. Please call GI clinic @ [phone] for apppointment date and time. - Return to primary care physician. 06/28/2020: EGD Findings: Scattered moderate mucosal variance characterized by discoloration, longitudinal markings and white specks was found in the middle third of the esophagus and in the lower third of the esophagus. No gross lesions were noted in the entire examined stomach. Patchy granular mucosa was found in the first portion of the duodenum. Biopsies for histology were taken with a cold forceps for evaluation of celiac disease. Impression: - Esophageal mucosal variant. - No gross lesions in the stomach. - Granular mucosa in the first portion of the duodenum. Biopsied. Recommendation: - Patient has a contact number available for emergencies. The signs and symptoms of potential delayed complications were discussed with the patient. Return to normal activities tomorrow. Written discharge instructions were provided to the patient. - High fiber diet. - Continue present medications. - Await pathology results. - Repeat upper endoscopy in 3 months for surveillance based on pathology results and depending on the symptoms and clinical response. - Follow the recommendations as per the other procedure note. - Telephone GI clinic for pathology results in 2 weeks. - Return to GI clinic in [facility] (address [address] [place] [address], [address] [address]) in 4 -- 6 weeks. Please call GI clinic @ [phone] for appointment date and time. - Return to primary care physician. ASSESSMENT: 54-year-old W with a history of diabetes, chronic venous insufficiency, hypothyroidism, hypertension, lumbar disc disease, depression, CKD3 who was recently admitted to [facility] in late 05/2020 with septic shock 2/2 gastroenteritis c/b acute on chronic renal failure require CRRT and discharged home on 06/12 after diarrhea remitted and Cr had recovered to 1.35 who now returned with NAPOLEON on CKD, with severe dehydration bordering hypovolemic shock i/s/o profuse diarrhea with indices suggestive of combination of sepsis with leukocytosis, bandemia, hypotension and tachycardia and dehydration. #Severe hypotension - Suspected 2/2 combination of severe dehydration i/s/o profuse diarrhea, antihypertensives and diuretic therapy + probable sepsis given presenting leukocytosis, +UA, diarrhea, hypotension and tachycardia. However, GI also concerned that the hypotension may have precipitated a watershed ischemic event so recommending abd US with doppler to investigate vasculature. -Responded to aggressive fluid resuscitation -On [id number] -Continue empiric piptazo while inpatient, day 4 -f/u GI panel -resp panel was negative for covid-19 and common viral pathogens -will hold off loperamide until stool studies return without C.diff -Held antihypertensives and diuretics at presentation #Diarrhea: Per chart history, was recently positive for Norovirus per Simon, records not available. -f/u GI panel negative. -placed on empiric piptazo to cover GI bacterial pathogens -s/p aggressive fluid resuscitation. -CT A/P showing strictured segment at the splenic flexure of the colon with r adiology recommending neoplasm to be excluded via colonoscopy. Inflammatory changes were demonstrated in the collapsed ahaustral left and sigmoid colon, which may be suggestive of the presence of acute or subacute colitis. I discussed re-consulting GI with Ms. Bell who recently refused a flex sig inpatient during her 05/2020. If no infectious pathogen is identified, I am concerned that her episodic profuse diarrhea is possibly 2/2 carcinoid given the presence of this stricture and profuse diarrhea with shock vs. ischemic for which etiology is unclear and would be investigated with GI's involvement , for other non-infectious GI pathologies. She expressed understanding and is now agreeable to inpatient scoping. -consulted GI --> clear liquid diet --> had EGD/colo 06/28--> with mucosal ul ceration and stricture s/p biopsies --> got abd US with doppler, pending read --> restarted diet #Sepsis - presenting leukocytosis with bandemia, hypotension and tachycardia, with a history of diarrhea and +UA on studies -continue empiric piptazo -f/u BCx, UCx, GI panel -CXR was without acute pathology -CT A/P revealed acute vs. subacute focal sigmoid colitis -s/p aggressive fluids, now 1/2NS with K # Anemia: stable, at recent baseline, without evidence of ongoing bleeding -Transfuse hgb<8 # Acute renal failure: Prerenal 2/2 severe dehydration and hypotension, with c/f ATN given degree of presenting hypotension and dehydration. Improving -Nephrology consulted. -s/p aggressive fluids, now on 1/2NS with K -strict I/Os -daily weights -avoid nephrotoxins. -Holding diuretics and antihypertensives Hypothyroidism: -continue synthroid History of HTN: -Holding all antihypertensives, patient was hypotensive on arrival . Diabetes: -Levemir at 40U (2/3 of home dosing for now) -ISS AC/HS -Hypoglycemic protocol -FSBG AC/HS HLD: -continue statin Obesity: BMI 41.3 -Complicated care. Anxiety/depression: -resumed home meds. DVT prophylaxis: heparin BID and TEDs VS,Fishbone, I+O VS, Fishbone, I+O Laboratory Tests 06/29/20 05:27 Vital Signs Date Time Temp Pulse Resp B/P (MAP) Pulse Ox O2 Delivery O2 Flow Rate FiO2 06/29/20 12:00 97.6 91 16 137/67 (90) 100 Room Air I&O- Last 24 Hours up to 6 AM 06/29/20 05:59 Intake Total 2760 ml Output Total 500 ml Balance 2260 ml CALLIE NOE MD Jun 29, 2020 15:15
[2020-06-29 16:00] VITALS: BP 119/59
[2020-06-29 20:00] VITALS: BP 137/65
--- NOTE | 2020-06-29 20:39 | IPN ---
PROGRESS NOTE DATE: 06/29/2020 SUBJECTIVE: Ms. Bell is seen this morning on her bedside. She is feeling better today and wants to go home. She had upper and lower endoscopy. She did have some biopsies done from her colon and those are still pending. The patient feels that her diarrhea is improving. PHYSICAL EXAMINATION: She is awake and alert and without any true distress. Temperature is 97.6 degrees Fahrenheit, heart rate 90 per minute and respiratory rate 16 per minute. Blood pressure 137/67 mmHg and oxygen saturation 100% on room air. Head is atraumatic. Neck is supple and without jugular venous distention (JVD) or thyroid enlargement. Heart sounds are regular and lungs clear to auscultation. Abdomen soft and nontender and bowel sounds are normal. Extremities without any cyanosis or clubbing. Neurologically, she is awake, alert and oriented times 3. LABORATORY DATA: Today's lab showed white blood cell count 3.7, hemoglobin 8.6 and hematocrit 27.2. Sodium 143, potassium 3.3, chloride 116, Co2 21, BUN 7 and creatinine 1.53. PROBLEMS: 1. Acute kidney injury superimposed on chronic kidney disease. Kidney function has improved and seems to be leveled off. She is still receiving some IV fluid. One set of oral intake is adequate and then IV fluid can be stopped. 2. Hypokalemia. Oral potassium supplement is being given. Electrolytes will be checked again tomorrow. 3. Diarrhea. The patient feels that her diarrhea is not improving. All the testing is completed including upper and lower endoscopy. Biopsies are still pending. I will defer plan of care to gastroenterology. 4. Anemia. At present, her anemia is stable and does not need any urgent transfusion.
[2020-06-30 04:00] VITALS: BP 137/65
[2020-06-30] MEDS: PIPERACILLIN/TAZOBACTAM SOD 2.25 GM in D5W MINI-BAG PLUS 50 ML IV SCH ×3 (04:07→20:53)
[2020-06-30 04:59] LABS: HEMATOCRIT 24.4 % (36.0-47.0); HEMOGLOBIN 7.9 g/dl (12.0-15.5); MEAN CORPUSCULAR HEMOGLOBIN 28.7 pg (27.0-33.0); MEAN CORPUSCULAR HGB CONC 32.4 g/dl (32.0-36.5); MEAN CORPUSCULAR VOLUME 88.7 fl (80.0-96.0); PLATELET COUNT, AUTOMATED 183 10^3/uL (150-450); RED BLOOD COUNT 2.75 10^6/uL (4.00-5.40); WHITE BLOOD COUNT 3.7 10^3/uL (4.0-10.0)
[2020-06-30 05:20] LABS: CALCIUM LEVEL 7.4 MG/DL (8.5-10.1); CREATININE FOR GFR 1.43 MG/DL (0.55-1.30); GLOMERULAR FILTRATION RATE 40.6 (>51); POTASSIUM SERUM 3.8 MEQ/L (3.5-5.1)
[2020-06-30] MEDS: LEVOTHYROXINE 25MCG TABLET (0.025MG) PO SCH (06:14)
[2020-06-30 08:00] VITALS: BP 142/76
[2020-06-30] MEDS: NYSTATIN 100,000 UNITS/GM TOPICAL PWD 15 GM TOP SCH (09:00)
[2020-06-30] MEDS: HEPARIN SOD (PORCINE) 5000UNITS/ML 1ML VIAL/SYRINGE SQ SCH ×2 (09:00→20:53)
[2020-06-30] MEDS: ASPIRIN 81 MG ENTERIC TAB PO SCH (09:52)
[2020-06-30] MEDS: VITAMIN D 1,000 INTERNATIONAL UNITS TABLET PO SCH (09:53)
[2020-06-30] MEDS: PANTOPRAZOLE 40MG TAB (PROTONIX) PO SCH (09:53)
[2020-06-30] MEDS: OYSTER SHELL CALCIUM 500 MG TAB PO SCH ×3 (09:53→20:54)
[2020-06-30] MEDS: NORTRIPTYLINE 25 MG CAP PO SCH (09:54)
[2020-06-30] MEDS: DULoxetine 20 MG CAP (CYMBALTA) PO SCH ×2 (09:54→20:54)
[2020-06-30] MEDS: PREGABALIN 75 MG CAP(LYRICA) PO SCH ×2 (09:54→20:54)
[2020-06-30] MEDS: MAGNESIUM OXIDE 400 MG TAB (MAG-OX) PO SCH ×2 (09:54→20:54)
[2020-06-30] MEDS: ARIPiprazole 15 MG TAB (AbiLIFY) PO SCH (09:54)
[2020-06-30] MEDS: ATORVASTATIN 20 MG TAB PO SCH (09:54)
[2020-06-30] MEDS ORDERED: DEXTROSE 50% 50 ML SYRINGE IV PRN (13:30)
[2020-06-30] MEDS ORDERED: GLUCAGON INJ 1MG VIAL SC PRN (13:30)
[2020-06-30] MEDS ORDERED: GLUCOSE 4GM CHEW TABLET PO PRN (13:30)
--- NOTE | 2020-06-30 13:34 | IPNPDOC ---
Text Note Date of Service The patient was seen on 06/30/20. NOTE SUBJECTIVE: Patient reports that stools are getting thicker and less frequent. Denies abdominal pain. No blood in stool. Otherwise doing well, without complaints this morning OBJECTIVE: VITAL SIGNS: please see below General: NAD, comfortable, pleasant, obese HEENT: PERRLA, EOMI, anicteric, no injection Neck: supple, normal ROM, no JVD Respiratory: lungs CTAB, no wheeze, no rales, no crackles CVS: RRR, normal S1, S2, no murmurs Abdo: Normoactive sounds, soft, no palpable masses, no rebound tenderness Extremities: No LE edema, 2+ DP pulses MSK: no joint deformities, normal ROM Neuro: CN2-12 intact. Strength 5/5 in all 4 extremities. No noted focal neuro deficits, moving all 4 extremities, clear speech without dysarthria Psych: calm, cooperative, AAO x 3 LABORATORY DATA and Radiology : Reviewed. IMAGING STUDIES: 06/25/2020: CT ABD/PELVIS W/O CONTRAST IMPRESSION: 1. There is enlargement of the left and caudate lobes of the liver as well as a lobular surface contour of the liver. Findings may indicate the presence of cirrhosis in this patient with no reported history of chronic liver disease. No focal abnormality demonstrated. 2. There is mild splenomegaly with a maximum span of 14 centimeters. No focal abnormalities demonstrated. 3. There is diffuse pancreatic atrophy. 4. There has been a cholecystectomy. 5. There has been a hysterectomy. 6. Strictured segment at the splenic flexure of the colon. Neoplasm to be excluded via colonoscopy. Inflammatory changes demonstrated in the collapsed ahaustral left and sigmoid colon, findings may suggest presence of acute or subacute colitis. Dilatation of the transverse and right colon proximal to the strictured segment. 7. Mild diverticulosis is present in the distal colon. No diverticulitis. 8. Dilated small bowel loops in the mid abdomen may represent a localized ileus and less likely early small bowel obstruction. 06/25/2020 CXR: No acute disease 06/28/2020: Colonoscopy report: Findings: The perianal and digital rectal examinations were normal. Pertinent negatives include normal sphincter tone. A continuous area of ulcerated mucosa with stigmata of recent bleeding was present in the proximal descending colon, at the splenic flexure, in the transverse colon, in the ascending colon and in the cecum. Two biopsies were obtained with cold forceps for histology in the right colon, as well as four biopsies in the left colon. Verification of patient identification for the specimen was done by the physician and nurse using the patient's name, date and medical record number. Estimated blood loss was minimal. For hemostasis, one hemostatic clip was successfully placed. There was no bleeding at the end of the procedure. A benign-appearing, intrinsic moderate stenosis measuring 2 cm (in length) x 1.2 cm (inner diameter) was found in the distal transverse colon and was traversed. Biopsies were taken with a cold forceps for histology. Fluid aspiration for microbiology and Clostridium difficile was performed. Non-bleeding external and internal hemorrhoids were found during retroflexion. The hemorrhoids were medium-sized. Impression: - Mucosal ulceration. Clip was placed. 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 Biopsied. Fluid aspiration performed. - Non-bleeding external and internal hemorrhoids. - Biopsies performed in the right colon and in the left colon. GI Recommendation: - High fiber diet. - Continue present medications. - Await pathology results. - Repeat colonoscopy in 3 months to check healing and for surveillance based on pathology results. 06/28/2020: EGD Findings: Scattered moderate mucosal variance characterized by discoloration, longitudinal markings and white specks was found in the middle third of the esophagus and in the lower third of the esophagus. No gross lesions were noted in the entire examined stomach. Patchy granular mucosa was found in the first portion of the duodenum. Biopsies for histology were taken with a cold forceps for evaluation of celiac disease. Impression: - Esophageal mucosal variant. - No gross lesions in the stomach. - Granular mucosa in the first portion of the duodenum. Biopsied. Recommendation: - Patient has a contact number available for emergencies. The signs and symptoms of potential delayed complications were discussed with the patient. Return to normal activities tomorrow. Written discharge instructions were provided to the patient. - High fiber diet. - Continue present medications. - Await pathology results. - Repeat upper endoscopy in 3 months for surveillance based on pathology results and depending on the symptoms and clinical response. - Follow the recommendations as per the other procedure note. - Telephone GI clinic for pathology results in 2 weeks. - Return to GI clinic in [facility] (address [address], [address], [place] [address]) in 4 -- 6 weeks. Please call GI clinic @ [phone] for appointment date and time. - Return to primary care physician. ASSESSMENT and Plan: 54-year-old W with a history of diabetes, obesity, chronic venous insufficiency, hypothyroidism, hypertension, lumbar disc disease, depression, CKD3 who was recently admitted to [facility] in late 2019 with septic shock 2/2 gastroenteritis ,acute on chronic renal failure required CRRT and discharged home on 06/12 after diarrhea remitted and Cr had recovered to 1.35 who now returned with NAPOLEON on CKD, with severe dehydration bordering hypovolemic shock i/s/o profuse diarrhea with indices suggestive of combination of sepsis with leukocytosis, bandemia, hypotension and tachycardia and dehydration. Diarrhea and dehydration resolving. Had Norovirus last month Stool culture one from 06/25 negative, another for 06/28 pending. Has colonic stricture +/- Ischemia On zosyn GI --> clear liquid diet --> had EGD/colo 06/28--> with mucosal ulceration and stricture s/p biopsies --> got abd US with doppler, pending read --> restarted diet Hypotension now resolved due to hypovolemia adn medications. combination of severe dehydration due to profuse diarrhea, antihypertensives and diuretic therapy +/- sepsis given presenting leukocytosis, diarrhea, hypotension and tachycardia. Responded to IVF On Zosyn. ? Sepsis Urine culture and blood cultures negative stool culture for 06/25 negative. awaiting culture form 06/[address] A/P revealed acute vs. subacute focal sigmoid colitis on Zosyn. ? Ischemic Colitis GI also concerned that the hypotension may have precipitated a watershed ischemic event abd US with doppler to investigate vasculature. Responded to aggressive fluid resuscitation Held antihypertensives and diuretics at presentation Transverse colonic stricture await Bx results. Cirrhosis as from CT abdomen with enlarged left lobe of liver with nodularity and mild splenomegaly possibly related to obesity and PERALTA no h/o heavy alcohol use. Anemia: stable, at recent baseline, without evidence of ongoing bleeding -Transfuse hgb< 7 Acute renal failure: Prerenal 2/2 severe dehydration and hypotension, with c/f ATN given degree of presenting hypotension and dehydration Improved with IVF. strict I/Os daily weights avoid nephrotoxins. Holding diuretics and antihypertensives Hypothyroidism: synthroid HTN: Holding all antihypertensives, patient was hypotensive on arrival will restart as needed. Diabetes: On glargine and arpart insulin and victoza at home Here sugars well controlled without meds as has not had much oral intake Now started on diet will start lispro sliding scale. Hypoglycemic protocol FSBG AC/HS HLD: statin Obesity Complicated care. Anxiety/depression: Abilify Chronic Back Pain Lumber disc disease tizanidine, cymbalta Migraine pamelor DVT prophylaxis: heparin BID and TEDs VS,Fishbone, I+O VS, Fishbone, I+O Laboratory Tests 06/30/20 04:25 Vital Signs Date Time Temp Pulse Resp B/P (MAP) Pulse Ox O2 Delivery O2 Flow Rate FiO2 06/30/20 08:00 97.7 91 16 142/76 (98) 96 Room Air I&O- Last 24 Hours up to 6 AM 06/30/20 06:00 Intake Total 1810 ml Output Total 0 ml Balance 1810 ml LOURDES BYERS MD Jun 30, 2020 13:34
[2020-06-30 16:00] VITALS: BP 140/74
[2020-06-30] MEDS: HumaLOG INSULIN (NovoLOG) PER UNIT SC SCH ×2 (17:52→20:54)
[2020-06-30 20:00] VITALS: BP 153/76
--- NOTE | 2020-06-30 21:43 | IPN ---
PROGRESS NOTE DATE: 06/30/2020 SUBJECTIVE: Ms. Bell is seen this morning on her bedside. She is feeling much better today and denies any nausea or vomiting. She reports a couple of bowel movements, but no watery diarrhea. She has no fever or chills. PHYSICAL EXAMINATION: Temperature 96.8 degrees Fahrenheit, heart 100 per minute and respiratory rate 18 per minute. Blood pressure 137/65 mmHg and oxygen saturation 96% on room air. Head is atraumatic. Neck supple and without jugular venous distention (JVD) or thyroid enlargement. Heart sounds are regular and lungs clear to auscultation. Abdomen soft and nontender and bowel sounds are normal. Extremities without any cyanosis or clubbing. LABORATORY DATA: Showed white blood cell count 3.7, hemoglobin 7.9 and hematocrit 24.4. Sodium 145, potassium 3.8, Co2 22, BUN 6 and creatinine 1.43. PROBLEMS: 1. Acute kidney injury superimposed on chronic kidney disease, slight improvement in kidney function noticed. Renal profile will be checked again tomorrow. She is not currently not on any IV fluid and is taking fluids orally. 2. Hypokalemia. Potassium level has improved with supplementation and is likely to remain stable as the patient has now oral intake. She is currently not on any diuretic. 3. Anemia. Her amenia is worsening and I would recommend transfusion at least before she gets discharged. She has iron deficiency also and probably would benefit from intravenous iron prior to discharge. Would hold off on it due to ongoing diarrhea at this time.
[2020-06-30 22:00] VITALS: BP 146/84
[2020-07-01] MEDS: PIPERACILLIN/TAZOBACTAM SOD 2.25 GM in D5W MINI-BAG PLUS 50 ML IV SCH ×3 (03:17→20:36)
[2020-07-01 06:00] VITALS: BP 126/65
[2020-07-01] MEDS: LEVOTHYROXINE 25MCG TABLET (0.025MG) PO SCH (06:26)
[2020-07-01] MEDS: HumaLOG INSULIN (NovoLOG) PER UNIT SC SCH ×4 (07:30→21:00)
[2020-07-01 08:22] LABS: BASO % 0.5 % (0.0-1.0); EOS # 0.1 10^3/uL (0.0-0.5); EOS % 1.6 % (0.0-3.0); HEMATOCRIT 26.7 % (36.0-47.0); HEMOGLOBIN 8.6 g/dl (12.0-15.5); LYMPH # 1.5 10^3/uL (1.5-5.0); LYMPH % 39.7 % (24.0-44.0); MEAN CORPUSCULAR HEMOGLOBIN 28.2 pg (27.0-33.0); MEAN CORPUSCULAR HGB CONC 32.2 g/dl (32.0-36.5); MEAN CORPUSCULAR VOLUME 87.5 fl (80.0-96.0); MONO # 0.2 10^3/uL (0.0-0.8); MONO % 6.1 % (0.0-5.0); NEUTROPHILS # 1.9 10^3/uL (1.5-8.5); NEUTROPHILS % 48.9 % (36.0-66.0); PLATELET COUNT, AUTOMATED 173 10^3/uL (150-450); RED BLOOD COUNT 3.05 10^6/uL (4.00-5.40); WHITE BLOOD COUNT 3.8 10^3/uL (4.0-10.0)
[2020-07-01] MEDS: ASPIRIN 81 MG ENTERIC TAB PO SCH (08:36)
[2020-07-01] MEDS: NORTRIPTYLINE 25 MG CAP PO SCH (08:36)
[2020-07-01] MEDS: ARIPiprazole 15 MG TAB (AbiLIFY) PO SCH (08:36)
[2020-07-01] MEDS: DULoxetine 20 MG CAP (CYMBALTA) PO SCH ×2 (08:36→20:24)
[2020-07-01] MEDS: PREGABALIN 75 MG CAP(LYRICA) PO SCH ×2 (08:36→20:35)
[2020-07-01] MEDS: MAGNESIUM OXIDE 400 MG TAB (MAG-OX) PO SCH ×2 (08:36→20:25)
[2020-07-01] MEDS: HEPARIN SOD (PORCINE) 5000UNITS/ML 1ML VIAL/SYRINGE SQ SCH ×2 (08:37→20:24)
[2020-07-01] MEDS: ATORVASTATIN 20 MG TAB PO SCH (08:37)
[2020-07-01] MEDS: OYSTER SHELL CALCIUM 500 MG TAB PO SCH ×3 (08:37→20:24)
[2020-07-01] MEDS: VITAMIN D 1,000 INTERNATIONAL UNITS TABLET PO SCH (08:37)
[2020-07-01] MEDS: PANTOPRAZOLE 40MG TAB (PROTONIX) PO SCH (08:37)
[2020-07-01] MEDS: NYSTATIN 100,000 UNITS/GM TOPICAL PWD 15 GM TOP SCH (08:38)
[2020-07-01 08:49] LABS: CALCIUM LEVEL 7.5 MG/DL (8.5-10.1); CREATININE FOR GFR 1.29 MG/DL (0.55-1.30); GLOMERULAR FILTRATION RATE 45.7 (>51); POTASSIUM SERUM 3.4 MEQ/L (3.5-5.1)
[2020-07-01 09:13] LABS: ALBUMIN 1.7 GM/DL (3.2-5.2); PHOSPHORUS LEVEL 1.9 MG/DL (2.5-4.9)
[2020-07-01] MEDS ORDERED: POTASSIUM CHLORIDE 10 MEQ SR TABLET PO ONE (09:45)
[2020-07-01] MEDS ORDERED: LOPERAMIDE 2 MG CAPLET PO SCH (11:45)
--- NOTE | 2020-07-01 11:50 | IPNPDOC ---
Text Note Date of Service The patient was seen on 07/01/20. NOTE SUBJECTIVE: Patient reports that stools are getting thicker and less frequent. Denies abdominal pain. No blood in stool. Otherwise doing well, without complaints this morning OBJECTIVE: VITAL SIGNS: please see below General: NAD, comfortable, pleasant, obese HEENT: PERRLA, EOMI, anicteric, no injection Neck: supple, normal ROM, no JVD Respiratory: lungs CTAB, no wheeze, no rales, no crackles CVS: RRR, normal S1, S2, no murmurs Abdo: Normoactive sounds, soft, no palpable masses, no rebound tenderness Extremities: No LE edema, 2+ DP pulses MSK: no joint deformities, normal ROM Neuro: CN2-12 intact. Strength 5/5 in all 4 extremities. No noted focal neuro deficits, moving all 4 extremities, clear speech without dysarthria Psych: calm, cooperative, AAO x 3 LABORATORY DATA and Radiology : Reviewed. IMAGING STUDIES: 06/25/2020: CT ABD/PELVIS W/O CONTRAST IMPRESSION: 1. There is enlargement of the left and caudate lobes of the liver as well as a lobular surface contour of the liver. Findings may indicate the presence of cirrhosis in this patient with no reported history of chronic liver disease. No focal abnormality demonstrated. 2. There is mild splenomegaly with a maximum span of 14 centimeters. No focal abnormalities demonstrated. 3. There is diffuse pancreatic atrophy. 4. There has been a cholecystectomy. 5. There has been a hysterectomy. 6. Strictured segment at the splenic flexure of the colon. Neoplasm to be excluded via colonoscopy. Inflammatory changes demonstrated in the collapsed ahaustral left and sigmoid colon, findings may suggest presence of acute or subacute colitis. Dilatation of the transverse and right colon proximal to the strictured segment. 7. Mild diverticulosis is present in the distal colon. No diverticulitis. 8. Dilated small bowel loops in the mid abdomen may represent a localized ileus and less likely early small bowel obstruction. 06/25/2020 CXR: No acute disease 06/28/2020: Colonoscopy report: Findings: The perianal and digital rectal examinations were normal. Pertinent negatives include normal sphincter tone. A continuous area of ulcerated mucosa with stigmata of recent bleeding was present in the proximal descending colon, at the splenic flexure, in the transverse colon, in the ascending colon and in the cecum. Two biopsies were obtained with cold forceps for histology in the right colon, as well as four biopsies in the left colon. Verification of patient identification for the specimen was done by the physician and nurse using the patient's name, date and medical record number. Estimated blood loss was minimal. For hemostasis, one hemostatic clip was successfully placed. There was no bleeding at the end of the procedure. A benign-appearing, intrinsic moderate stenosis measuring 2 cm (in length) x 1.2 cm (inner diameter) was found in the distal transverse colon and was traversed. Biopsies were taken with a cold forceps for histology. Fluid aspiration for microbiology and Clostridium difficile was performed. Non-bleeding external and internal hemorrhoids were found during retroflexion. The hemorrhoids were medium-sized. Impression: - Mucosal ulceration. Clip was placed. 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 Biopsied. Fluid aspiration performed. - Non-bleeding external and internal hemorrhoids. - Biopsies performed in the right colon and in the left colon. GI Recommendation: - High fiber diet. - Continue present medications. - Await pathology results. - Repeat colonoscopy in 3 months to check healing and for surveillance based on pathology results. 06/28/2020: EGD Findings: Scattered moderate mucosal variance characterized by discoloration, longitudinal markings and white specks was found in the middle third of the esophagus and in the lower third of the esophagus. No gross lesions were noted in the entire examined stomach. Patchy granular mucosa was found in the first portion of the duodenum. Biopsies for histology were taken with a cold forceps for evaluation of celiac disease. Impression: - Esophageal mucosal variant. - No gross lesions in the stomach. - Granular mucosa in the first portion of the duodenum. Biopsied. Recommendation: - Patient has a contact number available for emergencies. The signs and symptoms of potential delayed complications were discussed with the patient. Return to normal activities tomorrow. Written discharge instructions were provided to the patient. - High fiber diet. - Continue present medications. - Await pathology results. - Repeat upper endoscopy in 3 months for surveillance based on pathology results and depending on the symptoms and clinical response. - Follow the recommendations as per the other procedure note. - Telephone GI clinic for pathology results in 2 weeks. - Return to GI clinic in [facility] (address [address], [place] [address]) in 4 -- 6 weeks. Please call GI clinic @ [phone] for appointment date and time. - Return to primary care physician. ASSESSMENT and Plan: 54-year-old W with a history of diabetes, obesity, chronic venous insufficiency, hypothyroidism, hypertension, lumbar disc disease, depression, CKD3 who was recently admitted to [facility] in late 2019 with septic shock 2/2 gastroenteritis ,acute on chronic renal failure required CRRT and discharged home on 06/12 after diarrhea remitted and Cr had recovered to 1.35 who now returned with NAPOLEON on CKD, with severe dehydration bordering hypovolemic shock i/s/o profuse diarrhea with indices suggestive of combination of sepsis with leukocytosis, bandemia, hypotension and tachycardia and dehydration. Diarrhea and dehydration resolving. Had Norovirus last month Stool culture one from 06/25 negative, another for 06/28 pending. Has colonic stricture +/- Ischemia On zosyn GI --> clear liquid diet --> had EGD/colo 06/28--> with mucosal ulceration and stricture s/p biopsies --> got abd US with doppler, pending read --> restarted diet will give imodium ordered VIP levels. Hypotension now resolved due to hypovolemia and medications. combination of severe dehydration due to profuse diarrhea, antihypertensives and diuretic therapy +/- sepsis given presenting leukocytosis, diarrhea, hypotension and tachycardia. Responded to IVF On Zosyn. ? Sepsis Urine culture and blood cultures negative stool culture for 06/25 negative. awaiting culture form 06/[address] A/P revealed acute vs. subacute focal sigmoid colitis on Zosyn. ? Ischemic Colitis GI also concerned that the hypotension may have precipitated a watershed ischemic event abd US with doppler could not see the SMA due to bowel gas. Responded to aggressive fluid resuscitation Held antihypertensives and diuretics at presentation Transverse colonic stricture Bx results negative for any malignancy Cirrhosis as from CT abdomen with enlarged left lobe of liver with nodularity and mild splenomegaly possibly related to obesity and PERALTA and remote alcohol abuse. h/o heavy alcohol use for about 5 to 7 years when she was in her 20s and 30s. Anemia: stable, at recent baseline, without evidence of ongoing bleeding -Transfuse hgb< 7 Acute renal failure: Prerenal 2/2 severe dehydration and hypotension, with c/f ATN given degree of presenting hypotension and dehydration Improved with IVF. strict I/Os daily weights avoid nephrotoxins. Holding diuretics and antihypertensives Hypothyroidism: synthroid HTN: Holding all antihypertensives, patient was hypotensive on arrival will restart as needed. Diabetes: On glargine and arpart insulin and victoza at home Here sugars well controlled without meds as has not had much oral intake Now started on diet will start lispro sliding scale. Hypoglycemic protocol FSBG AC/HS HLD: statin Obesity Complicated care. Anxiety/depression: Abilify Chronic Back Pain Lumber disc disease tizanidine, cymbalta Migraine pamelor DVT prophylaxis: heparin BID and TEDs VS,Fishbone, I+O VS, Fishbone, I+O Laboratory Tests 07/01/20 07:50 Vital Signs Date Time Temp Pulse Resp B/P (MAP) Pulse Ox O2 Delivery O2 Flow Rate FiO2 07/01/20 06:00 98.0 96 18 126/65 (85) 97 Room Air I&O- Last 24 Hours up to 6 AM 07/01/20 06:00 Intake Total 1120 ml Output Total 200 ml Balance 920 ml LOURDES BYERS MD Jul 01, 2020 11:50
--- NOTE | 2020-07-01 12:35 | IPN ---
NEPHROLOGY PROGRESS NOTE DATE: 07/01/2020 SUBJECTIVE: Ms. Bell is seen this morning on her bedside. She reports a couple of loose stools, but some semi-formed stool also present. She denies any nausea or vomiting. She denies any dyspnea or chest pain. PHYSICAL EXAMINATION: Temperature 98 degrees Fahrenheit, heart rate 96 per minute and respiratory rate 18 per minute. Blood pressure 126/65 mmHg and oxygen saturation 97% on room air. Head: Atraumatic. Neck: Ifopr8z and without JVD or thyroid enlargement. Heart: Sounds are tachycardic, but regular. Lungs: Clear to auscultation. Abdomen: Soft and nontender and bowel sounds are normal. Extremities: Without any cyanosis or clubbing. Neurologically: She is awake, alert and oriented times 3. LABORATORY DATA: Today's labs show WBC count 3.8, hemoglobin 8.6 and hematocrit 26.7. Sodium 143, potassium 3.4, CO2 22, BUN 6, creatinine 1.29, calcium 7.5 and phosphorus 1.9. Her albumin is only 1.7. PROBLEMS/PLAN: 1. Acute kidney injury superimposed on chronic kidney disease: Kidney function continues to improve. She is not on any I.V. fluids right now and will continue with oral intake. 2. Diarrhea: She has recurrent diarrhea which has been going on for at least a couple of months and caused recurrent acute renal failure. She is being investigated by gastroenterology. 3. Hypokalemia: Mild hypokalemia is related to poor oral intake and ongoing diarrhea. She will be given 1 dose of potassium chloride 40 mEq and recheck her electrolytes tomorrow. She is not on any diuretic. 4. Anemia: Slight improvement is noticed since yesterday and no transfusion is indicted at present. 5. Disposition: Patient wants to go home; however, if her diarrhea persists then she will remain at risk for re-hospitalization. I will defer any plans for care to gastroenterology and the Hospitalist Service.
[2020-07-01] MEDS: CHOLESTYRAMINE 4 GM PWD PKT PO SCH (12:58)
[2020-07-01] MEDS: METAMUCIL (PSYLLIUM) PACKET PO SCH (12:58)
[2020-07-01 14:00] VITALS: BP 143/75
[2020-07-01 22:00] VITALS: BP 132/77
[2020-07-02] VITALS (8 sets, daily range): BP systolic 122–164; BP diastolic 54–74
[2020-07-02] MEDS: PIPERACILLIN/TAZOBACTAM SOD 2.25 GM in D5W MINI-BAG PLUS 50 ML IV SCH (04:22)
[2020-07-02] MEDS: CHOLESTYRAMINE 4 GM PWD PKT PO SCH (06:03)
[2020-07-02] MEDS: LEVOTHYROXINE 25MCG TABLET (0.025MG) PO SCH (06:03)
[2020-07-02] MEDS: HumaLOG INSULIN (NovoLOG) PER UNIT SC SCH ×2 (07:30→12:00)
[2020-07-02 07:49] LABS: BASO % 0.6 % (0.0-1.0); EOS # 0.1 10^3/uL (0.0-0.5); EOS % 2.3 % (0.0-3.0); HEMATOCRIT 24.3 % (36.0-47.0); HEMOGLOBIN 7.9 g/dl (12.0-15.5); LYMPH # 1.5 10^3/uL (1.5-5.0); MEAN CORPUSCULAR HEMOGLOBIN 28.4 pg (27.0-33.0); MEAN CORPUSCULAR HGB CONC 32.5 g/dl (32.0-36.5); MEAN CORPUSCULAR VOLUME 87.4 fl (80.0-96.0); MONO # 0.3 10^3/uL (0.0-0.8); MONO % 7.7 % (0.0-5.0); NEUTROPHILS # 1.5 10^3/uL (1.5-8.5); NEUTROPHILS % 43.8 % (36.0-66.0); PLATELET COUNT, AUTOMATED 159 10^3/uL (150-450); RED BLOOD COUNT 2.78 10^6/uL (4.00-5.40); WHITE BLOOD COUNT 3.5 10^3/uL (4.0-10.0)
[2020-07-02 08:06] LABS: CALCIUM LEVEL 7.5 MG/DL (8.5-10.1); CREATININE FOR GFR 1.22 MG/DL (0.55-1.30); GLOMERULAR FILTRATION RATE 48.7 (>51); POTASSIUM SERUM 3.8 MEQ/L (3.5-5.1)
[2020-07-02] MEDS: MAGNESIUM OXIDE 400 MG TAB (MAG-OX) PO SCH (08:56)
[2020-07-02] MEDS: ATORVASTATIN 20 MG TAB PO SCH (08:56)
[2020-07-02] MEDS: PANTOPRAZOLE 40MG TAB (PROTONIX) PO SCH (08:56)
[2020-07-02] MEDS: DULoxetine 20 MG CAP (CYMBALTA) PO SCH (08:56)
[2020-07-02] MEDS: ARIPiprazole 15 MG TAB (AbiLIFY) PO SCH (08:56)
[2020-07-02] MEDS: VITAMIN D 1,000 INTERNATIONAL UNITS TABLET PO SCH (08:56)
[2020-07-02] MEDS: OYSTER SHELL CALCIUM 500 MG TAB PO SCH ×2 (08:56→16:00)
[2020-07-02] MEDS: PREGABALIN 75 MG CAP(LYRICA) PO SCH (08:56)
[2020-07-02] MEDS: ASPIRIN 81 MG ENTERIC TAB PO SCH (08:56)
[2020-07-02] MEDS: METAMUCIL (PSYLLIUM) PACKET PO SCH (08:57)
[2020-07-02] MEDS: NYSTATIN 100,000 UNITS/GM TOPICAL PWD 15 GM TOP SCH (08:57)
[2020-07-02] MEDS: NORTRIPTYLINE 25 MG CAP PO SCH (08:57)
[2020-07-02] MEDS: HEPARIN SOD (PORCINE) 5000UNITS/ML 1ML VIAL/SYRINGE SQ SCH (08:57)
--- NOTE | 2020-07-02 11:59 | IPN ---
PROGRESS NOTE DATE: 07/02/2020 SUBJECTIVE: Mrs. Bell is seen this morning on her bedside. She is feeling well and is very excited as she is likely to go home today. She reports a couple of bowel movements this morning, but consistency is improving and denies any watery diarrhea. She denies any nausea or vomiting. PHYSICAL EXAMINATION: VITALS: Temperature 98.4 degrees Fahrenheit, heart rate 98 per minute, respiratory rate 17 per minute, blood pressure 122/64 mmHg and oxygen saturation 100%. HEENT: Head is atraumatic. Neck supple and without JVD or thyroid enlargement. HEART: Heart sounds are regular. LUNGS: Clear to auscultation. ABDOMEN: Soft and nontender. EXTREMITIES: Without any cyanosis or clubbing. NEUROLOGIC: She is awake, alert and oriented x3. LABORATORY DATA: Today's labs show WBC 3.5, hemoglobin 7.9, hematocrit 24.3. Sodium 143, potassium 3.8, CO2 23, BUN 5, creatinine 1.22. PROBLEMS: 1. Acute on chronic kidney disease: Kidney function seems to be improved significantly since admission. She has good oral intake, but still has some loose stools. She does not need any I.V. fluid at present. Patient has been advised to continue liberal fluid intake at home after discharge. 2. Anemia: I recommend 1 or 2 units of packed RBC transfusion before discharging her. She will need further follow-up as an outpatient. 3. Diarrhea: Her chronic diarrhea is slowly improving, now she is on Questran 4 grams daily. All her workup has been negative so far. DISPOSITION: Patient is likely to be discharged today and she will follow-up in our clinic in two weeks.
[2020-07-02] MEDS ORDERED: META1POW PO (12:02)
[2020-07-02] MEDS ORDERED: CHOL4PW PO (12:02)
[2020-07-02] MEDS ORDERED: BASA100I SC (12:06)
[2020-07-02] MEDS ORDERED: AMLO1TAB24 PO (14:01)
--- NOTE | 2020-07-02 17:09 | DS.PDOC ---
Discharge Summary General Date of Admission Jun 25, 2020 at 18:24 Date of Discharge 07/02/20 Discharge Summary PROCEDURES PERFORMED DURING STAY: 06/28/2020: Colonoscopy The perianal and digital rectal examinations were normal. Pertinent negatives include normal sphincter tone. A continuous area of ulcerated mucosa with stigmata of recent bleeding was present in the proximal descending colon, at the splenic flexure, in the transverse colon, in the ascending colon and in the cecum. Two biopsies were obtained with cold forceps for histology in the right colon, as well as four biopsies in the left colon. Verification of patient identification for the specimen was done by the physician and nurse using the patient's name, date and medical record number. Estimated blood loss was minimal. For hemostasis, one hemostatic clip was successfully placed. There was no bleeding at the end of the procedure. A benign-appearing, intrinsic moderate stenosis measuring 2 cm (in length) x 1.2 cm (inner diameter) was found in the distal transverse colon and was traversed. Biopsies were taken with a cold forceps for histology. Fluid aspiration for microbiology and Clostridium difficile was performed. Non-bleeding external and internal hemorrhoids were found during retroflexion. The hemorrhoids were medium-sized. Impression: - Mucosal ulceration. Clip was placed. 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 Biopsied. Fluid aspiration performed. - Non-bleeding external and internal hemorrhoids. - Biopsies performed in the right colon and in the left colon. GI Recommendation: - High fiber diet. - Continue present medications. - Await pathology results. - Repeat colonoscopy in 3 months to check healing and for surveillance based on pathology results. 06/28/2020: EGD Scattered moderate mucosal variance characterized by discoloration, longitudinal markings and white specks was found in the middle third of the esophagus and in the lower third of the esophagus. No gross lesions were noted in the entire examined stomach. Patchy granular mucosa was found in the first portion of the duodenum. Biopsies for histology were taken with a cold forceps for evaluation of celiac disease. Impression: - Esophageal mucosal variant. - No gross lesions in the stomach. - Granular mucosa in the first portion of the duodenum. Biopsied. Recommendation: - Patient has a contact number available for emergencies. The signs and symptoms of potential delayed complications were discussed with the patient. Return to normal activities tomorrow. Written discharge instructions were provided to the patient. - High fiber diet. - Continue present medications. - Await pathology results. - Repeat upper endoscopy in 3 months for surveillance based on pathology results and depending on the symptoms and clinical response. DISCHARGE DIAGNOSES: Acute Renal failure Hypotension due to hypovolemia form diarrhea and medications Probable Ischemic colitis --typical large ulcers at the splenic flexure in the watershed area as per GI. Sepsis Transverse colonic stricture Cirrhosis of liver Diabetes HLD Obesity Chronic backpain Anemia Migraine anxiety and depression. COMPLICATIONS/CHIEF COMPLAINT: Acute Renal Failure,Hypotension. HOSPITAL COURSE: LABORATORY DATA and Radiology : 54-year-old W with a history of diabetes, obesity, chronic venous insufficiency, hypothyroidism, hypertension, lumbar disc disease, depression, CKD3 who was recently admitted to [facility] in late 2019 with septic shock 2/2 gastroenteritis ,acute on chronic renal failure required CRRT and discharged home on 06/12 after diarrhea remitted and Cr had recovered to 1.35 who now returned with [place] on CKD, with severe dehydration bordering hypovolemic shock i/s/o profuse diarrhea with indices suggestive of combination of sepsis with leukocytosis, bandemia, hypotension and tachycardia and dehydration. Diarrhea and dehydration resolving. Had Norovirus last month Stool culture one from 06/25 negative, another for 06/28 from colonoscopy also negative. Has colonic stricture +/- Ischemic colitis this time High fiber diet with metamucil and cholestyramine. ordered VIP levels. Hypotension now resolved due to hypovolemia and medications. combination of severe dehydration due to profuse diarrhea, antihypertensives and diuretic therapy +/- sepsis given presenting leukocytosis, diarrhea, hypotension and tachycardia. Responded to IVF was also given zosyn. Sepsis Urine culture and blood cultures negative stool culture from 06/25 and 06/[address] A/P revealed acute vs. subacute focal sigmoid colitis seems ischemic colitis. Ischemic Colitis GI also concerned that the hypotension may have precipitated a watershed ischemic event abd US with doppler could not see the SMA due to bowel gas. Held antihypertensives and diuretics at presentation will need an Abdominal US as outpatient. Follow up GI. Acute renal failure: Prerenal 2/2 severe dehydration and hypotension, with c/f ATN given degree of presenting hypotension and dehydration Improved with IVF. Did not need dialysis this time stopped lisinopril will start on amlodipine 5 mg. Transverse colonic stricture Bx results negative for any malignancy Cirrhosis as from CT abdomen with enlarged left lobe of liver with nodularity and mild splenomegaly possibly related to obesity and PERALTA and remote alcohol abuse. h/o heavy alcohol use for about 5 to 7 years when she was in her 20s and 30s. Anemia: stable, at recent baseline, without evidence of ongoing bleeding s/p 1 unit of PRBC. Hypothyroidism: synthroid HTN: hypotension resolved will stat of amlodipine Diabetes: On glargine and arpart insulin and victoza at home Here sugars well controlled without meds as has not had much oral intake Now started on diet continue home short acting insulin as per sliding scale, Reduce glargine insulin to only 20 units/ day Hold victoza HLD: statin Obesity Complicated care. Anxiety/depression: Abilify Chronic Back Pain Lumber disc disease tizanidine, cymbalta Migraine pamelor DISCHARGE MEDICATIONS: Please see below. ALLERGIES: Please see below. PHYSICAL EXAMINATION ON DISCHARGE: VITAL SIGNS: Please see below. General: NAD, comfortable, pleasant, obese HEENT: PERRLA, EOMI, anicteric, no injection Neck: supple, normal ROM, no JVD Respiratory: lungs CTAB, no wheeze, no rales, no crackles CVS: RRR, normal S1, S2, no murmurs Abdo: Normoactive sounds, soft, no palpable masses, no rebound tenderness Extremities: No LE edema, 2+ DP pulses MSK: no joint deformities, normal ROM Neuro: CN2-12 intact. Strength 5/5 in all 4 extremities. No noted focal neuro deficits, moving all 4 extremities, clear speech without dysarthria Psych: calm, cooperative, AAO x 3 LABORATORY DATA: Please see below. IMAGING STUDIES: 06/25/2020: CT ABD/PELVIS W/O CONTRAST 1. There is enlargement of the left and caudate lobes of the liver as well as a lobular surface contour of the liver. Findings may indicate the presence of cirrhosis in this patient with no reported history of chronic liver disease. No focal abnormality demonstrated. 2. There is mild splenomegaly with a maximum span of 14 centimeters. No focal abnormalities demonstrated. 3. There is diffuse pancreatic atrophy. 4. There has been a cholecystectomy. 5. There has been a hysterectomy. 6. Strictured segment at the splenic flexure of the colon. Neoplasm to be excluded via colonoscopy. Inflammatory changes demonstrated in the collapsed ahaustral left and sigmoid colon, findings may suggest presence of acute or subacute colitis. Dilatation of the transverse and right colon proximal to the strictured segment. 7. Mild diverticulosis is present in the distal colon. No diverticulitis. 8. Dilated small bowel loops in the mid abdomen may represent a localized ileus and less likely early small bowel obstruction. 06/25/2020 CXR: No acute disease ACTIVITY: [As tolerated]. DIET: high fiber DISPOSITION: 01 Home, Self-Care. ITEMS TO FOLLOWUP ON ON OUTPATIENT: Needs abdominal US as an outpatient to look for any evidence of metastatic neuroendocrine tumor causing this recurrent episodes of profuse diarrhea DISCHARGE CONDITION: [Stable]. TIME SPENT ON DISCHARGE: 35 minutes. Vital Signs/I&Os Vital Signs Date Time Temp Pulse Resp B/P (MAP) Pulse Ox O2 Delivery O2 Flow Rate FiO2 07/02/20 16:20 97.1 100 16 142/68 99 Room Air I&O- Last 24 Hours up to 6 AM 07/02/20 06:00 Intake Total 1610 ml Output Total 0 ml Balance 1610 ml Laboratory Data Labs 24H Laboratory Tests 2 07/01/20 20:01: Bedside Glucose (Misc Panel) 128H 07/02/20 07:05: Immature Granulocyte % (Auto) 2.6, Neutrophils (%) (Auto) 43.8, Lymphocytes (%) (Auto) 43.0, Monocytes (%) (Auto) 7.7H, Eosinophils (%) (Auto) 2.3, Basophils (%) (Auto) 0.6, Neutrophils # (Auto) 1.5, Lymphocytes # (Auto) 1.5, Monocytes # (Auto) 0.3, Eosinophils # (Auto) 0.1, Basophils # (Auto) 0.0, Nucleated Red Blood Cells % (auto) 0.0, Anion Gap 5L, Glomerular Filtration Rate 48.7L, Calcium Level 7.5L 07/02/20 07:43: Bedside Glucose (Misc Panel) 104 07/02/20 11:40: Bedside Glucose (Misc Panel) 107H CBC/BMP Laboratory Tests 07/02/20 07:05 FSBS Laboratory Tests Test 07/01/20 20:01 07/02/20 07:43 07/02/20 11:40 Range/Units Bedside Glucose (Misc Panel) 128 104 107 70-105 MG/DL Microbiology Microbiology 06/28/20 Campylobacter (PCR) - Final, Complete 06/28/20 Clostridium difficile Toxin A&B PCR - Final, Complete 06/28/20 Plesiomonas shigelloides (PCR) - Final, Complete 06/28/20 Salmonella (PCR)(JENI) - Final, Complete 06/28/20 Vibrio Species (PCR) - Final, Complete 06/28/20 Vibrio Cholerae (PCR) - Final, Complete 06/28/20 Yersinia enterocolitica (PCR) - Final, Complete 06/28/20 Enteroaggregative E. coli (PCR) - Final, Complete 06/28/20 Enteropathogenic E. coli (PCR) - Final, Complete 06/28/20 Enterotoxigenic E. coli (PCR) - Final, Complete 06/28/20 E. coli Shiga-like Toxin (PCR) - Final, Complete 06/28/20 Escherichia coli 0157 (PCR) - Final, Complete 06/28/20 Enteroinvasive E. coli/Shigella PCR - Final, Complete 06/28/20 Cryptosporidium (PCR) - Final, Complete 06/28/20 Cyclospora cayetanensis (PCR) - Final, Complete 06/28/20 Entamoeba histolytica (PCR) - Final, Complete 06/28/20 Giardia lamblia (PCR) - Final, Complete 06/28/20 Adenovirus Type F 40/41 (PCR) - Final, Complete 06/28/20 Astrovirus (PCR) - Final, Complete 06/28/20 Norovirus GI/GII (PCR) - Final, Complete 06/28/20 Rotavirus A (PCR) - Final, Complete 06/28/20 Sapovirus I/II/IV/V (PCR) - Final, Complete 06/26/20 Urine Culture - Final, Complete 06/25/20 Blood Culture - Final, Complete NO GROWTH AFTER 5 DAYS 06/25/20 Campylobacter (PCR) - Final, Complete 06/25/20 Clostridium difficile Toxin A&B PCR - Final, Complete 06/25/20 Plesiomonas shigelloides (PCR) - Final, Complete 06/25/20 Salmonella (PCR)(JENI) - Final, Complete 06/25/20 Vibrio Species (PCR) - Final, Complete 06/25/20 Vibrio Cholerae (PCR) - Final, Complete 06/25/20 Yersinia enterocolitica (PCR) - Final, Complete 06/25/20 Enteroaggregative E. coli (PCR) - Final, Complete 06/25/20 Enteropathogenic E. coli (PCR) - Final, Complete 06/25/20 Enterotoxigenic E. coli (PCR) - Final, Complete 06/25/20 E. coli Shiga-like Toxin (PCR) - Final, Complete 06/25/20 Escherichia coli 0157 (PCR) - Final, Complete 06/25/20 Enteroinvasive E. coli/Shigella PCR - Final, Complete 06/25/20 Cryptosporidium (PCR) - Final, Complete 06/25/20 Cyclospora cayetanensis (PCR) - Final, Complete 06/25/20 Entamoeba histolytica (PCR) - Final, Complete 06/25/20 Giardia lamblia (PCR) - Final, Complete 06/25/20 Adenovirus Type F 40/41 (PCR) - Final, Complete 06/25/20 Astrovirus (PCR) - Final, Complete 06/25/20 Norovirus GI/GII (PCR) - Final, Complete 06/25/20 Rotavirus A (PCR) - Final, Complete 06/25/20 Sapovirus I/II/IV/V (PCR) - Final, Complete 06/25/20 Blood Culture - Final, Complete NO GROWTH AFTER 5 DAYS Discharge Medications Scheduled Amlodipine Besylate (Amlodipine Besylate) 5 Mg Tablet, 5 MG PO DAILY Aripiprazole (Aripiprazole) 15 Mg Tablet, 15 MG PO DAILY, (Reported) Aspirin (Aspirin EC) 81 Mg Tablet.dr, 81 MG PO DAILY, (Reported) Atorvastatin Calcium (Atorvastatin Calcium) 20 Mg Tablet, 20 MG PO DAILY, ( Reported) Calcium Carbonate (Calcium Carbonate) 500 Mg Tablet, 500 MG PO TID, (Reported) Cholecalciferol (Vitamin D3) (Vitamin D3) 1,000 Unit Tablet, 2,000 UNITS PO DAILY, (Reported) Cholestyramine (Cholestyramine Packet) 4 Gm Powd.pack, 4 GM PO DAILY@0700 Duloxetine Hcl (Duloxetine HCl) 20 Mg Capsule.dr, 20 MG PO BID, (Reported) Insulin Aspart (Novolog) 100 Unit/1 Ml Cartridge, 1 DOSE SC AC, (Reported) PER SLIDING SCALE Insulin Glargine,Hum.rec.anlog (Basaglar Kwikpen U-100) 100 Unit/1 Ml Insuln.pen, 20 UNIT SC DAILY Levothyroxine Sodium (Levothyroxine Sodium) 25 Mcg Tablet, 25 MCG PO QAM, (Reported) Nortriptyline HCl (Nortriptyline HCl) 50 Mg Capsule, 50 MG PO DAILY, (Reported) Nystatin (Nystatin Powder) 15 Gm Powder, 1 APLCT TOP DAILY, (Reported) UNDER BREASTS AND GROIN AREA AFTER BATHING Pantoprazole Sodium (Pantoprazole Sodium) 40 Mg Tablet.dr, 40 MG PO DAILY, (Reported) Pregabalin (Lyrica) 300 Mg Capsule, 300 MG PO BID, (Reported) Psyllium Husk/Aspartame (Metamucil Fiber Singles Packet) 3.4 Gm Powd.pack, 1 PKT PO DAILY Scheduled PRN Butalb/Acetaminophen/Caffeine (Xxlywe-Xkrpplvp-Ialp 50-325-40) 1 Each Capsule, 1 CAP PO Q4H PRN for MIGRAINE, (Reported) Docusate Sodium (Docusate Sodium) 100 Mg Capsule, 100 MG PO BID PRN for CONSTIPATION, (Reported) Oxycodone HCl/Acetaminophen (Percocet 5-325 mg Tablet) 1 Each Tablet, 1 TAB PO Q4H PRN for PAIN, (Reported) Tizanidine HCl (Tizanidine HCl) 4 Mg Tablet, 4 MG PO TID PRN for MUSCLE SPASMS, (Reported) Allergies Coded Allergies: Sulfa (Sulfonamide Antibiotics) (Verified Allergy, Intermediate, HIVES, 11/18/19) morphine (Verified Adverse Reaction, Mild, htn or hypotension-pt unsure of which one, 11/18/19) LOURDES BYERS MD Jul 02, 2020 17:09
== END 2020-07-02 16:36 | disposition home or self-care (01) | DRG 469 ==
LOC: M ED 15:18 → M ED INP 18:24 → M PCU 22:04 → M MSPAV 06-30 21:42
PROVIDERS: ADMIT Internal Medicine; ATTEND Internal Medicine Nephrology
PROC: 0DB88ZX Excision of Small Intestine, Via Natural or Artificial Opening Endoscopic, Diagnostic (ICD-10-PCS; 2020-06-28)
PROC: 0DB98ZX Excision of Duodenum, Via Natural or Artificial Opening Endoscopic, Diagnostic (ICD-10-PCS; 2020-06-28)
PROC: 30233N1 Transfusion of Nonautologous Red Blood Cells into Peripheral Vein, Percutaneous Approach (ICD-10-PCS; principal; 2020-07-02)
DX: N17.9 Acute kidney failure, unspecified (principal); A41.9 Sepsis, unspecified organism; K55.9 Vascular disorder of intestine, unspecified; K56.699 Other intestinal obstruction unspecified as to partial versus complete obstruction; K63.3 Ulcer of intestine; I95.9 Hypotension, unspecified; K22.8 Other specified diseases of esophagus; E11.40 Type 2 diabetes mellitus with diabetic neuropathy, unspecified; E11.21 Type 2 diabetes mellitus with diabetic nephropathy; Z68.41 Body mass index [BMI] 40.0-44.9, adult; K74.60 Unspecified cirrhosis of liver; R93.3 Abnormal findings on diagnostic imaging of other parts of digestive tract; K31.89 Other diseases of stomach and duodenum; E66.9 Obesity, unspecified; G43.909 Migraine, unspecified, not intractable, without status migrainosus; F41.9 Anxiety disorder, unspecified; F32.9 Major depressive disorder, single episode, unspecified; D64.9 Anemia, unspecified; E03.9 Hypothyroidism, unspecified; I12.9 Hypertensive chronic kidney disease with stage 1 through stage 4 chronic kidney disease, or unspecified chronic kidney disease; Z79.899 Other long term (current) drug therapy; Z79.82 Long term (current) use of aspirin; Z88.2 Allergy status to sulfonamides; Z88.5 Allergy status to narcotic agent; E87.6 Hypokalemia; K57.30 Diverticulosis of large intestine without perforation or abscess without bleeding; N18.30 Chronic kidney disease, stage 3 unspecified

== ENCOUNTER → 2020-07-30 | Outpatient (CLI) | payer OTHER ==
[~2020-07-30] MED LIST changes: +AMLO1TAB24 PO; +CALC500T61 PO; +CHOL4PW PO; +LISI-538 PO; +META1POW PO; +NYST1POW9 TOP
--- NOTE | 2020-08-01 01:55 | ECWPNPC ---
PATIENT NAME: KOFFI TURCIOS : 1965 GENDER: FEMALE VISIT DATE: 07/30/2020 DISCHARGE DATE: 07/30/20 1114 VISIT LOCKED DATE TIME: PHYSICIAN: VONNIE YEBOAH PHYSICIAN PAGER NO: ACTIVE RESOURCE: VONNIE YEBOAH REASON FOR APPOINTMENT 1. MED MANAGEMENT HISTORY OF PRESENT ILLNESS DEPRESSION SCREENING: PHQ-9 LITTLE INTEREST OR PLEASURE IN DOING THINGSSEVERAL DAYS FEELING DOWN, DEPRESSED, OR HOPELESSSEVERAL DAYS TROUBLE FALLING OR STAYING ASLEEP, OR SLEEPING TOO MUCHNEARLY EVERY DAY FEELING TIRED OR HAVING LITTLE ENERGYNEARLY EVERY DAY POOR APPETITE OR OVEREATING NEARLY EVERY DAY FEELING BAD ABOUT YOURSELF-OR THAT YOU ARE A FAILURE OR HAVE LET YOURSELF OR YOUR FAMILY DOWN SEVERAL DAYS TROUBLE CONCENTRATING ON THINGS, SUCH READING THE NEWSPAPER OR WATCHING TELEVISION NEARLY EVERY DAY MOVING OR SPEAKING SO SLOWLY THAT OTHER PEOPLE COULD HAVE NOTICED. OR THE OPPOSITE- BEING SO FIDGETY OR RESTLESS THAT YOU HAVE BEEN MOVING AROUND A LOT MORE THAN USUALNOT AT ALL THOUGHTS THAT YOU WOULD BE BETTER OFF , OR OF HURTING YOURSELF IN SOME WAY?SEVERAL DAYS(CONSIDER SUICIDE ASSESSMENT RISK) TOTAL SCORE:16 INTERPRETATIONMODERATELY SEVERE DEPRESSION PHQ-2 (2015 EDITION) LITTLE INTEREST OR PLEASURE IN DOING THINGS?SEVERAL DAYS FEELING DOWN, DEPRESSED, OR HOPELESS?SEVERAL DAYS TOTAL SCORE2 FALL RISK SCREENING: SCREENING :ONE FALL WITHOUT INJURY IN THE PAST YEAR PATIENT STATES SHE FELL AT HOME IMMEDIATELY PROCEEDING HER VISIT ON 07/30/20. PATIENT REFUSED MEDICAL TREATMENT FOR THE FALL AND STATES SHE "HAS NO INJURIES." GENERAL: HERE FOR FOLLOW-UP AND MEDICATION MANAGEMENT FOR CHRONIC LOW BACK PAIN AND NEUROPATHY. OVERALL CONTINUES TO DO WELL WITH CURRENT MEDICATION REGIMEN FOR CHRONIC PAIN. DENIES ADVERSE SIDE EFFECTS WITH HER MEDICATIONS. ADVISED TO BRING HER MEDICATION IN FOR FUTURE FOLLOW-UP APPOINTMENT AT THE PAIN CLINIC. REPORTING NORMAL BOWEL AND BLADDER FUNCTION. REPORTING HER BLOOD SUGARS HAVE BEEN STABLE AND WITHIN NORMAL LIMITS OVER THE PAST FEW MONTHS.-. PAIN SCREENING: PATIENT HAS A COMPLAINT OF ACUTE OR CHRONIC PAIN :NO NURSING NOTE: -. PAIN CENTER INTAKE QUESTIONS: DO YOU HAVE A HISTORY OF MRSA? :NO DO YOU TAKE A BLOOD THINNERS? :NO DO YOU HAVE ANY BLEEDING DISORDERS? :NO ANY NEW NUMBNESS OR WEAKNESS IN YOUR LEGS OR ARMS? :NO ANY PACEMAKER,DEFIBRILLATOR, OR DORSAL COLUMN STIMULATOR? :NO DO YOU HAVE ANY RASHES OR OPEN SORES? :NO ARE YOU ALLERGIC TO IV DYE? :NO ARE YOU DIABETIC? :YES ANY NEW PROBLEMS WITH YOUR MEDICATIONS? :NO HAVE YOU RECEIVED A VACCINE IN THE PAST 30 DAYS? :NO DO YOU PLAN TO RECEIVE A VACCINE IN THE NEXT 21 DAYS? :NO DO YOU NEED ANY PRESCRIPTION? :NO DO YOU TAKE ANY IMMUNOSUPPRESSIVE MEDICATIONS? :NO IS THERE A CHANCE YOU COULD BE ? :NO ARE YOU BREAST FEEDING? :NO CURRENT MEDICATIONS TAKING FENOFIBRATE 145 MG TABLET 1 TABLET ORALLY ONCE A DAY TAKING LEVEMIR FLEX TOUCH 90 INJECTION UNITS SQ 20 UNITS DAILY TAKING LOSARTAN/AMLODIPINE 25 MG 1 TAB ORAL ONCE DAILY TAKING PAXIL 10 MG TABLET 1 TABLET IN THE MORNING ORALLY ONCE A DAY TAKING ASPIRIN 81 81 MG TABLET CHEWABLE 1 TABLET ORALLY ONCE A DAY TAKING CYMBALTA 60 MG 1 TABLET PO ONCE DAILY TAKING CYMBALTA 30 MG CAPSULE DELAYED RELEASE PARTICLES 1 CAPSULE ORALLY BEFORE BEDTIME TAKING COLACE 100 MG CAPSULE 1 CAPSULE NEEDED ORALLY BID TAKING AMITRIPTYLINE HCL 25 MG TABLET 1-2 ORALLY ONCE A DAY AT NIGHT TAKING TIZANIDINE HCL 4 MG TABLET 1 TAB ORALLY NEEDED FOR SPASMS AND PAIN THREE TIMES A DAY MDD3 TAKING LYRICA 300 MG CAPSULE 1 CAPSULE ORALLY FOR PAIN BID MDD2 TAKING PERCOCET 5-325 MG TABLET 1 TABLET NEEDED ORALLY Q4-6H MDD5 NOT-TAKING NOVOLOG MIX 1 INJECTION 1 SUBCUTANEOUSLY ON SLIDING SCALE NOT-TAKING METFORMIN 2 TAB 1000 MG ORAL BID NOT-TAKING TANZEUM 50 MG PEN-INJECTOR SUBCUTANEOUS EVERY MONDAY NOT-TAKING ATARAX TABLET NEEDED ORAL DAILY NOT-TAKING VITAMIN D (ERGOCALCIFEROL) 38285 UNIT CAPSULE 1 CAPSULE ORALLY WEEKLY NOT-TAKING POTASSIUM CHLORIDE 20 TABLET 1 TAB P.O. DAILY NOT-TAKING TOUJEO INSULIN INJECTION 300 ML 90 UNITS TWICE DAILY NOT-TAKING BUSPAR 10 MG TABLET 1 TABLET ORALLY TWICE A DAY NOT-TAKING VITAMIN D 55323 U TABLET ORALLY WEEKLY NOT-TAKING JARDIANCE 25 MG TABLET 1 TABLET ORALLY ONCE A DAY NOT-TAKING ESCITALOPRAM OXALATE 10 MG TABLET 1 TABLET ORALLY ONCE A DAY NOT-TAKING ZOLOFT 100 MG TABLET 1 TABLET ORALLY ONCE A DAY NOT-TAKING ZOLOFT 100 MG TABLET 1 TABLET ORALLY ONCE A DAY MEDICATION LIST REVIEWED AND RECONCILED WITH THE PATIENT PAST MEDICAL HISTORY DIABETES MALLITUS DEPRESSION ANXIETY PTSD BACK PAIN LEG PAIN SOCIAL ANXIETY ADHD ALLERGIES SULFA (FOR ALLERGY USE ONLY): HIVES - ALLERGY MORPHINE SULFATE: INCREASED ANXIETY - ALLERGY SURGICAL HISTORY CHOLECYSTECTOMY APPENDECTOMY C SECTION 1988 HYSTERECTOMY TUMOR REMOVED FROM LEFT THIGH BILATERAL FALLOPIAN TUBES REMOVED 2013 RIGHT FOOT REPAIR 05/2018 RIGHT GREAT TOE FRACTURE 3 SCREWS AND A PALTE 08/2018 LEFT CATARACT SURGERY 11/2019 FAMILY HISTORY FATHER: , DIAGNOSED WITH OTHER MALIGNANT NEOPLASM OF UNSPECIFIED SITE MOTHER: , OTHER MALIGNANT NEOPLASM OF UNSPECIFIED SITE 3 BROTHER(S) , 1 SISTER(S) . SISTER - CANCER SINUS CAVITY. SOCIAL HISTORY GENERAL: TOBACCO USE ARE YOU A: NONSMOKER. LATEX QUESTIONNAIRE LATEX ALLERGY : HAVE YOU EVER DEVELOPED ANY TYPE OF REACTION AFTER HANDLING LATEX PRODUCTS SUCH RUBBER GLOVES, CONDOMS, DIAPHRAGMS, BALLOONS, SOCKS, OR UNDERWEAR?NO LATEX ALLERGY : HAVE YOU EVER DEVELOPED ANY TYPE OF REACTION DURING OR AFTER DENTAL APPOINTMENT, VAGINAL/RECTAL EXAMINATION, SURGICAL PROCEDURE, OR ANY OTHER EXPOSURE?NO LATEX RISK : HAVE YOU EVER HAD ANY DIFFICULTY BREATHING OR HIVES AFTER EATING OR HANDLING ANY FRUITS, OR VEGETABLES; SUCH KIWI, BANANAS, STONE FRUITS, OR CHESTNUTSNO LATEX RISK : DO YOU HAVE A PREVIOUS PERSONAL HISTORY OF MORE THAN NINE SURGERIES, SPINA BIFIDA, OR REPEATED CATHERIZATIONS? NO LATEX RISK : ARE YOU FREQUENTLY EXPOSED TO LATEX PRODUCTS IN YOUR OCCUPATION?NO DATE ASKED : 07/30/2020 RECREATIONAL DRUG USE DRUG USE?NO CAFFEINE CAFFEINE USE?YES HOW OFTEN AND HOW MUCH? 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 MARITAL STATUS: . TODAY'S VISIT 11/29/19 PATIENT DESCRIBES PAIN :HAVE IT ALL THE TIME, SHARP, STABBING FROM 0-10, WHAT LEVEL IS YOUR PAIN TODAY?7 PRECIPITATING FACTORS STANDING ALLEVIATING FACTORS LAYING DOWN IMPACT ON FUNCTION YES PAIN CLINIC PFS, CLERGY, PUBLIC HEALTH REFERRALS PFS REFERRAL NEEDED?NO CLERGY REFERRAL NEEDED?NO PUBLIC HEALTH REFERRAL NEEDED?NO WAS THE PROVIDER NOTIFIED OF ANY PERTINENT INFO?YES HAS THE PATIENT BEEN EDUCATED REGARDING HIS/HER PLAN OF CARE?YES HAS THE PATIENT BEEN EDUCATED REGARDING PAIN, THE RISK FOR PAIN, THE IMPORTANCE OF EFFECTIVE PAIN MANAGEMENT, AND THE PAIN ASSESSMENT PROCESS?YES ADVANCE DIRECTIVE ADVANCE DIRECTIVE DISCUSSED WITH PATIENT:YES PATIENT DECLINED HCP INFORMATION. REVIEWED WITH PATIENT 11/01/18 1307 JSREVIEWED WITH PATIENT 01/07/19 0979 JSREVIEWED WITH PT 04/16/19 1008 NLJ. HOSPITALIZATION/MAJOR DIAGNOSTIC PROCEDURE SURGERIES REVIEW OF SYSTEMS CONSTITUTIONAL: ANY RECENT FEVER NO . CHILLS NO . WEIGHT CHANGE OF UNKNOWN REASONS NO . GASTROENTEROLOGY: NEW UNEXPLAINABLE CHANGES IN BOWEL CONTROL NO . CONSTIPATION NO . GENITOURINARY: ANY NEW CHANGE IN BLADDER CONTROL? NO . NEUROLOGY: NEW ONSET DIZZINESS OR NEUROLOGICAL CHANGES NOT MENTIONED NO . NEW NUMBNESS OR PAIN PATTERNS NOT MENTIONED AND PERTINENT TO TODAY'S VISIT NO . CARDIOLOGY: NEW CHEST PRESSURE NO . NEW CHEST PAIN NO . RESPIRATORY: UNEXPLAINABLE COUGH NO . NEW SHORTNESS OF BREATH NO . VITAL SIGNS WT 191.8 LBS, HT 63.5", BMI 33.44 INDEX, BP 129/60 MM HG, HR 110 /MIN, RR 20 /MIN, TEMP 97.3 F, OXYGEN SAT % 100, SAFE IN ENV? (Y/N) YES, REVIEWED BY: MYRNA OBTAINED AND PROVIDER AWARE. GINO FOURNIER MA. EXAMINATION GENERAL EXAMINATION: GENERALAWAKE,ALERT ,PLEASANT . PSYCHAFFECT NORMAL . LUNGS:LUNG BELTRÁN ARE CLEAR TO AUSCULTATION BILATERALLY. GOOD MOVEMENT OF AIR . HEART:S1, S2 IN A REGULAR RATE AND RHYTHM. NO SIGNIFICANT MURMURS, RUBS OR GALLOPS NOTED . ASSESSMENTS CHRONIC BILATERAL LOW BACK PAIN WITH RIGHT-SIDED SCIATICA - M54.41 (PRIMARY) CHRONIC PRESCRIPTION OPIATE USE - Z79.891 TREATMENT CHRONIC BILATERAL LOW BACK PAIN WITH RIGHT-SIDED SCIATICA REFILL CYMBALTA, 60 MG, 1 TABLET, PO, ONCE DAILY, 30 DAYS, 30, REFILLS 5 REFILL CYMBALTA CAPSULE DELAYED RELEASE PARTICLES, 30 MG, 1 CAPSULE, ORALLY, BEFORE BEDTIME, 30 DAYS, 30, REFILLS 5 REFILL COLACE CAPSULE, 100 MG, 1 CAPSULE NEEDED, ORALLY, BID, 30 DAYS, 60 CAPSULE, REFILLS 5 REFILL AMITRIPTYLINE HCL TABLET, 25 MG, 1-2, ORALLY, ONCE A DAY AT NIGHT, 30 DAYS, 30, REFILLS 5 REFILL TIZANIDINE HCL TABLET, 4 MG, 1 TAB, ORALLY NEEDED FOR SPASMS AND PAIN, THREE TIMES A DAY MDD3, 30 DAYS, 90, REFILLS 5 REFILL LYRICA CAPSULE, 300 MG, 1 CAPSULE, ORALLY FOR PAIN, BID MDD2, 30 DAYS, 60, REFILLS 5 REFILL PERCOCET TABLET, 5-325 MG, 1 TABLET NEEDED, ORALLY, Q4-6H MDD5, 30 DAYS, 150, REFILLS 0 NOTES: ISTOP REGISTRY REVIEWED AND DEMONSTRATES COMPLLIANCE. RECENT URINE TOXICOLOGY REVIEWED. NO UNAUTHORIZED MEDICATIONS. NO ILLICIT SUBSTANCES AND PRESCRIBED MEDICATIONS WERE PRESENT. ADVISED TO BRING IN PAIN MEDICATION WE PRESCRIBE TO ALL APPOINTMENTS PER CLINIC POLICY UNABLE TO URINATE FOR TOXICOLOGY.ORAL SWAB TOXICOLOGY DONE TODAY RISKS OF NARCOTIC/OPIOD MEDICATIONS INCLUDES BUT IS NOT LIMITED TO RISK OF DEPENDANCE/DEVELOPMENT OF ADDICTION, MOOD DISTURBANCE AND DEPRESSION, OSTEOPOROSIS, HORMONAL AND LABIDAL CHANGES, RESPIRATORY DEPRESSION AND . PATIENT IS ADVISED NOT TO DRIVE OR DRINK ALCOHOL WHILE ON THESE MEDICATIONS,. PROCEDURE CODES FA211 ESTABILISHED PATIENT [facility] CHARGE DISPOSITION & COMMUNICATION FOLLOW UP 3 MONTHS (REASON: MED MGMNT/VIEW ORAL SWAB TOX) ELECTRONICALLY SIGNED BY SAMANTHA TOLENTINO ON 07/31/2020 AT 10:17 AM EST DISCLAIMER : THIS IS A VISIT SUMMARY EXTRACTED FROM THE [employer] CHART. IT IS NOT A COPY OF THE [employer] PROGRESS NOTE. ROSSY
== END ==
LOC: M PAIN 09:45
PROVIDERS: ATTEND Nurse Practitioner Family
DX: M54.41 Lumbago with sciatica, right side (principal); G89.29 Other chronic pain; E11.9 Type 2 diabetes mellitus without complications; Z86.59 Personal history of other mental and behavioral disorders; Z88.2 Allergy status to sulfonamides; Z88.5 Allergy status to narcotic agent; Z79.4 Long term (current) use of insulin; Z79.82 Long term (current) use of aspirin; Z79.899 Other long term (current) drug therapy

== ENCOUNTER → 2020-10-23 | Outpatient (CLI) | payer OTHER ==
[~2020-10-23] MED LIST changes: +HYDR-3490 PO; -HYDR25TAB PO; -LISI-538 PO; +LISI20TA33 PO
--- NOTE | 2020-10-24 12:21 | ECWPNPC ---
PATIENT NAME: KOFFI TURCIOS : 1965 GENDER: FEMALE VISIT DATE: 10/23/2020 DISCHARGE DATE: 10/23/20 1014 VISIT LOCKED DATE TIME: PHYSICIAN: VONNIE YEBOAH PHYSICIAN PAGER NO: ACTIVE RESOURCE: VONNIE YEBOAH REASON FOR APPOINTMENT 1. BACK HISTORY OF PRESENT ILLNESS GENERAL: HERE FOR FOLLOW-UP MEDICATION MANAGEMENT OF CHRONIC LOW BACK PAIN AND NEUROPATHY OF THE LOWER EXTREMITIES. ACCOMPANIED IN THE EXAM ROOM WITH HER . HAS HAD SIGNIFICANT ISSUES WITH HER KIDNEYS AND LIVER OVER THE PAST FEW MONTHS. SHE WAS HOSPITALIZED HERE AT [facility] IN MAY. DOING MUCH BETTER NOW. CONTINUES TO FOLLOW WITH DR. FULLER, AT [facility] HERE IN [place]. DISCUSSED MEDICATIONS THAT WE PRESCRIBE HERE FOR CHRONIC PAIN. SHE IS IN AGREEMENT TO LOWER DOSAGE IN ATTEMPTS TO AVOID TAXING HER LIVER AND KIDNEYS. SHE HAS ARTERY WEANED OFF OF LYRICA DUE TO CONCERNS THAT WAS CAUSING SOME CONFUSION. STATES THAT WHEN SHE WAS OFF OF LYRICA OR CONFUSION SUBSIDED. -. FALL RISK SCREENING: SCREENING : NO FALLS REPORTED IN THE LAST YEAR. PAIN SCREENING: PATIENT HAS A COMPLAINT OF ACUTE OR CHRONIC PAIN :YES LOCATION OF PAIN:LOW BACK INTENSITY OF PAIN (SCALE OF 1 TO 10):6 WHAT DOES YOUR PAIN FEEL LIKE:THROBBING, SORE DURATION:CONTINOUS, CONSTANT, ALL DAY PAIN IS INCREASED BY:ACTIVITIES PAIN IS DECREASED BY:USE OF PAIN MEDICATIONS NURSING NOTE: -. PAIN CENTER INTAKE QUESTIONS: DO YOU HAVE A HISTORY OF MRSA? :NO DO YOU TAKE A BLOOD THINNERS? :NO DO YOU HAVE ANY BLEEDING DISORDERS? :NO ANY NEW NUMBNESS OR WEAKNESS IN YOUR LEGS OR ARMS? :NO ANY PACEMAKER,DEFIBRILLATOR, OR DORSAL COLUMN STIMULATOR? :NO DO YOU HAVE ANY RASHES OR OPEN SORES? :NO ARE YOU ALLERGIC TO IV DYE? :NO ARE YOU DIABETIC? :YES ANY NEW PROBLEMS WITH YOUR MEDICATIONS? :NO HAVE YOU RECEIVED A VACCINE IN THE PAST 30 DAYS? :NO DO YOU PLAN TO RECEIVE A VACCINE IN THE NEXT 21 DAYS? :NO DO YOU NEED ANY PRESCRIPTION? :NO DO YOU TAKE ANY IMMUNOSUPPRESSIVE MEDICATIONS? :NO IS THERE A CHANCE YOU COULD BE ? :NO ARE YOU BREAST FEEDING? :NO CURRENT MEDICATIONS TAKING FENOFIBRATE 145 MG TABLET 1 TABLET ORALLY ONCE A DAY TAKING LEVEMIR FLEX TOUCH 90 INJECTION UNITS SQ 20 UNITS DAILY TAKING LOSARTAN/AMLODIPINE 25 MG 1 TAB ORAL ONCE DAILY TAKING PAXIL 10 MG TABLET 1 TABLET IN THE MORNING ORALLY ONCE A DAY TAKING ASPIRIN 81 81 MG TABLET CHEWABLE 1 TABLET ORALLY ONCE A DAY TAKING CYMBALTA 60 MG 1 TABLET PO ONCE DAILY TAKING CYMBALTA 30 MG CAPSULE DELAYED RELEASE PARTICLES 1 CAPSULE ORALLY BEFORE BEDTIME TAKING COLACE 100 MG CAPSULE 1 CAPSULE NEEDED ORALLY BID TAKING AMITRIPTYLINE HCL 25 MG TABLET 1-2 ORALLY ONCE A DAY AT NIGHT TAKING TIZANIDINE HCL 4 MG TABLET 1 TAB ORALLY NEEDED FOR SPASMS AND PAIN THREE TIMES A DAY MDD3 TAKING PERCOCET 5-325 MG TABLET 1 TABLET NEEDED ORALLY Q4-6H MDD5 NOT-TAKING LYRICA 300 MG CAPSULE 1 CAPSULE ORALLY FOR PAIN BID MDD2 NOT-TAKING NOVOLOG MIX 1 INJECTION 1 SUBCUTANEOUSLY ON SLIDING SCALE NOT-TAKING METFORMIN 2 TAB 1000 MG ORAL BID NOT-TAKING TANZEUM 50 MG PEN-INJECTOR SUBCUTANEOUS EVERY MONDAY NOT-TAKING ATARAX TABLET NEEDED ORAL DAILY NOT-TAKING VITAMIN D (ERGOCALCIFEROL) 22672 UNIT CAPSULE 1 CAPSULE ORALLY WEEKLY NOT-TAKING POTASSIUM CHLORIDE 20 TABLET 1 TAB P.O. DAILY NOT-TAKING TOUJEO INSULIN INJECTION 300 ML 90 UNITS TWICE DAILY NOT-TAKING BUSPAR 10 MG TABLET 1 TABLET ORALLY TWICE A DAY NOT-TAKING VITAMIN D 81740 U TABLET ORALLY WEEKLY NOT-TAKING JARDIANCE 25 MG TABLET 1 TABLET ORALLY ONCE A DAY NOT-TAKING ESCITALOPRAM OXALATE 10 MG TABLET 1 TABLET ORALLY ONCE A DAY NOT-TAKING ZOLOFT 100 MG TABLET 1 TABLET ORALLY ONCE A DAY NOT-TAKING ZOLOFT 100 MG TABLET 1 TABLET ORALLY ONCE A DAY MEDICATION LIST REVIEWED AND RECONCILED WITH THE PATIENT PAST MEDICAL HISTORY DIABETES MALLITUS DEPRESSION ANXIETY PTSD BACK PAIN LEG PAIN SOCIAL ANXIETY ADHD ALLERGIES SULFA (FOR ALLERGY USE ONLY): HIVES - ALLERGY MORPHINE SULFATE: INCREASED ANXIETY - ALLERGY SURGICAL HISTORY CHOLECYSTECTOMY APPENDECTOMY 1970S C SECTION 1988 HYSTERECTOMY TUMOR REMOVED FROM LEFT THIGH BILATERAL FALLOPIAN TUBES REMOVED 2013 RIGHT FOOT REPAIR 05/2018 RIGHT GREAT TOE FRACTURE 3 SCREWS AND A PALTE 08/2018 LEFT CATARACT SURGERY 11/2019 [place] 06/2020 SOCIAL HISTORY GENERAL: TOBACCO USE ARE YOU A: NONSMOKER. LATEX QUESTIONNAIRE LATEX ALLERGY : HAVE YOU EVER DEVELOPED ANY TYPE OF REACTION AFTER HANDLING LATEX PRODUCTS SUCH RUBBER GLOVES, CONDOMS, DIAPHRAGMS, BALLOONS, SOCKS, OR UNDERWEAR?NO LATEX ALLERGY : HAVE YOU EVER DEVELOPED ANY TYPE OF REACTION DURING OR AFTER DENTAL APPOINTMENT, VAGINAL/RECTAL EXAMINATION, SURGICAL PROCEDURE, OR ANY OTHER EXPOSURE?NO LATEX RISK : HAVE YOU EVER HAD ANY DIFFICULTY BREATHING OR HIVES AFTER EATING OR HANDLING ANY FRUITS, OR VEGETABLES; SUCH KIWI, BANANAS, STONE FRUITS, OR CHESTNUTSNO LATEX RISK : DO YOU HAVE A PREVIOUS PERSONAL HISTORY OF MORE THAN NINE SURGERIES, SPINA BIFIDA, OR REPEATED CATHERIZATIONS? NO LATEX RISK : ARE YOU FREQUENTLY EXPOSED TO LATEX PRODUCTS IN YOUR OCCUPATION?NO DATE ASKED : 10/23/2020 ALCOHOL USE: NO. RECREATIONAL DRUG USE DRUG USE?NO CAFFEINE CAFFEINE USE?YES HOW OFTEN AND HOW MUCH? 1 CUP DAY - [place] CONSTANTLY RASTAFARI [id number] LATTER-DAY LANGUAGE LANGUAGES SPOKEN:[place]STA RICAN LEARNING BARRIERS / SPECIAL NEEDS BARRIERS TO LEARNING?NO HEARING IMPAIRED?NO VISION IMPAIRED?YES :CORRECTIVE LENSES COGNITIVELY IMPAIRED?NO READINESS TO LEARN?YES LEARNING PREFERENCES?NO LEARNING CAPABILITIES PRESENT?YES EMOTIONAL BARRIERS?YES PTSD, ANXIETY, DEPRESSION SPECIAL DEVICES?YES :CANE, WALKER NEEDED ANIMATION ARTIST NEEDED?NO DIET: REGULAR. MARITAL STATUS: . TODAY'S VISIT 11/29/19 PATIENT DESCRIBES PAIN :HAVE IT ALL THE TIME, SHARP, STABBING FROM 0-10, WHAT LEVEL IS YOUR PAIN TODAY?7 PRECIPITATING FACTORS STANDING ALLEVIATING FACTORS LAYING DOWN IMPACT ON FUNCTION YES - PFS REFERRAL NEEDED?NO CLERGY REFERRAL NEEDED?NO PUBLIC HEALTH REFERRAL NEEDED?NO WAS THE PROVIDER NOTIFIED OF ANY PERTINENT INFO?YES HAS THE PATIENT BEEN EDUCATED REGARDING HIS/HER PLAN OF CARE?YES HAS THE PATIENT BEEN EDUCATED REGARDING PAIN, THE RISK FOR PAIN, THE IMPORTANCE OF EFFECTIVE PAIN MANAGEMENT, AND THE PAIN ASSESSMENT PROCESS?YES ADVANCE DIRECTIVE ADVANCE DIRECTIVE DISCUSSED WITH PATIENT:YES PATIENT DECLINED HCP INFORMATION. REVIEWED WITH PATIENT 11/01/18 1307 JSREVIEWED WITH PATIENT 01/07/19 0908 JSREVIEWED WITH PT 04/16/19 1008 NLJ. HOSPITALIZATION/MAJOR DIAGNOSTIC PROCEDURE SURGERIES REVIEW OF SYSTEMS CONSTITUTIONAL: ANY RECENT FEVER NO . CHILLS NO . WEIGHT CHANGE OF UNKNOWN REASONS NO . GASTROENTEROLOGY: NEW UNEXPLAINABLE CHANGES IN BOWEL CONTROL NO . CONSTIPATION NO . GENITOURINARY: ANY NEW CHANGE IN BLADDER CONTROL? NO . NEUROLOGY: NEW ONSET DIZZINESS OR NEUROLOGICAL CHANGES NOT MENTIONED NO . NEW NUMBNESS OR PAIN PATTERNS NOT MENTIONED AND PERTINENT TO TODAY'S VISIT NO . CARDIOLOGY: NEW CHEST PRESSURE NO . PATIENT DENIES NO . RESPIRATORY: UNEXPLAINABLE COUGH NO . NEW SHORTNESS OF BREATH NO . VITAL SIGNS WT 203.8 LBS, HT 63.5", BMI 35.53 INDEX, BP 134/62 MM HG, HR 115 /MIN, RR 18 /MIN, TEMP 98.0 F, OXYGEN SAT % 100%, SAFE IN ENV? (Y/N) YES, NA INITIALS AW 0925T.LAISHA SUTTON. EXAMINATION GENERAL EXAMINATION: GENERALAWAKE,ALERT ,PLEASANT . PSYCHAFFECT NORMAL . LUNGS:LUNG BELTRÁN ARE CLEAR TO AUSCULTATION BILATERALLY. GOOD MOVEMENT OF AIR . HEART:S1, S2 IN A REGULAR RATE AND RHYTHM. NO SIGNIFICANT MURMURS, RUBS OR GALLOPS NOTED . ASSESSMENTS CHRONIC BILATERAL LOW BACK PAIN WITH RIGHT-SIDED SCIATICA - M54.41 (PRIMARY) TREATMENT CHRONIC BILATERAL LOW BACK PAIN WITH RIGHT-SIDED SCIATICA NOTES: REDUCE OXYCODONE 5/325 TP 4 PILLS DAILY.REDUCE CYMBALTA TO 1 60MG CAP DAILY. PROCEDURE CODES FA211 ESTABILISHED PATIENT [facility] CHARGE DISPOSITION & COMMUNICATION FOLLOW UP 2 MONTHS (REASON: MED MGMNT/CHECK ON RESPONSE TO DOSE REDUCTION) ELECTRONICALLY SIGNED BY SAMANTHA TOLENTINO ON 10/23/2020 AT 12:53 PM EDT DISCLAIMER : THIS IS A VISIT SUMMARY EXTRACTED FROM THE [employer] CHART. IT IS NOT A COPY OF THE [employer] PROGRESS NOTE. ROSSY
== END ==
LOC: M PAIN 09:30
PROVIDERS: ATTEND Nurse Practitioner Family
DX: M54.41 Lumbago with sciatica, right side (principal); G89.29 Other chronic pain; E11.9 Type 2 diabetes mellitus without complications; Z86.59 Personal history of other mental and behavioral disorders; Z88.2 Allergy status to sulfonamides; Z88.5 Allergy status to narcotic agent; Z79.4 Long term (current) use of insulin; Z79.82 Long term (current) use of aspirin; Z79.899 Other long term (current) drug therapy

== ENCOUNTER → 2020-12-04 | Outpatient (REF) | payer OTHER ==
[2020-12-04 17:51] LABS: PERCENT SATURATION 19.3 % (13.2-45.0)
== END ==
LOC: M LAB REF 17:12
PROVIDERS: ATTEND Internal Medicine Nephrology
DX: D64.9 Anemia, unspecified (principal)

== ENCOUNTER → 2020-12-20 | Outpatient (CLI) | payer OTHER ==
[~2020-12-20] MED LIST changes: +MAGN500T2 PO
== END ==
LOC: M LABSMTC 08:52
PROVIDERS: ATTEND Anesthesiology
DX: Z01.812 Encounter for preprocedural laboratory examination (principal); Z20.822 Contact with and (suspected) exposure to COVID-19

== ENCOUNTER → 2020-12-21 | Outpatient (CLI) | payer OTHER ==
--- NOTE | 2020-12-23 03:55 | ECWPNPC ---
PATIENT NAME: KOFFI TURCIOS : 1965 GENDER: FEMALE VISIT DATE: 12/21/2020 DISCHARGE DATE: 12/21/20939 VISIT LOCKED DATE TIME: PHYSICIAN: VONNIE YEBOAH PHYSICIAN PAGER NO: ACTIVE RESOURCE: VONNIE YEBOAH REASON FOR APPOINTMENT 1. MED MGMNT/CHECK ON RESPONSE TO DOSE REDUCTION HISTORY OF PRESENT ILLNESS DEPRESSION SCREENING: PHQ-9 LITTLE INTEREST OR PLEASURE IN DOING THINGSNEARLY EVERY DAY FEELING DOWN, DEPRESSED, OR HOPELESSNEARLY EVERY DAY TROUBLE FALLING OR STAYING ASLEEP, OR SLEEPING TOO MUCHNEARLY EVERY DAY FEELING TIRED OR HAVING LITTLE ENERGYNEARLY EVERY DAY POOR APPETITE OR OVEREATING NOT AT ALL FEELING BAD ABOUT YOURSELF-OR THAT YOU ARE A FAILURE OR HAVE LET YOURSELF OR YOUR FAMILY DOWN NEARLY EVERY DAY TROUBLE CONCENTRATING ON THINGS, SUCH READING THE NEWSPAPER OR WATCHING TELEVISION MORE THAN HALF THE DAYS MOVING OR SPEAKING SO SLOWLY THAT OTHER PEOPLE COULD HAVE NOTICED. OR THE OPPOSITE- BEING SO FIDGETY OR RESTLESS THAT YOU HAVE BEEN MOVING AROUND A LOT MORE THAN USUALNOT AT ALL THOUGHTS THAT YOU WOULD BE BETTER OFF , OR OF HURTING YOURSELF IN SOME WAY?NOT AT ALL TOTAL SCORE:17 INTERPRETATIONMODERATELY SEVERE DEPRESSION PHQ-2 (2015 EDITION) LITTLE INTEREST OR PLEASURE IN DOING THINGS?NEARLY EVERY DAY FEELING DOWN, DEPRESSED, OR HOPELESS?NEARLY EVERY DAY TOTAL SCORE6 GENERAL: HERE FOR FOLLOW-UP AND ROUTINE MANAGEMENT OF MEDICATIONS FOR CHRONIC PAIN. OVERALL DOING VERY WELL TODAY. FINDS HER CURRENT CHRONIC PAIN MEDICATIONS HELPFUL AT REDUCING PAIN AND KEEPING HER FUNCTIONAL. DENIES ADVERSE SIDE EFFECTS. MEDICALLY SHE HAS BEEN STABLE. -. FALL RISK SCREENING: SCREENING ONE FALL LAST MONTH IN DECEMBER/OCTOBER NO MAJOR INJURIES. PAIN SCREENING: PATIENT HAS A COMPLAINT OF ACUTE OR CHRONIC PAIN :YES LOCATION OF PAIN:LOW BACK INTENSITY OF PAIN (SCALE OF 1 TO 10):7 WHAT DOES YOUR PAIN FEEL LIKE:ACHING, BURNING, INTERMITTENT, TENDER, THROBBING, SORE, SHOOTING DURATION:INTERMITTENT PAIN IS INCREASED BY:ACTIVITIES, PROLONGED STANDING PAIN IS DECREASED BY:USE OF PAIN MEDICATIONS NURSING NOTE: -. PAIN CENTER INTAKE QUESTIONS: DO YOU HAVE A HISTORY OF MRSA? :NO DO YOU TAKE A BLOOD THINNERS? :NO ASPIRIN 81 81 MG DO YOU HAVE ANY BLEEDING DISORDERS? :NO ANY NEW NUMBNESS OR WEAKNESS IN YOUR LEGS OR ARMS? :NO ANY PACEMAKER,DEFIBRILLATOR, OR DORSAL COLUMN STIMULATOR? :NO DO YOU HAVE ANY RASHES OR OPEN SORES? :NO ARE YOU ALLERGIC TO IV DYE? :NO ARE YOU DIABETIC? :YES ANY NEW PROBLEMS WITH YOUR MEDICATIONS? :NO HAVE YOU RECEIVED A VACCINE IN THE PAST 30 DAYS? :NO DO YOU PLAN TO RECEIVE A VACCINE IN THE NEXT 21 DAYS? :NO DO YOU NEED ANY PRESCRIPTION? :NO DO YOU TAKE ANY IMMUNOSUPPRESSIVE MEDICATIONS? :NO IS THERE A CHANCE YOU COULD BE ? :NO ARE YOU BREAST FEEDING? :NO CURRENT MEDICATIONS TAKING FENOFIBRATE 145 MG TABLET 1 TABLET ORALLY ONCE A DAY TAKING LEVEMIR FLEX TOUCH 90 INJECTION UNITS SQ 20 UNITS DAILY TAKING LOSARTAN/AMLODIPINE 25 MG 1 TAB ORAL ONCE DAILY TAKING PAXIL 10 MG TABLET 1 TABLET IN THE MORNING ORALLY ONCE A DAY TAKING ASPIRIN 81 81 MG TABLET CHEWABLE 1 TABLET ORALLY ONCE A DAY TAKING CYMBALTA 60 MG 1 TABLET PO ONCE DAILY TAKING COLACE 100 MG CAPSULE 1 CAPSULE NEEDED ORALLY BID TAKING AMITRIPTYLINE HCL 25 MG TABLET 1-2 ORALLY ONCE A DAY AT NIGHT TAKING TIZANIDINE HCL 4 MG TABLET 1 TAB ORALLY NEEDED FOR SPASMS AND PAIN THREE TIMES A DAY MDD3 TAKING PERCOCET 5-325 MG TABLET 1 TABLET NEEDED ORALLY Q4-6H MDD5 NOT-TAKING CYMBALTA 30 MG CAPSULE DELAYED RELEASE PARTICLES 1 CAPSULE ORALLY BEFORE BEDTIME NOT-TAKING LYRICA 300 MG CAPSULE 1 CAPSULE ORALLY FOR PAIN BID MDD2 NOT-TAKING NOVOLOG MIX 1 INJECTION 1 SUBCUTANEOUSLY ON SLIDING SCALE NOT-TAKING METFORMIN 2 TAB 1000 MG ORAL BID NOT-TAKING TANZEUM 50 MG PEN-INJECTOR SUBCUTANEOUS EVERY MONDAY NOT-TAKING ATARAX TABLET NEEDED ORAL DAILY NOT-TAKING VITAMIN D (ERGOCALCIFEROL) 89274 UNIT CAPSULE 1 CAPSULE ORALLY WEEKLY NOT-TAKING POTASSIUM CHLORIDE 20 TABLET 1 TAB P.O. DAILY NOT-TAKING TOUJEO INSULIN INJECTION 300 ML 90 UNITS TWICE DAILY NOT-TAKING BUSPAR 10 MG TABLET 1 TABLET ORALLY TWICE A DAY NOT-TAKING VITAMIN D 77193 U TABLET ORALLY WEEKLY NOT-TAKING JARDIANCE 25 MG TABLET 1 TABLET ORALLY ONCE A DAY NOT-TAKING ESCITALOPRAM OXALATE 10 MG TABLET 1 TABLET ORALLY ONCE A DAY NOT-TAKING ZOLOFT 100 MG TABLET 1 TABLET ORALLY ONCE A DAY NOT-TAKING ZOLOFT 100 MG TABLET 1 TABLET ORALLY ONCE A DAY MEDICATION LIST REVIEWED AND RECONCILED WITH THE PATIENT PAST MEDICAL HISTORY DIABETES MALLITUS DEPRESSION ANXIETY PTSD BACK PAIN LEG PAIN SOCIAL ANXIETY ADHD ALLERGIES SULFA (FOR ALLERGY USE ONLY): HIVES - ALLERGY MORPHINE SULFATE: INCREASED ANXIETY - ALLERGY SURGICAL HISTORY CHOLECYSTECTOMY APPENDECTOMY 1970S C SECTION 1988 HYSTERECTOMY TUMOR REMOVED FROM LEFT THIGH BILATERAL FALLOPIAN TUBES REMOVED 2013 RIGHT FOOT REPAIR 05/2018 RIGHT GREAT TOE FRACTURE 3 SCREWS AND A PALTE 08/2018 LEFT CATARACT SURGERY 11/2019 [place] 06/2020 COLONOSCOPY 12/2020 SOCIAL HISTORY GENERAL: TOBACCO USE ARE YOU A: NONSMOKER. LATEX QUESTIONNAIRE LATEX ALLERGY : HAVE YOU EVER DEVELOPED ANY TYPE OF REACTION AFTER HANDLING LATEX PRODUCTS SUCH RUBBER GLOVES, CONDOMS, DIAPHRAGMS, BALLOONS, SOCKS, OR UNDERWEAR?NO LATEX ALLERGY : HAVE YOU EVER DEVELOPED ANY TYPE OF REACTION DURING OR AFTER DENTAL APPOINTMENT, VAGINAL/RECTAL EXAMINATION, SURGICAL PROCEDURE, OR ANY OTHER EXPOSURE?NO LATEX RISK : HAVE YOU EVER HAD ANY DIFFICULTY BREATHING OR HIVES AFTER EATING OR HANDLING ANY FRUITS, OR VEGETABLES; SUCH KIWI, BANANAS, STONE FRUITS, OR CHESTNUTSNO LATEX RISK : DO YOU HAVE A PREVIOUS PERSONAL HISTORY OF MORE THAN NINE SURGERIES, SPINA BIFIDA, OR REPEATED CATHERIZATIONS? NO LATEX RISK : ARE YOU FREQUENTLY EXPOSED TO LATEX PRODUCTS IN YOUR OCCUPATION?NO DATE ASKED : 12/21/2020 ALCOHOL USE: NO. RECREATIONAL DRUG USE DRUG USE?NO CAFFEINE CAFFEINE USE?YES HOW OFTEN AND HOW MUCH? 1 CUP DAY - SODA CONSTANTLY ALEVISM [id number] ADVENTISM LANGUAGE LANGUAGES SPOKEN:BELARUSIAN LEARNING BARRIERS / SPECIAL NEEDS BARRIERS TO LEARNING?NO HEARING IMPAIRED?NO VISION IMPAIRED?YES :CORRECTIVE LENSES COGNITIVELY IMPAIRED?NO READINESS TO LEARN?YES LEARNING PREFERENCES?NO LEARNING CAPABILITIES PRESENT?YES EMOTIONAL BARRIERS?YES PTSD, ANXIETY, DEPRESSION SPECIAL DEVICES?YES :CANE, WALKER NEEDED RN RESEARCH NEEDED?NO DIET: REGULAR. MARITAL STATUS: . TODAY'S VISIT 11/29/19 PATIENT DESCRIBES PAIN :HAVE IT ALL THE TIME, SHARP, STABBING FROM 0-10, WHAT LEVEL IS YOUR PAIN TODAY?7 PRECIPITATING FACTORS STANDING ALLEVIATING FACTORS LAYING DOWN IMPACT ON FUNCTION YES - PFS REFERRAL NEEDED?NO CLERGY REFERRAL NEEDED?NO PUBLIC HEALTH REFERRAL NEEDED?NO WAS THE PROVIDER NOTIFIED OF ANY PERTINENT INFO?YES HAS THE PATIENT BEEN EDUCATED REGARDING HIS/HER PLAN OF CARE?YES HAS THE PATIENT BEEN EDUCATED REGARDING PAIN, THE RISK FOR PAIN, THE IMPORTANCE OF EFFECTIVE PAIN MANAGEMENT, AND THE PAIN ASSESSMENT PROCESS?YES ADVANCE DIRECTIVE ADVANCE DIRECTIVE DISCUSSED WITH PATIENT:YES PATIENT DECLINED HCP INFORMATION. REVIEWED WITH PATIENT 11/01/18 1307 JSREVIEWED WITH PATIENT 01/07/19 0900 JSREVIEWED WITH PT 04/16/19 1008 NLJ. HOSPITALIZATION/MAJOR DIAGNOSTIC PROCEDURE SURGERIES REVIEW OF SYSTEMS CONSTITUTIONAL: ANY RECENT FEVER NO . CHILLS NO . WEIGHT CHANGE OF UNKNOWN REASONS NO . GASTROENTEROLOGY: NEW UNEXPLAINABLE CHANGES IN BOWEL CONTROL NO . CONSTIPATION NO . GENITOURINARY: ANY NEW CHANGE IN BLADDER CONTROL? NO . NEUROLOGY: NEW ONSET DIZZINESS OR NEUROLOGICAL CHANGES NOT MENTIONED NO . NEW NUMBNESS OR PAIN PATTERNS NOT MENTIONED AND PERTINENT TO TODAY'S VISIT NO . CARDIOLOGY: NEW CHEST PRESSURE NO . PATIENT DENIES NO . RESPIRATORY: UNEXPLAINABLE COUGH NO . NEW SHORTNESS OF BREATH NO . VITAL SIGNS WT 200.4 LBS, HT 63.5", BMI 34.94 INDEX, BP 127/59 MM HG, HR 124 /MIN, RR 18 /MIN, TEMP 97.9 F, OXYGEN SAT % 98%, SAFE IN ENV? (Y/N) YES, NA INITIALS AW 0858T.LAISHA SUTTON. EXAMINATION GENERAL EXAMINATION: GENERALAWAKE,ALERT ,PLEASANT . PSYCHAFFECT NORMAL . LUNGS:LUNG BELTRÁN ARE CLEAR TO AUSCULTATION BILATERALLY. GOOD MOVEMENT OF AIR . HEART:S1, S2 IN A REGULAR RATE AND RHYTHM. NO SIGNIFICANT MURMURS, RUBS OR GALLOPS NOTED . ASSESSMENTS CHRONIC PRESCRIPTION OPIATE USE - Z79.891 (PRIMARY) CHRONIC BILATERAL LOW BACK PAIN WITH RIGHT-SIDED SCIATICA - M54.41 DIABETIC PERIPHERAL NEUROPATHY - E11.42 TREATMENT CHRONIC PRESCRIPTION OPIATE USE CONTINUE COLACE CAPSULE, 100 MG, 1 CAPSULE NEEDED, ORALLY, BID CONTINUE AMITRIPTYLINE HCL TABLET, 25 MG, 1-2, ORALLY, ONCE A DAY AT NIGHT CONTINUE TIZANIDINE HCL TABLET, 4 MG, 1 TAB, ORALLY NEEDED FOR SPASMS AND PAIN, THREE TIMES A DAY MDD3 REFILL PERCOCET TABLET, 5-325 MG, 1 TABLET NEEDED, ORALLY, Q4-6H MDD5, 30 DAYS, 150, REFILLS 0 LAB: URINE TEST GROUP TARAH INTERIANO 12/21/2020 9:35:33 AM > LAST DOSE: PERCOCET 12/21/2020 @7AM NOTES: ISTOP REGISTRY REVIEWED AND DEMONSTRATES COMPLLIANCE. BRINGS IN MEDICATIONS WHICH IS APPROPRIATE FOR WHAT WAS DISPENSED. RECENT URINE TOXICOLOGY REVIEWED. NO UNAUTHORIZED MEDICATIONS. NO ILLICIT SUBSTANCES AND PRESCRIBED MEDICATIONS WERE PRESENT. PROCEDURE CODES FA211 ESTABILISHED PATIENT [facility] CHARGE DISPOSITION & COMMUNICATION FOLLOW UP 3 MONTHS (REASON: MED MGMNT/UTOX REVIEW) ELECTRONICALLY SIGNED BY SAMANTHA TOLENTINO ON 12/22/2020 AT 10:11 AM EDT DISCLAIMER : THIS IS A VISIT SUMMARY EXTRACTED FROM THE [employer] CHART. IT IS NOT A COPY OF THE [employer] PROGRESS NOTE. MTDD
== END ==
LOC: M PAIN 09:00
PROVIDERS: ATTEND Nurse Practitioner Family
DX: M54.41 Lumbago with sciatica, right side (principal); E11.42 Type 2 diabetes mellitus with diabetic polyneuropathy; G89.29 Other chronic pain; Z86.59 Personal history of other mental and behavioral disorders; Z88.2 Allergy status to sulfonamides; Z88.5 Allergy status to narcotic agent; Z79.4 Long term (current) use of insulin; Z79.82 Long term (current) use of aspirin; Z79.899 Other long term (current) drug therapy

== ENCOUNTER 2020-12-25 07:36 | Day surgery (SDC) | payer OTHER ==
[~2020-12-25] VITALS: Ht 162.6 cm; Wt 88.9 kg
[~2020-12-25 07:36] MED LIST changes: +NS 1,000 ML IV ONE
[2020-12-25] MEDS ORDERED: propofoL 500 MG/50 ML VIAL As Ordered ONE ×2 (09:02→09:44)
[2020-12-25] MEDS ORDERED: LIDOCAINE 2% 100MG/5ML SDV (FOR ANES.) As Ordered ONE (09:02)
[2020-12-25] MEDS ORDERED: fentaNYL 100 MCG/2 ML INJECTION (J3010) As Ordered ONE (09:02)
--- NOTE | 2020-12-25 09:17 | ROOR ---
Patient Name: Bettina Bell Procedure Date: 12/25/2020 8:58 AM Date of : 1965 Age: 55 Room: [facility] Gender: Female Note Status: Finalized Procedure: Upper GI endoscopy Indications: Cirrhosis rule out esophageal varices Providers: Magdy Garcia MD Referring MD: Reg Bauer MD Requesting Provider: Medicines: Propofol per Anesthesia Complications: No immediate complications. Procedure: Pre-Anesthesia Assessment: - The heart rate, respiratory rate, oxygen saturations, blood pressure, adequacy of pulmonary ventilation, and response to care were monitored throughout the procedure. The Endoscope was introduced through the mouth, and advanced to the second part of duodenum. The upper GI endoscopy was accomplished without difficulty. The patient tolerated the procedure well. Findings: Scattered mild inflammation characterized by congestion (edema) was found in the gastric antrum. Biopsies were taken with a cold forceps for histology. The exam of the stomach was otherwise normal. The examined esophagus was normal. The examined duodenum was normal. Impression: - Mild nodular gastritis. Biopsied. - Normal esophagus. - Normal examined duodenum. - No significant varices seen. Recommendation: - Observe patient's clinical course. - Continue present medications. Procedure Code(s): --- Professional --- 89078, Esophagogastroduodenoscopy, flexible, transoral; with biopsy, single or multiple Diagnosis Code(s): --- Professional --- K74.60, Unspecified cirrhosis of liver K29.70, Gastritis, unspecified, without bleeding CPT copyright 2019 [employer]. All rights reserved. The codes documented in this report are preliminary and upon envelope folder review may be revised to meet current compliance requirements. Magdy Garcia MD Magdy Garcia MD 12/25/2020 9:16:59 AM Electronically signed by Magdy Garcia MD Number of Addenda: 0 Note Initiated On: 12/25/2020 8:58 AM Estimated Blood Loss: Estimated blood loss: none.
--- NOTE | 2020-12-25 09:57 | ROOR ---
Patient Name: Bettina Bell Procedure Date: 12/25/2020 9:01 AM Date of : 1965 Age: 55 Room: [facility] Gender: Female Note Status: Finalized Procedure: Colonoscopy Indications: Abnormal CT of the GI tract, Follow-up of colitis, Follow-up of acute ischemic colitis Providers: Magdy Garcia MD Referring MD: Reg Bauer MD Requesting Provider: Medicines: Monitored Anesthesia Care Complications: No immediate complications. Procedure: Pre-Anesthesia Assessment: - The heart rate, respiratory rate, oxygen saturations, blood pressure, adequacy of pulmonary ventilation, and response to care were monitored throughout the procedure. The Colonoscope was introduced through the anus and advanced to 10 cm into the ileum. The colonoscopy was performed without difficulty. The patient tolerated the procedure well. The quality of the bowel preparation was fair and poor. Findings: The perianal and digital rectal examinations were normal. A segmental area of nodular, scarred and thickened folds of the mucosa was found in the proximal descending colon and at the splenic flexure. Biopsies were taken with a cold forceps for histology. Two semi-sessile polyps were found in the descending colon and mid descending colon. The polyps were 5 to 6 mm in size. These polyps were removed with a cold snare. Resection and retrieval were complete. To prevent bleeding after the polypectomy, two hemostatic clips were successfully placed. Internal hemorrhoids were found during retroflexion. The hemorrhoids were medium-sized. The terminal ileum appeared normal. Impression: - Preparation of the colon wassuboptimal - 15 cm long segment of nodular, scarred and thickened folds of the mucosa in the proximal descending colon and at the splenic flexure. Biopsied. - r/o ischemic vs IBD. - Two 5 to 6 mm polyps in the descending colon and in the mid descending colon, removed with a cold snare. Resected and retrieved. Clips were placed. - Internal hemorrhoids. Recommendation: - Repeat colonoscopy in 1 year because the bowel preparation was suboptimal. - Telephone endoscopist for pathology results in 2 weeks. Procedure Code(s): --- Professional --- 93199, Colonoscopy, flexible; with removal of tumor(s), polyp(s), or other lesion(s) by snare technique 11747, 59, Colonoscopy, flexible; with biopsy, single or multiple Diagnosis Code(s): --- Professional --- K64.8, Other hemorrhoids K63.89, Other specified diseases of intestine K63.5, Polyp of colon K52.9, Noninfective gastroenteritis and colitis, unspecified K55.039, Acute (reversible) ischemia of large intestine, extent unspecified R93.3, Abnormal findings on diagnostic imaging of other parts of digestive tract CPT copyright 2019 [employer]. All rights reserved. The codes documented in this report are preliminary and upon center manager review may be revised to meet current compliance requirements. Magdy Garcia MD Magdy Garcia MD 12/25/2020 9:56:35 AM Electronically signed by Mgady Garcia MD Number of Addenda: 0 Note Initiated On: 12/25/2020 9:01 AM Estimated Blood Loss: Estimated blood loss: none.
[2020-12-25 10:10] VITALS: BP 131/62
== END 2020-12-25 10:24 | disposition home or self-care (01) ==
LOC: M OPP 07:36
PROVIDERS: ATTEND Internal Medicine Gastroenterology
DX: K63.5 Polyp of colon (principal); K63.89 Other specified diseases of intestine; K64.8 Other hemorrhoids; K52.9 Noninfective gastroenteritis and colitis, unspecified; K74.60 Unspecified cirrhosis of liver; K29.70 Gastritis, unspecified, without bleeding; R93.3 Abnormal findings on diagnostic imaging of other parts of digestive tract; Z79.4 Long term (current) use of insulin; Z79.891 Long term (current) use of opiate analgesic; Z79.899 Other long term (current) drug therapy; Z79.82 Long term (current) use of aspirin; Z80.1 Family history of malignant neoplasm of trachea, bronchus and lung; Z88.2 Allergy status to sulfonamides; Z88.5 Allergy status to narcotic agent
CPT/HCPCS: 43239; 45380; 45385; 88305; J3010

== ENCOUNTER → 2021-04-23 | Outpatient (REF) | payer OTHER ==
[~2021-04-23] MED LIST changes: +ERGO500029 PO; -NS 1,000 ML IV ONE; -VITA50005 PO
== END ==
LOC: M LAB REF 12:59
PROVIDERS: ATTEND Internal Medicine Nephrology
DX: N18.32 Chronic kidney disease, stage 3b (principal)

== ENCOUNTER → 2021-05-21 | Outpatient (CLI) | payer OTHER | LOC: M PAIN 10:30 | PROVIDERS: ATTEND Anesthesiology | DX: M54.16 Radiculopathy, lumbar region (principal); M54.50 Low back pain, unspecified; G89.29 Other chronic pain; E11.9 Type 2 diabetes mellitus without complications; Z79.4 Long term (current) use of insulin; Z79.82 Long term (current) use of aspirin; Z79.899 Other long term (current) drug therapy ==

== ENCOUNTER → 2021-10-28 | Outpatient (REF) | payer OTHER ==
[~2021-10-28] MED LIST changes: -D31000TA2 PO; +LOSA25TA13 PO; -LOSA25TA14 PO; +TIZA10TA PO; -TIZA4TAB4 PO; +VITA100093 PO
== END ==
LOC: M LAB REF 16:57
PROVIDERS: ATTEND Internal Medicine Nephrology
DX: N32.81 Overactive bladder (principal)

== ENCOUNTER → 2021-12-23 | Outpatient (CLI) | payer OTHER | LOC: M PAIN 10:45 | PROVIDERS: ATTEND Anesthesiology | DX: M54.16 Radiculopathy, lumbar region (principal); G89.29 Other chronic pain; E11.9 Type 2 diabetes mellitus without complications; Z86.59 Personal history of other mental and behavioral disorders; Z88.2 Allergy status to sulfonamides; Z88.5 Allergy status to narcotic agent; Z79.4 Long term (current) use of insulin; Z79.82 Long term (current) use of aspirin; Z79.899 Other long term (current) drug therapy ==

== ENCOUNTER → 2022-03-08 | Outpatient (CLI) | payer OTHER | LOC: M PAIN 10:45 | PROVIDERS: ATTEND Nurse Practitioner Family | DX: M54.16 Radiculopathy, lumbar region (principal); G89.29 Other chronic pain; E11.9 Type 2 diabetes mellitus without complications; Z86.59 Personal history of other mental and behavioral disorders; Z88.2 Allergy status to sulfonamides; Z88.5 Allergy status to narcotic agent; Z79.4 Long term (current) use of insulin; Z79.82 Long term (current) use of aspirin; Z79.899 Other long term (current) drug therapy ==

== ENCOUNTER → 2022-04-06 | Outpatient (CLI) | payer BC, OTHER ==
[~2022-04-06] MED LIST changes: +CYCL-707 PO; +OXYC1CAP PO
== END ==
LOC: M LABSMTC 10:01
PROVIDERS: ATTEND Anesthesiology
DX: Z01.812 Encounter for preprocedural laboratory examination (principal); Z11.52 Encounter for screening for COVID-19

== ENCOUNTER 2022-04-11 06:51 | Day surgery (SDC) | payer OTHER ==
[~2022-04-11] VITALS: Ht 162.6 cm; Wt 93.2 kg
[~2022-04-11 06:51] MED LIST changes: +NS 1,000 ML IV ONE
[2022-04-11] MEDS ORDERED: fentaNYL 100 MCG/2 ML INJECTION As Ordered ONE (07:34)
[2022-04-11] MEDS ORDERED: propofoL 200 MG/20 ML VIAL As Ordered ONE ×2 (07:48→08:06)
[2022-04-11] MEDS ORDERED: LIDOCAINE 2% 100MG/5ML SDV (FOR ANES.) As Ordered ONE (07:48)
[2022-04-11 08:35] VITALS: BP 110/54
== END 2022-04-11 08:42 | disposition home or self-care (01) ==
LOC: M OPP 06:51
PROVIDERS: ATTEND Internal Medicine Gastroenterology
DX: K64.8 Other hemorrhoids (principal); K51.40 Inflammatory polyps of colon without complications; K55.039 Acute (reversible) ischemia of large intestine, extent unspecified; Z86.010 Personal history of colon polyps; K31.89 Other diseases of stomach and duodenum; K29.60 Other gastritis without bleeding; Z79.4 Long term (current) use of insulin; Z79.02 Long term (current) use of antithrombotics/antiplatelets; Z79.82 Long term (current) use of aspirin; Z79.891 Long term (current) use of opiate analgesic; Z79.899 Other long term (current) drug therapy; Z88.2 Allergy status to sulfonamides; Z88.5 Allergy status to narcotic agent; Z80.0 Family history of malignant neoplasm of digestive organs; I12.9 Hypertensive chronic kidney disease with stage 1 through stage 4 chronic kidney disease, or unspecified chronic kidney disease; K70.30 Alcoholic cirrhosis of liver without ascites; M79.7 Fibromyalgia; N18.32 Chronic kidney disease, stage 3b; G43.909 Migraine, unspecified, not intractable, without status migrainosus; Z80.1 Family history of malignant neoplasm of trachea, bronchus and lung; Z80.42 Family history of malignant neoplasm of prostate
CPT/HCPCS: 43239; 45385; 88305; 88342; J3010

== ENCOUNTER → 2022-06-07 | Outpatient (CLI) | payer OTHER ==
[~2022-06-07] MED LIST changes: -NS 1,000 ML IV ONE
== END ==
LOC: M PAIN 10:15
PROVIDERS: ATTEND Nurse Practitioner Family
DX: M54.16 Radiculopathy, lumbar region (principal); G89.29 Other chronic pain; E11.9 Type 2 diabetes mellitus without complications; Z86.59 Personal history of other mental and behavioral disorders; Z88.2 Allergy status to sulfonamides; Z88.5 Allergy status to narcotic agent; Z79.4 Long term (current) use of insulin; Z79.82 Long term (current) use of aspirin; Z79.899 Other long term (current) drug therapy

== ENCOUNTER → 2022-08-02 | Outpatient (CLI) | payer OTHER | LOC: M PAIN 11:00 | PROVIDERS: ATTEND Nurse Practitioner Family | DX: M54.16 Radiculopathy, lumbar region (principal); G89.29 Other chronic pain; E11.9 Type 2 diabetes mellitus without complications; Z86.59 Personal history of other mental and behavioral disorders; Z88.2 Allergy status to sulfonamides; Z88.5 Allergy status to narcotic agent; Z79.4 Long term (current) use of insulin; Z79.82 Long term (current) use of aspirin; Z79.899 Other long term (current) drug therapy ==

== ENCOUNTER → 2022-09-09 | Outpatient (CLI) | payer OTHER ==
[~2022-09-09] MED LIST changes: +INSU100I6 SC; -LEVE1INJ5 SC
== END ==
LOC: M PAIN 14:15
PROVIDERS: ATTEND Nurse Practitioner Family
DX: M54.16 Radiculopathy, lumbar region (principal); G89.29 Other chronic pain; E11.9 Type 2 diabetes mellitus without complications; Z86.59 Personal history of other mental and behavioral disorders; Z88.2 Allergy status to sulfonamides; Z88.5 Allergy status to narcotic agent; Z79.4 Long term (current) use of insulin; Z79.82 Long term (current) use of aspirin; Z79.899 Other long term (current) drug therapy

== ENCOUNTER → 2022-10-31 | Outpatient (CLI) | payer OTHER | LOC: M PAIN 11:15 | PROVIDERS: ATTEND Nurse Practitioner Family | DX: M54.16 Radiculopathy, lumbar region (principal); G89.29 Other chronic pain; E11.9 Type 2 diabetes mellitus without complications; Z86.59 Personal history of other mental and behavioral disorders; Z88.2 Allergy status to sulfonamides; Z88.5 Allergy status to narcotic agent; Z79.4 Long term (current) use of insulin; Z79.82 Long term (current) use of aspirin; Z79.899 Other long term (current) drug therapy ==

== ENCOUNTER → 2023-01-02 | Outpatient (CLI) | payer OTHER ==
[~2023-01-02] MED LIST changes: -K-TA10TA2 PO; +POTA-165 PO
== END ==
LOC: M PAIN 13:45
PROVIDERS: ATTEND Nurse Practitioner Family
DX: M54.16 Radiculopathy, lumbar region (principal); G89.29 Other chronic pain; E11.9 Type 2 diabetes mellitus without complications; Z86.59 Personal history of other mental and behavioral disorders; Z88.5 Allergy status to narcotic agent; Z79.4 Long term (current) use of insulin; Z79.82 Long term (current) use of aspirin; Z79.899 Other long term (current) drug therapy

== ENCOUNTER → 2023-03-09 | Outpatient (CLI) | payer OTHER | LOC: M PAIN 15:45 | PROVIDERS: ATTEND Nurse Practitioner Family | DX: M54.16 Radiculopathy, lumbar region (principal); G89.29 Other chronic pain; E11.9 Type 2 diabetes mellitus without complications; Z86.59 Personal history of other mental and behavioral disorders; Z88.2 Allergy status to sulfonamides; Z88.5 Allergy status to narcotic agent; Z79.4 Long term (current) use of insulin; Z79.82 Long term (current) use of aspirin; Z79.85 Long-term (current) use of injectable non-insulin antidiabetic drugs; Z79.899 Other long term (current) drug therapy ==

== ENCOUNTER → 2024-11-26 | Outpatient (REF) ==
[~2024-11-26] MED LIST changes: +NYST1POW3 TOP; -NYST1POW9 TOP; -OXYC1CAP PO; +OXYC1CAP2 PO
== END ==
LOC: M PLAIMG 14:24
PROVIDERS: ATTEND Internal Medicine
DX: R52 Pain, unspecified (principal)